=== PATIENT | female | born 1940 | race Caucasian/White ===

== ENCOUNTER → 2017-03-24 11:05 | Outpatient (CLI) | payer MEDICARE, OTHER, SELFPAY ==
--- NOTE | 2017-03-24 11:11 | PCM.CR.ITP ---
Exercise - Initial Assessment - Visit Date of Eval: 03/24/17 - Stages of Change Stages of Change:: Action - Exercise Prescription Mode:: Treadmill, Airdyne, NuStep Angina with exercise?: No Target Heart Rate:: 101-108 - Hypertension Do any of the following apply?: Yes, Medication Resting Blood Pressure:: 120/60 - Intervention Home Exercise/Activity Goal:: Sitting Time <3 hrs/day - Education Goals:: Warm-up, RPE MELIDA Scale, S/S, Safe Exercise, Self-Monitoring - Exercise Program Goals Exercise Program Goals: Aerobic Activity >30 min Nutrition - Initial Assessment - Program Goals Nutrition Program Goals: LDL <70. Total Cholesterol <200. HDL >45. Triglycerides <150. HgbA1C <7%. BMI <25 - Visit Date of Assessment:: 03/24/17 - Stages of Change Stages of Change:: Action - Diabetes Diabetes:: No - Weight Management Height: 5 ft 2 in Weight:: 93.9 kg Body Fat %:: 38 - Intervention Referral to dietitian:: Yes Will attend diet classes:: Yes - Education Gave educational materials for:: Healthy eating Nutrition - 30-Day Assessment - Program Goals Nutrition Program Goals: LDL <70. Total Cholesterol <200. HDL >45. Triglycerides <150. HgbA1C <7%. BMI <25 - Diabetes Diabetes:: No Nutrition - 60-Day Assessment - Program Goals Nutrition Program Goals: LDL <70. Total Cholesterol <200. HDL >45. Triglycerides <150. HgbA1C <7%. BMI <25 - Diabetes Diabetes:: No Nutrition - 90-Day Assessment - Program Goals Nutrition Program Goals: LDL <70. Total Cholesterol <200. HDL >45. Triglycerides <150. HgbA1C <7%. BMI <25 - Diabetes Diabetes:: No Nutrition - Final Assessment - Program Goals Nutrition Program Goals: LDL <70. Total Cholesterol <200. HDL >45. Triglycerides <150. HgbA1C <7%. BMI <25 - Diabetes Diabetes:: No Tobacco - Initial Assessment - Program Goals Tobacco Program Goals: Complete smoking cessation. Attend education classes. Improve Knowledge Test score - Stage of Change Stages of Change:: Action - Learning Barriers Learning Barriers: Vision - Family Support Do you have family support?: Yes - Tobacco Use Tobacco Use: Non-smoker - Former smoker quit at age 21. Do you use smokeless tobacco?: No - Intervention Smoking Cessation Referral:: No Individual Education/Counseling:: No Education Schedule Given:: Yes - Education Gave educational material for:: Coronary artery disease, Risk factors, Sexuality, Medical compliance, Cardiac A&P, Angina signs & symptoms Psychosocial - Initial Assess - Target Goals Target Goals: Assess presence or absence of depression. Using a valid screening tool, maximizes coping skills. Positive support system - Stages of Change Stages of Change:: Action - Psychosocial Test Tool Used:: HANDS Depression Questionnaire - Intervention PS - Interventions: Yes Attend Stress Management Classes, No Referral to Mental Health, No Referral to [facility] Case Management, No Referral to Physician, No Uses Stress Management Skills - Education Gave educational materials for:: Coping techniques, Signs & symptoms of depression, Stress management, Relaxation techniques - Patient/Program Goal Preventative Medication(s):: Aspirin, ROSALVA inhibitor, Clopidogrel, Beta steven, Statin/lipid - Assistive Devices Assistive Devices:: None Fall Risk Assessed:: Yes Patient Health Questionnaire Initial Assessment 1. Little interest or pleasure in doing things: Several days 2. Feeling down, depressed, or hopeless: Not at all 3. Trouble falling or staying asleep, or sleeping too much: Several days 4. Feeling tired or having little energy: Several days 5. Poor appetite or overeating: Several days 6. Feeling bad about yourself -- or that you are a failure or have let yourself or your family down: Not at all 7. Trouble concentrating on things, such as reading the newspaper or watching television: Not at all 8. Moving or speaking so slowly that other people could have noticed. Or the opposite - being so fidgety or restless that you have been moving around a lot more than usual: Not at all 9. Thoughts that you would be better off , or of hurting yourself in some way: Several days How difficult have these problems made it for you to do your work, take care of things at home, or get along with other people?: Not difficult at all Total Score: 5 Knowledge Test - Check your knowledge Initial The #1 cause of in the [place] each year is:: Heart disease Which of the following is a common treatment for heart disease?: All of the above The arteries that feed the heart are called:: Coronary arteries HDL cholesterol is known as the good cholesterol.: True What disease increases your risk for heart disease?: Diabetes What food product raises blood cholesterol level the most?: Saturated fat The bad cholesterol in the blood is called:: LDL Hypertension is another word for:: High blood pressure A blood pressure reading of 148/88 is considered normal.: False Exercise will only benefit your health when your heart rate reaches a target level.: True Total Score:: 9 Self-Efficacy Initial Assessment We would like to know how confident you are in doing certain activities. Please select your confidence level for:: Select your confidence level for the following using the scale 1-10 where 1 is not at all confident and 10 is totally confident. Your score is the average of all 6 responses. Fatigue: How confident are you that you can keep the fatigue caused by your disease from interfering with the things you want to do? Select Number: 5 Physical Discomfort or Pain: How confident are you that you can keep the physical discomfort or pain of your disease from interfering with the things you want to do? Select Number: 5 Emotional Distress: How confident are you that you can keep the emotional distress caused by your disease from interfering with the things you want to do? Select Number: 5 Other Symptoms or Health Problems: How confident are you that you can keep other symptoms or health problems from interfering with the things you want to do? Select Number: 5 Different Tasks and Activities: How confident are you that you can do the different tasks and activities needed to manage your health condition so as to reduce your need to see a doctor? Select Number: 8 Medication: How confident are you that you can do things other than just taking medication to reduce how much your illness affects your everyday life? Select Number: 8 Total Score:: 6 Nutrition Survey - Nutrition Survey Instructions Scoring Instructions: Scoring is as follows: Yes = 1 points. No = 0 point. Patient score that is >/=12 is considered to be at potential nutritional risk and could benefit from a referral to a registered dietitian. - Nutrition Survey Initial Have you lost >10 lbs over the past 2 months without trying?: No Are you following a special diet at home for diabetes, low fat, or low salt?: Yes Are you interested in meeting with a dietitian for help understanding your diet?: Yes Do you eat less than 3 meals a day?: Yes Do you eat fatty meats (zuluaga, sausage, ribs, etc), fried foods, desserts, large amounts of salad dressings, margarine, butter, or cheese most days?: No Do you have food allergies? [Enter types in comment field]: Yes Do you eat in restaurants more than 3 times a week?: Yes Do you season food with salt, seasoning salt, or garlic salt?: No Do you used canned, boxed, frozen meals, or soups, seasoning packets?: No Total Score:: 5 Cardiac Rehabilitation Goals - Cardiac Rehab Goals Cardiac Rehabilitation Goals: 1. Maintain the individual as the primary focus of care. 2. To improve the patient's quality of life. 3. Identification of cardiac risk factors and provide cardiac risk factor management. 4. Enhance the psychosocial status of the patient. 5. Reconditioning enough to allow the patient to resume customary activities. 6. Control symptoms of cardiac disease - Scale Scale for measuring improvement of personal goals: Enter appropriate number in Comments. 2 = Unchanged. 3 = Slightly Better. 4 = Moderate Improvement. 5 = Met my Goal Initial Assessment Personal Goals: 30-day Re-assessment: Improve management of stress and emotions, Improve energy level, Participate in home exercise program, Improve knowledge of cardiac disease, Improve muscle strength and endurance, Improve diet and eating habits (eat healthier), Control risk factors (learn risk factor modification)
--- NOTE | 2017-03-24 11:12 | PCM.CR.HP2 ---
CR - History & Physical - General Arrival date:: 03/24/17 Arrival time:: 11:12 Date of Admission: 03/24/17 Referring Physician: DR. Toan Vazquez Primary Diagnosis: PTCA w/stenting - History of Present Cardiac Event Onset Date: Enter Onset Date of cardiac illnesses in Comment field below PTCA:: Yes - 02/26/2017 Type of Symptoms:: STruggling for about a year w/pneumonia, shortness of breath, came in to have a diagnostic nuclear stress and then a diagnostic heart cath was done. Interventions with present event:: Radial heart cath found 90% blockage moved to [facility]. Were there any complications?: One vagal response drop to 30 HR day after the stent. - Medications Home Medications: Ambulatory Orders Medication Instructions Recorded Albuterol IH (ProAir) [Proair Hfa 1 - 2 puff INHALATION Q4H PRN PRN 02/21/17 (SP)Vent Pts] Clopidogrel Bisulfate [Plavix] 75 mg PO DAILY 02/21/17 Levocetirizine Dihydrochloride 5 mg PO DAILY 02/21/17 [Xyzal] Lorazepam [Ativan] 0.5 mg PO TID PRN PRN 02/21/17 aspirin 81 mg tablet,delayed 81 mg PO QDAY 03/12/17 release atorvastatin 40 mg tablet 40 mg PO QDAY 03/12/17 benazepril 40 mg tablet 40 mg PO QDAY 03/12/17 nitroglycerin 0.4 mg sublingual 0.4 mg SUBLINGUAL Q5-15M PRN 03/12/17 tablet - Allergies Allergies/Adverse Reactions: Allergies Iodinated Contrast- Oral and IV Dye [CONTRASTS] Allergy (Verified 03/02/17 17:26) Unknown NSAIDS (Non-Steroidal Anti-Inflamma Allergy (Verified 03/02/17 17:26) Unknown Penicillins Allergy (Verified 03/02/17 17:26) Unknown - Sleep Disorder Evaluation Hx of Sleep Apnea: Yes Do you snore loudly (louder than talking or can be heard through closed doors)?: Yes - 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 Advanced Directives - Advanced Directives Power of Budget Analyst: No Living Will: No Advance Directives Information Provided: Yes - April 08 working on with erisa attorney. Advance Directives on File: No DNR Order?:: No Past Medical History - Problems and Co-Morbidities Problems & Co-Morbidities: Smoking - former smoker, Dyslipidemia, Obesity, Hypertension, - - vaginal atrophy. - Past Medical Illness Past Medical Illness: Carotid Artery Disease, Arthritis, Lung or Breathing Problems - seasonal allergies and asthma., Back Problems - lubosacral radiculopathy at L5-S1, sciatica of right side. Other Medical Illnesses:: edema in extremeties, chronic foot pain, fibromyalgia. - Past Cardiac Illness Past Cardiac Illness: Ejection Fraction - 70% per echo, Other - abnormal nuclear stress test, unspecified chest pain. - Other Other: Vision/Eye Problems - wears glasses for corrective vision. - Cardiology Procedures/Interventions Cardiology Procedures/Interventions: Angioplasty, PCI w/Stenting, Heart Catheterization, Echocardiogram, Treadmill (Cardiolite) - Past Surgical History Surgical History: - - tubal ligation in 1970s, nasal polypectomy , plantar fasciitis. Review of Systems - Review of Systems Hints: Right click = Denies (Slash). Left click = Reports ([place]) Review of Present Symptoms: Reports: Shortness of Breath with Exertion - just getting off prednisone and antibiotic with upper respiratory infection., Fatigue - associated with fibromyalgia., Appetite - Normal, Appetite - Special Diet - weight watcher diet and lost 25 pounds., Sleep - Normal. 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 - Pulse Pulse Rate: 64 Pulse Rhythm: Regular - Hypertension How long have you been treated?: early age 40s. Blood Pressure Sitting - Right Arm: 120/60 - Diabetes Nutrition Referral for Diabetes: No - Obesity Height: 5 ft 2 in Weight:: 93.9 kg Weight in Pounds: 207.0 lbs Body Mass Index (BMI): 37.8 Nutritional Referral for Obesity: Yes - Physical Inactivity Physical Inactivity: None - rouitine daily activity sucha s housework. Has a recumbent bike at home but has not used it since stent. - Risk Stratification Risk Guidelines: Lowest Risk: Risk Factor for Smoking, Risk Factor for Dyslipidemia, Risk Factor for Diabetes, Risk Factor for Hypertension, Risk Factor for Sedentary Lifestyle, Risk Factor for Depression, Highest Risk: Risk Factor for Obesity - For Smoking Smoking Risk Guidelines: Smoking Low Risk: None or quit greater than 6 months ago. Smoking Moderate Risk: Smoker or quit 6 months or less ago. Smoking High Risk: Smoker - For Dyslipidemia Dyslipidemia Risk Guidelines: Low Risk: Moderate Risk: High Risk: 15-25% fat 25.1-29% fat >/= 30% fat. <7% sat fat 7-9% sat fat >9% sat fat. <150 mg chol 150-299 mg chol >/= 300 mg chol. LDL <100 LDL 100-129 LDL >/= 130. Chol/HDL ratio <5.0 Chol/HDL ratio 5.0-6.0 Chol/HDL ratio >6.0. Triglycerides <100 Triglycerides 100-149 Triglycerides >/= 150 - For Diabetes Mellitus Diabetes Risk Guidelines: Diabetes Low Risk: HgA1c <6.5% and/or FBG <120. Diabetes Moderate Risk: HgA1c 6.6-7.9% and/or FBG 120-180. Diabetes High Risk: HgA1c >/= 8% and/or FBG >180 - For Obesity/Overweight Obesity/Overweight Risk Guidelines: Obesity Low Risk: BMI <25.0. Obesity Moderate Risk: BMI 25-29.9. Obesity High Risk: BMI >/= 30.0 - For Hypertension Hypertension Risk Guidelines: Hypertension Low Risk: Systolic <120 and Diastolic <80. Hypertension Moderate Risk: Systolic 120-139 and Diastolic 80-89. Hypertension High Risk: Systolic >/= 140 and Diastolic >/= 90 - For Sedentary Lifestyle Sedentary Lifestyle Risk Guidelines: Sedentary Lifestyle Low Risk: >/= 1,500 kcal/week. Sedentary Lifestyle Moderate Risk: 700-1,499 kcal/week. Sedentary Lifestyle High Risk: < 700 kcal/week - For Depression Depression Risk Guidelines: Depression Low Risk: Not clinically depressed. Depression Moderate Risk: Mildly depressed. Depression High Risk: Clinically depressed - Family History Family History: Family History (Last Reviewed 03/12/17 @ 09:57 by Toan Vazquez MD) Father CAD (coronary artery disease) Other Heart disease Social History - Smoking History Smoking Status: Former smoker Hx Smoking Cessation Date: Quit smoking age 27. Hx Tobacco Use: Yes Hx Smoking Exposure: No - Alcohol Use Alcohol Usage: Yes - Substance Abuse Hx Substance Use: No - Occupation Occupation (List type of work in comments):: Retired - Hobbies, Recreation, Social Activities Hobbies: Other - 6 grandchildren and activities together; group social seniors for action, Recreational Activities: I am able to engage in all my recreational activities Marital Status - Status Marital Status: - Current Living Arrangements Living Environment:: Spouse - Children How many children do you have?: 4 - 3 live in [facility], 4th in [place], [place]. Do any of your children live nearby?: Yes - Safety Do you feel safe in your surroundings?: Yes - Assistance Do you need any assistance at home?: None
--- NOTE | 2017-03-24 11:22 | CR.HP_ITS ---
CR - History & Physical - General Arrival date:: 03/24/17 Arrival time:: 11:12 Date of Admission: 03/24/17 Referring Physician: DR. Toan Vazquez Primary Diagnosis: PTCA w/stenting - History of Present Cardiac Event Onset Date: Enter Onset Date of cardiac illnesses in Comment field below PTCA:: Yes - 02/26/2017 Type of Symptoms:: STruggling for about a year w/pneumonia, shortness of breath , came in to have a diagnostic nuclear stress and then a diagnostic heart cath was done. Interventions with present event:: Radial heart cath found 90% blockage moved to [facility]. Were there any complications?: One vagal response drop to 30 HR day after the stent. - Medications Home Medications: Ambulatory Orders Medication Instructions Recorded Albuterol IH (ProAir) [Proair Hfa 1 - 2 puff INHALATION Q4H PRN PRN 02/21/17 (SP)Vent Pts] Clopidogrel Bisulfate [Plavix] 75 mg PO DAILY 02/21/17 Levocetirizine Dihydrochloride 5 mg PO DAILY 02/21/17 [Xyzal] Lorazepam [Ativan] 0.5 mg PO TID PRN PRN 02/21/17 aspirin 81 mg tablet,delayed 81 mg PO QDAY 03/12/17 release atorvastatin 40 mg tablet 40 mg PO QDAY 03/12/17 benazepril 40 mg tablet 40 mg PO QDAY 03/12/17 nitroglycerin 0.4 mg sublingual 0.4 mg SUBLINGUAL Q5-15M PRN 03/12/17 tablet - Allergies Allergies/Adverse Reactions: Allergies Iodinated Contrast- Oral and IV Dye [CONTRASTS] Allergy (Verified 03/02/17 17:26 ) Unknown NSAIDS (Non-Steroidal Anti-Inflamma Allergy (Verified 03/02/17 17:26) Unknown Penicillins Allergy (Verified 03/02/17 17:26) Unknown - Sleep Disorder Evaluation Hx of Sleep Apnea: Yes Do you snore loudly (louder than talking or can be heard through closed doors)? 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 Advanced Directives - Advanced Directives Power of Material Damage Adjuster: No Living Will: No Advance Directives Information Provided: Yes - April 08 working on with trademark attorney. Advance Directives on File: No DNR Order?:: No Past Medical History - Problems and Co-Morbidities Problems & Co-Morbidities: Smoking - former smoker, Dyslipidemia, Obesity, Hypertension, - - vaginal atrophy. - Past Medical Illness Past Medical Illness: Carotid Artery Disease, Arthritis, Lung or Breathing Problems - seasonal allergies and asthma., Back Problems - lubosacral radiculopathy at L5-S1, sciatica of right side. Other Medical Illnesses:: edema in extremeties, chronic foot pain, fibromyalgia. - Past Cardiac Illness Past Cardiac Illness: Ejection Fraction - 70% per echo, Other - abnormal nuclear stress test, unspecified chest pain. - Other Other: Vision/Eye Problems - wears glasses for corrective vision. - Cardiology Procedures/Interventions Cardiology Procedures/Interventions: Angioplasty, PCI w/Stenting, Heart Catheterization, Echocardiogram, Treadmill (Cardiolite) - Past Surgical History Surgical History: - - tubal ligation in 1970s, nasal polypectomy , plantar fasciitis. Review of Systems - Review of Systems Hints: Right click = Denies (Slash). Left click = Reports ([place]) Review of Present Symptoms: Reports: Shortness of Breath with Exertion - just getting off prednisone and antibiotic with upper respiratory infection., Fatigue - associated with fibromyalgia., Appetite - Normal, Appetite - Special Diet - weight watcher diet and lost 25 pounds., Sleep - Normal. 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 - Pulse Pulse Rate: 64 Pulse Rhythm: Regular - Hypertension How long have you been treated?: early age 40s. Blood Pressure Sitting - Right Arm: 120/60 - Diabetes Nutrition Referral for Diabetes: No - Obesity Height: 5 ft 2 in Weight:: 93.9 kg Weight in Pounds: 207.0 lbs Body Mass Index (BMI): 37.8 Nutritional Referral for Obesity: Yes - Physical Inactivity Physical Inactivity: None - rouitine daily activity sucha s housework. Has a recumbent bike at home but has not used it since stent. - Risk Stratification Risk Guidelines: Lowest Risk: Risk Factor for Smoking, Risk Factor for Dyslipidemia, Risk Factor for Diabetes, Risk Factor for Hypertension, Risk Factor for Sedentary Lifestyle, Risk Factor for Depression, Highest Risk: Risk Factor for Obesity - For Smoking Smoking Risk Guidelines: Smoking Low Risk: None or quit greater than 6 months ago. Smoking Moderate Risk: Smoker or quit 6 months or less ago. Smoking High Risk: Smoker - For Dyslipidemia Dyslipidemia Risk Guidelines: Low Risk: Moderate Risk: High Risk: 15-25% fat 25.1-29% fat >/= 30% fat. <7% sat fat 7-9% sat fat >9% sat fat. <150 mg chol 150-299 mg chol >/= 300 mg chol. LDL <100 LDL 100-129 LDL >/= 130. Chol/HDL ratio <5.0 Chol/HDL ratio 5.0-6.0 Chol/HDL ratio >6.0. Triglycerides <100 Triglycerides 100-149 Triglycerides >/= 150 - For Diabetes Mellitus Diabetes Risk Guidelines: Diabetes Low Risk: HgA1c <6.5% and/or FBG <120. Diabetes Moderate Risk: HgA1c 6.6-7.9% and/or FBG 120-180. Diabetes High Risk: HgA1c >/= 8% and/or FBG >180 - For Obesity/Overweight Obesity/Overweight Risk Guidelines: Obesity Low Risk: BMI <25.0. Obesity Moderate Risk: BMI 25-29.9. Obesity High Risk: BMI >/= 30.0 - For Hypertension Hypertension Risk Guidelines: Hypertension Low Risk: Systolic <120 and Diastolic <80. Hypertension Moderate Risk: Systolic 120-139 and Diastolic 80-89. Hypertension High Risk: Systolic >/= 140 and Diastolic >/= 90 - For Sedentary Lifestyle Sedentary Lifestyle Risk Guidelines: Sedentary Lifestyle Low Risk: >/= 1 ,500 kcal/week. Sedentary Lifestyle Moderate Risk: 700-1,499 kcal/week. Sedentary Lifestyle High Risk: < 700 kcal/week - For Depression Depression Risk Guidelines: Depression Low Risk: Not clinically depressed. Depression Moderate Risk: Mildly depressed. Depression High Risk: Clinically depressed - Family History Family History: Family History (Last Reviewed 03/12/17 @ 09:57 by Toan Vazquez MD) Father CAD (coronary artery disease) Other Heart disease Social History - Smoking History Smoking Status: Former smoker Hx Smoking Cessation Date: Quit smoking age 27. Hx Tobacco Use: Yes Hx Smoking Exposure: No - Alcohol Use Alcohol Usage: Yes - Substance Abuse Hx Substance Use: No - Occupation Occupation (List type of work in comments):: Retired - Hobbies, Recreation, Social Activities Hobbies: Other - 6 grandchildren and activities together; group social seniors for action, Recreational Activities: I am able to engage in all my recreational activities Marital Status - Status Marital Status: - Current Living Arrangements Living Environment:: Spouse - Children How many children do you have?: 4 - 3 live in [facility], 4th in [place], [place]. Do any of your children live nearby?: Yes - Safety Do you feel safe in your surroundings?: Yes - Assistance Do you need any assistance at home?: None
[2017-03-24 11:38] VITALS: BP 120/60; PULSE 64; BMI 37.8
[2017-03-24 12:27] VITALS: BP 120/60
== END ==
PROVIDERS: Family Provider Family Medicine; PCP Family Medicine; Visit Provider Internal Medicine Cardiovascular Disease
DX: Z95.5 Presence of coronary angioplasty implant and graft (principal)

== ENCOUNTER 2017-04-22 10:15 | Outpatient (RCR) | payer MEDICARE, OTHER, SELFPAY ==
--- NOTE | 2017-04-22 13:07 | PCM.CR.ITP ---
Exercise - Initial Assessment - Stages of Change Stages of Change:: Action - Exercise Prescription Mode:: Treadmill, Airdyne, NuStep Angina with exercise?: No Target Heart Rate:: 101-108 - Hypertension Do any of the following apply?: Yes, Medication - Intervention Home Exercise/Activity Goal:: Sitting Time <3 hrs/day - Education Goals:: Warm-up, RPE MELIDA Scale, S/S, Safe Exercise, Self-Monitoring - Exercise Program Goals Exercise Program Goals: Aerobic Activity >30 min Exercise - 30-day Assessment - Visit Date of Eval: 04/22/17 Session #:: 13 - Stages of Change Stages of Change:: Action - Exercise Prescription Mode:: Treadmill, Biodyne, Airdyne, NuStep Frequency (x/week): 3 Duration:: 30 METs - Progression: 0.5-1 MET as tolerated: 3.5 Target Heart Rate:: 108-116 - Hypertension Resting Blood Pressure:: 130/62 Peak Exercise Blood Pressure:: 166/74 Medication Changes:: No - Intervention Home Exercise/Activity Goal:: Moderate Exercise 30 min/day x 5 days/wk - Education Goals:: Warm-up, RPE MELIDA Scale, S/S, Safe Exercise, Self-Monitoring - Exercise Program Goals Exercise Program Goals: Aerobic Activity >30 min Exercise - Final/Discharge - Hypertension Do any of the following apply?: Yes, Medication Nutrition - Initial Assessment - Program Goals Nutrition Program Goals: LDL <70. Total Cholesterol <200. HDL >45. Triglycerides <150. HgbA1C <7%. BMI <25 - Stages of Change Stages of Change:: Action - Diabetes Diabetes:: No - Weight Management Body Fat %:: 38 - Intervention Referral to dietitian:: Yes Will attend diet classes:: Yes - Education Gave educational materials for:: Healthy eating Nutrition - 30-Day Assessment - Program Goals Nutrition Program Goals: LDL <70. Total Cholesterol <200. HDL >45. Triglycerides <150. HgbA1C <7%. BMI <25 - Visit Date of Eval: 04/22/17 - Stages of Change Stages of Change:: Action - Lipids Has the patient seen the dietitian?: No - Diabetes Diabetes:: No - Weight Management Weight:: 93.44 kg - stable, no change - Intervention Referral to dietitian:: Yes Will attend diet classes:: Yes - Education Attended class for:: Healthy eating Nutrition - 60-Day Assessment - Program Goals Nutrition Program Goals: LDL <70. Total Cholesterol <200. HDL >45. Triglycerides <150. HgbA1C <7%. BMI <25 - Diabetes Diabetes:: No - Intervention Referral to dietitian:: Yes Will attend diet classes:: Yes - Education Attended class for:: Healthy eating Nutrition - 90-Day Assessment - Program Goals Nutrition Program Goals: LDL <70. Total Cholesterol <200. HDL >45. Triglycerides <150. HgbA1C <7%. BMI <25 - Diabetes Diabetes:: No - Intervention Referral to dietitian:: Yes Will attend diet classes:: Yes - Education Attended class for:: Healthy eating Nutrition - Final Assessment - Program Goals Nutrition Program Goals: LDL <70. Total Cholesterol <200. HDL >45. Triglycerides <150. HgbA1C <7%. BMI <25 - Diabetes Diabetes:: No - Weight Management Body Fat %:: 38 - Intervention Referral to dietitian:: Yes Will attend diet classes:: Yes Tobacco - Initial Assessment - Program Goals Tobacco Program Goals: Complete smoking cessation. Attend education classes. Improve Knowledge Test score - Stage of Change Stages of Change:: Action - Learning Barriers Learning Barriers: Vision - Family Support Do you have family support?: Yes - Tobacco Use Tobacco Use: Non-smoker - Former smoker quit at age 21. Do you use smokeless tobacco?: No - Intervention Smoking Cessation Referral:: No Individual Education/Counseling:: No Education Schedule Given:: Yes - Education Gave educational material for:: Coronary artery disease, Risk factors, Sexuality, Medical compliance, Cardiac A&P, Angina signs & symptoms Tobacco - 30-Day Assessment - Program Goals Tobacco Program Goals: Complete smoking cessation. Attend education classes. Improve Knowledge Test score - Stage of Change Stages of Change:: Action - Learning Barriers Learning Barriers: Participates in education - Family Support Do you have family support?: Yes - Tobacco Use Tobacco Use: Non-smoker Do you use smokeless tobacco?: No - Intervention Smoking Cessation Referral:: No Individual Education/Counseling:: No Education Schedule Given:: Yes - Education Attended class for:: Coronary artery disease, Risk factors, Sexuality, Medical compliance, Cardiac A&P, Angina signs & symptoms Tobacco - 60-Day Assessment - Program Goals Tobacco Program Goals: Complete smoking cessation. Attend education classes. Improve Knowledge Test score - Family Support Do you have family support?: Yes - Tobacco Use Do you use smokeless tobacco?: No - Intervention Smoking Cessation Referral:: No Individual Education/Counseling:: No Education Schedule Given:: Yes - Education Attended class for:: Coronary artery disease, Risk factors, Sexuality, Medical compliance, Cardiac A&P, Angina signs & symptoms Tobacco - 90-Day Assessment - Program Goals Tobacco Program Goals: Complete smoking cessation. Attend education classes. Improve Knowledge Test score - Family Support Do you have family support?: Yes - Tobacco Use Do you use smokeless tobacco?: No - Intervention Smoking Cessation Referral:: No Individual Education/Counseling:: No Education Schedule Given:: Yes - Education Attended class for:: Coronary artery disease, Risk factors, Sexuality, Medical compliance, Cardiac A&P, Angina signs & symptoms Tobacco - Final Assessment - Program Goals Tobacco Program Goals: Complete smoking cessation. Attend education classes. Improve Knowledge Test score - Family Support Do you have family support?: Yes - Tobacco Use Do you use smokeless tobacco?: No - Intervention Smoking Cessation Referral:: No Individual Education/Counseling:: No Education Schedule Given:: Yes Psychosocial - Initial Assess - Target Goals Target Goals: Assess presence or absence of depression. Using a valid screening tool, maximizes coping skills. Positive support system - Stages of Change Stages of Change:: Action - Psychosocial Test Tool Used:: HANDS Depression Questionnaire - Intervention PS - Interventions: Yes Attend Stress Management Classes, No Referral to Mental Health, No Referral to [facility] Case Management, No Referral to Physician, No Uses Stress Management Skills - Education Gave educational materials for:: Coping techniques, Signs & symptoms of depression, Stress management, Relaxation techniques - Patient/Program Goal Preventative Medication(s):: Aspirin, ROSALVA inhibitor, Clopidogrel, Beta steven, Statin/lipid - Assistive Devices Assistive Devices:: None Fall Risk Assessed:: Yes Psychosocial - 30-Day Assess - Target Goals Target Goals: Assess presence or absence of depression. Using a valid screening tool, maximizes coping skills. Positive support system - Stages of Change Stages of Change:: Action - Psychosocial Test Tool Used:: HANDS Depression Questionnaire - Intervention PS - Interventions: Yes Attend Stress Management Classes, No Referral to Mental Health, No Referral to [facility] Case Management, No Referral to Physician, No Uses Stress Management Skills - Education Attended classes for:: Coping techniques, Signs & symptoms of depression, Stress management, Relaxation techniques - Patient/Program Goal Preventative Medication(s):: Aspirin, ROSALVA inhibitor, Clopidogrel, Beta steven, Statin/lipid - Assistive Devices Assistive Devices:: None Fall Risk Assessed:: Yes Psychosocial - 60-Day Assess - Target Goals Target Goals: Assess presence or absence of depression. Using a valid screening tool, maximizes coping skills. Positive support system - Psychosocial Test Tool Used:: HANDS Depression Questionnaire - Education Attended classes for:: Coping techniques, Signs & symptoms of depression, Stress management, Relaxation techniques - Patient/Program Goal Preventative Medication(s):: Aspirin, ROSALVA inhibitor, Clopidogrel, Beta steven, Statin/lipid - Assistive Devices Assistive Devices:: None Fall Risk Assessed:: Yes Psychosocial - 90-Day Assess - Target Goals Target Goals: Assess presence or absence of depression. Using a valid screening tool, maximizes coping skills. Positive support system - Psychosocial Test Tool Used:: HANDS Depression Questionnaire - Education Attended classes for:: Coping techniques, Signs & symptoms of depression, Stress management, Relaxation techniques - Patient/Program Goal Preventative Medication(s):: Aspirin, ROSALVA inhibitor, Clopidogrel, Beta steven, Statin/lipid - Assistive Devices Assistive Devices:: None Fall Risk Assessed:: Yes Psychosocial - Final Assessmen - Target Goals Target Goals: Assess presence or absence of depression. Using a valid screening tool, maximizes coping skills. Positive support system - Psychosocial Test Tool Used:: HANDS Depression Questionnaire - Patient/Program Goal Preventative Medication(s):: Aspirin, ROSALVA inhibitor, Clopidogrel, Beta steven, Statin/lipid - Assistive Devices Assistive Devices:: None Fall Risk Assessed:: Yes Patient Health Questionnaire 30-Day Re-eval Assessment 1. Little interest or pleasure in doing things: Not at all 2. Feeling down, depressed, or hopeless: Not at all 3. Trouble falling or staying asleep, or sleeping too much: Several days 4. Feeling tired or having little energy: Several days 5. Poor appetite or overeating: Not at all 6. Feeling bad about yourself -- or that you are a failure or have let yourself or your family down: Not at all 7. Trouble concentrating on things, such as reading the newspaper or watching television: Not at all 8. Moving or speaking so slowly that other people could have noticed. Or the opposite - being so fidgety or restless that you have been moving around a lot more than usual: Not at all 9. Thoughts that you would be better off , or of hurting yourself in some way: Not at all How difficult have these problems made it for you to do your work, take care of things at home, or get along with other people?: Not difficult at all Total Score: 2 Self-Efficacy 30-Day Re-eval Assessment We would like to know how confident you are in doing certain activities. Please select your confidence level for:: Select your confidence level for the following using the scale 1-10 where 1 is not at all confident and 10 is totally confident. Your score is the average of all 6 responses. Fatigue: How confident are you that you can keep the fatigue caused by your disease from interfering with the things you want to do? Select Number: 6 Physical Discomfort or Pain: How confident are you that you can keep the physical discomfort or pain of your disease from interfering with the things you want to do? Select Number: 6 Emotional Distress: How confident are you that you can keep the emotional distress caused by your disease from interfering with the things you want to do? Select Number: 6 Other Symptoms or Health Problems: How confident are you that you can keep other symptoms or health problems from interfering with the things you want to do? Select Number: 6 Different Tasks and Activities: How confident are you that you can do the different tasks and activities needed to manage your health condition so as to reduce your need to see a doctor? Select Number: 9 Medication: How confident are you that you can do things other than just taking medication to reduce how much your illness affects your everyday life? Select Number: 9 Total Score:: 7 Cardiac Rehabilitation Goals - Cardiac Rehab Goals Cardiac Rehabilitation Goals: 1. Maintain the individual as the primary focus of care. 2. To improve the patient's quality of life. 3. Identification of cardiac risk factors and provide cardiac risk factor management. 4. Enhance the psychosocial status of the patient. 5. Reconditioning enough to allow the patient to resume customary activities. 6. Control symptoms of cardiac disease - Scale Scale for measuring improvement of personal goals: Enter appropriate number in Comments. 2 = Unchanged. 3 = Slightly Better. 4 = Moderate Improvement. 5 = Met my Goal 30-Day Re-eval Assessment Personal Goals: 30-day Re-assessment: Improve management of stress and emotions - slight improvement, Improve energy level - improved, Participate in home exercise program - slight improvement, Get back to work, or to resume activities faster, Improve knowledge of cardiac disease - ongoing process, Improve muscle strength and endurance - improved, Improve diet and eating habits (eat healthier) - slight improvement, Control risk factors (learn risk factor modification) - learning more
[2017-04-22 13:12] VITALS: BP 130/62; BP 166/74
== END 2017-04-22 23:59 ==
LOC: CR 10:15
PROVIDERS: Family Provider Family Medicine; PCP Family Medicine; Visit Provider Internal Medicine Cardiovascular Disease
DX: Z95.5 Presence of coronary angioplasty implant and graft (principal)
CPT/HCPCS: 93798

== ENCOUNTER 2017-05-20 10:15 | Outpatient (RCR) | payer MEDICARE, OTHER, SELFPAY ==
[2017-03-12 09:40] VITALS: BP 120/50
[2017-03-24 11:38] VITALS: BMI 37.8
[2017-04-23 01:00] VITALS: BP 130/62; BP 166/74
[2017-05-19 09:48] VITALS: BP 140/60; BP 150/80
--- NOTE | 2017-05-19 09:48 | CR.ITP_ITS ---
Exercise - Initial Assessment - Stages of Change Stages of Change:: Action - Exercise Prescription Mode:: Treadmill, Airdyne, NuStep Angina with exercise?: No Target Heart Rate:: 101-108 - Hypertension Do any of the following apply?: Yes, Medication - Intervention Home Exercise/Activity Goal:: Sitting Time <3 hrs/day - Education Goals:: Warm-up, RPE MELIDA Scale, S/S, Safe Exercise, Self-Monitoring - Exercise Program Goals Exercise Program Goals: Aerobic Activity >30 min Exercise - 30-day Assessment - Visit Date of Eval: 04/22/17 - Stages of Change Stages of Change:: Action - Exercise Prescription Mode:: Treadmill, Biodyne, Airdyne, NuStep Frequency (x/week): 3 Duration:: 30 METs - Progression: 0.5-1 MET as tolerated: 3.5 Target Heart Rate:: 108-116 - Intervention Home Exercise/Activity Goal:: Moderate Exercise 30 min/day x 5 days/wk - Education Goals:: Warm-up, RPE MELIDA Scale, S/S, Safe Exercise, Self-Monitoring - Exercise Program Goals Exercise Program Goals: Aerobic Activity >30 min Exercise - 60-Day Assessment - Visit Date of Eval: 05/19/17 Session #:: 23 - Stages of Change Stages of Change:: Action - Exercise Prescription Mode:: Treadmill, Biodyne, Airdyne, NuStep Frequency (x/week): 3 Duration:: 30 METs: 4 Target Heart Rate:: 108-116 w/ max HR 130 - Hypertension Resting Blood Pressure:: 140/60 Peak Exercise Blood Pressure:: 150/80 Medication Changes:: No - Intervention Home Exercise/Activity Goal:: Moderate Exercise 30 min/day x 5 days/wk - Education Goals:: Warm-up, RPE MELIDA Scale, S/S, Safe Exercise, Self-Monitoring - Exercise Program Goals Exercise Program Goals: Aerobic Activity >30 min Exercise - Final/Discharge - Hypertension Do any of the following apply?: Yes, Medication Nutrition - Initial Assessment - Program Goals Nutrition Program Goals: LDL <70. Total Cholesterol <200. HDL >45. Triglycerides <150. HgbA1C <7%. BMI <25 - Stages of Change Stages of Change:: Action - Diabetes Diabetes:: No - Weight Management Body Fat %:: 38 Total Score:: 5 - Intervention Referral to dietitian:: Yes Will attend diet classes:: Yes - Education Gave educational materials for:: Healthy eating Nutrition - 30-Day Assessment - Program Goals Nutrition Program Goals: LDL <70. Total Cholesterol <200. HDL >45. Triglycerides <150. HgbA1C <7%. BMI <25 - Stages of Change Stages of Change:: Action - Lipids Has the patient seen the dietitian?: No - Diabetes Diabetes:: No - Intervention Referral to dietitian:: Yes Will attend diet classes:: Yes - Education Attended class for:: Healthy eating Nutrition - 60-Day Assessment - Program Goals Nutrition Program Goals: LDL <70. Total Cholesterol <200. HDL >45. Triglycerides <150. HgbA1C <7%. BMI <25 - Visit Date of Eval: 05/19/17 - Stages of Change Stages of Change:: Action - Lipids Has the patient seen the dietitian?: No - Diabetes Diabetes:: No - Weight Management Weight:: 92.533 kg - Intervention Referral to dietitian:: Yes - structured weight loss program Referral to Diabetic Clinic:: No Will attend diet classes:: Yes - Education Attended class for:: Healthy eating Nutrition - 90-Day Assessment - Program Goals Nutrition Program Goals: LDL <70. Total Cholesterol <200. HDL >45. Triglycerides <150. HgbA1C <7%. BMI <25 - Lipids Has the patient seen the dietitian?: No - Diabetes Diabetes:: No - Intervention Referral to dietitian:: Yes Will attend diet classes:: Yes - Education Attended class for:: Healthy eating Nutrition - Final Assessment - Program Goals Nutrition Program Goals: LDL <70. Total Cholesterol <200. HDL >45. Triglycerides <150. HgbA1C <7%. BMI <25 - Diabetes Diabetes:: No - Weight Management Body Fat %:: 38 Total Score:: 5 - Intervention Referral to dietitian:: Yes Will attend diet classes:: Yes Tobacco - Initial Assessment - Program Goals Tobacco Program Goals: Complete smoking cessation. Attend education classes. Improve Knowledge Test score - Stage of Change Stages of Change:: Action - Learning Barriers Learning Barriers: Vision Total Score:: 9 - Family Support Do you have family support?: Yes - Tobacco Use Tobacco Use: Non-smoker - Former smoker quit at age 21. Do you use smokeless tobacco?: No - Intervention Smoking Cessation Referral:: No Individual Education/Counseling:: No Education Schedule Given:: Yes - Education Gave educational material for:: Coronary artery disease, Risk factors, Sexuality , Medical compliance, Cardiac A&P, Angina signs & symptoms Tobacco - 30-Day Assessment - Program Goals Tobacco Program Goals: Complete smoking cessation. Attend education classes. Improve Knowledge Test score - Stage of Change Stages of Change:: Action - Learning Barriers Learning Barriers: Participates in education - Family Support Do you have family support?: Yes - Tobacco Use Tobacco Use: Non-smoker Do you use smokeless tobacco?: No - Intervention Smoking Cessation Referral:: No Individual Education/Counseling:: No Education Schedule Given:: Yes - Education Attended class for:: Coronary artery disease, Risk factors, Sexuality, Medical compliance, Cardiac A&P, Angina signs & symptoms Tobacco - 60-Day Assessment - Program Goals Tobacco Program Goals: Complete smoking cessation. Attend education classes. Improve Knowledge Test score - Stage of Change Stages of Change:: Action - Learning Barriers Learning Barriers: Participates in education - Family Support Do you have family support?: Yes - Tobacco Use Tobacco Use: Non-smoker Do you use smokeless tobacco?: No - Intervention Smoking Cessation Referral:: No Individual Education/Counseling:: No Education Schedule Given:: Yes - Education Attended class for:: Coronary artery disease, Risk factors, Sexuality, Medical compliance, Cardiac A&P, Angina signs & symptoms Tobacco - 90-Day Assessment - Program Goals Tobacco Program Goals: Complete smoking cessation. Attend education classes. Improve Knowledge Test score - Family Support Do you have family support?: Yes - Tobacco Use Tobacco Use: Non-smoker Do you use smokeless tobacco?: No - Intervention Smoking Cessation Referral:: No Individual Education/Counseling:: No Education Schedule Given:: Yes - Education Attended class for:: Coronary artery disease, Risk factors, Sexuality, Medical compliance, Cardiac A&P, Angina signs & symptoms Tobacco - Final Assessment - Program Goals Tobacco Program Goals: Complete smoking cessation. Attend education classes. Improve Knowledge Test score - Learning Barriers Cardiac Knowledge Test Score:: 9 - Family Support Do you have family support?: Yes - Tobacco Use Tobacco Use: Non-smoker Do you use smokeless tobacco?: No - Intervention Smoking Cessation Referral:: No Individual Education/Counseling:: No Education Schedule Given:: Yes Psychosocial - Initial Assess - Target Goals Target Goals: Assess presence or absence of depression. Using a valid screening tool, maximizes coping skills. Positive support system - Stages of Change Stages of Change:: Action - Psychosocial Test Tool Used:: HANDS Depression Questionnaire Self-Efficacy Score:: 7 - Education Gave educational materials for:: Coping techniques, Signs & symptoms of depression, Stress management, Relaxation techniques - Patient/Program Goal Preventative Medication(s):: Aspirin, ROSALVA inhibitor, Clopidogrel, Beta steven, Statin/lipid - Assistive Devices Assistive Devices:: None Fall Risk Assessed:: Yes Psychosocial - 30-Day Assess - Target Goals Target Goals: Assess presence or absence of depression. Using a valid screening tool, maximizes coping skills. Positive support system - Stages of Change Stages of Change:: Action - Psychosocial Test Tool Used:: HANDS Depression Questionnaire Self-Efficacy Score:: 7 - Patient/Program Goal Preventative Medication(s):: Aspirin, ROSALVA inhibitor, Clopidogrel, Beta steven, Statin/lipid - Assistive Devices Assistive Devices:: None Fall Risk Assessed:: Yes Psychosocial - 60-Day Assess - Target Goals Target Goals: Assess presence or absence of depression. Using a valid screening tool, maximizes coping skills. Positive support system - Stages of Change Stages of Change:: Action - Psychosocial Test Tool Used:: HANDS Depression Questionnaire Self-Efficacy Score:: 7 - Intervention PS - Interventions: Yes Attend Stress Management Classes, Yes Uses Stress Management Skills, No Referral to Mental Health, No Referral to [facility] Case Management, No Referral to Physician - Education Attended classes for:: Coping techniques, Signs & symptoms of depression, Stress management, Relaxation techniques - Patient/Program Goal Preventative Medication(s):: Aspirin, ROSALVA inhibitor, Clopidogrel, Beta steven, Statin/lipid - Assistive Devices Assistive Devices:: None Fall Risk Assessed:: Yes Psychosocial - 90-Day Assess - Target Goals Target Goals: Assess presence or absence of depression. Using a valid screening tool, maximizes coping skills. Positive support system - Psychosocial Test Tool Used:: HANDS Depression Questionnaire Self-Efficacy Score:: 7 - Education Attended classes for:: Coping techniques, Signs & symptoms of depression, Stress management, Relaxation techniques - Patient/Program Goal Preventative Medication(s):: Aspirin, ROSALVA inhibitor, Clopidogrel, Beta steven, Statin/lipid - Assistive Devices Assistive Devices:: None Fall Risk Assessed:: Yes Psychosocial - Final Assessmen - Target Goals Target Goals: Assess presence or absence of depression. Using a valid screening tool, maximizes coping skills. Positive support system - Psychosocial Test Tool Used:: HANDS Depression Questionnaire Self-Efficacy Score:: 7 - Patient/Program Goal Preventative Medication(s):: Aspirin, ROSALVA inhibitor, Clopidogrel, Beta steven, Statin/lipid - Assistive Devices Assistive Devices:: None Fall Risk Assessed:: Yes Patient Health Questionnaire 60-Day Re-eval Assessment 1. Little interest or pleasure in doing things: Not at all 2. Feeling down, depressed, or hopeless: Not at all 3. Trouble falling or staying asleep, or sleeping too much: Not at all 4. Feeling tired or having little energy: Not at all 5. Poor appetite or overeating: Not at all 6. Feeling bad about yourself -- or that you are a failure or have let yourself or your family down: Not at all 7. Trouble concentrating on things, such as reading the newspaper or watching television: Not at all 8. Moving or speaking so slowly that other people could have noticed. Or the opposite - being so fidgety or restless that you have been moving around a lot more than usual: Not at all 9. Thoughts that you would be better off , or of hurting yourself in some way: Not at all Total Score: 0 Self-Efficacy 60-Day Re-eval Assessment We would like to know how confident you are in doing certain activities. Please select your confidence level for:: Select your confidence level for the following using the scale 1-10 where 1 is not at all confident and 10 is totally confident. Your score is the average of all 6 responses. Fatigue: How confident are you that you can keep the fatigue caused by your disease from interfering with the things you want to do? Select Number: 9 Physical Discomfort or Pain: How confident are you that you can keep the physical discomfort or pain of your disease from interfering with the things you want to do? Select Number: 9 Emotional Distress: How confident are you that you can keep the emotional distress caused by your disease from interfering with the things you want to do? Select Number: 9 Other Symptoms or Health Problems: How confident are you that you can keep other symptoms or health problems from interfering with the things you want to do? Select Number: 9 Different Tasks and Activities: How confident are you that you can do the different tasks and activities needed to manage your health condition so as to reduce your need to see a doctor? Select Number: 10 Medication: How confident are you that you can do things other than just taking medication to reduce how much your illness affects your everyday life? Select Number: 10 Total Score:: 9
== END 2017-05-20 23:59 ==
LOC: CR 10:15
PROVIDERS: Family Provider Family Medicine; PCP Family Medicine; Visit Provider Internal Medicine Cardiovascular Disease
DX: Z95.5 Presence of coronary angioplasty implant and graft (principal)
CPT/HCPCS: 93798

== ENCOUNTER 2017-06-17 10:15 | Outpatient (RCR) | payer MEDICARE, OTHER, SELFPAY ==
[2017-05-21 00:47] VITALS: BP 140/60; BP 150/80
[2017-06-15 14:36] VITALS: BP 122/64; BP 146/82
--- NOTE | 2017-06-15 14:37 | CR.ITP_ITS ---
Exercise - Initial Assessment - Stages of Change Stages of Change:: Action - Exercise Prescription Mode:: Treadmill, Biodyne, Airdyne, NuStep Angina with exercise?: No Target Heart Rate:: 101-108 - Hypertension Do any of the following apply?: Yes, Medication - Intervention Home Exercise/Activity Goal:: Sitting Time <3 hrs/day - Education Goals:: Warm-up, RPE MELIDA Scale, S/S, Safe Exercise, Self-Monitoring - Exercise Program Goals Exercise Program Goals: Aerobic Activity >30 min Exercise - 30-day Assessment - Stages of Change Stages of Change:: Action - Exercise Prescription Mode:: Treadmill, Biodyne, Airdyne, NuStep Frequency (x/week): 3 Duration:: 30 METs - Progression: 0.5-1 MET as tolerated: 3.5 Target Heart Rate:: 108-116 - Intervention Home Exercise/Activity Goal:: Moderate Exercise 30 min/day x 5 days/wk - Education Goals:: Warm-up, RPE MELIDA Scale, S/S, Safe Exercise, Self-Monitoring - Exercise Program Goals Exercise Program Goals: Aerobic Activity >30 min Exercise - 60-Day Assessment - Visit Date of Eval: 05/19/17 - Stages of Change Stages of Change:: Action - Exercise Prescription Mode:: Treadmill, Biodyne, Airdyne, NuStep Frequency (x/week): 3 Duration:: 30 METs: 4 Target Heart Rate:: 108-116 w/ max HR 130 - Hypertension Medication Changes:: No - Intervention Home Exercise/Activity Goal:: Moderate Exercise 30 min/day x 5 days/wk - Education Goals:: Warm-up, RPE MELIDA Scale, S/S, Safe Exercise, Self-Monitoring - Exercise Program Goals Exercise Program Goals: Aerobic Activity >30 min Exercise - 90-Day Assessment - Visit Date of Eval: 06/15/17 - 05/15/2017-06/12/2017 Session #:: 34 - Stages of Change Stages of Change:: Action - Exercise Prescription Mode:: Treadmill, Biodyne, Airdyne, NuStep Frequency (x/week): 3 Duration:: 30 METs: 4 Target Heart Rate:: 108-116 w/ max HR 120 - Hypertension Resting Blood Pressure:: 122/64 Peak Exercise Blood Pressure:: 146/82 Medication Changes:: No - Intervention Home Exercise/Activity Goal:: Moderate Exercise 30 min/day x 5 days/wk - Education Goals:: Warm-up, RPE MELIDA Scale, S/S, Safe Exercise, Self-Monitoring - Exercise Program Goals Exercise Program Goals: Aerobic Activity >30 min Exercise - Final/Discharge - Hypertension Do any of the following apply?: Yes, Medication Nutrition - Initial Assessment - Program Goals Nutrition Program Goals: LDL <70. Total Cholesterol <200. HDL >45. Triglycerides <150. HgbA1C <7%. BMI <25 - Stages of Change Stages of Change:: Action - Diabetes Diabetes:: No - Weight Management Body Fat %:: 38 Total Score:: 5 - Intervention Referral to dietitian:: Yes Referral to Diabetic Clinic:: No Will attend diet classes:: Yes - Education Gave educational materials for:: Healthy eating Nutrition - 30-Day Assessment - Program Goals Nutrition Program Goals: LDL <70. Total Cholesterol <200. HDL >45. Triglycerides <150. HgbA1C <7%. BMI <25 - Stages of Change Stages of Change:: Action - Lipids Has the patient seen the dietitian?: No - Diabetes Diabetes:: No - Intervention Referral to dietitian:: Yes Referral to Diabetic Clinic:: No Will attend diet classes:: Yes - Education Attended class for:: Healthy eating Nutrition - 60-Day Assessment - Program Goals Nutrition Program Goals: LDL <70. Total Cholesterol <200. HDL >45. Triglycerides <150. HgbA1C <7%. BMI <25 - Visit Date of Eval: 05/19/17 - Stages of Change Stages of Change:: Action - Lipids Has the patient seen the dietitian?: No - Diabetes Diabetes:: No - Intervention Referral to dietitian:: Yes Referral to Diabetic Clinic:: No Will attend diet classes:: Yes - Education Attended class for:: Healthy eating Nutrition - 90-Day Assessment - Program Goals Nutrition Program Goals: LDL <70. Total Cholesterol <200. HDL >45. Triglycerides <150. HgbA1C <7%. BMI <25 - Visit Date of Eval: 06/15/17 - 05/15/2017-06/12/2017 - Stages of Change Stages of Change:: Action - Lipids Has the patient seen the dietitian?: No - Diabetes Diabetes:: No - Weight Management Weight:: 92.306 kg - Intervention Referral to dietitian:: Yes Referral to Diabetic Clinic:: No Will attend diet classes:: Yes - Education Attended class for:: Healthy eating Nutrition - Final Assessment - Program Goals Nutrition Program Goals: LDL <70. Total Cholesterol <200. HDL >45. Triglycerides <150. HgbA1C <7%. BMI <25 - Diabetes Diabetes:: No - Weight Management Body Fat %:: 38 Total Score:: 5 - Intervention Referral to dietitian:: Yes Referral to Diabetic Clinic:: No Will attend diet classes:: Yes Tobacco - Initial Assessment - Program Goals Tobacco Program Goals: Complete smoking cessation. Attend education classes. Improve Knowledge Test score - Stage of Change Stages of Change:: Action - Learning Barriers Learning Barriers: Vision Total Score:: 9 - Family Support Do you have family support?: Yes - Tobacco Use Tobacco Use: Non-smoker - Former smoker quit at age 21. Do you use smokeless tobacco?: No - Intervention Smoking Cessation Referral:: No Individual Education/Counseling:: No Education Schedule Given:: Yes - Education Gave educational material for:: Coronary artery disease, Risk factors, Sexuality , Medical compliance, Cardiac A&P, Angina signs & symptoms Tobacco - 30-Day Assessment - Program Goals Tobacco Program Goals: Complete smoking cessation. Attend education classes. Improve Knowledge Test score - Stage of Change Stages of Change:: Action - Learning Barriers Learning Barriers: Participates in education - Family Support Do you have family support?: Yes - Tobacco Use Tobacco Use: Non-smoker Do you use smokeless tobacco?: No - Intervention Smoking Cessation Referral:: No Individual Education/Counseling:: No Education Schedule Given:: Yes - Education Attended class for:: Coronary artery disease, Risk factors, Sexuality, Medical compliance, Cardiac A&P, Angina signs & symptoms Tobacco - 60-Day Assessment - Program Goals Tobacco Program Goals: Complete smoking cessation. Attend education classes. Improve Knowledge Test score - Stage of Change Stages of Change:: Action - Learning Barriers Learning Barriers: Participates in education - Family Support Do you have family support?: Yes - Tobacco Use Tobacco Use: Non-smoker Do you use smokeless tobacco?: No - Intervention Smoking Cessation Referral:: No Individual Education/Counseling:: No Education Schedule Given:: Yes - Education Attended class for:: Coronary artery disease, Risk factors, Sexuality, Medical compliance, Cardiac A&P, Angina signs & symptoms Tobacco - 90-Day Assessment - Program Goals Tobacco Program Goals: Complete smoking cessation. Attend education classes. Improve Knowledge Test score - Stage of Change Stages of Change:: Action - Learning Barriers Learning Barriers: Participates in education - Family Support Do you have family support?: Yes - Tobacco Use Tobacco Use: Non-smoker Do you use smokeless tobacco?: No - Intervention Smoking Cessation Referral:: No Individual Education/Counseling:: No Education Schedule Given:: Yes - Education Attended class for:: Coronary artery disease, Risk factors, Sexuality, Medical compliance, Cardiac A&P, Angina signs & symptoms Tobacco - Final Assessment - Program Goals Tobacco Program Goals: Complete smoking cessation. Attend education classes. Improve Knowledge Test score - Learning Barriers Cardiac Knowledge Test Score:: 9 - Family Support Do you have family support?: Yes - Tobacco Use Tobacco Use: Non-smoker Do you use smokeless tobacco?: No - Intervention Smoking Cessation Referral:: No Individual Education/Counseling:: No Education Schedule Given:: Yes Psychosocial - Initial Assess - Target Goals Target Goals: Assess presence or absence of depression. Using a valid screening tool, maximizes coping skills. Positive support system - Stages of Change Stages of Change:: Action - Psychosocial Test Tool Used:: HANDS Depression Questionnaire Self-Efficacy Score:: 7 - Intervention PS - Interventions: Yes Attend Stress Management Classes, Yes Uses Stress Management Skills, No Referral to Mental Health, No Referral to [facility] Case Management, No Referral to Physician - Patient/Program Goal Preventative Medication(s):: Aspirin, ROSALVA inhibitor, Clopidogrel, Beta steven, Statin/lipid - Assistive Devices Assistive Devices:: None Fall Risk Assessed:: Yes Psychosocial - 30-Day Assess - Target Goals Target Goals: Assess presence or absence of depression. Using a valid screening tool, maximizes coping skills. Positive support system - Stages of Change Stages of Change:: Action - Psychosocial Test Tool Used:: HANDS Depression Questionnaire Self-Efficacy Score:: 7 - Patient/Program Goal Preventative Medication(s):: Aspirin, ROSALVA inhibitor, Clopidogrel, Beta steven, Statin/lipid - Assistive Devices Assistive Devices:: None Fall Risk Assessed:: Yes Psychosocial - 60-Day Assess - Target Goals Target Goals: Assess presence or absence of depression. Using a valid screening tool, maximizes coping skills. Positive support system - Stages of Change Stages of Change:: Action - Psychosocial Test Tool Used:: HANDS Depression Questionnaire Self-Efficacy Score:: 7 - Patient/Program Goal Preventative Medication(s):: Aspirin, ROSALVA inhibitor, Clopidogrel, Beta steven, Statin/lipid - Assistive Devices Assistive Devices:: None Fall Risk Assessed:: Yes Psychosocial - 90-Day Assess - Target Goals Target Goals: Assess presence or absence of depression. Using a valid screening tool, maximizes coping skills. Positive support system - Stages of Change Stages of Change:: Action - Psychosocial Test Tool Used:: HANDS Depression Questionnaire Self-Efficacy Score:: 7 - Intervention PS - Interventions: Yes Attend Stress Management Classes, Yes Uses Stress Management Skills, No Referral to Mental Health, No Referral to [facility] Case Management, No Referral to Physician - Patient/Program Goal Preventative Medication(s):: Aspirin, ROSALVA inhibitor, Clopidogrel, Beta steven, Statin/lipid - Assistive Devices Assistive Devices:: None Fall Risk Assessed:: Yes Psychosocial - Final Assessmen - Target Goals Target Goals: Assess presence or absence of depression. Using a valid screening tool, maximizes coping skills. Positive support system - Psychosocial Test Tool Used:: HANDS Depression Questionnaire Self-Efficacy Score:: 7 - Patient/Program Goal Preventative Medication(s):: Aspirin, ROSALVA inhibitor, Clopidogrel, Beta steven, Statin/lipid - Assistive Devices Assistive Devices:: None Fall Risk Assessed:: Yes Patient Health Questionnaire 90-Day Re-eval Assessment 1. Little interest or pleasure in doing things: Not at all 2. Feeling down, depressed, or hopeless: Not at all 3. Trouble falling or staying asleep, or sleeping too much: Not at all 4. Feeling tired or having little energy: Several days 5. Poor appetite or overeating: Not at all 6. Feeling bad about yourself -- or that you are a failure or have let yourself or your family down: Not at all 7. Trouble concentrating on things, such as reading the newspaper or watching television: Not at all 8. Moving or speaking so slowly that other people could have noticed. Or the opposite - being so fidgety or restless that you have been moving around a lot more than usual: Not at all 9. Thoughts that you would be better off , or of hurting yourself in some way: Not at all How difficult have these problems made it for you to do your work, take care of things at home, or get along with other people?: Not difficult at all Total Score: 1 Self-Efficacy 90-Day Re-eval Assessment We would like to know how confident you are in doing certain activities. Please select your confidence level for:: Select your confidence level for the following using the scale 1-10 where 1 is not at all confident and 10 is totally confident. Your score is the average of all 6 responses. Fatigue: How confident are you that you can keep the fatigue caused by your disease from interfering with the things you want to do? Select Number: 9 Physical Discomfort or Pain: How confident are you that you can keep the physical discomfort or pain of your disease from interfering with the things you want to do? Select Number: 9 Emotional Distress: How confident are you that you can keep the emotional distress caused by your disease from interfering with the things you want to do? Select Number: 9 Other Symptoms or Health Problems: How confident are you that you can keep other symptoms or health problems from interfering with the things you want to do? Select Number: 9 Different Tasks and Activities: How confident are you that you can do the different tasks and activities needed to manage your health condition so as to reduce your need to see a doctor? Select Number: 9 Medication: How confident are you that you can do things other than just taking medication to reduce how much your illness affects your everyday life? Select Number: 9 Total Score:: 9 Cardiac Rehabilitation Goals - Cardiac Rehab Goals Cardiac Rehabilitation Goals: 1. Maintain the individual as the primary focus of care. 2. To improve the patient's quality of life. 3. Identification of cardiac risk factors and provide cardiac risk factor management. 4. Enhance the psychosocial status of the patient. 5. Reconditioning enough to allow the patient to resume customary activities. 6. Control symptoms of cardiac disease - Scale Scale for measuring improvement of personal goals: Enter appropriate number in Comments. 2 = Unchanged. 3 = Slightly Better. 4 = Moderate Improvement. 5 = Met my Goal 90-Day Re-eval Assessment Personal Goals: Discharge Reassessment: Improve energy level, Participate in home exercise program, Get back to work, or to resume activities faster
== END 2017-06-20 23:59 ==
LOC: CR 10:15
PROVIDERS: Family Provider Family Medicine; PCP Family Medicine; Visit Provider Internal Medicine Cardiovascular Disease
DX: Z95.5 Presence of coronary angioplasty implant and graft (principal)
CPT/HCPCS: 93798

== ENCOUNTER 2017-08-20 06:00 | Outpatient (RCR) | payer SELFPAY | END 2017-08-20 23:59 | LOC: CR 06:00 | PROVIDERS: Family Provider Family Medicine; PCP Family Medicine; Visit Provider Internal Medicine Cardiovascular Disease | DX: Z00.00 Encounter for general adult medical examination without abnormal findings (principal) ==

== ENCOUNTER → 2017-08-27 08:55 | Outpatient (CLI) | payer MEDICARE, OTHER, SELFPAY ==
--- NOTE | 2017-08-27 08:55 | DT_ITS ---
This patient was seen during an EMR downtime August 24, 2017 - August 31, 2017. This patient may have a combination of paper and electronic documentation or all paper documentation. All documentation is viewable within the e-chart portion of [facility] for each patient visit.
== END ==
PROVIDERS: Family Provider Family Medicine; PCP Family Medicine; Visit Provider Internal Medicine Cardiovascular Disease
DX: Z00.00 Encounter for general adult medical examination without abnormal findings (principal)

== ENCOUNTER 2017-09-17 06:00 | Outpatient (RCR) | payer SELFPAY | END 2017-09-19 23:59 | LOC: CR 06:00 | PROVIDERS: Family Provider Family Medicine; PCP Family Medicine; Visit Provider Internal Medicine Cardiovascular Disease | DX: Z00.00 Encounter for general adult medical examination without abnormal findings (principal) ==

== ENCOUNTER 2017-10-20 06:00 | Outpatient (RCR) | payer SELFPAY | END 2017-10-20 23:59 | LOC: CR 06:00 | PROVIDERS: Family Provider Family Medicine; PCP Family Medicine; Visit Provider Internal Medicine Cardiovascular Disease | DX: Z00.00 Encounter for general adult medical examination without abnormal findings (principal) ==

== ENCOUNTER 2017-11-19 06:00 | Outpatient (RCR) | payer SELFPAY | END 2017-11-20 23:59 | LOC: CR 06:00 | PROVIDERS: Family Provider Family Medicine; PCP Family Medicine; Visit Provider Internal Medicine Cardiovascular Disease | DX: Z00.00 Encounter for general adult medical examination without abnormal findings (principal) ==

== ENCOUNTER 2017-12-17 06:00 | Outpatient (RCR) | payer SELFPAY | END 2017-12-20 23:59 | LOC: CR 06:00 | PROVIDERS: Family Provider Family Medicine; PCP Family Medicine; Visit Provider Internal Medicine Cardiovascular Disease | DX: Z00.00 Encounter for general adult medical examination without abnormal findings (principal) ==

== ENCOUNTER → 2018-01-01 12:08 | Outpatient (CLI) | payer MEDICARE, OTHER, SELFPAY ==
[2018-01-01 14:19] LABS: BUN 13 mg/dL (7-18); Creatinine, Serum 0.71 mg/dL (0.55-1.02); EST Glomerular Filtration Rate 85 mL/min (>60); Est Glom Filt Rate - Afr Amer 103 mL/min (>60)
== END ==
PROVIDERS: Family Provider Family Medicine; PCP Family Medicine; Referring Provider Urology; Visit Provider Urology
DX: R31.0 Gross hematuria (principal)
CPT/HCPCS: 36415; 82565; 84520

== ENCOUNTER → 2018-01-11 12:36 | Outpatient (CLI) | payer MEDICARE, OTHER, SELFPAY ==
--- NOTE | 2018-01-11 12:39 | CT_ITS ---
STUDY: CT ABDOMEN AND PELVIS WITH CONTRAST REASON FOR EXAM: Female, 77 years old. Hematuria. Right flank pain. RADIATION DOSAGE (If Supplied By Facility): CTDIvol = ( 28.24 ) mGy, DLP = ( 3427.27 ) mGycm TECHNIQUE: Transaxial images were obtained from the dome of the diaphragm to the symphysis pubis without oral contrast. 100 ml of Isovue 300 contrast was administered. Sagittal and coronal images were reconstructed. Individualized dose optimization techniques were used for this CT. COMPARISON: None. FINDINGS: The visualized lung bases are unremarkable. The visualized portions of the heart are within normal limits. No dominant mass in the liver. Normal gallbladder and extrahepatic biliary system. There are multiple benign calcified granulomata of the liver and spleen. Normal pancreas. Normal bilateral adrenal glands. There is 0.9 cm cyst at the lower pole of the right kidney. There is 0.7 cm stone in the lower pole of the left kidney. Normal visualized stomach. Normal small intestine. There are multiple colonic diverticula consistent with diverticulosis. The appendix is visualized and appears normal. There is diffuse atherosclerotic calcification of the abdominal aorta, without a demonstrated aneurysm. Normal inferior vena cava. Normal retroperitoneum. Normal urinary bladder. Normal visualized uterus. There is no free fluid in the abdomen or pelvis. Normal abdominal wall. There are diffuse degenerative changes of the visualized lumbar spine. There is subluxation with canal stenosis at L4-5. CT/CT Abd/Pelvis W/WO Contrast IMPRESSION: Left renal stone. No hydronephrosis. Colonic diverticulosis. No obstruction or abscess. Electronically Signed: Matias Dawkins MD at 17:50 EDT , Service support ,
== END ==
PROVIDERS: Family Provider Family Medicine; PCP Family Medicine; Referring Provider Urology; Visit Provider Urology
DX: R31.0 Gross hematuria (principal)
CPT/HCPCS: 74178; Q9967

== ENCOUNTER → 2018-01-14 09:20 | Outpatient (CLI) | payer MEDICARE, OTHER, SELFPAY ==
--- NOTE | 2018-01-14 09:21 | RAD_ITS ---
STUDY: X-RAY - ABDOMEN/PELVIS REASON FOR EXAM: Female, 77 years old. Kidney stone TECHNIQUE: Single AP view of the abdomen / pelvis. COMPARISON: CT scan 01/11/2018. FINDINGS: Normal visualized lung bases. Probable 8 mm stone in the lower pole of the left kidney, poorly seen because of overlying fecal material. No other definite renal or ureteral stones. There is an unremarkable bowel gas pattern. There is no demonstrated free abdominal air. The visualized liver, spleen and kidneys are grossly normal in size and morphology. Normal soft tissue structures. There are diffuse degenerative changes of the visualized lumbar spine. RAD/Abdomen Single View IMPRESSION: Probable 8 mm stone in the lower pole of the left kidney, poorly seen because of overlying fecal material. Electronically Signed: Kwabena Nelson MD at 17:00 EDT , Service support ,
== END ==
PROVIDERS: Family Provider Family Medicine; PCP Family Medicine; Referring Provider Nurse Practitioner; Visit Provider Nurse Practitioner
DX: N20.0 Calculus of kidney (principal)
CPT/HCPCS: 74018

== ENCOUNTER 2018-01-19 06:00 | Outpatient (RCR) | payer SELFPAY | END 2018-01-20 23:59 | LOC: CR 06:00 | PROVIDERS: Family Provider Family Medicine; PCP Family Medicine; Visit Provider Internal Medicine Cardiovascular Disease | DX: Z00.00 Encounter for general adult medical examination without abnormal findings (principal) ==

== ENCOUNTER → 2018-01-21 07:35 | Outpatient (CLI) | payer MEDICARE, OTHER, SELFPAY ==
--- NOTE | 2018-01-21 07:38 | US_ITS ---
STUDY: ULTRASOUND OF THE FEMALE PELVIS - COMPLETE REASON FOR EXAM: Female, 77 years old. Postmenopausal bleeding. TECHNIQUE: Transabdominal and Transvaginal TECHNICAL QUALITY: Adequate. COMPARISON: CT of the abdomen and pelvis, January 11, 2018. FINDINGS: The uterus is anteverted and is in a midline position. The uterus measures 8.2 x 5.5 x 3.9 cm. Normal uterine cervix. The endometrium measures 5 mm in thickness, and is hyperechoic. There is no demonstrated endometrial mass. There is minimal fluid in the endometrial canal. There is a 1.1 x 1.1 x 0.9 cm fibroid. In the lateral fundus. I.U.D. - The patient does not have an I.U.D. The right ovary is not visualized. There is no visualized right adnexal mass or complex lesion. The left ovary is visualized. The left ovary measures 2.4 x 2.4 x 1.8 cm. Is a 1 cm dominant follicle versus cyst. There is no visualized left adnexal mass or complex lesion. There is normal arterial and normal venous vascularity. There is no fluid in the cul-de-sac. US/Transvaginal Non- IMPRESSION: 1. Minimal fluid within the endometrial canal without endometrial thickening. 2. Uterine fibroid. 3. Nonvisualization of the right ovary. 4. Small cyst versus follicle in the otherwise normal left ovary. Electronically Signed: Suhas Hunter DO at 22:27 EDT Tel [phone], Service support ,
--- NOTE | 2018-01-21 07:38 | US_ITS ---
STUDY: ULTRASOUND OF THE FEMALE PELVIS - COMPLETE REASON FOR EXAM: Female, 77 years old. Postmenopausal bleeding. TECHNIQUE: Transabdominal and Transvaginal TECHNICAL QUALITY: Adequate. COMPARISON: CT of the abdomen and pelvis, January 11, 2018. FINDINGS: The uterus is anteverted and is in a midline position. The uterus measures 8.2 x 5.5 x 3.9 cm. Normal uterine cervix. The endometrium measures 5 mm in thickness, and is hyperechoic. There is no demonstrated endometrial mass. There is minimal fluid in the endometrial canal. There is a 1.1 x 1.1 x 0.9 cm fibroid. In the lateral fundus. I.U.D. - The patient does not have an I.U.D. The right ovary is not visualized. There is no visualized right adnexal mass or complex lesion. The left ovary is visualized. The left ovary measures 2.4 x 2.4 x 1.8 cm. Is a 1 cm dominant follicle versus cyst. There is no visualized left adnexal mass or complex lesion. There is normal arterial and normal venous vascularity. There is no fluid in the cul-de-sac. US/Pelvic (Non ) IMPRESSION: 1. Minimal fluid within the endometrial canal without endometrial thickening. 2. Uterine fibroid. 3. Nonvisualization of the right ovary. 4. Small cyst versus follicle in the otherwise normal left ovary. Electronically Signed: Suhas Hnuter DO at 22:27 EDT Tel [phone], Service support ,
== END ==
PROVIDERS: Family Provider Family Medicine; PCP Family Medicine; Referring Provider Family Medicine; Visit Provider Urology
DX: R10.31 Right lower quadrant pain (principal); N95.0 Postmenopausal bleeding
CPT/HCPCS: 76830; 76856

== ENCOUNTER 2018-02-18 06:00 | Outpatient (RCR) | payer SELFPAY | END 2018-02-19 23:59 | LOC: CR 06:00 | PROVIDERS: Family Provider Family Medicine; PCP Family Medicine; Visit Provider Internal Medicine Cardiovascular Disease | DX: Z00.00 Encounter for general adult medical examination without abnormal findings (principal) ==

== ENCOUNTER 2018-03-18 06:00 | Outpatient (RCR) | payer SELFPAY ==
[2018-02-16 09:54] VITALS: BMI 37.8
== END 2018-03-22 23:59 ==
LOC: CR 06:00
PROVIDERS: Family Provider Family Medicine; PCP Family Medicine; Referring Provider Internal Medicine Cardiovascular Disease; Visit Provider Internal Medicine Cardiovascular Disease
DX: Z00.00 Encounter for general adult medical examination without abnormal findings (principal)

== ENCOUNTER → 2018-03-22 17:36 | Outpatient (CLI) | payer MEDICARE, OTHER, SELFPAY ==
[2018-03-22 10:50] VITALS: BMI 37.8
== END ==
PROVIDERS: Family Provider Family Medicine; PCP Family Medicine; Referring Provider Obstetrics & Gynecology; Visit Provider Obstetrics & Gynecology
DX: N39.0 Urinary tract infection, site not specified (principal)
CPT/HCPCS: 87086

== ENCOUNTER → 2018-04-08 15:08 | Outpatient (CLI) | payer MEDICARE, OTHER, SELFPAY ==
[2018-02-16 09:54] VITALS: BMI 37.8
[2018-03-22 10:50] VITALS: BMI 37.8
--- NOTE | 2018-04-08 15:13 | BI_ITS ---
MAMMOGRAPHY - BILATERAL SCREENING REASON FOR EXAM: Female, 77 years old. Routine annual screening examination. PERTINENT HISTORY: Non-contributory. TECHNIQUE: Digital bilateral breast jose r (3D mammographic acquisition) in the CC and MLO projections. 2-D mediolateral oblique (MLO) and craniocaudad (CC) views of both breasts were obtained. CAD: Full Field Digital Mammography with Computer Added Detection was performed. COMPARISON: Comparison is made with prior outside examination dated January 01, 2017. FINDINGS: Breast Composition: The breasts are almost entirely fatty. There are no dominant masses or suspicious calcifications. No other significant abnormalities are identified. There has been no significant change since the prior study. BI/SCREENING MAMM (CAD), BILAT IMPRESSION: Stable bilateral screening mammogram. Yearly follow-up mammogram recommended. (A) ASSESSMENT CATEGORY: BIRADS Category 1: Negative. A letter regarding these results will be sent to the patient by the facility within 30 days. Approximately 10% of breast cancers are not detected by mammography. A normal mammogram should not delay biopsy of a clinically suspicious abnormality. [id number] Electronically Signed: Ron Rea MD at 8:29 EST , Service support ,
--- OUTSIDE RECORDS SUMMARY | 2018-06-13 10:35 | XMS RPT_ITS ---
:1940 Author Organization OHIP Support Name Relationship Address Phone R Unavailable Unavailable Unavailable FRANCY HANKINS Unavailable [address] + [place] [address] R Unavailable Unavailable Unavailable FRANCY HANKINS Unavailable [address] + [place] [address] R Unavailable Unavailable Unavailable FRANCY HANKINS Unavailable [address] + [place] [address] R Unavailable Unavailable Unavailable FRANCY HANKINS Unavailable [address] + [place] [address] R Unavailable Unavailable Unavailable FRANCY HANKINS Unavailable [address] + [place] [address] R Unavailable Unavailable Unavailable FRANCY HANKINS Unavailable [address] + [place] [address] R Unavailable Unavailable Unavailable FRANCY HANKINS Unavailable [address] + [place] [address] R Unavailable Unavailable Unavailable FRANCY HANKINS Unavailable [address] + [place] [address] R Unavailable Unavailable Unavailable FRANCY HANKINS Unavailable [address] + [place] [address] R Unavailable Unavailable Unavailable FRANCY HANKINS Unavailable [address] + [place] [address] R Unavailable Unavailable Unavailable FRANCY HANKINS Unavailable [address] + [place] [address] R Unavailable Unavailable Unavailable FRANCY HANKINS Unavailable [address] + [place] [address] R Unavailable Unavailable Unavailable FRANCY HANKINS Unavailable [address] + [place] [address] R Unavailable Unavailable Unavailable FRANCY HANKINS Unavailable [address] + [place] [address] R Unavailable Unavailable Unavailable FRANCY HANKINS Unavailable [address] + [place] [address] R Unavailable Unavailable Unavailable FRANCY HANKINS Unavailable [address] + [place] [address] R Unavailable Unavailable Unavailable FRANCY HANKINS Unavailable [address] + [place] [address] R Unavailable Unavailable Unavailable FRANCY HANKINS Unavailable [address] + [place] [address] R Unavailable Unavailable Unavailable FRANCY HANKINS Unavailable [address] + [place] [address] R Unavailable Unavailable Unavailable FRANCY HANKINS Unavailable [address] [phone] [place] [address] R Unavailable Unavailable Unavailable FRANCY HANKINS Unavailable [address] [phone] [place] [address] R Unavailable Unavailable Unavailable FRANCY HANKINS Unavailable [address] [phone] [place] [address] R Unavailable Unavailable Unavailable FRANCY HANKINS Unavailable [address] [phone] [place] [address] R Unavailable Unavailable Unavailable FRANCY HANKINS Unavailable [address] [phone] [place] [address] R Unavailable Unavailable Unavailable FRANCY HANKINS Unavailable [address] [phone] [place] [address] R Unavailable Unavailable Unavailable FRANCY HANKINS Unavailable [address] [phone] [place] [address] R Unavailable Unavailable Unavailable FRANCY HANKINS Unavailable [address] [phone] [place] [address] Care Team Providers Name Role Phone Jennifer Gibson Attending Unavailable Antonio Joya Referring Unavailable Jennifer Gibson Attending Unavailable Vaccariello, Antonio Primary Care Unavailable Jennifer Gibson Referring Unavailable Taylor, Toan Attending Unavailable Vaccariello, Antonio Primary Care Unavailable [facility], [facility] Attending Unavailable Taylor, Toan Referring Unavailable Vaccariello, Antonio Primary Care Unavailable Taylor, [facility] Attending Unavailable Taylor, Toan Referring Unavailable Vaccariello, Antonio Primary Care Unavailable Vaccariello, Antonio Attending Unavailable Vaccariello, Antonio Referring Unavailable Vaccariello, Antonio Primary Care Unavailable Taylor, Toan Attending Unavailable Vaccariello, Antonio Primary Care Unavailable Taylor, Toan Attending Unavailable Vaccariello, Antonio Primary Care Unavailable Roof, Antonio H Attending Unavailable Vaccariello, Antonio Referring Unavailable Taylor, Taon Attending Unavailable Vaccariello, Antonio Primary Care Unavailable Taylor, [facility] Attending Unavailable Vaccariello, Antonio Primary Care Unavailable Curtis Ibarra Attending Unavailable Taylor, Toan Attending Unavailable Vaccariello, Antonio Referring Unavailable Vaccariello, Antonio Primary Care Unavailable Taylor, Toan Attending Unavailable Vaccariello, Antonio Primary Care Unavailable Taylor, [facility] Attending Unavailable Taylor, Toan Referring Unavailable Vaccariello, Antonio Primary Care Unavailable Taylor, Toan Attending Unavailable Vaccariello, Antonio Primary Care Unavailable Maxim Campos Attending Unavailable Vaccariello, Antonio Referring Unavailable Vaccariello, Antonio Primary Care Unavailable Taylor, Toan Attending Unavailable Vaccariello, Antonio Primary Care Unavailable Taylor, [facility] Attending Unavailable Vaccariello, Antonio Primary Care Unavailable Taylor, Toan Attending Unavailable Vaccariello, Antonio Primary Care Unavailable Mandy Reddy Attending Unavailable Isabelneski, Mandy Referring Unavailable Vaccariello, Antonio Primary Care Unavailable Mandy Reddy Attending Unavailable Wyneski, Mandy Referring Unavailable Vaccariello, Antonio Primary Care Unavailable Pedraza, Rosy L Attending Unavailable Pedraza, Rosy L Referring Unavailable Vaccariello, Antonio Primary Care Unavailable Isabelneski, Mandy Attending Unavailable Vaccariello, Antonio Referring Unavailable Vaccariello, Antonio Primary Care Unavailable Taylor, Toan Attending Unavailable Vaccariello, Antonio Primary Care Unavailable Roof, Antonio H Attending Unavailable Vaccariello, Antonio Referring Unavailable Taylor, [facility] Attending Unavailable Vaccariello, Antonio Primary Care Unavailable Taylor, Toan Referring Unavailable PROBLEMS PROBLEMS DATE TYPE CONDITION / CODE ATTENDING STATUS SOURCE 03/23/2018 Unknown Z00.00 - Encounter Taylor, [facility] Active [place] for general adult [facility] without abnormal Repository findings / Z00.00(ICD-10) 03/24/2018 Unknown N39.0 - Urinary tract Marcanthony, Active [place] infection, site not [facility] specified / Hospital N39.0(ICD-10) Repository 03/22/2018 Unknown R93.89 - Abnormal Marcanthony, Active [place] findings on [facility] diagnostic imaging of Hospital other specified body Repository structures / R93.89(ICD-10) 03/03/2018 Unknown R10.31 - Right lower Mandy Reddy Active [place] quadrant pain / Community R10.31(ICD-10) Hospital Repository 01/14/2018 Unknown N20.0 - Calculus of Rosy Pedraza Active [place] kidney / Community N20.0(ICD-10) Hospital Repository 01/19/2018 Unknown R31.0 - Gross Mandy Reddy Active [place] hematuria / Community R31.0(ICD-10) Hospital Repository 08/11/2017 Unknown I25.10 - Taylor, [facility] Active [place] Atherosclerotic heart Community disease of [facility] coronary artery Repository without angina pectoris / I25.10(ICD-10) 08/11/2017 Unknown I10 - Essential Taylor, Toan Active [place] (primary) Community hypertension / Hospital I10(ICD-10) Repository 08/11/2017 Unknown E78.00 - Pure Taylor, Toan Active [place] hypercholesterolemia, Community unspecified / Hospital E78.00(ICD-10) Repository 06/21/2017 Unknown Z95.5 - Presence of Taylor, Toan Active [place] coronary angioplasty Community implant and graft / Hospital Z95.5(ICD-10) Repository PROCEDURES PROCEDURES No Procedure Records FoundRESULTS RESULTS SCREENING MAMM (CAD), Observed: 04/08/2018 Status: F Source: [place] BILAT 3:13 PM [facility] REPOSITORY [facility] Imaging Services [address] [place] [address] SCREENING MAMM (CAD), BILAT MR#: [id number] Acct: [id number] Name: JENNIFER HANKINS Rep #: [id number] : 1940 F 77 From: Ron Rea MD PCP: Antonio Joya MD Status: REG CLI Study: SCREENING MAMM (CAD), BILAT Date of Exam: 04/08/18 Exam# [id number] Ordering Dr: Antonio Joya MAMMOGRAPHY - BILATERAL SCREENING REASON FOR EXAM: Female, 77 years old. Routine annual screening examination. PERTINENT HISTORY: Non-contributory. TECHNIQUE: Digital bilateral breast jose r (3D mammographic acquisition) in the CC and MLO projections. 2-D mediolateral oblique (MLO) and craniocaudad (CC) views of both breasts were obtained. CAD: Full Field Digital Mammography with Computer Added Detection was performed. COMPARISON: Comparison is made with prior outside examination dated January 01, 2017. FINDINGS: Breast Composition: The breasts are almost entirely fatty. There are no dominant masses or suspicious calcifications. No other significant abnormalities are identified. There has been no significant change since the prior study. BI/SCREENING MAMM (CAD), BILAT IMPRESSION: Stable bilateral screening mammogram. Yearly follow-up mammogram recommended. (A) ASSESSMENT CATEGORY: BIRADS Category 1: Negative. A letter regarding these results will be sent to the patient by the facility within 30 days. Approximately 10% of breast cancers are not detected by mammography. A normal mammogram should not delay biopsy of a clinically suspicious abnormality. [id number] Electronically Signed: Ron Rea MD at 8:29 EST , Service support , CC: Antonio Joya MD Mid Level Provider: Signed Observed: 03/22/2018 Status: F Source: [place] CULTURE, URINE 5:36 PM [facility] [place] Urine Culture Culture exhibits no growth. Performed By: #### M100.0650 #### 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 [place] [address] OFFICE VISIT Date of Service: 03/22/18 MR#: [id number] Acct: [id number] Name: JENNIFER HANKINS Rep #: [id number] : 1940 Provider: Jennifer Gibson MD Age/Sex: 77/F [place] [facility] [place]: Signed Intake Vital Signs03/22/18 Body Mass Index (BMI) 37.8 03/22/18 Height 5 ft 2 in 03/22/18 Weight: 212 lb 4 oz 03/22/18 Body Mass Index (BMI) 38.8 03/22/18 Blood Pressure 128/80 H Intake Visit Reasons: POLYP/FIBROID PER BARRY Chief Complaint: Polyp/Fibroid Per Barry Accompanied by: Self Is patient in pain?: No Allergies Iodinated Contrast- Oral and IV Dye [CONTRASTS] Allergy (Verified 03/22/18 10:43) Unknown NSAIDS (Non-Steroidal Anti-Inflamma Allergy (Verified 03/22/18 10:43) Unknown Penicillins Allergy (Verified 03/22/18 10:43) Unknown aspirin Adverse Reaction (Severe, Verified 03/22/18 10:43) Wheezing Medications Albuterol IH (ProAir) [Proair Hfa (SP)Vent Pts] 1 - 2 puff INHALATION Q4H PRN PRN 02/21/17 [History Confirmed 02/16/18] Levocetirizine Dihydrochloride [Xyzal] 5 mg PO DAILY 02/21/17 [History Confirmed 02/16/18] Lorazepam [Ativan] 0.5 mg PO TID PRN PRN 02/21/17 [History Confirmed 02/16/18] benazepril 40 mg tablet 40 mg PO QDAY 03/12/17 [History Confirmed 02/16/18] nitroglycerin 0.4 mg sublingual tablet 0.4 mg SUBLINGUAL Q5- 15M PRN 03/12/17 [History Confirmed 02/16/18] aspirin 81 mg tablet,delayed release 81 mg PO QDAY #90 tab 03/25/17 [Rx Confirmed 02/16/18] atorvastatin 40 mg tablet 40 mg PO QDAY #90 tab 05/04/17 [Rx Confirmed 02/16/18] clopidogrel 75 mg tablet 75 mg PO DAILY #90 tab 05/04/17 [Rx Confirmed 02/16/18] flovent HFA NOT APPLICABLE 08/11/17 [History Confirmed 02/16/18] cyclobenzaprine 5 mg tablet 5 mg PO ONCE tab 03/22/18 [History Confirmed 03/22/18] Is last menstrual period known: No Post menopausal: Yes Patient : No : No PFSH Medical History Bradycardia (Chronic) 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) Carotid artery stenosis (Chronic) Hyperlipidemia (Chronic) History of left heart catheterization (Chronic) 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) Asthma (Chronic) Fatigue (Chronic) HTN (hypertension) (Chronic) Arthritis (Chronic) Encounter for long-term (current) use of other medications (Chronic) Fibromyalgia (Chronic) Hx of chest pain (Chronic) Hx of radiculopathy (Chronic) Incontinence (Chronic) Surgical History History of atherectomy (Chronic) H/O right heart catheterization (Chronic) History of tubal ligation (Chronic) Hx of nasal polypectomy (Chronic) Plantar fasciitis (Chronic) Family History Father CAD (coronary artery disease) Other Heart disease Social History Smoking Status: Former smoker how long ago did patient quit smokin alcohol intake: never substance use type: does not use caffeine: Yes Type: coffee Number of servings: 1 what type of physical activity do you participate in: other details: cardiac rehab frequency: 5-6 times per week duration: 15-30 minutes/day seatbelt use: always do you feel safe at home: Yes HPI POLYP/FIBROID PER BARRY: Details: JENNIFER HANKINS is a 77 year old who presents for referral from dr reddy for thickening of the uterine lining. she denies any vaginal bleeding and had an us done because of hematuria which showed a possible polyp. she denies any pelvic pain but has some urgency today. she is planning surgery with dr reddy for a kidney stone. ROS Const Constitutional: Denies poor appetite, headache(s), fever(s), increased appetite, weight gain, weight loss or fatigue ENT ENT: Denies dry mouth GI GI: Reports as per HPI; denies vomiting, nausea, abdominal pain or constipation : Reports as per HPI; denies difficulty urinating, blood in urine, pelvic pain, urinary frequency, urinary incontinence, urinary hesitancy, urinary urgency, vaginal discharge, vaginal dryness, vaginal odor, vaginal itching, other, painful urination or nipple discharge Skin Skin/Breast: Denies hair loss, change in hair, dry skin, breast pain, breast skin changes, breast lump or nipple discharge Exam Const General: cooperative, healthy appearing, comfortable, no acute distress, well developed Nutritional Appearance: average body habitus Orientation: alert HENMT Head: normal to inspection, normocephalic Ears: hearing grossly normal bilaterally, external ears normal Nose: external nose normal, nares normal Face and sinus: normal facial exam Neck Neck: normal visual inspection, trachea midline, no lymphadenopathy Thyroid: thyroid normal Resp Effort AND Inspection: normal respiratory effort Musc Other: gross motor intact no deficits, full bilateral strength Skin General: no rashes or lesions noted Neuro Motor: muscle tone normal throughout Assessment AND Plan Problems 1. Endometrial thickening on ultrasound R93.89 Plan discussed surgery and plan for d and c hysteroscopy at time of her surgery. Orders Orders: Coding Level of Care Code Off vis,new,level 3 Diagnoses Endometrial thickening on ultrasound R93.89 03/22/18 1110 <Electronically signed by Jennifer Gibson MD> Date Jennifer Gibson MD Cosigner Signature: Date (if applicable) CC: PELVIC (NON ) Observed: 01/21/2018 Status: F Source: [place] 7:39 AM [facility] [address] [place] [address] Pelvic (Non ) MR#: [id number] Acct: [id number] Name: JENNIFER HANKINS Rep #: [id number] : 1940 F 77 From: Suhas Hunter DO PCP: Antonio Joya MD Status: REG CLI Study: Pelvic (Non ) Date of Exam: 01/21/18 Exam# [id number] Ordering Dr: Mandy Reddy MD STUDY: ULTRASOUND OF THE FEMALE PELVIS - COMPLETE REASON FOR EXAM: Female, 77 years old. Postmenopausal bleeding. TECHNIQUE: Transabdominal and Transvaginal TECHNICAL QUALITY: Adequate. COMPARISON: CT of the abdomen and pelvis, January 11, 2018. FINDINGS: The uterus is anteverted and is in a midline position. The uterus measures 8.2 x 5.5 x 3.9 cm. Normal uterine cervix. The endometrium measures 5 mm in thickness, and is hyperechoic. There is no demonstrated endometrial mass. There is minimal fluid in the endometrial canal. There is a 1.1 x 1.1 x 0.9 cm fibroid. In the lateral fundus. I.U.D. - The patient does not have an I.U.D. The right ovary is not visualized. There is no visualized right adnexal mass or complex lesion. The left ovary is visualized. The left ovary measures 2.4 x 2.4 x 1.8 cm. Is a 1 cm dominant follicle versus cyst. There is no visualized left adnexal mass or complex lesion. There is normal arterial and normal venous vascularity. There is no fluid in the cul-de-sac. US/Pelvic (Non ) IMPRESSION: 1. Minimal fluid within the endometrial canal without endometrial thickening. 2. Uterine fibroid. 3. Nonvisualization of the right ovary. 4. Small cyst versus follicle in the otherwise normal left ovary. Electronically Signed: Suhas Hunter DO at 22:27 EDT Tel [phone], Service support , CC: Mandy Reddy MD; Antonio Joya MD Mid Level Provider: Signed TRANSVAGINAL Observed: 01/21/2018 Status: F Source: [place] NON- 7:39 AM [facility] [address] [place] [address] Transvaginal Non- MR#: [id number] Acct: [id number] Name: JENNIFER HANKINS Rep #: [id number] : 1940 F 77 From: Suhas Hunter DO PCP: Antonio Joya MD Status: REG CLI Study: Transvaginal Non- Date of Exam: 01/21/18 Exam# [id number] Ordering Dr: Mandy Reddy MD STUDY: ULTRASOUND OF THE FEMALE PELVIS - COMPLETE REASON FOR EXAM: Female, 77 years old. Postmenopausal bleeding. TECHNIQUE: Transabdominal and Transvaginal TECHNICAL QUALITY: Adequate. COMPARISON: CT of the abdomen and pelvis, January 11, 2018. FINDINGS: The uterus is anteverted and is in a midline position. The uterus measures 8.2 x 5.5 x 3.9 cm. Normal uterine cervix. The endometrium measures 5 mm in thickness, and is hyperechoic. There is no demonstrated endometrial mass. There is minimal fluid in the endometrial canal. There is a 1.1 x 1.1 x 0.9 cm fibroid. In the lateral fundus. I.U.D. - The patient does not have an I.U.D. The right ovary is not visualized. There is no visualized right adnexal mass or complex lesion. The left ovary is visualized. The left ovary measures 2.4 x 2.4 x 1.8 cm. Is a 1 cm dominant follicle versus cyst. There is no visualized left adnexal mass or complex lesion. There is normal arterial and normal venous vascularity. There is no fluid in the cul-de-sac. US/Transvaginal Non- IMPRESSION: 1. Minimal fluid within the endometrial canal without endometrial thickening. 2. Uterine fibroid. 3. Nonvisualization of the right ovary. 4. Small cyst versus follicle in the otherwise normal left ovary. Electronically Signed: Suhas Hunter DO at 22:27 EDT Tel [phone], Service support , CC: Mandy Reddy MD; Antonio Joya MD Mid Level Provider: Signed ABDOMEN SINGLE VIEW Observed: 01/14/2018 Status: F Source: [place] 9:21 AM [facility] Imaging [facility] [place] [address] Abdomen Single View MR#: [id number] Acct: [id number] Name: JENNIFER HANKINS Rep #: [id number] : 1940 F 77 From: Kwabena Nelson MD PCP: Antonio Joya MD Status: REG CLI Study: Abdomen Single View Date of Exam: 01/14/18 Exam# [id number] Ordering Dr: Rosy Pedraza ATTENDING PATHOLOGIST-C STUDY: X-RAY - ABDOMEN/PELVIS REASON FOR EXAM: Female, 77 years old. Kidney stone TECHNIQUE: Single AP view of the abdomen / pelvis. COMPARISON: CT scan 01/11/2018. FINDINGS: Normal visualized lung bases. Probable 8 mm stone in the lower pole of the left kidney, poorly seen because of overlying fecal material. No other definite renal or ureteral stones. There is an unremarkable bowel gas pattern. There is no demonstrated free abdominal air. The visualized liver, spleen and kidneys are grossly normal in size and morphology. Normal soft tissue structures. There are diffuse degenerative changes of the visualized lumbar spine. RAD/Abdomen Single View IMPRESSION: Probable 8 mm stone in the lower pole of the left kidney, poorly seen because of overlying fecal material. Electronically Signed: Kwabena Nelson MD at 17:00 EDT , Service support , CC: JENNY Pedraza; Antonio Joya MD Mid Level Provider: Signed CT ABD/PELVIS W/WO Observed: 01/11/2018 Status: F Source: [place] CONTRAST 12:39 PM [facility] [address] [place] [address] CT Abd/Pelvis W/WO Contrast MR#: [id number] Acct: [id number] Name: JENNIFER HANKINS Rep #: [id number] : 1940 F 77 From: Matias Dawkins MD PCP: Antonio Joya MD Status: REG CLI Study: CT Abd/Pelvis W/WO Contrast Date of Exam: 01/11/18 Exam# [id number] Ordering Dr: Mandy Reddy MD STUDY: CT ABDOMEN AND PELVIS WITH CONTRAST REASON FOR EXAM: Female, 77 years old. Hematuria. Right flank pain. RADIATION DOSAGE (If Supplied By Facility): CTDIvol = ( 28.24 ) mGy, DLP = ( 3427.27 ) mGycm TECHNIQUE: Transaxial images were obtained from the dome of the diaphragm to the symphysis pubis without oral contrast. 100 ml of Isovue 300 contrast was administered. Sagittal and coronal images were reconstructed. Individualized dose optimization techniques were used for this CT. COMPARISON: None. FINDINGS: The visualized lung bases are unremarkable. The visualized portions of the heart are within normal limits. No dominant mass in the liver. Normal gallbladder and extrahepatic biliary system. There are multiple benign calcified granulomata of the liver and spleen. Normal pancreas. Normal bilateral adrenal glands. There is 0.9 cm cyst at the lower pole of the right kidney. There is 0.7 cm stone in the lower pole of the left kidney. Normal visualized stomach. Normal small intestine. There are multiple colonic diverticula consistent with diverticulosis. The appendix is visualized and appears normal. There is diffuse atherosclerotic calcification of the abdominal aorta, without a demonstrated aneurysm. Normal inferior vena cava. Normal retroperitoneum. Normal urinary bladder. Normal visualized uterus. There is no free fluid in the abdomen or pelvis. Normal abdominal wall. There are diffuse degenerative changes of the visualized lumbar spine. There is subluxation with canal stenosis at L4-5. CT/CT Abd/Pelvis W/WO Contrast IMPRESSION: Left renal stone. No hydronephrosis. Colonic diverticulosis. No obstruction or abscess. Electronically Signed: [place] Dawkins MD at 17:50 EDT , Service support , CC: Mandy Reddy MD; Antonio Joya MD Mid Level Provider: Signed BUN Collected: 01/01/2018 Status: F Source: [place] 12:28 PM [facility] [place] TYPE CODE TESTS RESULT OUT OF RANGE REFERENCE UNITS LAB L501.1000 7-18 mg/dL Normal BUN 13 Performed By: #### L501.1000, L501.1105 #### [facility] [address] [place], [place], [id number] SERUM CREATININE AND Collected: 01/01/2018 Status: F Source: [place] GFR 12:28 PM [facility] TYPE CODE TESTS RESULT OUT OF RANGE REFERENCE UNITS LAB L501.1100 0.55-1.02 mg/dL Normal 0.71 CREAT,SERUM Result Comment: The validity of the calculated GFR AND GFRAA in patients over 70 years has not been determined. Clinical correlation is essential. LAB L501.1110 >60 mL/min Normal EST GFR 85 Result Comment: Non- GFR Calc LAB L501.1115 >60 mL/min Normal EST GFR - AA 103 Result Comment: GFR Calc Performed By: #### L501.1000, L501.1105 #### [facility] [address] [place], [address] URGENT CARE VISIT Observed: 09/28/2017 Status: F Source: [place] REPORT 1:03 PM [facility] [address] [place] [address] OFFICE VISIT Date of Service: 09/28/17 MR#: [id number] Acct: [id number] Name: JENNIFER HANKINS Rep #: [id number] : 1940 Provider: Maxim KENNEDY Age/Sex: 77/F [place] [facility] Status[place] Signed Intake Vital Signs09/28/17 Height 5 ft 2 in 09/28/17 Weight: 203 lb 6 oz Intake Visit Reasons: Urinary tract infection Chief Complaint: Dysuria and urinary frequency Security Ambassador Required: No Accompanied by: None Is patient in pain?: Yes Pain scale (1-10): 7 Allergies Iodinated Contrast- Oral and IV Dye [CONTRASTS] Allergy (Verified 08/11/17 13:02) Unknown NSAIDS (Non-Steroidal Anti-Inflamma Allergy (Verified 08/11/17 13:02) Unknown Penicillins Allergy (Verified 08/11/17 13:02) Unknown aspirin Adverse Reaction (Severe, Verified 08/11/17 13:02) Wheezing Medications Albuterol IH (ProAir) [Proair Hfa (SP)Vent Pts] 1 - 2 puff INHALATION Q4H PRN PRN 02/21/17 [History Confirmed 08/11/17] Levocetirizine Dihydrochloride [Xyzal] 5 mg PO DAILY 02/21/17 [History Confirmed 08/11/17] Lorazepam [Ativan] 0.5 mg PO TID PRN PRN 02/21/17 [History Confirmed 08/11/17] benazepril 40 mg tablet 40 mg PO QDAY 03/12/17 [History Confirmed 08/11/17] nitroglycerin 0.4 mg sublingual tablet 0.4 mg SUBLINGUAL Q5- 15M PRN 03/12/17 [History Confirmed 08/11/17] aspirin 81 mg tablet,delayed release 81 mg PO QDAY #90 tab 03/25/17 [Rx Confirmed 08/11/17] atorvastatin 40 mg tablet 40 mg PO QDAY #90 tab 05/04/17 [Rx Confirmed 08/11/17] clopidogrel 75 mg tablet 75 mg PO DAILY #90 tab 05/04/17 [Rx Confirmed 08/11/17] flovent HFA NOT APPLICABLE 08/11/17 [History Confirmed 08/11/17] nitrofurantoin monohydrate/macrocrystals 100 mg capsule 100 mg PO BID #14 cap 09/28/17 [Rx Confirmed 09/28/17] PFSH Medical History Bradycardia (Chronic) 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) History of atherectomy (Chronic) Carotid artery stenosis (Chronic) Hyperlipidemia (Chronic) History of left heart catheterization (Chronic) 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) Asthma (Chronic) Fatigue (Chronic) HTN (hypertension) (Chronic) Arthritis (Chronic) Encounter for long-term (current) use of other medications (Chronic) Fibromyalgia (Chronic) Hx of chest pain (Chronic) Hx of radiculopathy (Chronic) Incontinence (Chronic) Surgical History H/O right heart catheterization (Chronic) History of tubal ligation (Chronic) Hx of nasal polypectomy (Chronic) Plantar fasciitis (Chronic) Family History Father CAD (coronary artery disease) Other Heart disease Social History Smoking Status: Former smoker how long ago did patient quit smokin alcohol intake: never substance use type: does not use caffeine: No what type of physical activity do you participate in: other details: cardiac rehab frequency: 5-6 times per week duration: 15-30 minutes/day seatbelt use: always do you feel safe at home: Yes HPI HPI Chief Complaint: Dysuria and urinary frequency Details: JENNIFER HANKINS, is a 77 F who presents to the office today for initial evaluation 2-3 day history of dysuria, urinary frequency and spots of blood in her urine. Patient notes previously having a urinary tract infection approximately 1 month ago where she was treated with Keflex the symptoms had resolved but not completely. She states her symptoms slowly began to develop once again shortly after completing the Keflex. She notes no complaints of back pain, fever, chills, sweats. She notes no other associated symptoms and no other alleviating or aggravating factors. ROS Const Constitutional: No excessive sweating, abnormal sleep pattern, chills, fever(s), night sweats or body ache ENT ENT: No abnormal hearing Resp Respiratory: No cough, chest congestion or shortness of breath Cardio Cardiology: No excessive sweating, chest pain at rest, chest pain with exertion, shortness of breath, dyspnea on exertion, irregular heart rhythm, generalized swelling or leg pain with exertion Gastro GI: No abdominal pain, change in stool character, change in bowel habits, nausea/dyspepsia or vomiting Genitourinary-Female: Positive for burning urination and urinary frequency; no painful urination, urinary urgency, difficulty urinating or urinary incontinence Musc Musculoskeletal: No joint pain, back pain or limited range of motion Skin Skin: No rash Neuro Neurology: No abnormal hearing, abnormal speech or abnormal movements Psych Psychiatric: No abnormal sleep pattern Endo Endocrine: No excessive sweating Exam Const General: cooperative, healthy appearing, no acute distress Nutritional Appearance: average body habitus Orientation: alert, awake, oriented x3 Chest Chest palpation AND inspection: normal inspection of the chest Resp Effort AND Inspection: normal respiratory effort, able to speak in complete sentences, symmetric chest movement Auscultation: Bilateral: Clear to Auscultation Cardio Palpation: normal PMI Rate: regular rate Rhythm: regular rhythm Heart Sounds: S1 normal, S2 normal, no gallops, no murmurs, no rubs Pulses: radial pulses present GI Inspection: normal to inspection Palpation: soft General: No CVA tenderness, other (See urinalysis dip results) Skin General: no rashes or lesions noted Neuro General: alert, awake, oriented x3, gait normal Cognition: normal cognition Speech: speech normal Gait: normal gait Motor: muscle tone normal throughout Sensory Exam: no sensory deficits noted Psych Appearance: grossly normal Mental Status: mental status grossly normal Mood: congruent mood Affect: normal affect Speech and Movement: speech and movement normal Attitude: cooperative Thought Process: normal Thought Content: normal Judgment: judgment good Results [facility] Office Urine Color YELLOW Last Edit by Minerva Escobar on 09/28/17 12:52 Office Urine Clarity Clear Last Edit by Minerva Escobar on 09/28/17 12:52 Assessment AND Plan 1. Urinary tract infection N39.0 Plan Macrobid as prescribed today. Appropriate hygiene is reinforced today. PCP in 3-5 days should symptoms not improved, sooner should symptoms worsen or any other concerns develop. Patient states acknowledging understanding all the above. This note was generated with Stock[employer] software. It may contain incorrect words, spelling, and punctuation that were not noted in checking the note before signing. Plan Detail Other Orders Orders: Other Medications New: nitrofurantoin monohyd/m-cryst 100 mg (Macrobid) must administer with a 100 mg PO BID meal/food Coding Level of Care Code Off vis,est,level 3 Diagnoses Urinary tract infection N39.0 09/28/17 1303 <Electronically signed by Maxim KENNEDY> Date Maxim KENNEDY Cosigner Signature: Date (if applicable) CC: DOWNTIME REPORT Observed: 09/10/2017 Status: F Source: [place] 12:15 PM [facility] Medical Records Department [address] [place] [address] Downtime Report MR#: [id number] Acct: [id number] Name: JENNIFER HANKINS Rep #: [id number] : 1940 77 From: Salty Sanchez PCP: Antonio Joya Status: REG CLI This patient was seen during an EMR downtime August 24, 2017 - August 31, 2017. This patient may have a combination of paper and electronic documentation or all paper documentation. All documentation is viewable within the e-chart portion of [facility] for each patient visit. CARDIOLOGY VISIT Observed: 08/11/2017 Status: F Source: [place] REPORT 1:29 PM [facility] [address] [place] [address] OFFICE VISIT Date of Service: 08/11/17 MR#: [id number] Acct: [id number] Name: JENNIFER HANKINS Rep #: [id number] : 1940 Provider: Toan Vazquez MD Age/Sex: 77/F Location: [facility] Status: Signed HPI HPI Chief Complaint: Follow up visit Details: JENNIFER HANKINS, is a 76 F who presents to the office today for a cardiovascular outpatient follow-up. Patient is a history of coronary artery disease status post atherectomy angioplasty and drug-eluting stent to her LAD in February 2017 at [facility], hypertension, and hyperlipidemia. Pt. denies new chest, arm, jaw, or neck discomfort. Her exercise tolerance is stable but limited d/t back pain. Pt. denies symptoms of CHF, lightheadedness, dizziness, near syncope, or syncopal episodes. Pt. denies edema. Pt. denies orthopnea, PND, fever, chills, blood in urine, blood in stool, or unexplainable fatigue. She states with her asthma she gets SOB and chest discomfort at times. She wears CPAP. She states having palpitations for years. She states muscle aches related to her fibromyalgia. She has been in cardiac rehabilitation and she loves it. She has not had any claudication and she has completed her physical therapy. Her physical exam today demonstrates clear lung urrutia regular rate and rhythm and no pedal edema. Intake Vital Signs08/11/17 Height 5 ft 2 in 08/11/17 Weight: 201 lb 08/11/17 Body Mass Index (BMI) 36.7 08/11/17 Blood Pressure 128/70 Intake Visit Reasons: 6 M FU (do not move) Security Ambassador Required: No Accompanied by: none Is patient in pain?: No Allergies Iodinated Contrast- Oral and IV Dye [CONTRASTS] Allergy (Verified 08/11/17 13:02) Unknown NSAIDS (Non-Steroidal Anti-Inflamma Allergy (Verified 08/11/17 13:02) Unknown Penicillins Allergy (Verified 08/11/17 13:02) Unknown aspirin Adverse Reaction (Severe, Verified 08/11/17 13:02) Wheezing Medications Albuterol IH (ProAir) [Proair Hfa (SP)Vent Pts] 1 - 2 puff INHALATION Q4H PRN PRN 02/21/17 [History Confirmed 08/11/17] Levocetirizine Dihydrochloride [Xyzal] 5 mg PO DAILY 02/21/17 [History Confirmed 08/11/17] Lorazepam [Ativan] 0.5 mg PO TID PRN PRN 02/21/17 [History Confirmed 08/11/17] benazepril 40 mg tablet 40 mg PO QDAY 03/12/17 [History Confirmed 08/11/17] nitroglycerin 0.4 mg sublingual tablet 0.4 mg SUBLINGUAL Q5- 15M PRN 03/12/17 [History Confirmed 08/11/17] aspirin 81 mg tablet,delayed release 81 mg PO QDAY #90 tab 03/25/17 [Rx Confirmed 08/11/17] atorvastatin 40 mg tablet 40 mg PO QDAY #90 tab 05/04/17 [Rx Confirmed 08/11/17] clopidogrel 75 mg tablet 75 mg PO DAILY #90 tab 05/04/17 [Rx Confirmed 08/11/17] flovent HFA NOT APPLICABLE 08/11/17 [History Confirmed 08/11/17] [facility] Medical History Bradycardia (Chronic) 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) History of atherectomy (Chronic) Carotid artery stenosis (Chronic) Hyperlipidemia (Chronic) History of left heart catheterization (Chronic) 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) Asthma (Chronic) Fatigue (Chronic) HTN (hypertension) (Chronic) Arthritis (Chronic) Encounter for long-term (current) use of other medications (Chronic) Fibromyalgia (Chronic) Hx of chest pain (Chronic) Hx of radiculopathy (Chronic) Incontinence (Chronic) Surgical History H/O right heart catheterization (Chronic) History of tubal ligation (Chronic) Hx of nasal polypectomy (Chronic) Plantar fasciitis (Chronic) Family History Father CAD (coronary artery disease) Other Heart disease Social History Smoking Status: Former smoker how long ago did patient quit smokin alcohol intake: never substance use type: does not use caffeine: No what type of physical activity do you participate in: other details: cardiac rehab frequency: 5-6 times per week duration: 15-30 minutes/day seatbelt use: always do you feel safe at home: Yes ROS Const Const: Negative for fatigue, weakness, night sweats, excessive sweating, frequent falls, headache(s) or daytime sleepiness Eyes Eyes: Negative for loss of peripheral vision, transient loss of vision, blind spots, double vision or blurry vision ENT ENT: Negative for headache(s), dizziness, balance problems, Nosebleed/epistaxis, tongue swelling or lip swelling Cardio Chest Pain: No Palpitations: No Edema: None Muscle aches with walking: None Resp Respiratory: Negative for SOB at rest, SOB orthopnea\SOB lying down, Cough, paroxysmal nocturnal dyspnea or SOB with activity GI GI: Negative nausea, vomiting, heartburn, black,tarry stools or bright, red blood in stools : Negative for hematuria Musc Musc: Negative for balance problems, muscle aches/ myalgia, muscle weakness or joint pain Skin Skin: Negative non-healing lesions, unusual bruising or rash Neuro Neuro: Negative for weakness, frequent falls, headache(s), double vision, dizziness, lightheadedness, orthostatic symptoms, blurry vision or lack of coordination Sohan Hematologic/Lymphatic: Negative for easy bruising or easy bleeding Endo Endo: Negative for fatigue, excessive sweating, cold intolerance, heat intolerance, increased thirst/drinking or hair loss Psych Psych: Negative for anxiety or depression Allergy Allergy/Immunology: Negative for throat swelling, Negative for tongue swelling, Negative for hives, Negative for rash, Negative for lip swelling Cardiology Exam Const Appearance: cooperative, healthy appearing, well developed, well groomed and no acute distress Nutritional Appearance: well nourished and average body habitus Orientation: alert, awake and oriented x3 Head Head: normal to inspection, normocephalic and atraumatic Ears: hearing grossly normal bilaterally and external ears normal Nose: external nose normal, nasal mucous membranes and turbinates normal, nares normal, septum normal, no nasal discharge Face and Sinus: face symmetric Mouth: oral mucosae normal, tongue normal, oropharynx normal and moist mucous membranes Teeth and gingiva: dentition normal Throat: posterior oropharynx normal, tonsils normal and uvula midline Eyes General: appearance normal, both eyes and all related structures Eyelids: eyelids normal Conjunctivae: conjunctivae normal Pupils: PERRL, normal by confrontation and accommodation normal EOM: EOM intact bilaterally Neck Neck: normal visual inspection, trachea midline and no JVD JVD: +5 Carotids: normal carotid upstroke and bounding pulses Chest Chest inspection: normal inspection of the chest, symmetric chest movement and normal respiratory effort Auscultation: Bilateral: Clear to Auscultation Cardio Palpation: normal PMI Rate: regular rate Rhythm: regular rhythm Heart sounds: S1 normal, S2 normal and normal, physiologic split S2; negative rub, gallop or murmur GI GI: normal to inspection, soft, no hepatosplenomegaly and bowel sounds present Neuro General: alert, awake, oriented x3, no focal sensory deficit, gait normal and moves all extremities Skin Skin: no rashes or lesions noted Extremities Pulses: Normal: Right Femoral Pulse, Left Femoral Pulse, Right Dorsalis Pedis Pulse, Left Dorsalis Pedis Pulse, Right Posterior Tibial Pulse, Left Posterior Tibial Pulse, Right Radial Pulse, Left Radial Pulse Lower Extremity Edema: None: Bilateral Musculoskel Musculoskeletal: No joint tenderness Psych Psychological: normal affect Assessment AND Plan 1. Atherosclerosis of bois forte coronary artery of bois forte heart without angina pectoris I25.10 S/P ROBBI to LAD in February 2017 at [facility]; Plan She continues to do well status post angioplasty and stenting with a drug-eluting stent to the left anterior descending artery. My recommendation is for her to continue with her exercise continue the current medications and for us to see her again in approximately 6 months. 2. Essential hypertension I10 Plan Her blood pressure appears to be under excellent control on the benazepril and she will continue that without as making any changes. 3. Pure hypercholesterolemia E78.00 Plan She remains on high intensity statin and the plan will be for her to obtain a lipid profile and depending on the results further recommendations will be made. Thank you for allowing me to participate in the care of your patient. Please don't hesitate to call if any issues arise Plan Detail Follow Up 6 Months (r) Coding Level of Care Code Off vis,est,level 3 Diagnoses Atherosclerosis of bois forte coronary artery of bois forte heart without angina pectoris I25.10 [place] vs. transplanted heart: bois forte heart Essential hypertension I10 Hypertension type: essential hypertension Pure hypercholesterolemia E78.00 Hyperlipidemia type: pure hypercholesterolemia Coding Level of Care Code Off vis,est,level 3 Diagnoses Atherosclerosis of bo[place] coronary artery of bois [place]te heart without angina pectoris I25.10 [place] vs. transplanted heart: bois [place]te heart Essential hypertension I10 Hypertension type: essential hypertension Pure hypercholesterolemia E78.00 Hyperlipidemia type: pure hypercholesterolemia 08/11/17 1329 <Electronically signed by Toan Vazquez MD> Date Toan Vazquez MD Cosigner Signature: Date (if applicable) CC: Antonio Joya CARDIOLOGY VISIT Observed: 06/10/2017 Status: F Source: [place] REPORT 3:59 PM [facility] [address] [place] [address] OFFICE VISIT Date of Service: 06/10/17 MR#: [id number] Acct: [id number] Name: JENNIFER HANKINS Rep #: [id number] : 1940 Provider: JENNY Monae Age/Sex: 76/F [place] [facility] Status: Signed HPI HPI Details: JENNIFER HANKINS, is a 76 F who presents to the office today for a cardiovascular outpatient follow-up. Patient is a history of coronary artery disease status post atherectomy angioplasty and drug-eluting stent to her LAD in February 2017 at [facility], hypertension, and hyperlipidemia. Pt. denies new chest, arm, jaw, or neck discomfort. Her exercise tolerance is stable but limited d/t back pain. Pt. denies symptoms of CHF, lightheadedness, dizziness, near syncope, or syncopal episodes. Pt. denies edema. Pt. denies orthopnea, PND, fever, chills, blood in urine, blood in stool, or unexplainable fatigue. She states with her asthma she gets SOB and chest discomfort at times. She wears CPAP. She states having palpitations for years. She states muscle aches related to her fibromyalgia. Pt. continues to have back pain that she attributes to her increase BP. Pt. is seeing Dr. Sanchez for this. She was told to have compression fracture, sciatica, and spinal stenosis. She will be undergoing physical therapy to try to help with this. She may be undergoing pain management with possible injections in the future. Intake Vital Signs06/10/17 Height 5 ft 2 in 06/10/17 Weight: 202 lb 06/10/17 Body Mass Index (BMI) 36.9 06/10/17 Blood Pressure 130/90 03/21/18 Blood Pressure Location Lt brachial Intake Visit Reasons: 3 M FU Security Ambassador Required: No Accompanied by: None Is patient in pain?: Yes (sharp low back discomfort) Pain scale (1-10): 8 Allergies Iodinated Contrast- Oral and IV Dye [CONTRASTS] Allergy (Verified 06/10/17 10:25) Unknown NSAIDS (Non-Steroidal Anti-Inflamma Allergy (Verified 06/10/17 10:25) Unknown Penicillins Allergy (Verified 06/10/17 10:25) Unknown aspirin Adverse Reaction (Severe, Verified 06/10/17 10:25) Wheezing Medications Albuterol IH (ProAir) [Proair Hfa (SP)Vent Pts] 1 - 2 puff INHALATION Q4H PRN PRN 02/21/17 [History Confirmed 06/10/17] Levocetirizine Dihydrochloride [Xyzal] 5 mg PO DAILY 02/21/17 [History Confirmed 06/04/17] Lorazepam [Ativan] 0.5 mg PO TID PRN PRN 02/21/17 [History Confirmed 06/04/17] benazepril 40 mg tablet 40 mg PO QDAY 03/12/17 [History Confirmed 06/04/17] nitroglycerin 0.4 mg sublingual tablet 0.4 mg SUBLINGUAL Q5- 15M PRN 03/12/17 [History Confirmed 06/10/17] aspirin 81 mg tablet,delayed release 81 mg PO QDAY #90 tab 03/25/17 [Rx Confirmed 06/10/17] atorvastatin 40 mg tablet 40 mg PO QDAY #90 tab 05/04/17 [Rx Confirmed 06/10/17] clopidogrel 75 mg tablet 75 mg PO DAILY #90 tab 05/04/17 [Rx Confirmed 06/04/17] Ejection fraction %: 65 to 70 PFSH Medical History Bradycardia (Chronic) 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) History of atherectomy (Chronic) Carotid artery stenosis (Chronic) Hyperlipidemia (Chronic) History of left heart catheterization (Chronic) 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) Asthma (Chronic) Fatigue (Acute) HTN (hypertension) (Chronic) Arthritis (Acute) Hx of chest pain (Acute) Incontinence (Acute) Encounter for long-term (current) use of other medications (Chronic) Surgical History H/O right heart catheterization (Chronic) Family History Father CAD (coronary artery disease) Other Heart disease Social History Smoking Status: Former smoker alcohol intake: never ROS Const Const: Negative for fatigue, weakness, body ache, fever(s) or chills ENT ENT: Negative for dizziness Cardio Chest Pain: Yes Palpitations: Yes Edema: None Muscle aches with walking: None Resp Respiratory: Positive for SOB with activity (Unchanged); negative for SOB at rest, SOB orthopnea\SOB lying down or paroxysmal nocturnal dyspnea GI GI: Negative nausea, black,tarry stools, bright, red blood in stools or vomiting blood/hematemesis : Negative for hematuria or frequent nighttime urination/ nocturia Musc Musc: Positive for muscle aches/ myalgia (left arm after exercise, low back) Neuro Neuro: Negative for weakness, dizziness, lightheadedness, near syncope, syncope or orthostatic symptoms Endo Endo: Negative for fatigue Cardiology Exam Const Appearance: cooperative, healthy appearing, comfortable and no acute distress Orientation: alert, awake and oriented x3 Head Head: normal to inspection Mouth: oral mucosae normal Neck Neck: no JVD and normal visual inspection Carotids: normal carotid upstroke Chest Chest inspection: normal inspection of the chest and normal respiratory effort Auscultation: Bilateral: Clear to Auscultation Cardio Rate: regular rate Rhythm: regular rhythm Heart sounds: S1 normal and S2 normal; negative rub or gallop GI GI: normal to inspection Neuro General: alert, awake, oriented x3 and CN's II-XI intact bilaterally Skin Skin: no rashes or lesions noted Extremities Pulses: Normal: Right Posterior Tibial Pulse, Left Posterior Tibial Pulse, Right Radial Pulse, Left Radial Pulse Lower Extremity Edema: None: Bilateral Psych Psychological: normal affect Supplemental Info Echocardiogram from December 2016 showed an estimated ejection fraction of 65%, stage I diastolic dysfunction, RVSP of 25 mmHg, and mild diffuse aortic valve thickening. Stress test from December 2016 was suggestive of evidence of anterior ischemia and a hyperdynamic ventricle. Heart catheterization from February 2017 showed single-vessel coronary artery disease of the LAD. Ejection fraction was noted to be 75%. Left main coronary artery was angiographically normal with mild calcification. Mid LAD had 80% stenosis with moderate calcification. Distal LAD had mild luminal irregularities less than 30%. LCx had mild luminal irregularities less than 30%. Proximal RCA had moderate luminal irregularities up to 50%. And mid RCA had mild luminal irregularities. Patient was transferred to [facility] for mid LAD lesion. Assessment AND Plan 1. Atherosclerosis of bois forte coronary artery of bois forte heart without angina pectoris I25.10 S/P ROBBI to LAD in February 2017 at [facility]; Plan - ADITHYA Wallace Patient denies any concerns during cardiac rehab. Patient denies any new chest pain, arm pain, jaw pain, neck pain, worsening shortness of breath, or fatigue suggestive of angina at this time. We will continue to monitor this. We will not make any medication regimen changes and will continue risk factor modification. Patient will continue Plavix and aspirin therapy. She was reminded of the importance of this medication being uninterrupted ideally for 1 year. She will discuss this further with pain management in case injections are recommended. 2. Essential hypertension I10 Plan - ADITHYA Wallace Patient blood pressure is slightly elevated today in office. This is potentially result of her increasing back pain. Hopefully as her pain is controlled her blood pressure also will be better controlled. She is instructed to contact our office if her pain is controlled, but her blood pressure remains elevated. 3. Pure hypercholesterolemia E78.00 Plan - ADITHYA Wallace This is being monitored by primary care physician. Patient will continue with current cholesterol lowering medication. Plan Detail Additional Comments - ADITYHA Wallace Discussed the above patient with Dr. Vazquez, he agrees with the plan of care. Thank you for allowing us to participate in the patients plan of care, if you have any questions please do not hesitate to call. This note was generated using a voice recognition system and there may be incorrect words, spelling or punctuation that were not noted when reviewing the office note prior to saving. Coding Level of Care Code Off vis,est,level 3 Diagnoses Atherosclerosis of [place] coronary artery of [place] heart without angina pectoris I25.10 [place] vs. transplanted heart: [place] heart Essential hypertension I10 Hypertension type: essential hypertension Pure hypercholesterolemia E78.00 Hyperlipidemia type: pure hypercholesterolemia Coding Level of Care Code Off vis,est,level 3 Diagnoses Atherosclerosis of [place] coronary artery of [place] heart without angina pectoris I25.10 [place] vs. transplanted heart: [place] heart Essential hypertension I10 Hypertension type: essential hypertension Pure hypercholesterolemia E78.00 Hyperlipidemia type: pure hypercholesterolemia 03/21/18 1442 <Electronically signed by Antonio Monae ATTENDING PATHOLOGIST-C> Date Antonio Pagan Letha ATTENDING PATHOLOGIST-C 06/10/17 1559<Electronically signed by Toan Vazquez MD> Cosigner Signature: Date (if applicable) Toan Vazquez MD CC: Antonio Joya ALLERGIES ALLERGIES DATE TYPE / CODE NAME / CODE REACTION SEVERITY SOURCE 03/22/2018 Drug Iodinated Unknown Unknown [place] [facility] All[facility]/416 Contrast- Oral [facility] 642167(SNOM and IV Repository ED CT) Dye/[id number](R XNORM) 03/22/2018 Drug NSAIDS Unknown Unknown [place] [facility] Allergy/416 (Non-Steroidal [facility] 422625(SNOM Anti-Inflamma/F[address]) 45613358(RXNORM) 03/22/2018 Drug Penicillins/F001 Unknown Unknown [place] [facility] Allergy/416 431219(RXNORM) Hospital 860614(SNOM Repository ED CT) 03/22/2018 Drug aspirin/[id number] WHEEZING SV [place] [facility] Allergy/416 87(RXNORM) Hospital 989469(SNOM Repository ED CT) ENCOUNTERS ENCOUNTERS ADMIT/DISCHARGE ACCOUNT ADMITTING ENCOUNTER LOCATION SOURCE NUMBER CLASS 04/15/2018 [id number] [place]ulatory [place] 5 [facility] ing:CR Repository 04/08/2018 [id number] [place]ulatory [place] 6 [facility] ing:OPBI Repository 04/02/2018 [id number] Ambulatory [place] 3 [facility] ing:CR Repository 03/22/2018 [id number] Ambulatory [place] 4 [facility] ing:LABSPEC Repository 03/22/2018/ [id number] Ambulatory BMSBuilding:B [place] 8 0 [facility] Repository 03/18/2018/ [id number] Ambulatory [place] 8 2 [facility] Hospital ing:CR Repository 02/18/2018/ [id number] Ambulatory [place] [facility] Repository 02/16/2018/ [id number] Ambulatory BMSBuilding:B [place] 8 7 [facility] Repository 01/21/2018 [id number] Ambulatory [place] [facility] ing:OPUS Repository 01/19/2018/ [id number] Ambulatory [place] 8 6 [facility] Hospital ing:CR Repository 01/14/2018 [id number] Ambulatory [place] [facility] ing:RAD Repository 01/11/2018 [id number] Ambulatory [place] 6 [facility] Hospital ing:CT Repository 01/01/2018 [id number] Ambulatory [place] 1 [facility] Hospital ing:MTLAB Repository 12/17/2017/ [id number] Ambulatory [place] 8 7 [facility] Hospital ing:CR Repository 11/19/2017/ [id number] Ambulatory [place] 8 3 [facility] ing:CR Repository 10/20/2017/ [id number] Ambulatory [place] 8 5 [facility] Hospital ing:CR Repository 09/28/2017/ [id number] Ambulatory BMSBuilding:B [place] 8 7 [facility] Repository 09/17/2017/ [id number] Ambulatory [place] 8 3 [facility] ing:CR Repository 08/27/2017 [id number] Ambulatory [place] 0 [facility] ing:LAB Repository 08/20/2017/ [id number] Ambulatory [place] 8 6 [facility] ing:CR Repository 08/11/2017/ [id number] Ambulatory BMSBuilding:B [place] 8 4 [facility] Repository 2017 [id number] Ambulatory BMSBuilding:B [place] 5 [facility] Repository 07/01/2017 [id number] Ambulatory [place] 6 [facility] ing:CR Repository 06/17/2017/ [id number] Ambulatory [place] 8 6 [facility] ing:CR Repository 06/10/2017/ [id number] Ambulatory BMSBuilding:B [place] 8 3 [facility] Repository 05/20/2017/ [id number] Ambulatory [place] 8 2 [facility] ing:CR Repository 04/22/2017/ [id number] Ambulatory [place] 8 5 [facility] ing:CR Repository PAYERS PAYERS ENCOUNTER GUARANTOR PAYER SUBSCRIBER SOURCE 04/15/2018 FRANCY Caty Primary JENNIFER Chance Salazar[place] [id number] Insurance:MEDICARE SHEPHERDDOB: [facility] PART A [facility] [id number] Number: Repository [address]Qid: 330 [id number] [phone] () Date:2018-03-03 04/15/2018 Secondary NOT GIVENUNK [place] Insurance:SELF PAY [facility] Number: Effective Repository Date:2018-03-03 04/08/2018 FRANCY Byrne Primary JENNIFER Chance SalazarMariana [id number] Insurance:MEDICARE SHEPHERDDOB: [facility] PART A [facility] [id number] Number: Repository [address]Gqt: 330 [id number] [phone] () Date:2018-03-05 04/08/2018 Secondary FRANCY Peña Insurance:WPS SHEPHERDDOB: [facility] [id number] Hospital Number: Repository [id number] Date:5934-55-43UJ[address] [address]PR: 04/08/2018 Tertiary NOT GIVENUNK [place] Insurance:SELF PAY [facility] Number: Effective Repository Date:2018-03-05 04/02/2018 FRANCY Byrne Primary JENNIFER Peña [id number] Insurance:MEDICARE SHEPHERDDOB: Community [place] PART A [facility] [id number] Number: Repository [address]Daf: 330 [id number] [phone] () Date:2017-07-21 04/02/2018 Secondary NOT GIVENUNK [place] Insurance: [facility] Number: Hospital Effective Repository Date:7258-70-93FJIFZIMERIT [facility] [address]RI: 04/02/2018 Tertiary NOT GIVENUNK [place] Insurance:SELF PAY [facility] Number: Effective Repository Date:2018-03-23 03/22/2018 FRANCY Byrne Primary JENNIFER Fletcher [place] [id number] Insurance:MEDICARE SHEPHERDDOB: Community [place] PART A [facility] [id number] Number: Repository [address]Jka: 330 [id number] [phone] () Date:2018-03-22 03/22/2018 Secondary JENNIFER L [place] Insurance: SHEPHERDDOB: [facility] Number: [id number] Hospital [id number] Repository Date:2382-27-84KKXKDF[facility] [address] [address]SU: 03/22/2018 Tertiary NOT GIVENUNK [place] Insurance:SELF PAY [facility] Number: Effective Repository Date:2018-03-22 03/22/2018 FRANCY Byrne Primary JENNIFER Fletcher [place] [id number] Insurance:MEDICARE SHEPHERDDOB: Community [place] PART A [facility] [id number] Number: Repository [address]Qtw: 330 [id number] [phone] () Date:2018-02-08 03/22/2018 Secondary JENNIFER L [place] Insurance: SHEPHERDDOB: [facility] Number: [id number] Hospital [id number] Repository Date:5504-54-10SDUNVJLENOX [facility] [address] [address]DC: 03/22/2018 Tertiary NOT GIVENUNK [place] Insurance:SELF PAY [facility] Number: Effective Repository Date:2018-02-16 03/18/2018 FRANCY Byrne Primary NOT GIVENUNK [place] [id number] Insurance:SELF PAY [place] Number: Effective Repository [phone]: (330) Date:2018-02-20 [phone] (HP) 02/18/2018 FRANCY Byrne Primary NOT GIVENUNK [place] [id number] Insurance:SELF [place]Y [place] Number: Effective Repository [address]95[address]Sly: (330) Date:2018-01-21 [phone] (HP) 02/16/2018 FRANCY Byrne Primary JENNIFER Fletcher [place] [id number] Insurance:MEDICARE SHEPHERDDOB: [facility] [place] PART A olic [id number] [place] Number: Repository [address]Mqq: 330 [id number] [phone] (HP) Date:2017-08-11 02/16/2018 Secondary FRANCY Peña Insurance:WPS SHEPHERDDOB: Community [facility] LIFEPolicy [id number] Hospital Number: Repository [id number] Date:7394-91-79XE [address] [place] [address]CX: 02/16/2018 Tertiary NOT GIVENUNK [place] Insurance:SELF PAY [facility] Number: Effective Repository Date:2018-02-16 01/21/2018 FRANCY Byrne Primary JENNIFER Fletcher [place] [id number] Insurance:MEDICARE SHEPHERDDOB: [facility] [place] PART A olicy [id number] Number: Repository [address]Vcv: 330 [id number] [phone] (HP) Date:2018-01-13 01/21/2018 Secondary FRANCY J [place] Insurance:WPS SHEPHERDDOB: Community [facility] LIFEPolicy [id number] Hospital Number: Repository [id number] Date:2427-26-92GT [address] [address]RX: 01/21/2018 Tertiary NOT GIVENUNK [place] Insurance:SELF PAY [facility] Number: Effective Repository Date:2018-01-13 01/19/2018 FRANCY Byrne Primary NOT GIVENUNK [place] [id number] Insurance:SELF [place]Y [place] Number: Effective Repository [address]Yku: 330) Date:2017-12-21 [phone] () 01/14/2018 FRANCY J Primary JENNIFER Peña [id number] Insurance:MEDICARE SHEPHERDDOB: [place] PART A [facility] [id number] [place] Number: Repository [address]Dfe: 330 [id number] [phone] () Date:2018-01-14 01/14/2018 Secondary FRANCY J [place] Insurance:WPS SHEPHERDDOB: [facility] FOR [facility] [id number] Hospital Number: Repository [id number] Date:3457-42-12PA [address] [address]QS: 01/14/2018 Tertiary NOT GIVENUNK [place] Insurance:SELF PAY [facility] Number: Effective Repository Date:2018-01-14 01/11/2018 FRANCY J Primary JENNIFER Peña [id number] Insurance:MEDICARE SHEPHERDDOB: [place] PART A [facility] [id number] [place] Number: Repository [address]Yrr: 330 [id number] [phone] () Date:2018-01-01 01/11/2018 Secondary FRANCY J [place] Insurance:WPS SHEPHERDDOB: [facility] FOR [facility] [id number] Hospital Number: Repository [id number] Date:5273-47-27XN [address] [address]WR: 01/11/2018 Tertiary NOT GIVENUNK [place] Insurance:SELF PAY [facility] Number: Effective Repository Date:2018-01-01 01/01/2018 FRANCY Byrne Primary JENNIFER Peña [id number] Insurance:MEDICARE SHEPHERDDOB: [place] PART A olicy [id number] [facility]aritan [facility] [place] Number: Repository [address]Zrh: 330 [id number] [phone] (HP) Date:2018-01-01 01/01/2018 Secondary FRANCY Peña Insurance:[facility] SHEPHERDDOB: [facility] [id number] Hospital Number: Repository [id number] Date:5848-91-83YV[address] [address]YL: 01/01/2018 Tertiary NOT GIVENUNK [place] Insurance:SELF PAY [facility] Number: Effective Repository Date:2018-01-01 12/17/2017 FRANCY Byrne Primary NOT GIVENUNK [place] [id number] Insurance:SELF [place]Y [place] Number: Effective Repository 818[address]Nqw: (330) Date:2017-11-21 [phone] () 11/19/2017 FRANCY Byrne Primary NOT GIVENUNK [place] [id number] Insurance:[place]LF [place] Number: Effective Repository [phone]: (330) Date:2017-10-21 [phone] () 10/20/2017 FRANCY Byrne Primary NOT GIVENUNK [place] [id number] Insurance:SELF PAY [facility] [place] Number: Effective Repository [phone]: (330) Date:2017-09-20 [phone] () 09/28/2017 FRANCY Byrne Primary JENNIFER Peña [id number] Insurance:MEDICARE SHEPHERDDOB: [place] PART A [facility] [id number] [facility]aritan [facility] [place] Number: Repository [address]Wdi: 330 [id number] [phone] () Date:2017-09-28 09/28/2017 Secondary FRANCY Salazaroster Insurance:TRICAREPoli SHEPHERDDOB: Community [place] Number: [id number] Hospital [id number] Repository Date:9754-15-97HMNBHVGRACIE SQUARE [facility] [address], [place] [address]RF: 09/28/2017 Tertiary NOT GIVENUNK [place] Insurance:SELF PAY [facility] Number: Effective Repository Date:2017-09-28 09/17/2017 FRANCY Byrne Primary NOT GIVENUNK [place] [id number] Insurance:SELF [place]Y [place] Number: Effective Repository 187[address]Vbz: (330) Date:2017-08-21 [phone] () 08/27/2017 Francy Primary JENNIFER Fletcher [place] [id number] Insurance:MEDICARE SHEPHERDDOB: Community [place] PART A [facility] [id number] [place] Number: Repository [address]Aam: 330 [id number] [phone] () Date:2017-08-27 08/27/2017 Secondary Francy Peña Insurance:WPS ShepherdDOB: [facility] [id number] Hospital Number: Repository [id number] Date:8487-34-70BN [address] [place] [address]DM: 08/27/2017 Tertiary NOT GIVENUNK [place] Insurance:SELF PAY [facility] Number: Effective Repository Date:2017-08-27 08/20/2017 Francy Primary NOT GIVENUNK [place] [id number] Insurance:SELF PAY [place] Number: Effective Repository [address]Xpm: (330) Date:2017-07-21 [phone] () 08/11/2017 Francy Primary JENNIFER Fletcher [place] [id number] Insurance:MEDICARE SHEPHERDDOB: Community [place] PART A [facility] [id number] Psychiatric Center [place] Number: Repository [address]Ruj: 330 [id number] [phone] () Date:2017-03-02 08/11/2017 Secondary Francy [place] Insurance:WPS ShepherdDOB: Community FOR LIFEPolicy [id number] Hospital Number: Repository [id number] Date:6681-36-54QX [address] [address]MX: 08/11/2017 Tertiary NOT GIVENUNK [place] Insurance:SELF PAY [facility] Number: Effective Repository Date:2017-06-10 2017 Francy Primary NOT GIVENUNK [place] [id number] Insurance:SELF PAY [place] Number: Effective Repository [address]Tje: 330) Date:[phone] () 07/01/2017 Francy Primary JENNIFER Peña [id number] Insurance:MEDICARE SHEPHERDDOB: Community [place] PART A [facility] [id number] Number[place] Rep[place] [address]Cin: 330 [id number] [phone] () Date:2017-03-24 07/01/2017 Secondary Francy [place] Insurance:WPS ShepherdDOB: Community FOR LIFEPolicy [id number] Hospital Number: Repository [id number] Date:7138-62-98MX [address] [address]HN: 07/01/2017 Tertiary NOT GIVENUNK [place] Insurance:SELF PAY [facility] Number: Effective Repository Date:2017-06-21 06/17/2017 Francy Primary JENNIFER Peña [id number] Insurance:MEDICARE SHEPHERDDOB: Community [place] PART A [facility] [id number] Number: Repository [address]Jec: 330 [id number] [phone] () Date:2017-03-24 06/17/2017 Secondary Francy [place] Insurance:WPS ShepherdDOB: Community FOR LIFEPolicy [id number] Hospital Number: Repository [id number] Date:6942-18-59KF [address] [address]AL: 06/17/2017 Tertiary NOT GIVENUNK [place] Insurance:SELF PAY [facility] Number: Effective Repository Date:2017-05-21 06/10/2017 Francy [id number] Insurance:MEDICARE SHEPHERDDOB: Community [place] PART A [facility] [id number], [place] Number: Repository [address]Ccl: 330 [id number] [phone] () Date:2017-03-12 06/10/2017 Secondary Francy [place] Insurance:WPS ShepherdDOB: [facility] [id number] Hospital Number: Repository [id number] Date:5793-69-38KP [address] [address]CB: 06/10/2017 Tertiary NOT GIVENUNK [place] Insurance:SELF PAY [facility] Number: Effective Repository Date:2017-06-10 05/20/2017 Francy [id number] Insurance:MEDICARE SHEPHERDDOB: Community [place] PART A [facility] [id number], [place] Number: Repository [address]Jaf: 330 [id number] [phone] () Date:2017-03-24 05/20/2017 Secondary Francy [place] Insurance:WPS ShepherdDOB: [facility] [id number] Hospital Number: Repository [id number] Date:4009-83-16FW [address] [address]GT: 05/20/2017 Tertiary NOT GIVENUNK [place] Insurance:SELF PAY [facility] Number: Effective Repository Date:2017-04-23 04/22/2017 Francy [id number] Insurance:MEDICARE SHEPHERDDOB: Community [place] PART A BPolicy [id number] [place] Number: Repository [id number]: (646) [id number] [phone] () Date:2017-03-24 04/22/2017 Secondary Francy [place] Insurance:WPS DEO MarianopherdDOB: [facility] [id number] Hospital Number: Repository [id number] Date:6920-37-33ER [address] [address]FJ: 04/22/2017 Tertiary NOT GIVENUNK [place] Insurance:SELF PAY [facility] Number: Effective Repository Date:2017-03-24
== END ==
PROVIDERS: Family Provider Family Medicine; PCP Family Medicine; Referring Provider Family Medicine; Visit Provider Family Medicine
DX: Z12.31 Encounter for screening mammogram for malignant neoplasm of breast (principal)
CPT/HCPCS: 77063; 77067

== ENCOUNTER 2018-04-22 06:00 | Outpatient (RCR) | payer MEDICARE, SELFPAY ==
[2018-02-16 09:54] VITALS: BMI 37.8
[2018-03-22 10:50] VITALS: BMI 37.8
== END 2018-04-22 23:59 ==
LOC: CR 06:00
PROVIDERS: Family Provider Family Medicine; PCP Family Medicine; Referring Provider Internal Medicine Cardiovascular Disease; Visit Provider Internal Medicine Cardiovascular Disease
DX: Z00.00 Encounter for general adult medical examination without abnormal findings (principal)

== ENCOUNTER 2018-05-18 05:47 | Day surgery (SDC) | payer MEDICARE, OTHER, SELFPAY ==
[2018-03-22 10:50] VITALS: BMI 37.8
[2018-05-13 09:08] VITALS: BMI 37.8
--- NOTE | 2018-05-13 09:42 | PCM.HPOB.BLA ---
- Problem List (1) UTI (urinary tract infection) Status: Acute (2) Abnormal nuclear stress test Status: Chronic (3) Asthma Status: Chronic (4) Atherosclerotic heart disease of [place] coronary artery without angina pectoris Status: Chronic Qualifiers: Comment: S/P ROBBI to LAD in February 2017 at [facility]; (5) Bradycardia Status: Chronic (6) Carotid artery stenosis Status: Chronic (7) Fatigue Status: Chronic (8) H/O right heart catheterization Status: Chronic (9) HTN (hypertension) Status: Chronic Qualifiers: (10) History of atherectomy Status: Chronic Comment: 02/24/[address] Roca, [facility] (11) History of left heart catheterization Status: Chronic (12) Hyperlipidemia Status: Chronic Qualifiers: (13) Presence of stent in LAD coronary artery Status: Chronic (14) Urinary tract infection Status: Chronic Qualifiers: History and Physical Date of Admission: 05/18/18 Vital Signs 05/13/18 Body Mass Index (BMI) 37.8 05/13/18 Height 5 ft 2 in 05/13/18 Weight: 213 lb 05/13/18 Body Mass Index (BMI) 38.9 05/13/18 Blood Pressure 112/82 H Intake Visit Reasons: pre op Chief Complaint: Pre Op Appt Corn Cutter Required: No Is patient in pain?: No Allergies Iodinated Contrast- Oral and IV Dye [CONTRASTS] Allergy (Verified 05/13/18 09:03) Unknown NSAIDS (Non-Steroidal Anti-Inflamma Allergy (Verified 05/13/18 09:03) Unknown Penicillins Allergy (Verified 05/13/18 09:03) Unknown aspirin Adverse Reaction (Severe, Verified 05/13/18 09:03) Wheezing Medications Levocetirizine Dihydrochloride [Xyzal] 5 mg PO QHS 02/21/17 [History Confirmed 05/13/18] benazepril 40 mg tablet 40 mg PO QDAY 03/12/17 [History Confirmed 05/13/18] Atorvastatin Calcium [Lipitor] 40 mg PO QHS 05/11/18 [History Confirmed 05/13/18] Lorazepam [Ativan] 0.5 mg PO DAILY PRN PRN 05/11/18 [History Confirmed 05/13/18] cyclobenzaprine 5 mg tablet 5 mg PO QHS 05/13/18 [History Confirmed 05/13/18] Is last menstrual period known: No Post menopausal: Yes Patient : No : No PFSH Medical History Bradycardia (Chronic) 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) Carotid artery stenosis (Chronic) Hyperlipidemia (Chronic) History of left heart catheterization (Chronic) Atherosclerotic heart disease of [place] coronary artery without angina pectoris (Chronic) Asthma (Chronic) Fatigue (Chronic) HTN (hypertension) (Chronic) Arthritis (Chronic) Encounter for long-term (current) use of other medications (Chronic) Fibromyalgia (Chronic) Hx of chest pain (Chronic) Hx of radiculopathy (Chronic) Incontinence (Chronic) Surgical History History of atherectomy (Chronic) H/O right heart catheterization (Chronic) History of tubal ligation (Chronic) Hx of nasal polypectomy (Chronic) Plantar fasciitis (Chronic) Family History Father CAD (coronary artery disease) Other Heart disease Social History Smoking Status: Former smoker how long ago did patient quit smokin alcohol intake: never substance use type: does not use caffeine: Yes Type: coffee Number of servings: 1 what type of physical activity do you participate in: other details: cardiac rehab frequency: 5-6 times per week duration: 15-30 minutes/day seatbelt use: always do you feel safe at home: Yes HPI pre op: Details: WAYLON HANKINS is a 77 year old who presents for Female Reproductive History Menopausal Symptoms: No night sweats ROS Const Constitutional: Denies fatigue, night sweats, weight gain or weight loss ENT ENT: Reports system reviewed and no additional complaints, except as docu Cardio Card: Denies chest pain Resp Resp: Denies cough or dyspnea GI GI: Reports as per HPI; denies abdominal pain, constipation, nausea or vomiting : Reports urinary frequency, urinary incontinence, urinary urgency and vaginal itching; denies nipple discharge, urinary hesitancy, vaginal discharge, vaginal dryness or vaginal odor Musc Musc: Reports back pain; denies joint pain or muscle weakness Skin Skin/Breast: Denies hair loss, change in hair, dry skin, breast lump, breast pain, breast skin changes or nipple discharge Neuro Neuro: Reports system reviewed and no additional complaints, except as docu Psych Psych: Reports system reviewed and no additional complaints, except as docu Endo Endo: Denies cold intolerance, excessive sweating, heat intolerance or increased thirst Sohan/Lymph Hematologic/Lymphatic: Denies easy bleeding, Denies easy bruising, Denies enlarged lymph nodes Exam Const General: cooperative, healthy appearing, comfortable, no acute distress, well developed Orientation: alert [facility] Head: normal to inspection, normocephalic Ears: hearing grossly normal bilaterally, external ears normal Nose: external nose normal, nares normal Face and sinus: normal facial exam Neck Neck: normal visual inspection, no lymphadenopathy Thyroid: thyroid normal Chest Chest palpation & inspection: normal inspection of the chest Resp Effort & Inspection: normal respiratory effort Auscultation: clear to auscultation bilaterally Cardio Rate: regular rate Rhythm: regular rhythm Heart Sounds: S1 normal, S2 normal GI Inspection: normal to inspection, non-distended Palpation: soft, no hepatosplenomegaly Musc Other: gross motor intact no deficits, full bilateral strength Skin General: no rashes or lesions noted Neuro General: alert, awake, moves all extremities, no focal motor deficits Motor: muscle tone normal throughout Extrem General: normal to inspection, no pedal edema Psych Appearance: grossly normal Mental Status: mental status grossly normal Affect: normal affect Speech and Movement: speech and movement normal Assessment & Plan Problems 1. Thickened endometrium R93.89 2. Endometrial polyp N84.0 Plan discussed risks of surgery plan d and c hysterosocpy and polyp removal with symphion. discussed surgical risks including risks of anesthesia, infection, bleeding, injury to bowel, bladder or blood vessels, and patient wishes to proceed with surgery. UPDATE- I have seen the patient and performed any clinically relevant updates to the history and physical exam. Tereso Bauer
--- NOTE | 2018-05-13 10:00 | EKG12_ITS ---
Test Reason : PRE-OP Blood Pressure : / mmHG Vent. Rate : 062 BPM Atrial Rate : 062 BPM P-R Int : 206 ms QRS Dur : 132 ms QT Int : 436 ms P-R-T Axes : 034 -10 033 degrees QTc Int : 442 ms Sinus rhythm with marked sinus arrhythmia Right bundle branch block Abnormal ECG Confirmed by BIMAL ALEXIS, FENG ([id number]), fan mail editor DARELL CHARLES ([id number]) on 05/17/2018 5:24:19 PM Referred By: Jennifer Gibson Confirmed By:FENG WALLIS MD
[2018-05-13 11:19] LABS: Absolute Lymphocyte Count 2.49 X10^3/ul (0.83-4.51); Absolute Neutrophil Count 6.1 X10^3/uL (2.0-7.7); Basophil# 0.03 X10^3/uL; Basophil% 0.3 % (0-1); Eosinophil# 0.36 X10^3/uL; Eosinophils% 3.7 % (0-5); Hematocrit 39.6 % (37-47); Lymphocyte # 2.49 X10^3/ul (4.0); Lymphocyte % 25.5 % (19-41); Mean Corp Hgb Conc 32.8 g/gl (32-36); Mean Corpuscular Hgb 31.9 pg (27.0-32.0); Mean Corpuscular Volume 97.1 fL (81-99); Mean Platelet Vol. 9.5 fl (6.2-12.0); Monocyte# 0.71 X10^3/uL; Monocyte% 7.3 % (0-10); Neutrophil # 6.11 X10^3/uL (2.7-7.7); Neutrophil % 62.5 % (47-70); POSITIVE COUNT NO; POSITIVE DIFFERENTIAL NO; POSITIVE MORPHOLOGY NO; Platelet Count 302 K/mm3 (150-450); RBC Distribution Width CV 13.3 % (11.6-14.6); Red Blood Count 4.08 M/mm3 (4.2-5.4); White Blood Count 9.8 K/mm3 (4.4-11.0)
[2018-05-13 11:50] LABS: Anion Gap 8 (5-15); BUN 11 mg/dL (7-18); BUN/Creat Ratio 16.4 RATIO (10-20); Calcium,Total 9.3 mg/dL (8.5-10.1); Chloride 105 mmol/L (98-107); Creatinine, Serum 0.67 mg/dL (0.55-1.02); EST Glomerular Filtration Rate 91 mL/min (>60); Est Glom Filt Rate - Afr Amer 110 mL/min (>60); Glucose 85 mg/dL (74-106); Potassium 4.1 mmol/L (3.5-5.1); Sodium Level 142 mmol/L (136-145)
--- NOTE | 2018-05-18 | IMM_PTH ---
PATIENT: JENNIFER HANKINS LOC: [facility] [place][id number] AGE/SX: 77/F ROOM: RE05/18/[address]: Dr. Jennifer Gibson MD : 1940 BED: DIS: 05/18/2018 SPEC #: [id number] RECD: 05/19/18 14:42 STATUS: PRIYANKA REQ #: [id number] DAMASO: 05/18/18 00:[address]: Jennifer Gibson DEPT: IMMUNOHISTOCHEMISTRY RECD BY: Lily Flores ENTERED: 05/19/18 14:43 SP TYPE: IMMUNO OTHR DR: MD Dr. Antonio Kiser MD Tissues: Endometrium, NOS Procedures: CEA (add) CK8 (add) CA (add) Vimentin (add) ER (initial) Comments: @ Specimen number changed from [id number] to [id number] @ on 05/19/18 at 1451 by RGOOD. PHYSICIAN & [address] [address] SPECIMEN INFORMATION: Tissue Source: Endometrial curettings Clinical Info: Thickened endometrium, endometrial polyp Specimen Number: [id number] CPT code: 40211, 97532 x4 METHODOLOGY: Deparaffinized sections of prefer/formalin-fixed tissue or PAP/DQ stained slides are incubated with monoclonal/polyclonal antibodies/oligonucleotide probes. Localization is made via biotin free immunoperoxidase method. Appropriate controls are performed and reacted as expected. Results on target cell population are indicated in the following table: RESULTS: ANTIBODY / CLONE RESULT ER (6F11) positive in glandular cells CA (1E2) negative in glandular cells/positive in stromal cells CK8 (76ypouN14) positive in glandular cells Vimentin (V9) positive in glandular cells CEA (11-7/TF-3HB-1) focally positive in glandular cells These tests were developed and their performance characteristics determined by [facility]. They may not have been cleared or approved by the U.S. Food and Drug Administration. The FDA has determined that such clearance or approval is not necessary. INTERPRETATION: Endometrial curettings: The results of immunohistochemistry are consistent with endometrial origin. CE:roly 05/20/18
--- NOTE | 2018-05-18 | EMB_PTH ---
PATIENT: JENNIFER HANKINS LOC: [facility] [place] U#:[id number] AGE/SX: 77/F ROOM: RE05/18/[address]: Dr. Jennifer Gibson MD : 1940 BED: DIS: 05/18/2018 SPEC #: [id number] RECD: 05/18/18 09:07 STATUS: PRIYANKA JACQUELINE #: [id number] DAMASO: 05/18/18 00:[address]: Jennifer Gibson DEPT: SURGICAL PATHOLOGY RECD BY: Rigoberto Syed ENTERED: 05/18/18 12:33 SP TYPE: ENDOM BX/C OTHR DR: MD Dr. Antonio Kiser MD Tissues: Endometrium, NOS Procedures: Gen Path Consultation (on slides) Surgery Specimen Level IV HEADER OPERATION: Hysteroscopy, D & C, Symphion PRE-OP DIAGNOSIS: Thickened endometrium, endometrial polyp TISSUE SUBMITTED: Endometrial curettings MICROSCOPIC DIAGNOSIS Endometrial curettings: Endometrium with complex/atypical mucinous metaplasia. See comment. SHAGUFTA:roly 05/25/18 COMMENT The specimen was sent to [facility] for expert opinion and reviewed by Dr. Torrez and Dr. Torrez also commented, the lesion may be associated with endometrial hyperplasia or neoplastic process. Clinical followup or rebiopsy is recommended if clinically indicated. The complete report is viewable in patient's EMR. Immunohistochemistry ([id number]) supports the above diagnosis. Case has been reviewed in consultation with Dr. Godfrey and Dr. Latham who concurs with the above diagnosis. IDC:CE/IDC:AM MICROSCOPIC DESCRIPTION Slides are reviewed. GROSS DESCRIPTION Received in fixative is one container labeled with the patient's name and designated endometrial curettings. The specimen consists of multiple irregular fragments of tesfaye soft tissue that in aggregate measure 2.5 x 2 x 0.1 cm. The specimen is totally submitted in one cassette. / SHAGUFTA:roly 05/18/18 TC:5 CPT: 36834
--- NOTE | 2018-05-18 | IMM_PTH ---
PATIENT: JENNIFER HANKINS [place] [facility] [place][id number] AGE/SX: 77/F ROOM: RE05/18/[address]: Dr. Jennifer Gibson MD : 1940 BED: DIS: 05/18/2018 SPEC #: [id number] RECD: 05/19/18 14:42 STATUS: PRIYANKA REQ #: [id number] DAMASO: 05/18/18 00:[address]: Jennifer Gibson DEPT: IMMUNOHISTOCHEMISTRY RECD BY: Lily Flores ENTERED: 05/19/18 14:43 SP TYPE: IMMUNO OTHR DR: MD Dr. Antonio Kiser MD Tissues: Endometrium, NOS Procedures: CEA (add) CK8 (add) OR (add) Vimentin (add) ER (initial) Comments: @ Specimen number changed from [id number] to [id number] @ on 05/19/18 at 1451 by RGOOD. PHYSICIAN & [address] [address] SPECIMEN INFORMATION: Tissue Source: Endometrial curettings Clinical Info: Thickened endometrium, endometrial polyp Specimen Number: [id number] CPT code: 62347, 55321 x4 METHODOLOGY: Deparaffinized sections of prefer/formalin-fixed tissue or PAP/DQ stained slides are incubated with monoclonal/polyclonal antibodies/oligonucleotide probes. Localization is made via biotin free immunoperoxidase method. Appropriate controls are performed and reacted as expected. Results on target cell population are indicated in the following table: RESULTS: ANTIBODY / CLONE RESULT ER (6F11) positive OR (1E2) positive, patchy CK8 ([id number]) positive Vimentin (V9) positive CEA (11-7/TF-3HB-1) positive, patchy These tests were developed and their performance characteristics determined by [facility]. They may not have been cleared or approved by the U.S. Food and Drug Administration. The FDA has determined that such clearance or approval is not necessary. INTERPRETATION: Endometrial curettings: Endometrium with complex/atypical mucinous metaplasia. See comment. SHAGUFTA:roly 05/25/18 Comment: The specimen was sent to [facility] for expert opinion and reviewed by Dr. Torrze. Case has been reviewed in consultation with Dr. Godfrey who concurs with the above diagnosis. IDC:CE
[2018-05-18 06:14] VITALS: BP 156/79; PULSE 71; RESP 16; TEMP 36.6; O2SAT 98; BMI 38.3
[2018-05-18] MEDS: Ciprofloxacin 400 MG/200 ML BAG 200 MG IV (06:40)
--- NOTE | 2018-05-18 08:12 | DCINST_ITS ---
Discharge Diet: No Restrictions Discharge Activity: Return to Normal Activity, May not drive while taking narcotic pain medications. May resume sexual activity in: No Restrictions Call your doctor if you observe: Fever of 101 or Higher, Inability to urinate, Shortness of breath, Chest pain, Calf discomfort, Uncontrolled pain Allergies/Adverse Reactions: Allergies Iodinated Contrast- Oral and IV Dye [CONTRASTS] Allergy (Verified 05/13/18 09:03) Unknown NSAIDS (Non-Steroidal Anti-Inflamma Allergy (Verified 05/13/18 09:03) Unknown Penicillins Allergy (Verified 05/13/18 09:03) Unknown aspirin Adverse Reaction (Severe, Verified 05/13/18 09:03) Wheezing Medications to take at Discharge Levocetirizine Dihydrochloride [Xyzal] 5 mg PO QHS 02/21/17 benazepril 40 mg tablet 40 mg PO QDAY 03/12/17 Atorvastatin Calcium [Lipitor] 40 mg PO QHS 05/11/18 Lorazepam [Ativan] 0.5 mg PO DAILY PRN PRN 05/11/18 cyclobenzaprine 5 mg tablet 5 mg PO QHS 05/13/18 Primary Care Physician: Antonio Joya [Primary Care Provider] - Test Results: Test results from this visit will be discussed in further detail at your follow- up appointment, if applicable. Please Follow Up With: Mandy Reddy MD When: 2-3 weeks with [facility] Proposed Discharge Date: 05/18/18
--- NOTE | 2018-05-18 08:12 | PCM.OPRPT ---
Problem List (1) Renal calculus, left Status: Acute Report of Operation Date of Procedure: 05/18/18 Pre-Operative Diagnosis: left renal calculus Post-Operative Diagnosis: same Surgery/Procedure Performed:: left extracorporeal shockwave lithotripsy Description of Surgical Findings:: stone appeared well fragmented at conclusion of case. Type of Anesthesia:: General Specimen's removed: none Estimated Blood Loss (mL): 1cc Description of Procedure: The patient is a 77-year-old female with a left renal calculus. After discussing the risks, benefits and alternatives, she agreed to proceed with shockwave lithotripsy as definitive treatment. Informed consent was obtained. She was taken to the operating room placed on the operating room table. Anesthesia monitored the head, neck, airway, IV access, and vital signs throughout the case. Once anesthesia was appropriately administered the patient underwent a procedure per Dr. Gibson. At the conclusion of this case the patient was repositioned in an appropriate place on the ESWL table. At this time the stone was easily visible. 3000 shocks were applied to the stone which appeared to be well fragmented at the conclusion of the case. There were no complications during this procedure. The patient was awakened and taken to the recovery room in good condition. Grafts/Implants Used: none - Complications none - Admit VTE Documentation VTE Present on Admission: Yes VTE Mechan Device Prophylaxis: SCD's VTE Pharm Prophylaxis ordered?: No Reason prophylaxis not ordered:: Treatment Not Indicated
--- NOTE | 2018-05-18 08:21 | PCM.OPRPT ---
Problem List (1) UTI (urinary tract infection) Status: Acute (2) Abnormal nuclear stress test Status: Chronic (3) Asthma Status: Chronic (4) Atherosclerotic heart disease of [place] coronary artery without angina pectoris Status: Chronic Qualifiers: Comment: S/P ROBBI to LAD in February 2017 at [facility]; (5) Bradycardia Status: Chronic (6) Carotid artery stenosis Status: Chronic (7) Fatigue Status: Chronic (8) H/O right heart catheterization Status: Chronic (9) HTN (hypertension) Status: Chronic Qualifiers: (10) History of atherectomy Status: Chronic Comment: 02/24/[address] 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 A weighted speculum was placed in the vagina and the anterior lip of the cervix was grasped with a single-tooth tenaculum. A paracervical block was placed with 1% lidocaine. Cervix was progressively dilated to allow passage of a 5 mm hysteroscope. The lining was fully visualized and noted to have thickened glandular appearance to the front wall. Uterine sounded to 7 cm. Using the symphion device, the visual dilation and curettage was performed aggressively sampling the entire endometrium visually without complications. all specimens were sent to pathology. All instruments were removed from the vagina and excellent hemostasis was noted. The next portion of the procedure please see the other operative note for information Grafts/Implants Used: none - Complications none
--- NOTE | 2018-05-18 08:25 | OP.PCM_ITS ---
Problem List (1) UTI (urinary tract infection) Status: Acute (2) Abnormal nuclear stress test Status: Chronic (3) Asthma Status: Chronic (4) Atherosclerotic heart disease of [place] coronary artery without angina pectoris Status: Chronic Qualifiers: Comment: S/P ROBBI to LAD in February 2017 at [facility]; (5) Bradycardia Status: Chronic (6) Carotid artery stenosis Status: Chronic (7) Fatigue Status: Chronic (8) H/O right heart catheterization Status: Chronic (9) HTN (hypertension) Status: Chronic Qualifiers: (10) History of atherectomy Status: Chronic Comment: 02/24/[address] 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 A weighted speculum was placed in the vagina and the anterior lip of the cervix was grasped with a single-tooth tenaculum. A paracervical block was placed with 1% lidocaine. Cervix was progressively dilated to allow passage of a 5 mm hysteroscope. The lining was fully visualized and noted to have thickened glandular appearance to the front wall. Uterine sounded to 7 cm. Using the symphion device, the visual dilation and curettage was performed aggressively sampling the entire endometrium visually without complications. all specimens were sent to pathology. All instruments were removed from the vagina and excellent hemostasis was noted. The next portion of the procedure please see the other operative note for information Grafts/Implants Used: none - Complications none
[2018-05-18 08:56] VITALS: BP 137/71; BP 156/79; PULSE 69; RESP 16; TEMP 36.5; O2SAT 100
[2018-05-18 09:00] VITALS: BP 129/70; BP 156/79; PULSE 67; RESP 16; O2SAT 100
[2018-05-18 09:15] VITALS: BP 143/75; BP 156/79; PULSE 60; RESP 16; TEMP 36.1; O2SAT 100
[2018-05-18 10:47] VITALS: BP 145/66; BP 156/79; PULSE 70; RESP 18; TEMP 36.7; O2SAT 92
== END 2018-05-18 10:52 | disposition home or self-care (01) ==
LOC: SDC 05:50 → AC 05:50
PROVIDERS: Family Provider Family Medicine; PCP Family Medicine; Referring Provider Urology; Visit Provider Obstetrics & Gynecology
PROC: 0UB98ZZ Excision of Uterus, Via Natural or Artificial Opening Endoscopic (ICD-10-PCS; CPT 58558; principal; 2018-05-18 07:00)
PROC: (CPT 50590; 2018-05-18 07:00)
DX: N20.0 Calculus of kidney (principal); N84.0 Polyp of corpus uteri; N39.0 Urinary tract infection, site not specified; R31.0 Gross hematuria; N95.0 Postmenopausal bleeding; N39.3 Stress incontinence (female) (male); I25.10 Atherosclerotic heart disease of native coronary artery without angina pectoris; I10 Essential (primary) hypertension; E78.49 Other hyperlipidemia; I65.29 Occlusion and stenosis of unspecified carotid artery; M79.7 Fibromyalgia; G47.30 Sleep apnea, unspecified; R53.82 Chronic fatigue, unspecified; M54.9 Dorsalgia, unspecified; G89.29 Other chronic pain; J45.909 Unspecified asthma, uncomplicated; Z79.02 Long term (current) use of antithrombotics/antiplatelets; Z79.82 Long term (current) use of aspirin; Z79.899 Other long term (current) drug therapy; Z87.891 Personal history of nicotine dependence; Z95.5 Presence of coronary angioplasty implant and graft
CPT/HCPCS: 50590; 58558; 36415; 80048; 85025; 86850; 86900; 88305; 88325; 88341; 88342; 93005; J7120; J0744; J2405

== ENCOUNTER 2018-05-20 06:00 | Outpatient (RCR) | payer MEDICARE, OTHER, SELFPAY ==
[2018-03-22 10:50] VITALS: BMI 37.8
== END 2018-05-20 23:59 ==
LOC: CR 06:00
PROVIDERS: Family Provider Family Medicine; PCP Family Medicine; Referring Provider Internal Medicine Cardiovascular Disease; Visit Provider Internal Medicine Cardiovascular Disease
DX: Z00.00 Encounter for general adult medical examination without abnormal findings (principal)
CPT/HCPCS: J2405

== ENCOUNTER → 2018-06-02 12:19 | Outpatient (CLI) | payer MEDICARE, OTHER, SELFPAY ==
[2018-06-01 10:47] VITALS: BMI 37.8
--- NOTE | 2018-06-02 12:22 | RAD_ITS ---
STUDY: X-RAY - ABDOMEN/PELVIS REASON FOR EXAM: Female, 77 years old. Renal calculus TECHNIQUE: Two AP supine views of the abdomen and pelvis. COMPARISON: 01/14/2018 FINDINGS: Normal visualized lung bases. There is an unremarkable bowel gas pattern. There is no demonstrated free abdominal air. Stable 7 mm stone in the left lower kidney. No ureter stones are identified. Normal soft tissue structures. Normal visualized osseous structures. RAD/Abdomen Single View IMPRESSION: Stable 7 mm stone in the left lower kidney. No ureter stones are identified. Electronically Signed: Danyel Martínez MD at 15:46 EDT Tel , Service support ,
== END ==
PROVIDERS: Family Provider Family Medicine; PCP Family Medicine; Referring Provider Urology; Visit Provider Urology
DX: N20.0 Calculus of kidney (principal)
CPT/HCPCS: 74018

== ENCOUNTER 2018-06-15 06:00 | Outpatient (RCR) | payer SELFPAY ==
[2018-05-21 00:38] VITALS: BMI 37.8
== END 2018-06-20 23:59 ==
LOC: CR 06:00
PROVIDERS: Family Provider Family Medicine; PCP Family Medicine; Referring Provider Internal Medicine Cardiovascular Disease; Visit Provider Internal Medicine Cardiovascular Disease
DX: Z00.00 Encounter for general adult medical examination without abnormal findings (principal)

== ENCOUNTER 2018-06-17 10:07 | Day surgery (SDC) | payer MEDICARE, OTHER, SELFPAY ==
[2018-05-27 13:35] VITALS: BMI 37.8
[2018-06-01 10:47] VITALS: BMI 37.8
--- NOTE | 2018-06-16 16:27 | PCM.HPOB.BLA ---
- Problem List (1) Complex endometrial hyperplasia with atypia Status: Acute Comment: candelario rios bsyola (2) Abnormal nuclear stress test Status: Chronic (3) Asthma Status: Chronic (4) Atherosclerotic heart disease of [place] coronary artery without angina pectoris Status: Chronic Qualifiers: Comment: S/P ROBBI to LAD in February 2017 at [facility]; (5) Bradycardia Status: Chronic (6) Carotid artery stenosis Status: Chronic (7) Fatigue Status: Chronic (8) H/O right heart catheterization Status: Chronic (9) HTN (hypertension) Status: Chronic Qualifiers: (10) History of atherectomy Status: Chronic Comment: 02/24/[address] Roca, [facility] (11) History of left heart catheterization Status: Chronic (12) Hyperlipidemia Status: Chronic Qualifiers: (13) Presence of stent in LAD coronary artery Status: Chronic (14) Urinary tract infection Status: Chronic Qualifiers: History and Physical Date of Admission: 06/17/18 Intake Vital Signs 05/27/18 Body Mass Index (BMI) 37.8 05/27/18 Height 5 ft 2 in 05/27/18 Weight: 212 lb 05/27/18 Body Mass Index (BMI) 38.7 05/27/18 Blood Pressure 148/72 H Intake Visit Reasons: DISCUSS TEST RESULTS PER SM Is patient in pain?: No Allergies Iodinated Contrast- Oral and IV Dye [CONTRASTS] Allergy (Verified 05/27/18 12:42) Unknown NSAIDS (Non-Steroidal Anti-Inflamma Allergy (Verified 05/27/18 12:42) Unknown Penicillins Allergy (Verified 05/27/18 12:42) Unknown aspirin Adverse Reaction (Severe, Verified 05/27/18 12:42) Wheezing Medications Levocetirizine Dihydrochloride [Xyzal] 5 mg PO QHS 02/21/17 [History Confirmed 05/27/18] benazepril 40 mg tablet 40 mg PO QDAY 03/12/17 [History Confirmed 05/27/18] Atorvastatin Calcium [Lipitor] 40 mg PO QHS 05/11/18 [History Confirmed 05/27/18] Lorazepam [Ativan] 0.5 mg PO DAILY PRN PRN 05/11/18 [History Confirmed 05/27/18] cyclobenzaprine 5 mg tablet 5 mg PO QHS 05/13/18 [History Confirmed 03/07/19] Is last menstrual period known: No Post menopausal: Yes Patient : No : No PFSH Medical History Bradycardia (Chronic) 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) Carotid artery stenosis (Chronic) Hyperlipidemia (Chronic) History of left heart catheterization (Chronic) Atherosclerotic heart disease of [place] coronary artery without angina pectoris (Chronic) Asthma (Chronic) Fatigue (Chronic) HTN (hypertension) (Chronic) Arthritis (Chronic) Encounter for long-term (current) use of other medications (Chronic) Fibromyalgia (Chronic) Hx of chest pain (Chronic) Hx of radiculopathy (Chronic) Incontinence (Chronic) Surgical History History of atherectomy (Chronic) H/O right heart catheterization (Chronic) History of tubal ligation (Chronic) Hx of nasal polypectomy (Chronic) Plantar fasciitis (Chronic) Family History Father CAD (coronary artery disease) Other Heart disease Social History Smoking Status: Former smoker how long ago did patient quit smokin alcohol intake: never substance use type: does not use caffeine: Yes Type: coffee Number of servings: 1 what type of physical activity do you participate in: other details: cardiac rehab frequency: 5-6 times per week duration: 15-30 minutes/day seatbelt use: always do you feel safe at home: Yes HPI DISCUSS TEST RESULTS PER SM: Details: JENNIFER HANKINS is a 77 year old who presents for follow up for discussion of d and c results. the visual d and c was performed and complex hyperplasia with atypia was seen. she is still having some bleeding now. ROS Const Constitutional: Denies fatigue, fever(s), headache(s), increased appetite, poor appetite, weight gain or weight loss Cardio Card: Denies chest pain Resp Resp: Denies cough or dyspnea GI GI: Reports as per HPI; denies abdominal pain, constipation, nausea or vomiting : Reports as per HPI; denies difficulty urinating, painful urination, nipple discharge, urinary frequency, urinary incontinence, urinary hesitancy, urinary urgency, vaginal discharge, vaginal dryness, vaginal odor or vaginal itching Skin Skin/Breast: Denies change in hair, breast lump, breast pain, breast skin changes or nipple discharge Exam Const General: cooperative, healthy appearing, comfortable, no acute distress, well developed Orientation: alert [facility] Head: normal to inspection, normocephalic Neck Neck: normal visual inspection, trachea midline Thyroid: thyroid normal Resp Effort & Inspection: normal respiratory effort GI Inspection: normal to inspection, non-distended Palpation: soft, no hepatosplenomegaly General: bladder normal to palpation External Female Exam: normal external appearance, normal appearance of the urethra Urethra: normal appearance of the urethra, normal palpation, no discharge Speculum Exam - Vagina: normal appearance of the vagina, normal vaginal discharge Speculum Exam - Cervix: normal appearance of the cervix, nontender Bimanual Exam- Vagina & Uterus: normal bimanual exam, uterine size normal, bladder normal to palpation, uterine shape normal, No cervical tenderness, uterine mobility normal, uterine consistency normal, normal cervical palpation, uterus non-tender Bimanual Exam- Adnexa, other: normal adnexae, adnexae mobile, no adnexal masses, pelvic support normal Pelvic Support: normal Skin General: no rashes or lesions noted Assessment & Plan Problems 1. Complex endometrial hyperplasia with atypia N85.02 plan lav bso Plan discussed options with patient including referral to nautical instrument mechanic onc versus local removal. due to the comprehensive visual d and c performed, the likelihood of cancer present is lower, and the patient prefers to have surgery performed locally. I discussed the risk of needing future surgery or incomplete staging if cancer would be diagnosed. patient wishes to proceed with surgery. discussed surgical risks including risks of anesthesia, infection, bleeding, injury to bowel, bladder or blood vessels, and patient wishes to proceed with surgery. confirm cardiac clearance prior to surgery. Coding Level of Care Code Off vis,est,level 5 Diagnoses Complex endometrial hyperplasia with atypia N85.02 UPDATE- I have seen the patient and performed any clinically relevant updates to the history and physical exam. Jennifer Gibson MD
[2018-06-17] VITALS (13 sets, daily range): BP systolic 82–124; BP diastolic 45–89; PULSE 42–82; RESP 14–20; TEMP 36.6–37.1; O2SAT 93–100; BMI 39.7
[2018-06-17] MEDS: Gabapentin 600 MG Tablet PO (07:00)
[2018-06-17] MEDS: Enoxaparin 40 MG/0.4 ML Syringe SC (07:00)
[2018-06-17] MEDS: Acetaminophen 500 MG Tablet 1000 MG PO ×2 (07:00→18:11)
[2018-06-17] MEDS: Magnesium Sulfate 4gm/100mL 4 GM/100 ML IV.SOLN. IV (07:00)
[2018-06-17 10:55] LABS: Bedside Glucose 80 mg/dL (70-110)
[2018-06-17] MEDS: Phenazopyridine 95 MG Tablet 190 MG PO (11:19)
--- NOTE | 2018-06-17 12:10 | HYST_PTH ---
PATIENT: JENNIFER HANKINS LOC: [facility] [place] U#:[id number] AGE/SX: 77/F ROOM: RE06/17/[address]: Dr. Jennifer Gibson MD : [id number] BED: DIS: 06/18/2018 SPEC #: [id number] RECD: 06/17/18 13:52 STATUS: PRIYANKA PHILLIPS #: [id number] DAMASO: 06/17/18 12:[address]: Jennifer Gibson DEPT: SURGICAL PATHOLOGY RECD BY: Miguelito Chávez ENTERED: 06/17/18 14:22 SP TYPE: HYSTERECT OTHR DR: Dr. Antonio Joya MD Tissues: Uterus, NOS Procedures: Surgery Specimen Level V HEADER OPERATION: ERAS, hysterectomy, lap-assisted vaginal, BSO, cysto PRE-OP DIAGNOSIS: Complex endometrial hyperplasia with atypia TISSUE SUBMITTED: Uterus, bilateral tubes and ovaries MICROSCOPIC DIAGNOSIS Uterus, bilateral fallopian tubes and ovaries, vaginal hysterectomy and bilateral salpingo-oophorectomy: Cervix - chronic cystic cervicitis. Endometrium - complex endometrial hyperplasia with focal atypia. Myometrium -- adenomyosis. See comment -Intramural leiomyomas with focal calcification (largest measuring 1.5 cm in greatest dimension). Bilateral fallopian tubes - no pathologic diagnosis. Bilateral ovaries - no pathologic diagnosis. Right paratubal cyst. SJ:roly 06/18/18 COMMENT The area of adenomyosis also shows complex endometrial hyperplasia with atypia. Please make reference to previous specimen ([id number]) endometrial curettings with diagnosis of endometrium with complex/atypical mucinous metaplasia. Case has been reviewed in consultation with Dr. Latham who concurs with the above diagnosis. IDC:AM MICROSCOPIC DESCRIPTION Slides are reviewed. GROSS DESCRIPTION Received in fixative is one container labeled with the patient's name and designated uterus, bilateral tubes and ovaries. The specimen consists of a hysterectomy specimen consisting of uterus with cervix, attached left fallopian tube and ovary and detached right fallopian tube and ovary. The uterus with cervix weighs 75 gm and measures 9 x 6 x 3.5 cm. The serosal surface is tesfaye, glistening. The ectocervical mucosa is unremarkable. The endocervical canal measures 2.5 cm in length and the endocervical mucosa is tesfaye, glistening and unremarkable. The triangular endometrial cavity measures 4 cm in length and up to 3 cm in width. The endometrium is tesfaye, glistening without any mass lesion and measures 0.1 cm in thickness. Sections of the uterine wall reveal multiple intramural nodular masses with the largest mass measuring 1.5 cm in greatest dimension. Sections of these masses reveal tesfaye whorled cut surfaces without areas of hemorrhage, necrosis or cystic degeneration. The uninvolved uterine wall measures 2 cm in thickness. The right fallopian tube measures 6 cm in length and 0.6 cm in diameter. The fimbrial end is identified. No paratubal adhesions are noted. The fallopian tube shows multiple cysts measuring 0.3 to 0.5 cm in greatest dimension. The right ovary measures 2 x 1.5 x 1 cm. Sections reveal unremarkable cut surfaces. The left fallopian tubes measures 3.5 cm in length and 0.6 cm in diameter. The fimbrial end is identified. It is focally interrupted in the middle. Sections reveal unremarkable cut surfaces. The left ovary measures 3 x 1.5 x 1 cm. No tubo-ovarian adhesions are noted. Sections reveal unremarkable cut surfaces. Transition Specialist sections are submitted in 11 cassettes as follows: 1??anterior cervix, 2 - posterior cervix, 3-5 - anterior uterine wall, 6-8 - posterior uterine wall (the entire endometrium is submitted), 9 - nodular masses, 10 - right fallopian tube and ovary, 11 - left fallopian tube and ovary. / SHAGUFTA:roly 06/17/18 TC:5 CPT: 10591
[2018-06-17] MEDS: Bupivacaine 0.25% 30 ML Vial (12:50)
[2018-06-17] MEDS: Lactated Ringers 1,000 ML 70 ML IV ×2 (15:55→21:28)
[2018-06-17 16:44] LABS: Hemoglobin 11.5 g/dl (12.0-15.0)
[2018-06-17] MEDS: Budesonide Respules 0.5 MG/2 ML AMPUL.NEB. INHALATION (19:04)
[2018-06-17 21:21] LABS: Hemoglobin 11.7 g/dl (12.0-15.0)
[2018-06-17] MEDS: Atorvastatin Calcium 40 MG Tablet PO (21:28)
[2018-06-17] MEDS: Docusate Sodium 100 MG Capsule PO (21:28)
[2018-06-17] MEDS: Loratadine 10 MG Tablet 5 MG PO (21:28)
--- NOTE | 2018-06-17 23:04 | NURSING ---
Patient up and sat in chair once post-op checks completed, then ambulated in hallway with this RN, tolerated well. Assisted back to bed.
[2018-06-18] MEDS: Acetaminophen 500 MG Tablet 1000 MG PO ×3 (00:06→11:37)
[2018-06-18 04:06] VITALS: BP 110/52; PULSE 48; RESP 16; TEMP 36.6; O2SAT 98
--- NOTE | 2018-06-18 04:37 | PCM.OPRPT ---
Problem List (1) Complex endometrial hyperplasia with atypia Status: Acute Comment: plan lavh bso (2) Abnormal nuclear stress test Status: Chronic (3) Asthma Status: Chronic (4) Atherosclerotic heart disease of [place] coronary artery without angina pectoris Status: Chronic Qualifiers: Comment: S/P ROBBI to LAD in February 2017 at [facility]; (5) Bradycardia Status: Chronic (6) Carotid artery stenosis Status: Chronic (7) Fatigue Status: Chronic (8) H/O right heart catheterization Status: Chronic (9) HTN (hypertension) Status: Chronic Qualifiers: (10) History of atherectomy Status: Chronic Comment: 02/24/[address] Roca, [facility] (11) History of left heart catheterization Status: Chronic (12) Hyperlipidemia Status: Chronic Qualifiers: (13) Presence of stent in LAD coronary artery Status: Chronic (14) Urinary tract infection Status: Chronic Qualifiers: Report of Operation Date of Procedure: 06/17/18 Pre-Operative Diagnosis: complex endometrial hyperplasia with atypia Post-Operative Diagnosis: Same Surgery/Procedure Performed:: LAVH BSO cystoscopy Description of Surgical Findings:: Normal uterus tubes ovaries computing services director: Shavonne Jean Type of Anesthesia:: General Special Medications: beatrice floseal Specimen's removed: uterus tubes ovaries Drains: moreira Estimated Blood Loss (mL): 100 Fluids Replaced: crystalloid Description of Procedure: Patient received preoperative antibiotics and SCDs were on preoperatively. Patient was taken back to the operating room and placed in the dorsal lithotomy position. General anesthesia was induced and patient was prepped and draped in normal sterile fashion. Uterine manipulator was placed inside the uterus and Moreira catheter placed in the bladder. The umbilicus was grasped with towel clamps and an intraumbilical incision was made after injecting with quarter percent Marcaine and a Veress needle entered into the abdomen confirmed to be intra-abdominal with a low opening pressure. Abdomen was insufflated with CO2 gas and the Veress needle removed and the 5 mm trocar was placed under direct visualization without complication. Right and left lower quadrants were transilluminated and injected with quarter percent Marcaine and 5 mm ports placed under direct visualization. Pelvis was well visualized see operative findings for additional information. Bilateral fallopian tubes were identified and transected with the LigaSure device across the mesosalpinx to the level of the utero-ovarian ligament which was also transected with the LigaSure device. The broad ligament was opened up by transecting the round ligament bilaterally and skeletonizing the uterine vessels bilaterally and creating a bladder flap using the LigaSure device. The uterine arteries were transected bilaterally with good visualization of the bladder and the ureters were seen to be inferior lateral to the operative area. Attention was then paid to the vaginal portion of the procedure and the cervix was grasped with Tawanna clamps and circumferentially injected with dilute vasopressin. A circumferential incision was made and the vaginal mucosa was mobilized off posteriorly and the cul-de-sac entered into sharply and a longneck speculum placed. The anterior cul-de-sac was then identified and entered into sharply. The uterosacral ligaments were clamped cut and suture ligated with 0 Monocryl bilaterally followed by the cardinal ligaments which were clamped cut and suture ligated bilaterally with 0 Monocryl. The uterus serially descended and was removed without difficulty with no morcellation. Pelvic sidewall pedicles were checked and noted to have excellent hemostasis. The vaginal mucosa was reapproximated incorporating the posterior peritoneum. This was reapproximated using 0 Vicryl [id number] sutures. Excellent hemostasis was noted. The cystoscopy was then performed and ureteral spray was not noted from the right side and therefore the right angle stitch was removed and replaced and then spray was noted. Again cystoscopy was performed and bilateral ureteral strong spray was noted and the bladder was noted to have no abnormality or lesions seen. Moreira catheter was replaced and then attention paid to the abdominal portion of the procedure again. The pelvis and cul-de-sac was well visualized and there were several areas of mild bleeding noted which were cauterized with the LigaSure device and Beatrice was applied. There was still areas that I was not completely satisfied with hemostasis and therefore FloSeal was applied. Pressure was taken down and the areas visualized and noted to have excellent hemostasis. All ports were removed under direct visualization without complication and the abdomen was desufflated of air. The instruments removed from the abdomen and the vagina vaginal sweep was negative. Port sites on the abdomen were closed with 4-0 Monocryl interrupted sutures and Steri's and windows were applied. She was awoken and taken recovery in stable condition. Grafts/Implants Used: none - Complications none - Admit VTE Documentation VTE Present on Admission: No VTE Mechan Device Prophylaxis: SCD's
--- NOTE | 2018-06-18 04:41 | OP.PCM_ITS ---
Problem List (1) Complex endometrial hyperplasia with atypia Status: Acute Comment: plan lavh bso (2) Abnormal nuclear stress test Status: Chronic (3) Asthma Status: Chronic (4) Atherosclerotic heart disease of [place] coronary artery without angina pectoris Status: Chronic Qualifiers: Comment: S/P ROBBI to LAD in February 2017 at [facility]; (5) Bradycardia Status: Chronic (6) Carotid artery stenosis Status: Chronic (7) Fatigue Status: Chronic (8) H/O right heart catheterization Status: Chronic (9) HTN (hypertension) Status: Chronic Qualifiers: (10) History of atherectomy Status: Chronic Comment: 02/24/[address] Roca, [facility] (11) History of left heart catheterization Status: Chronic (12) Hyperlipidemia Status: Chronic Qualifiers: (13) Presence of stent in LAD coronary artery Status: Chronic (14) Urinary tract infection Status: Chronic Qualifiers: Report of Operation Date of Procedure: 06/17/18 Pre-Operative Diagnosis: complex endometrial hyperplasia with atypia Post-Operative Diagnosis: Same Surgery/Procedure Performed:: LAVH BSO cystoscopy Description of Surgical Findings:: Normal uterus tubes ovaries metal hanger: Shavonne Jean Type of Anesthesia:: General Special Medications: beatrice floseal Specimen's removed: uterus tubes ovaries Drains: moreira Estimated Blood Loss (mL): 100 Fluids Replaced: crystalloid Description of Procedure: Patient received preoperative antibiotics and SCDs were on preoperatively. Patient was taken back to the operating room and placed in the dorsal lithotomy position. General anesthesia was induced and patient was prepped and draped in normal sterile fashion. Uterine manipulator was placed inside the uterus and Moreira catheter placed in the bladder. The umbilicus was grasped with towel clamps and an intraumbilical incision was made after injecting with quarter percent Marcaine and a Veress needle entered into the abdomen confirmed to be i ntra-abdominal with a low opening pressure. Abdomen was insufflated with CO2 gas and the Veress needle removed and the 5 mm trocar was placed under direct visualization without complication. Right and left lower quadrants were transilluminated and injected with quarter percent Marcaine and 5 mm ports placed under direct visualization. Pelvis was well visualized see operative findings for additional information. Bilateral fallopian tubes were identified and transected with the LigaSure device across the mesosalpinx to the level of the utero-ovarian ligament which was also transected with the LigaSure device. The broad ligament was opened up by transecting the round ligament bilaterally and skeletonizing the uterine vessels bilaterally and creating a bladder flap using the LigaSure device. The uterine arteries were transected bilaterally with good visualization of the bladder and the ureters were seen to be inferior lateral to the operative area. Attention was then paid to the vaginal portion of the procedure and the cervix was grasped with Tawanna clamps and circumferentially injected with dilute vasopressin. A circumferential incision was made and the vaginal mucosa was mobilized off posteriorly and the cul-de-sac entered into sharply and a longneck speculum placed. The anterior cul-de-sac was then identified and entered into sharply. The uterosacral ligaments were clamped cut and suture ligated with 0 Monocryl bilaterally followed by the cardinal ligaments which were clamped cut and suture ligated bilaterally with 0 Monocryl. The uterus serially descended and was removed without difficulty with no morcellation. Pelvic sidewall pedicles were checked and noted to have excellent hemostasis. The vaginal mucosa was reapproximated incorporating the posterior peritoneum. This was reapproximated using 0 Vicryl [id number] sutures. Excellent hemostasis was noted. The cystoscopy was then performed and ureteral spray was not noted from the right side and therefore the right angle stitch was removed and replaced and then spray was noted. Again cystoscopy was performed and bilateral ureteral strong spray was noted and the bladder was noted to have no abnormality or lesions seen. Moreira catheter was replaced and then attention paid to the abdominal portion of the procedure again. The pelvis and cul-de-sac was well visualized and there were several areas of mild bleeding noted which were cauterized with the LigaSure device and Beatrice was applied. There was still areas that I was not completely satisfied with hemostasis and therefore FloSeal was applied. Pressure was taken down and the areas visualized and noted to have excellent hemostasis. All ports were removed under direct visualization without complication and the abdomen was desufflated of air. The instruments removed from the abdomen and the vagina vaginal sweep was negative. Port sites on the abdomen were closed with 4-0 Monocryl interrupted sutures and Steri's and windows were applied. She was awoken and taken recovery in stable condition. Grafts/Implants Used: none - Complications none - Admit VTE Documentation VTE Present on Admission: No VTE Mechan Device Prophylaxis: SCD's
[2018-06-18 07:12] VITALS: PULSE 64; RESP 16; O2SAT 91
[2018-06-18] MEDS: Budesonide Respules 0.5 MG/2 ML AMPUL.NEB. INHALATION (07:12)
[2018-06-18 07:19] LABS: Hematocrit 32.8 % (37-47); Hemoglobin 10.7 g/dl (12.0-15.0); Mean Corp Hgb Conc 32.6 g/gl (32-36); Mean Corpuscular Hgb 31.8 pg (27.0-32.0); Mean Corpuscular Volume 97.3 fL (81-99); Mean Platelet Vol. 9.2 fl (6.2-12.0); Platelet Count 251 K/mm3 (150-450); RBC Distribution Width CV 13.4 % (11.6-14.6); Red Blood Count 3.37 M/mm3 (4.2-5.4); White Blood Count 14.2 K/mm3 (4.4-11.0)
[2018-06-18 07:24] LABS: Scan Indicated on CBC? Y/N NO
[2018-06-18 07:45] LABS: Anion Gap 5 (5-15); BUN 9 mg/dL (7-18); BUN/Creat Ratio 11.1 RATIO (10-20); Calcium,Total 8.3 mg/dL (8.5-10.1); Chloride 104 mmol/L (98-107); Creatinine, Serum 0.81 mg/dL (0.55-1.02); EST Glomerular Filtration Rate 73 mL/min (>60); Est Glom Filt Rate - Afr Amer 88 mL/min (>60); Estimated Creatinine Clearance 46.73 ml/min; Glucose 111 mg/dL (74-106); Potassium 4.1 mmol/L (3.5-5.1); Sodium Level 138 mmol/L (136-145)
--- NOTE | 2018-06-18 07:56 | PCM.PN.OB ---
Subjective: doing well pain controlled no CP SOB N V - Physical Exam General: Alert, Oriented x3 Vital Signs Temp Pulse Resp BP Pulse Ox 97.9 F 48 L 16 110/52 L 98 06/18/18 04:06 06/18/18 04:06 06/18/18 04:06 06/18/18 04:06 06/18/18 04:06 Oxygen Flow Rate (L/min) 6 Oxygen Delivery Method CPAP Weight: 217 lb 6.012 oz Body Mass Index (BMI) 39.7 Intake and Output for Last 24 Hours 06/16/18 06/17/18 06/18/18 23:59 23:59 23:59 Intake Total 2829 / 2829 968 / 968 Output Total 1200 / 1200 1100 / 1100 Balance 1629 / 1629 -132 / -132 Laboratory Tests Past 24 Hrs 06/17/18 06/17/18 06/17/18 10:24 14:18 21:05 WBC RBC Hgb 11.5 L 11.7 L Hct MCV MCH MCHC RDW RDW Differential Plt Count MPV Sodium Potassium Chloride Carbon Dioxide Anion Gap BUN Creatinine Estim Creat Clear Calc Est GFR (MDRD) Af Amer Est GFR (MDRD) Non-Af BUN/Creatinine Ratio Glucose Calcium Blood Type A NEGATIVE Antibody Screen NEGATIVE 06/18/18 06/18/18 06:43 06:43 WBC 14.2 H RBC 3.37 L Hgb 10.7 L Hct 32.8 L MCV 97.3 MCH 31.8 MCHC 32.6 RDW 13.4 RDW Differential 47.0 H Plt Count 251 MPV 9.2 Sodium 138 Potassium 4.1 Chloride 104 Carbon Dioxide 29.0 Anion Gap 5 BUN 9 Creatinine 0.81 Estim Creat Clear Calc 46.73 Est GFR (MDRD) Af Amer 88 Est GFR (MDRD) Non-Af 73 BUN/Creatinine Ratio 11.1 Glucose 111 H Calcium 8.3 L Blood Type Antibody Screen POC Glucose 06/17/18 10:50 POC Glucose 80 Medical Necessity - Tobacco Use Smoking Status: Former smoker Tobacco Use: Non-smoker Assessment/Plan All Active Problems (Last Reviewed 05/27/18 @ 12:42 by Aline Dee) Renal calculus, left (Acute) Complex endometrial hyperplasia with atypia (Acute) UTI (urinary tract infection) (Acute) s/p LAVH pod 1 routine care continue home meds postop support
--- NOTE | 2018-06-18 07:56 | PCM.DC.VHY ---
Discharge Diet: No Restrictions Discharge Activity: Return to Normal Activity, May Not Drive, May Shower May resume sexual activity in: 6-8 weeks Call your doctor if your incision/area has: Continuous Slow Oozing, Sudden Increased Bleeding, Increased Pain/ Swelling, Increased Redness, Foul Smelling Discharge Call your doctor if you observe: Fever of 101 or Higher, Inability to urinate, Inability to have a bowel movement, Using more than one pad per hour Allergies/Adverse Reactions: Allergies Iodinated Contrast- Oral and IV Dye [CONTRASTS] Allergy (Verified 06/10/18 14:25) Unknown NSAIDS (Non-Steroidal Anti-Inflamma Allergy (Verified 06/10/18 14:25) Unknown Penicillins Allergy (Verified 06/10/18 14:25) Unknown aspirin Adverse Reaction (Severe, Verified 06/10/18 14:25) Wheezing Medications to take at Discharge Levocetirizine Dihydrochloride [Xyzal] 5 mg PO QHS 02/21/17 benazepril 40 mg tablet 40 mg PO QDAY 03/12/17 Atorvastatin Calcium [Lipitor] 40 mg PO QHS 05/11/18 Lorazepam [Ativan] 0.5 mg PO DAILY PRN PRN 05/11/18 aspirin 81 mg tablet,delayed release 81 mg PO DAILY 06/03/18 clopidogrel 75 mg tablet 75 mg PO DAILY 06/03/18 Albuterol IH (ProAir) [Proair Hfa (SP)Vent Pts] 1 - 2 puff INHALATION Q6H PRN PRN 06/10/18 Fluticasone 220 Mcg [Flovent (SP)] 2 puff INHALATION DAILY 06/10/18 Oxycodone HCl/Acetaminophen [Percocet 5-325] 1 - 2 tablet PO Q4H PRN PRN 7 Days #15 tablet 06/18/18 The following prescriptions were given: Oxycodone HCl/Acetaminophen [Percocet 5-325] 1 - 2 tablet PO Q4H PRN PRN 7 Days #15 tablet PRN Reason: Pain Primary Care Physician: Antonio Joya [Primary Care Provider] - Test Results: Test results from this visit will be discussed in further detail at your follow-up appointment, if applicable. Please Follow Up With: Jennifer Gibson MD - [phone]
[2018-06-18 08:33] VITALS: BP 114/61; PULSE 51; RESP 18; TEMP 36.6; O2SAT 99
[2018-06-18] MEDS: Aspirin E.C. 81 MG Tablet PO (08:36)
[2018-06-18] MEDS: Docusate Sodium 100 MG Capsule PO (08:37)
[2018-06-18] MEDS: Clopidogrel Bisulfate 75 MG Tablet PO (08:39)
[2018-06-18] MEDS: Enoxaparin 40 MG/0.4 ML Syringe SC (08:40)
[2018-06-18 11:33] VITALS: BP 139/58; PULSE 58; RESP 18; TEMP 36.6; O2SAT 99
== END 2018-06-18 12:10 | disposition home or self-care (01) ==
LOC: SDC 10:08 → AC 10:09 → MS3 11:21
PROVIDERS: Family Provider Family Medicine; PCP Family Medicine; Referring Provider Obstetrics & Gynecology; Visit Provider Obstetrics & Gynecology
PROC: 0UT9FZZ Resection of Uterus, Via Natural or Artificial Opening With Percutaneous Endoscopic Assistance (ICD-10-PCS; CPT 58552; principal; 2018-06-17 11:45)
DX: N85.02 Endometrial intraepithelial neoplasia [EIN] (principal); I25.10 Atherosclerotic heart disease of native coronary artery without angina pectoris; I10 Essential (primary) hypertension; E78.5 Hyperlipidemia, unspecified; R32 Unspecified urinary incontinence; M79.7 Fibromyalgia; R00.1 Bradycardia, unspecified; J45.909 Unspecified asthma, uncomplicated; Z78.0 Asymptomatic menopausal state; Z79.899 Other long term (current) drug therapy; Z87.891 Personal history of nicotine dependence; Z95.5 Presence of coronary angioplasty implant and graft
CPT/HCPCS: 00840; 58552; 36415; 80048; 82962; 85018; 85027; 86850; 86900; 88307; 94640; J7120; J2405

== ENCOUNTER → 2018-07-01 13:34 | Outpatient (CLI) | payer MEDICARE, OTHER, SELFPAY ==
[2018-07-01 12:07] VITALS: BMI 38.3
== END ==
PROVIDERS: Family Provider Family Medicine; PCP Family Medicine; Referring Provider Nurse Practitioner Women's Health; Visit Provider Nurse Practitioner Women's Health
DX: N20.0 Calculus of kidney (principal)
CPT/HCPCS: 87077; 87086; 87088

== ENCOUNTER 2018-07-22 08:50 | Outpatient (RCR) | payer SELFPAY ==
[2018-06-21 00:36] VITALS: BMI 38.3
[2018-07-01 12:07] VITALS: BMI 38.3
== END 2018-08-20 23:59 ==
LOC: CR 08:50
PROVIDERS: Family Provider Family Medicine; PCP Family Medicine; Referring Provider Internal Medicine Cardiovascular Disease; Visit Provider Internal Medicine Cardiovascular Disease
DX: Z00.00 Encounter for general adult medical examination without abnormal findings (principal)

== ENCOUNTER 2018-08-24 06:49 | Outpatient (RCR) | payer SELFPAY ==
[2018-07-28 11:36] VITALS: BMI 38.3
== END 2018-09-19 23:59 ==
LOC: CR 06:49
PROVIDERS: Family Provider Family Medicine; PCP Family Medicine; Referring Provider Internal Medicine Cardiovascular Disease; Visit Provider Internal Medicine Cardiovascular Disease
DX: Z00.00 Encounter for general adult medical examination without abnormal findings (principal)

== ENCOUNTER → 2018-09-08 06:18 | Outpatient (CLI) | payer MEDICARE, OTHER, SELFPAY ==
[2018-08-24 12:05] VITALS: BMI 39.3
--- NOTE | 2018-09-08 12:09 | STRESSREP_ITS ---
Stress Test Report Pharmacologic myocardial perfusion stress test. 78-year-old lady with a previous history of left anterior descending artery stenting for preop evaluation. Next Stress protocol: Resting EKG demonstrates sinus rhythm with a rate of 63 bpm first-degree AV block right bundle branch block is noted. 0.4 mg of regadenoson was infused per usual protocol followed Intravenous saline flush injection continuous EKG monitoring was performed. 0.4 mg of regadenoson was infused per usual protocol peak infusion intravenous saline was injected. The maximum heart rate was 93 bpm which was 65% of maximum predicted heart rate the maximum workload was 1 metabolic equivalent. At rest there were no ST or T wave changes noted suggest abnormal flow reserve at peak infusion nonspecific ST-T wave changes were noted. The resting blood pressure 118/76 with a peak blood pressure 122/70. Myocardial perfusion protocol. 14.6 mCi of technetium 99m sestamibi was injected at rest. 0.4 mg of regadenoson was infused per usual protocol peak infusion 44.9 mCi of technetium 99m sestamibi was injected stress images were obtained stress and rest images we re reconstructed and compared in the short axis vertical and horizontal long axis. Gated images were also obtained Perfusion SPECT analysis: Review of the stress images demonstrate mildly reduced perfusion on the stress images in the distal anterior wall with improvement on the resting images suggesting a mild amount of distal anterior ischemia. No areas of infarct are noted. Gated SPECT analysis: The gated ejection fraction is noted to be 87%. Conclusion: Abnormal myocardial perfusion stress test with mild distal anterior ischemia. Preserved ejection fraction.
== END ==
PROVIDERS: Family Provider Family Medicine; PCP Family Medicine; Referring Provider Internal Medicine Cardiovascular Disease; Visit Provider Internal Medicine Cardiovascular Disease
DX: I25.10 Atherosclerotic heart disease of native coronary artery without angina pectoris (principal); Z95.5 Presence of coronary angioplasty implant and graft
CPT/HCPCS: 78452; 93017; A9500; A4216; J2785

== ENCOUNTER → 2018-09-15 08:55 | Outpatient (CLI) | payer MEDICARE, OTHER, SELFPAY ==
[2018-08-24 12:05] VITALS: BMI 39.3
[2018-09-15 09:48] LABS: Absolute Lymphocyte Count 2.46 X10^3/ul (0.83-4.51); Absolute Neutrophil Count 5.4 X10^3/uL (2.0-7.7); Basophil# 0.03 X10^3/uL; Basophil% 0.3 % (0-1); Eosinophil# 0.44 X10^3/uL; Eosinophils% 4.9 % (0-5); Hematocrit 38.4 % (37-47); Hemoglobin 12.8 g/dl (12.0-15.0); Lymphocyte # 2.46 X10^3/ul (4.0); Lymphocyte % 27.3 % (19-41); Mean Corp Hgb Conc 33.3 g/gl (32-36); Mean Corpuscular Hgb 31.4 pg (27.0-32.0); Mean Corpuscular Volume 94.3 fL (81-99); Mean Platelet Vol. 9.2 fl (6.2-12.0); Monocyte# 0.65 X10^3/uL; Monocyte% 7.2 % (0-10); Platelet Count 274 K/mm3 (150-450); RBC Distribution Width CV 12.7 % (11.6-14.6); RBC Distribution Width SD 43.7 fl (35.1-43.9); Red Blood Count 4.07 M/mm3 (4.2-5.4)
[2018-09-15 09:49] LABS: POSITIVE COUNT NO; POSITIVE DIFFERENTIAL NO; POSITIVE MORPHOLOGY NO
[2018-09-15 10:17] LABS: Anion Gap 7 (5-15); BUN 15 mg/dL (7-18); Calcium,Total 9.7 mg/dL (8.5-10.1); Chloride 105 mmol/L (98-107); Creatinine, Serum 0.83 mg/dL (0.55-1.02); EST Glomerular Filtration Rate 71 mL/min (>60); Est Glom Filt Rate - Afr Amer 86 mL/min (>60); Glucose 87 mg/dL (74-106); Potassium 4.1 mmol/L (3.5-5.1); Sodium Level 141 mmol/L (136-145)
== END ==
PROVIDERS: Family Provider Family Medicine; PCP Family Medicine; Referring Provider Internal Medicine Cardiovascular Disease; Visit Provider Internal Medicine Cardiovascular Disease
DX: R06.09 Other forms of dyspnea (principal); E78.5 Hyperlipidemia, unspecified; I10 Essential (primary) hypertension; I25.10 Atherosclerotic heart disease of native coronary artery without angina pectoris; R94.39 Abnormal result of other cardiovascular function study; Z95.5 Presence of coronary angioplasty implant and graft
CPT/HCPCS: 36415; 80048; 85025

== ENCOUNTER 2018-09-21 06:27 | Outpatient (RCR) | payer SELFPAY ==
[2018-08-24 12:05] VITALS: BMI 39.3
== END 2018-10-20 23:59 ==
LOC: CR 06:27
PROVIDERS: Family Provider Family Medicine; PCP Family Medicine; Referring Provider Internal Medicine Cardiovascular Disease; Visit Provider Internal Medicine Cardiovascular Disease
DX: Z00.00 Encounter for general adult medical examination without abnormal findings (principal)

== ENCOUNTER 2018-09-27 07:56 | Day surgery (SDC) | payer MEDICARE, OTHER, SELFPAY ==
[2018-08-24 12:05] VITALS: BMI 39.3
--- NOTE | 2018-09-15 09:30 | RAD_ITS ---
STUDY: X-RAY CHEST REASON FOR EXAM: Female, 78 years old. TECHNIQUE: COMPARISON: None. FINDINGS: The lungs are clear and expanded. There is no demonstrated pleural abnormality. Normal size heart. Normal mediastinum and radha. Normal visualized pulmonary arteries. Normal visualized aortic arch and descending thoracic aorta. Mild hypertrophic changes seen at the dorsal spine. Normal visualized ribs, clavicles, and shoulders. There is some degree of osteoporosis. There is no demonstrated abnormality of the visualized soft tissue structures of the upper abdomen. RAD/Chest PA and Lateral IMPRESSION: Normal x-ray examination of the chest. Electronically Signed: Ofelia Rose, at 12:12 EDT Tel , Service support ,
[2018-09-24 07:57] VITALS: BMI 39.3
--- NOTE | 2018-09-27 08:26 | HP.PCM_ITS ---
History and Physical Date of Admission: 09/27/18 [facility] History of Present Illness Details: WAYLON HANKINS, is a 78 F who presents to the [facility] today for a heart catheterization procedure. She has a history of coronary artery disease status post atherectomy and angioplasty with a drug-eluting stent to her LAD in February 2017 at [facility], hypertension, and hyperlipidemia. She underwent a stress test on 09/08/2018 that was considered to be Normal. Because of this, she would undergo a left heart catheterization for further evaluation. She continues to have exertional chest pain. This is not new. She continues to have shortness of breath on exertion. She denies shortness of breath at rest. She denies symptoms of congestive heart failure, lightheadedness, dizziness, near-syncope, or syncope. She denies any lower extremity pedal edema. She denies orthopnea, PND, or unexplainable fatigue. Intake Vital Signs: See EMR Intake Visit Reasons: 6 m fu Allergies Iodinated Contrast- Oral and IV Dye [CONTRASTS] Allergy (Verified 08/24/18 12:05) Unknown NSAIDS (Non-Steroidal Anti-Inflamma Allergy (Verified 08/24/18 12:05) Unknown Penicillins Allergy (Verified 08/24/18 12:05) Unknown aspirin Adverse Reaction (Severe, Verified 08/24/18 12:05) Wheezing Medications Levocetirizine Dihydrochloride [Xyzal] 5 mg PO QHS 02/21/17 [History Confirmed 08/24/18] benazepril 40 mg tablet 40 mg PO QDAY 03/12/17 [History Confirmed 08/24/18] Atorvastatin Calcium [Lipitor] 40 mg PO QHS 05/11/18 [History Confirmed 08/24/18] Lorazepam [Ativan] 0.5 mg PO DAILY PRN PRN 05/11/18 [History Confirmed 08/24/18] aspirin 81 mg tablet,delayed release 81 mg PO DAILY 06/03/18 [History Confirmed 08/24/18] clopidogrel 75 mg tablet 75 mg PO DAILY 06/03/18 [History Confirmed 08/24/18] Albuterol IH (ProAir) [Proair Hfa (SP)Vent Pts] 1 - 2 puff INHALATION Q6H PRN PRN 06/10/18 [History Confirmed 08/24/18] Fluticasone 220 Mcg [Flovent (SP)] 2 puff INHALATION DAILY 06/10/18 [History Confirmed 08/24/18] nystatin 100,000 unit/gram topical ointment 1 applic TOPICAL BID 07/01/18 [History Confirmed 08/24/18] triamcinolone acetonide 0.5 % topical cream 1 applic TOPICAL BID #15 g 07/01/18 [Rx Confirmed 07/28/18] cyclobenzaprine 5 mg tablet 5 mg PO QHS 07/28/18 [History Confirmed 08/24/18] PFSH Medical History Essential (primary) hypertension (Chronic) Hyperlipidemia (Chronic) Atherosclerotic heart disease of [place] coronary artery without angina pectoris (Chronic) Arthritis (Chronic) Asthma (Chronic) Carotid artery stenosis (Chronic) Fibromyalgia (Chronic) Frequent UTI (Chronic) Hx of radiculopathy (Chronic) Incontinence (Chronic) Lumbosacral radiculopathy (Chronic) Obesity (Chronic) Obstructive sleep apnea (Chronic) Renal calculus, left (Chronic) Bradycardia (Inactive) Surgical History History of coronary artery stent placement (Resolved 02/24/17) H/O total hysterectomy (Resolved 05/2018) History of lithotripsy (Resolved 04/2018) History of LAVH (Resolved) History of tubal ligation (Resolved) Hx of nasal polypectomy (Resolved) Plantar fasciitis (Resolved) H/O right heart catheterization (Inactive) Family History Father CAD (coronary artery disease) Other Heart disease Social History Smoking Status: Former smoker how long ago did patient quit smokin alcohol intake: never substance use type: does not use caffeine: Yes Type: coffee Number of servings: 1 what type of physical activity do you participate in: other details: cardiac rehab frequency: 5-6 times per week duration: 15-30 minutes/day seatbelt use: always do you feel safe at home: Yes ROS Const Const: Negative for fatigue, weakness, headache(s), frequent falls, difficulty sleeping or excessive sweating Eyes Eyes: Negative for loss of peripheral vision, transient loss of vision, blurry vision, double vision or tunnel vision ENT ENT: Negative for headache(s), dizziness, Nosebleed/epistaxis or balance problems Cardio Chest Pain: Yes Duration: brief Palpitations: No Edema: None Muscle aches with walking: None Resp Respiratory: Positive for SOB with activity (Increased SOB with ambulation and climbing stairs); negative for SOB at rest, SOB orthopnea\SOB lying down, Cough or paroxysmal nocturnal dyspnea GI GI: Negative nausea, vomiting, heartburn or black,tarry stools : Negative for hematuria Musc Musc: Positive for joint pain (back pain, BLE pain); negative for muscle aches/ myalgia, muscle weakness or balance problems Skin Skin: Negative non-healing lesions, rash or unusual bruising Neuro Neuro: Negative for dizziness, lightheadedness, near syncope, syncope, orthostatic symptoms, frequent falls, headache(s), weakness, blurry vision, double vision or lack of coordination Sohan Hematologic/Lymphatic: Negative for easy bleeding or easy bruising Endo Endo: Negative for fatigue, excessive sweating or increased thirst/drinking Psych Psych: Negative for anxiety or depression Allergy Allergy/Immunology: Negative for hives, Negative for rash Cardiology Exam Const Appearance: cooperative, healthy appearing, no acute distress, well developed and well groomed Nutritional Appearance: average body habitus and well nourished Orientation: alert, awake and oriented x3 Head Head: normal to inspection, normocephalic and atraumatic Ears: hearing grossly normal bilaterally and external ears normal Nose: external nose normal, nares normal, nasal mucous membranes and turbinates normal, septum normal, no nasal discharge Face and Sinus: face symmetric Mouth: oral mucosae normal, tongue normal, oropharynx normal and moist mucous membranes Teeth and gingiva: dentition normal Throat: posterior oropharynx normal, tonsils normal and uvula midline Eyes General: appearance normal, both eyes and all related structures Eyelids: eyelids normal Conjunctivae: conjunctivae normal Pupils: PERRL, normal by confrontation and accommodation normal EOM: EOM intact bilaterally Neck Neck: normal visual inspection, trachea midline and no JVD JVD: +5 Carotids: normal carotid upstroke and bounding pulses Chest Chest inspection: normal inspection of the chest, symmetric chest movement and normal respiratory effort Auscultation: Bilateral: Clear to Auscultation Cardio Palpation: normal PMI Rate: regular rate Rhythm: regular rhythm Heart sounds: S1 normal, S2 normal and normal, physiologic split S2; negative rub, gallop or murmur GI GI: normal to inspection, soft, no hepatosplenomegaly and bowel sounds present Neuro General: alert, awake, oriented x3, gait normal, moves all extremities and no focal sensory deficit Skin Skin: no rashes or lesions noted Extremities Pulses: Normal: Right Femoral Pulse, Left Femoral Pulse, Right Dorsalis Pedis Pulse, Left Dorsalis Pedis Pulse, Right Posterior Tibial Pulse, Left Posterior Tibial Pulse, Right Radial Pulse, Left Radial Pulse Lower Extremity Edema: None: Bilateral Musculoskel Musculoskeletal: No joint tenderness Psych Psychological: normal affect Assessment & Plan 1. History of coronary artery stent placement Z95.5 PCI-Rotoblation atherectomy W/ROBBI-Mid LAD w/ 2.5 x 38 mm Synergy Stent 02/24/2017 Plan Due to her symptoms, previous history stenting, and recent abnormal stress test she will proceed with a heart catheterization for further evaluation. Based on results, further recommendation will be made. 2. Essential (primary) hypertension I10 Plan Her blood pressure appears to be under good control on the current medical therapy I would not recommend that we make any changes. 3. Pure hypercholesterolemia E78.5 Plan She will continue with current statin medication. Thank you for allowing us to participate in the patients plan of care, if you have any questions please do not hesitate to call. This note was generated using a voice recognition system and there may be incorrect words, spelling or punctuation that were not noted when reviewing the office note prior to saving.
--- NOTE | 2018-09-27 10:08 | CL.D_ITS ---
Patient Name: WAYLON HANKINS Study Date: 09/27/2018 Performing: Toan Vazquez MD Ht: 61.81 inches 157 cm : 1940 Wt: 216.05 lbs 98 kg Age: 78 Gender: female BSA: 1.97 PROCEDURE(S) PERFORMED IF93-LZT/COR/LV CLINICAL PROFILE AND INDICATIONS Indications: Suspected CAD Heart Failure: None Stress/Imaging Date: 09/08/2018Stress Test with SPECT MPI: Negative CAD Presentations: Stable angina. CONCLUSIONS Previously placed stent in the LAD patent with mild disease noted involving the circumflex artery and right coronary artery. Preserved ejection fraction is noted. RECOMMENDATIONS Medical therapy DESCRIPTION OF PROCEDURE The patient arrived to the procedure lab. The risks and benefits of the procedure as well as a full d escription of our services here and current unavailability of surgical backup were fully explained to the patient and/or their significant other prior to the catheterization. The Timeout was completed, verifying the correct patient and procedure. The patient's procedural site was prepped and draped in the usual fashion. Local anesthetic was given subcutaneously to right radial region with Lidocaine 2% . Using a modified Seldinger technique, arterial access was obtained via the right radial artery, a 6 Fr sheath was inserted. Right Coronary Artery selective angiography was then performed in multiple v iews using a 5 Fr. 4.0 [place] catheter. Left Coronary Artery selective angiography was performed in mu ltiple views using a 5 Fr. 4.0 [place] catheter. Left Ventriculography was performed in HERNANDES projection using a 5 Fr. Pigtail catheter. LV to AO pullback pressures were then recorded.The arterial sheath was pulled and a TR Band was applied for hemostasis 14cc air CORONARY ANGIOGRAPHY DOMINANCE: Right Dominant LEFT HEART ASSESSMENT Left Ventricular Ejection Fraction: by LV Gram 70 % Normal LV wall motion Normal Left Ventricular systolic function LEFT MAIN: Angiographically normal LEFT ANTERIOR DESCENDING ARTERY: PROX LAD: 40 % Stenosis MID LAD: Previously placed stent is patent DISTAL LAD: Mild luminal irregularities less than 30% CIRCUMFLEX ARTERY: PROX CIRC: Moderate luminal irregularities up to 50% RIGHT CORONARY ARTERY: Mild luminal irregularities PROX RCA: Mildly aneurysmal portion noted. unchanged from previous AORTIC ROOT: Dilated COMPLICATIONS No Complications PROCEDURE MEDICATIONS Fentanyl 50 mcg IV Versed 1 mg IV Versed 1 mg IV Oxygen: 2 L/min via nasal cannula Benadryl 25 mg IV @ 09/27/2018 09:27:36 Heparin diluted in 23cc Heparinized saline. Patient given 10cc IA of this solution. 09/27/2018 09:35:1 0 Solu-medrol 125 mg IV 09/27/2018 09:27:46 Verapamil 2.5mg, Ntg 100mcgs, 2000 units of Heparin diluted in 23cc Heparinized saline. Patient give n 10cc IA of this solution. 09/27/2018 09:35:10 SUMMARY OF HEMODYNAMIC DATA Time AIR REST ECG 08:19:10 AO 146/80 (108) SA 09:39:37 LV 137/17, 27 09:48:36 LV 145/17, 28 09:48:42 LV 141/8, 32 09:50:26 LVp 142/7, 28 09:50:41 AOp 142/71 (101) 09:50:46 Signed By Toan Vazquez MD On 09/27/2018 10:07:19 Toan Vazquez MD
== END 2018-09-27 12:00 | disposition home or self-care (01) ==
PROVIDERS: Family Provider Family Medicine; PCP Family Medicine; Referring Provider Internal Medicine Cardiovascular Disease; Visit Provider Internal Medicine Cardiovascular Disease
DX: I25.10 Atherosclerotic heart disease of native coronary artery without angina pectoris (principal); E78.5 Hyperlipidemia, unspecified; M19.90 Unspecified osteoarthritis, unspecified site; J45.909 Unspecified asthma, uncomplicated; E66.9 Obesity, unspecified; G47.33 Obstructive sleep apnea (adult) (pediatric); Z95.5 Presence of coronary angioplasty implant and graft; Z87.440 Personal history of urinary (tract) infections; Z87.442 Personal history of urinary calculi; Z87.891 Personal history of nicotine dependence; Z79.51 Long term (current) use of inhaled steroids; Z79.899 Other long term (current) drug therapy; Z79.82 Long term (current) use of aspirin
CPT/HCPCS: 71046; 93458; 99152; 99153; J7040; C1769; C1894; Q9967

== ENCOUNTER 2018-12-21 06:52 | Outpatient (RCR) | payer SELFPAY ==
[2018-09-24 07:57] VITALS: BMI 39.3
== END 2019-01-20 23:59 ==
LOC: CR 06:52
PROVIDERS: Family Provider Family Medicine; PCP Family Medicine; Referring Provider Internal Medicine Cardiovascular Disease; Visit Provider Internal Medicine Cardiovascular Disease
DX: Z00.00 Encounter for general adult medical examination without abnormal findings (principal)

== ENCOUNTER → 2018-12-29 12:13 | Outpatient (CLI) | payer MEDICARE, OTHER, SELFPAY ==
[2018-09-24 07:57] VITALS: BMI 39.3
--- NOTE | 2018-12-29 12:17 | RAD_ITS ---
STUDY: X-RAY - ABDOMEN/PELVIS REASON FOR EXAM: Female, 78 years old. History of left-sided kidney stones TECHNIQUE: Two AP supine views of the abdomen and pelvis. COMPARISON: Prior study of 06/02/2018 FINDINGS: Normal visualized lung bases. There is an unremarkable bowel gas pattern. There is no demonstrated free abdominal air. There are several faint radiopacities overlying the lower pole of left kidney in the 2 to 3 mm range consistent with nephrolithiasis. Normal soft tissue structures. There posterior spinal fusion changes with rods and interpeduncular screws at the L4-5 level. RAD/Abdomen Single View IMPRESSION: Several faint radiopacities overlying the lower pole left kidney in the 2 to 3 mm range consistent with nephrolithiasis. Posterior spinal fusion changes of the lumbar spine at the L4-5 level. Electronically Signed: Singh Dang MD at 19:42 EDT , Service support ,
== END ==
PROVIDERS: Family Provider Family Medicine; PCP Family Medicine; Referring Provider Urology; Visit Provider Urology
DX: N20.0 Calculus of kidney (principal)
CPT/HCPCS: 74018

== ENCOUNTER → 2019-04-11 08:33 | Outpatient (CLI) | payer MEDICARE, OTHER, SELFPAY ==
[2019-02-23 13:01] VITALS: BMI 41.7
--- NOTE | 2019-04-11 08:37 | BI_ITS ---
MAMMOGRAPHY - BILATERAL SCREENING REASON FOR EXAM: Female, 78 years old. Routine annual screening examination. PERTINENT HISTORY: Non-contributory. TECHNIQUE: Digital bilateral breast cecilia (3D mammographic acquisition) in the CC and MLO projections. 2-D mediolateral oblique (MLO) and craniocaudad (CC) views of both breasts were obtained. CAD: Full Field Digital Mammography with Computer Added Detection was performed. COMPARISON: Comparison is made with prior study dated April 08, 2018. FINDINGS: Breast Composition: The breasts are almost entirely fatty. There are no dominant masses or suspicious calcifications. No other significant abnormalities are identified. There has been no significant change since the prior study. BI/SCREEN MAMM (CAD) W/CECILIA BILAT IMPRESSION: Stable bilateral screening mammogram. Yearly follow-up mammogram recommended. (A) ASSESSMENT CATEGORY: BIRADS Category 1: Negative. A letter regarding these results will be sent to the patient by the facility within 30 days. Approximately 10% of breast cancers are not detected by mammography. A normal mammogram should not delay biopsy of a clinically suspicious abnormality. [id number] Electronically Signed: Ron Rea, at 11:12 EST , Service support ,
== END ==
PROVIDERS: Family Provider Family Medicine; PCP Family Medicine; Referring Provider Family Medicine; Visit Provider Family Medicine
DX: Z12.31 Encounter for screening mammogram for malignant neoplasm of breast (principal)
CPT/HCPCS: 77063; 77067

== ENCOUNTER → 2019-10-18 13:32 | Outpatient (CLI) | payer MEDICARE, OTHER, SELFPAY ==
[2019-10-04 14:44] VITALS: BMI 41.7
--- NOTE | 2019-10-18 13:32 | ECHOCS_ITS ---
Reason For Study: DYSPNEA/SOB Procedure This was a 2D Doppler, Color Flow transthoracic echocardiogram. The study was technically difficult. Due to body habitus. Contrast injection was performed. Exam performed in department. Left Ventricle Normal LV size. Mild concentric left ventricular hypertrophy. Left ventricular systolic function is hyperdynamic. The estimated ejection fraction is 70 %. Stage 1 diastolic dysfunction. No regional wall motion abnormalities noted. Right Ventricle Normal RV size. Normal systolic function. Atria The left atrium is mildly enlarged. Normal right atrium. Mitral Valve Mitral valve not well visualized. Tricuspid Valve Normal tricuspid valve. Aortic Valve Trisinus/trileaflet aortic valve. Mild focal aortic valve calcification. Pulmonic Valve The pulmonic valve is not well visualized. Great Vessels Normal aortic root. The pulmonary artery is normal size. Normal inferior vena cava. Pericardium/Pleural No pericardial effusion. Medication 22 gauge I.V. with prn adaptor inserted into right arm. Diluted definity 3.0ml given slow IV push to enhance endocardial definition. MMode/2D Measurements & Calculations LVIDd: 4.8 cm IVSd: 1.2 cm LAV(MOD-bp): 58.8 ml LVIDs: 3.5 cm LVPWd: 1.3 cm FS: 26.6 % LAV(MOD-bp) Indexed: 29.1 ml/m2 LAV(MOD-sp2): 45.1 ml LAV(MOD-sp4): 72.9 ml LA dimension(2D): 4.4 cm LA A4 area: 23.4 cm2 Time Measurements MV dec time: 0.23 sec Doppler Measurements & Calculations MV E max ulises: 51.2 cm/sec Lat Peak E' Ulises: 8.1 cm/sec Med Peak E' Ulises: 5.7 cm/sec MV A max ulises: 66.3 cm/sec E/E' lat: 6.3 E/E' med: 9.0 MV E/A: 0.77 Ao V2 max: 152.0 cm/sec LV V1 max: 125.2 cm/sec Ao max P.2 mmHg LV V1 max P.3 mmHg Interpretation Summary Normal LV size. Left ventricular systolic function is hyperdynamic. Mild concentric left ventricular hypertrophy. The estimated ejection fraction is 70 %. Stage 1 diastolic dysfunction. Contrast injection was performed. Ordering Physician: Toan Vazquez Referring Physician: Antonio Joya Performed By: Brianna Lane, THOMAS, RVT
== END ==
PROVIDERS: PCP Family Medicine; Referring Provider Internal Medicine Cardiovascular Disease; Visit Provider Internal Medicine Cardiovascular Disease
DX: R06.00 Dyspnea, unspecified (principal); R06.02 Shortness of breath
CPT/HCPCS: 93306; Q9957; A4216; C8929

== ENCOUNTER 2020-01-07 12:10 | Emergency (ER) ==
--- NOTE | 2020-01-07 12:35 | EKG12_ITS ---
Test Reason : SOB Blood Pressure : / mmHG Vent. Rate : 076 BPM Atrial Rate : 076 BPM P-R Int : 200 ms QRS Dur : 134 ms QT Int : 430 ms P-R-T Axes : 020 -06 016 degrees QTc Int : 483 ms Normal sinus rhythm Right bundle branch block Abnormal ECG Confirmed by HALLIE ALEXIS, BEATRIZ ([id number]), patient support associate LENCHO FRANCO ([id number]) on 01/10/2020 8:15:41 AM Referred By: HUMBERTO Confirmed By:BEATRIZ STERLING MD
--- NOTE | 2020-01-07 12:36 | ED.DCSUM_ITS ---
History of Present Illness Chief Complaint: Shortness of Breath Informant: Patient Onset: Days Context: Gradual Onset Current Severity: Mild Maximum Severity: Moderate Narrative: Patient presents secondary to sore throat, cough, shortness of breath, body aches. She has had fever up to 101 at home. She became ill on the evening of the . She was seen by her PCPs office the next day. Patient thought she had strep throat and a UTI but both of these tests were negative. Covid test was sent and is pending. Patient was seen in the office again this morning for follow-up. Provider noted crackles in the bilateral bases and sent the patient to the ER for further evaluation. She has been checking her pulse ox at home and has been between 89 and 92%. She is using her albuterol nebulizer as needed. Patient does report one episode of vomiting and diarrhea last evening. - Past Medical History (1) Asthma Status: Chronic (2) Atherosclerotic heart disease of [place] coronary artery without angina pectoris Status: Chronic (3) Essential (primary) hypertension Status: Chronic (4) Hyperlipidemia Status: Chronic (5) History of coronary artery stent placement Status: Resolved Comment: PCI-Rotoblation atherectomy W/ROBBI-Mid LAD w/ 2.5 x 38 mm Synergy Stent 02/24/2017 Past Medical History - Allergies and Home Meds Allergies/Adverse Reactions: Allergies adhesive tape Allergy (Verified 01/07/20 12:12) Rash Iodinated Contrast Media [CONTRASTS] Allergy (Verified 01/07/20 12:12) Unknown NSAIDS (Non-Steroidal Anti-Inflamma Allergy (Verified 01/07/20 12:12) Unknown Penicillins Allergy (Verified 01/07/20 12:12) Unknown aspirin Adverse Reaction (Severe, Verified 01/07/20 12:12) Wheezing Primary Care Physician: Antonio Joya MD [Primary Care Provider] - Prior records reviewed: Yes Surgical History: - Lives: Spouse/ Significant Other Smoking Status: Former smoker Review of Systems General: Reports: Fever Eyes: Denies: Visual changes - bilaterally ENT: Reports: Sore throat. Denies: Bilateral ear pain Cardiovascular: Denies: Chest pain Respiratory: Reports: Dyspnea, Cough. Denies: Sputum Gastrointestinal: Reports: Nausea, Vomiting, Diarrhea Musculoskeletal: Reports: Myalgias. Denies: Swelling, Extremity Pain Skin: Denies: Rash Neurological: Denies: Headache Hematologic: Denies: Easy bruising, Easy bleeding Allergy: Denies: Uticaria Physical Exam Vital Signs/Narrative: Vital Signs Temp Pulse Resp BP Pulse Ox 01/07/20 12:12 97.8 F 89 18 124/69 H 94 Inital Vital Signs reviewed: Yes General: Well nourished, Well developed Head: Normocephalic ENT: Moist mucous membranes Neck: Supple Cardiovascular: Regular rate, Regular rhythm Respiratory: No distress, Diminished - Slightly diminished at the bilateral bases. Abdomen: Soft, Nontender, Normal bowel sounds Extremities: Nontender Skin: Normal color Neurological: Alert, Oriented x3 Psychological: Normal affect Diagnostic/Tx/Re-eval 01/07/20 13:04 Chest 1 View (Portable) [RAD] Stat IMPRESSION: Mild pulmonary vascular congestion Laboratory Results 01/07/20 01/07/20 01/07/20 12:45 12:45 12:45 WBC 10.0 RBC 3.92 L Hgb 12.3 Hct 37.7 MCV 96.2 MCH 31.4 MCHC 32.6 RDW Std Deviation 47.8 H RDW Coeff of Humberto 13.4 Plt Count 230 MPV 8.8 Immature Gran % (Auto) 0.600 Neut % (Auto) 81.9 H Lymph % (Auto) 9.9 L Prentiss % (Auto) 7.3 Eos % (Auto) 0.1 Baso % (Auto) 0.2 Absolute Neuts (auto) 8.2 H Absolute Lymphs (auto) 0.99 Nucleated RBC % 0 D-Dimer Quant (PE/DVT) 0.51 H* Sodium 137 Potassium 3.8 Chloride 105 Carbon Dioxide 26.0 Anion Gap 6 BUN 7 Creatinine 0.82 Estim Creat Clear Calc 44.72 Est GFR (MDRD) Af Amer 86 Est GFR (MDRD) Non-Af 71 BUN/Creatinine Ratio 8.5 L Glucose 91 Calcium 9.0 Troponin I < 0.015 Urine Color Urine Clarity Urine pH Ur Specific Adel Urine Protein Urine Glucose (UA) Urine Ketones Urine Occult Blood Urine Nitrite Urine Bilirubin Urine Urobilinogen Ur Leukocyte Esterase Urine RBC Urine WBC Ur Squamous Epith Cells Urine Bacteria Urine Mucus 01/07/20 15:00 WBC RBC Hgb Hct MCV MCH MCHC RDW Std Deviation RDW Coeff of Humberto Plt Count MPV Immature Gran % (Auto) Neut % (Auto) Lymph % (Auto) Prentiss % (Auto) Eos % (Auto) Baso % (Auto) Absolute Neuts (auto) Absolute Lymphs (auto) Nucleated RBC % D-Dimer Quant (PE/DVT) Sodium Potassium Chloride Carbon Dioxide Anion Gap BUN Creatinine Estim Creat Clear Calc Est GFR (MDRD) Af Amer Est GFR (MDRD) Non-Af BUN/Creatinine Ratio Glucose Calcium Troponin I Urine Color Yellow Urine Clarity Clear Urine pH 6.5 Ur Specific Adel 1.010 Urine Protein Negative Urine Glucose (UA) Normal Urine Ketones 5 H Urine Occult Blood 25 H Urine Nitrite Negative Urine Bilirubin Negative Urine Urobilinogen Normal Ur Leukocyte Esterase Negative Urine RBC 0-5 SEEN Urine WBC 0-5 SEEN Ur Squamous Epith Cells 0-5 SEEN Urine Bacteria 0 SEEN Urine Mucus 0 SEEN - EKG Initial EKG Interpretation: Sinus Rhythm - Sinus at 76 with right bundle branch block. No acute ischemia. - Medical Decision Making Patient was given a small fluid bolus here along with a dose of steroids and albuterol treatment. Test results discussed with her. At this time D-dimer is normal when age-adjusted. Vital signs reveal her O2 sat currently 95 to 96% on room air. She does have a pulse ox at home and she will continue to check this. Her Covid test should be returned on Thursday. Patient was given return instructions. ED Disposition - Plan for ED Patient: Disposition: Home or Assisted Living Diagnosis: Viral syndrome Instructions: ED Viral Syndrome Prescriptions: Prednisone [Deltasone] 40 mg PO DAILY #10 tab Transmission Status: Pending to [facility] Referrals: Antonio Joya MD [Primary Care Provider] - 1 Week if not improving
[2020-01-07 13:03] LABS: Absolute Lymphocyte Count 0.99 X10^3/uL (0.83-4.51); Absolute Neutrophil Count 8.2 X10^3/uL (2.0-7.7); Basophil# 0.02 X10^3/uL; Basophil% 0.2 % (0-1); Eosinophil# 0.01 X10^3/uL; Eosinophils% 0.1 % (0-5); Hematocrit 37.7 % (37-47); Hemoglobin 12.3 g/dL (12.0-15.0); Lymphocyte # 0.99 X10^3/ul (4.0); Lymphocyte % 9.9 % (19-41); Mean Corp Hgb Conc 32.6 g/dL (32-36); Mean Corpuscular Hgb 31.4 pg (27.0-32.0); Mean Corpuscular Volume 96.2 fL (81-99); Mean Platelet Vol. 8.8 fl (6.2-12.0); Monocyte# 0.73 X10^3/uL; Monocyte% 7.3 % (0-10); NRBC Flagged by Analyzer 0 % (0-5); Neutrophil # 8.16 X10^3/uL (2.7-7.7); Neutrophil % 81.9 % (47-70); Platelet Count 230 K/mm3 (150-450); RBC Distribution Width CV 13.4 % (11.6-14.6); RBC Distribution Width SD 47.8 fl (35.1-43.9); Red Blood Count 3.92 M/mm3 (4.2-5.4)
--- NOTE | 2020-01-07 13:04 | RAD_ITS ---
STUDY: X-RAY CHEST REASON FOR EXAM: Female, 79 years old. Shortness of breath TECHNIQUE: Frontal view of the chest COMPARISON: 09/15/18 FINDINGS: There are mild congestive changes noted. The lungs are otherwise clear. There are no pleural effusions. There is no pneumothorax. The heart is normal in size. The visualized osseous structures are within normal limits. RAD/Chest 1 View (Portable) IMPRESSION: Mild pulmonary vascular congestion Electronically Signed: Maxim Lu, at 13:27 EDT Tel , Service support ,
[2020-01-07 13:15] VITALS: BP 100/62; PULSE 72; RESP 16; TEMP 36.7; O2SAT 94
[2020-01-07 13:17] LABS: Anion Gap 6 (5-15); BUN 7 mg/dL (7-18); BUN/Creat Ratio 8.5 RATIO (10-20); Chloride 105 mmol/L (98-107); Creatinine, Serum 0.82 mg/dL (0.55-1.02); EST Glomerular Filtration Rate 71 mL/min (>60); Est Glom Filt Rate - Afr Amer 86 mL/min (>60); Estimated Creatinine Clearance 44.72 ml/min; Glucose 91 mg/dL (74-106); Potassium 3.8 mmol/L (3.5-5.1); Sodium Level 137 mmol/L (136-145)
[2020-01-07 13:19] LABS: D-Dimer Quantitative (DVT/PE) 0.51 FEU/ug/m (0.27-0.49)
[2020-01-07 14:00] VITALS: BP 99/59; PULSE 69; RESP 18; TEMP 36.7; O2SAT 95
[2020-01-07 15:00] VITALS: BP 104/50; PULSE 65; RESP 18; TEMP 36.8; O2SAT 97
[2020-01-07] MEDS: predniSONE 20 MG Tablet 60 MG PO (15:06)
[2020-01-07 15:07] VITALS: PULSE 69; RESP 18
[2020-01-07] MEDS: Albuterol 2.5 MG/3 ML VIAL.NEB. INHALATION (15:07)
[2020-01-07 15:24] LABS: Bacteria 0 SEEN /hpf (None Seen); Mucous, Urine 0 SEEN /hpf (<or=2+)
[2020-01-07 15:25] LABS: Color, Urine Yellow (Yellow); Glucose, Dipstick Normal (Normal); Ketone-Dipstick 5 mg/dl (Negative); Leukocyte Esterase-Dipstick Negative /ul (Negative); Nitrite-Dipstick Negative (Negative); Occult Blood-Urine 25 /ul (Negative); Protein-Dipstick Negative (Negative); Urine Bilirubin Dipstick Negative (Negative); Urine Clarity Clear (Clear); Urine Urobilinogen Normal (Normal); Urine pH 6.5 (5.0 - 8.0)
[2020-01-07 15:51] LABS: Red Blood Cells-Urine 0-5 SEEN /hpf (0-5); White Blood Cells 0-5 SEEN /hpf (0-5)
[2020-01-07 15:52] LABS: Squamous Epithelial Cells - UA 0-5 SEEN /hpf (5-10)
== END 2020-01-07 16:12 | disposition home or self-care (01) ==
LOC: ED 16:02
PROVIDERS: Emergency Medicine
DX: B34.9 Viral infection, unspecified (principal); R06.02 Shortness of breath; R50.9 Fever, unspecified; J02.9 Acute pharyngitis, unspecified; R19.7 Diarrhea, unspecified; R11.10 Vomiting, unspecified; I25.10 Atherosclerotic heart disease of native coronary artery without angina pectoris; I10 Essential (primary) hypertension; E78.5 Hyperlipidemia, unspecified; J45.909 Unspecified asthma, uncomplicated; Z79.02 Long term (current) use of antithrombotics/antiplatelets; Z79.82 Long term (current) use of aspirin; Z79.899 Other long term (current) drug therapy; Z87.891 Personal history of nicotine dependence; Z95.5 Presence of coronary angioplasty implant and graft
CPT/HCPCS: 71045; 80048; 81001; 84484; 85025; 85379; 93005; 94640; 94760; 96360; 99281; 99285; J7040; A4216

== ENCOUNTER 2020-01-12 12:27 | Inpatient (IN) | payer MEDICARE, OTHER, SELFPAY ==
[2020-01-07 12:12] VITALS: BMI 41.3
[2020-01-12] VITALS (8 sets, daily range): BP systolic 128–160; BP diastolic 65–81; PULSE 64–72; RESP 16–20; TEMP 36.4–37.1; O2SAT 92–97; BMI 40.6; BMI 40.8
--- NOTE | 2020-01-12 13:24 | EKG12_ITS ---
Test Reason : SOB Blood Pressure : / mmHG Vent. Rate : 067 BPM Atrial Rate : 067 BPM P-R Int : 188 ms QRS Dur : 130 ms QT Int : 426 ms P-R-T Axes : 011 -17 013 degrees QTc Int : 450 ms Normal sinus rhythm Right bundle branch block Abnormal ECG Confirmed by HALLIE ALEXIS, BEATRIZ ([id number]), field map editor LENCHO FRANCO ([id number]) on 01/16/2020 12:44:20 PM Referred By: CAMMY Confirmed By:BEATRIZ STERLING MD
[2020-01-12 14:22] LABS: Hematocrit 36.4 % (37-47); Mean Corpuscular Hgb 31.6 pg (27.0-32.0); Mean Corpuscular Volume 95.8 fL (81-99); Mean Platelet Vol. 8.6 fl (6.2-12.0); POSITIVE COUNT YES; POSITIVE MORPHOLOGY YES; Platelet Count 282 K/mm3 (150-450); RBC Distribution Width CV 13.2 % (11.6-14.6); RBC Distribution Width SD 46.9 fl (35.1-43.9); White Blood Count 9.4 K/mm3 (4.4-11.0)
[2020-01-12 14:23] LABS: Differential Indicated MANUAL DIFF
--- NOTE | 2020-01-12 14:30 | RAD_ITS ---
STUDY: X-RAY CHEST REASON FOR EXAM: Female, 79 years old. COVID +, feels like shes getting worse. states 102 fever at home with pulse ox 74-88% at home. Took last of her prednisone today. TECHNIQUE: Single AP portable view of the chest. COMPARISON: Comparison is made with prior examination dated 01/07/2020. FINDINGS: EKG electrodes are seen. Since prior study, there is been progressive infiltrate in the left lung preferentially in the peripheral distribution. Mild increased markings at the right lung base and lateral aspect of the right upper lobe. There is no demonstrated pleural abnormality. Normal size heart. Normal mediastinum and radha. Normal visualized pulmonary arteries. There is atherosclerotic tortuosity of the aortic arch and descending thoracic aorta. There are diffuse degenerative changes of the visualized thoracic spine. Normal visualized ribs, clavicles, and shoulders. There is no demonstrated abnormality of the visualized soft tissue structures of the upper abdomen. RAD/Chest 1 View (Portable) IMPRESSION: Progressive infiltrates more prominent in the left side preferentially in peripheral distribution. Electronically Signed: Ron Rea, at 15:01 EDT , Service support ,
[2020-01-12 14:39] LABS: ALB/GLOB Ratio 0.8 RATIO (0.9-2.4); AST(SGOT) 42 U/L (15-37); Alanine Aminotransfer ALT/SGPT 45 U/L (13-56); Alkaline Phosphatase 67 U/L (45-117); Anion Gap 7 (5-15); BUN 9 mg/dL (7-18); Calcium,Total 8.8 mg/dL (8.5-10.1); Chloride 103 mmol/L (98-107); Creatinine, Serum 0.82 mg/dL (0.55-1.02); EST Glomerular Filtration Rate 72 mL/min (>60); Est Glom Filt Rate - Afr Amer 87 mL/min (>60); Estimated Creatinine Clearance 44.72 ml/min; Glucose 108 mg/dL (74-106); Potassium 3.8 mmol/L (3.5-5.1); Sodium Level 136 mmol/L (136-145)
--- NOTE | 2020-01-12 14:42 | CT_ITS ---
STUDY: CTA CHEST REASON FOR EXAM: Female, 79 years old. SOB, HYPOXIA, KNOWN COVID, ? PE, HTN, COR STENTS, ASTHMA RADIATION DOSAGE (If Supplied By Facility): CTDIvol = ( 12.66 ) mGy, DLP = ( 416.27 ) mGycm TECHNIQUE: The examination was performed with the intravenous administration of IV 100mL Isovue-370. Post-processing of the angiographic images was performed, with multiplanar reformation and 3D reconstruction. Individualized dose optimization techniques were used for this CT. COMPARISON: None. FINDINGS: Normal enhancement of the main pulmonary artery and right and left pulmonary arteries. Normal enhancement of the bilateral peripheral pulmonary arteries. There is no demonstrated pulmonary embolism. Atherosclerotic changes of the aorta with aneurysmal dilatation of the proximal ascending aorta measuring approximately 4.5 x 4.1 cm.. There is no demonstrated aortic dissection. Heart is enlarged and there is multivessel coronary artery calcification Normal mediastinum. Calcified left suprahilar nodes Normal visualized trachea and bronchi. The lungs are well expanded. Diffuse interstitial thickening with multifocal patchy airspace groundglass opacities more pronounced peripherally which may be consistent with known Covid 19 pneumonia. Tiny calcified granuloma in right lower lobe. Normal pleura. Normal chest wall structures. Dorsal spine demonstrates advanced spondylosis Tiny granulomatous calcifications within the spleen.. CT/CTA Chest W/WO Contrast IMPRESSION: Findings consistent with known Covid 19 pneumonia Old granulomatous disease ASHD and aneurysmal dilatation of the ascending aorta without evidence for periaortic leak or dissection. No evidence for pulmonary embolus. Electronically Signed: Cristhian Castro MD at 17:17 EDT , Service support ,
[2020-01-12 14:45] LABS: Lymphocyte 9 % (19-41); Monocyte 5 % (0-10); Myelocyte 2 (0-0); Neutrophil-Band 1 % (0-5); Neutrophil-Segmented 83 % (47-70); Total Cells Counted 100 (MANUAL DIFF)
--- NOTE | 2020-01-12 14:45 | ED.DCSUM_ITS ---
History of Present Illness Chief Complaint: Shortness of Breath Informant: Patient Onset: Days Narrative: Patient is a 79-year-old female with history of asthma, coronary artery disease and recent diagnosis of COVID-19 infection presenting with worsening shortness of breath and hypoxia. Patient states she started having some is on January 04 and had a positive Covid test that resulted this week from her PCP office. She was actually seen in the ER on Thursday where she was discharged on a course of prednisone. She states since then she has had worsening shortness of breath and started to have hypoxia at home. She has a continued cough and is now producing dark brown sputum that she states looks like plugs. She has some associated nausea today. She denies any abdominal pain, vomiting or change in bowel habits. She does have diffuse body aches. She did have a sore throat but that is improved. Because of her increase shortness of breath and hypoxia she came to the emergency room today. No swelling of her legs. Denies any other complaints at this time. Past Medical History - Allergies and Home Meds Allergies/Adverse Reactions: Allergies adhesive tape Allergy (Verified 01/12/20 12:32) Rash Iodinated Contrast Media [CONTRASTS] Allergy (Verified 01/12/20 12:32) Unknown NSAIDS (Non-Steroidal Anti-Inflamma Allergy (Verified 01/12/20 12:32) Unknown Penicillins Allergy (Verified 01/12/20 12:32) Unknown aspirin Adverse Reaction (Severe, Verified 01/12/20 12:32) Wheezing Primary Care Physician: Antonio Joya MD [Primary Care Provider] - Past Medical History: - - Coronary artery disease, hypertension, asthma Surgical History: - - Cardiac stents Lives: Spouse/ Significant Other Smoking Status: Never smoker Review of Systems General: Reports: Chills, Malaise. Denies: Fever, Sweats Eyes: Denies: Visual changes - bilaterally, Diplopia ENT: Reports: Sore throat, - - Nasal congestion. Denies: Rhinorrhea Cardiovascular: Denies: Chest pain, Palpitations Respiratory: Reports: Dyspnea, Cough, Sputum, Dyspnea on exertion Gastrointestinal: Reports: Nausea. Denies: Abdominal pain, Vomiting, Diarrhea, Melena, Hematochezia Genitourinary: Denies: Dysuria, Hematuria, Frequency Musculoskeletal: Reports: Myalgias. Denies: Back pain, Extremity Pain Skin: Denies: Rash, Wounds Neurological: Denies: Headache, Weakness, Numbness Physical Exam Vital Signs/Narrative: Vital Signs Temp Pulse Resp BP Pulse Ox 01/12/20 14:12 98.5 F 72 16 145/78 H 96 01/12/20 12:29 98.5 F 71 16 144/65 H 92 Inital Vital Signs reviewed: Yes General: Well nourished, Well developed, No Acute Distress Head: Normocephalic, Atraumatic Eyes: Perrl, EOMI ENT: Moist mucous membranes, No rhinorrhea Neck: Supple, Nontender, No JVD Cardiovascular: Regular rate, Regular rhythm, No murmurs Respiratory: No distress, Chest nontender, - - Bibasilar crackles present Abdomen: Soft, Nontender, Nondistended, Normal bowel sounds. Negative for: Guarding, Rebound tenderness : - - Borwn stool, no melena Back: Nontender, Normal Inspection Extremities: Nontender, No edema Skin: Normal color, No rash Neurological: Alert, Oriented x3, Cranial nerves II-XII grossly intact, Normal Strength, Normal Sensation Psychological: Normal affect, Normal Mood Diagnostic/Tx/Re-eval Chest X-Ray - ED: 1 View, Read by ED Physician, Read by Radiologist, Left Infiltrate Clinical Impression(s) from Imaging Studies Chest X-Ray 01/12/20 14:30 IMPRESSION: Progressive infiltrates more prominent in the left side preferentially in peripheral distribution. 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 No evidence for pulmonary embolus. Electronically Signed: Cristhian Castro MD at 17:17 EDT , Service support , Laboratory Data 01/12/20 01/12/20 01/12/20 14:10 14:10 14:10 WBC 9.4 RBC 3.80 L Hgb 12.0 Hct 36.4 L MCV 95.8 MCH 31.6 MCHC 33.0 RDW Std Deviation 46.9 H RDW Coeff of Humberto 13.2 Plt Count 282 MPV 8.6 Neut % (Auto) Not Reportable Absolute Neuts (auto) 7.9 H Absolute Lymphs (auto) 0.84 Total Counted 100 Neutrophils % (Manual) 83 H Band Neutrophils % 1 Lymphocytes % (Manual) 9 L Monocytes % (Manual) 5 Myelocytes % 2 H Diff Path Review May foll Platelet Estimate ADEQUATE RBC Morphology NORM C+C D-Dimer Quant (PE/DVT) 0.90 H* Sodium 136 Potassium 3.8 Chloride 103 Carbon Dioxide 26.0 Anion Gap 7 BUN 9 Creatinine 0.82 Estim Creat Clear Calc 44.72 Est GFR (MDRD) Af Amer 87 Est GFR (MDRD) Non-Af 72 BUN/Creatinine Ratio 11.0 Glucose 108 H Lactic Acid Calcium 8.8 Total Bilirubin 0.30 AST 42 H ALT 45 Alkaline Phosphatase 67 Troponin I < 0.015 Total Protein 7.0 Albumin 3.0 L Globulin 4.0 Albumin/Globulin Ratio 0.8 L Procalcitonin 01/12/20 01/12/20 14:10 14:10 WBC RBC Hgb Hct MCV MCH MCHC RDW Std Deviation RDW Coeff of Humberto Plt Count MPV Neut % (Auto) Absolute Neuts (auto) Absolute Lymphs (auto) Total Counted Neutrophils % (Manual) Band Neutrophils % Lymphocytes % (Manual) Monocytes % (Manual) Myelocytes % Diff Path Review Platelet Estimate RBC Morphology D-Dimer Quant (PE/DVT) Sodium Potassium Chloride Carbon Dioxide Anion Gap BUN Creatinine Estim Creat Clear Calc Est GFR (MDRD) Af Amer Est GFR (MDRD) Non-Af BUN/Creatinine Ratio Glucose Lactic Acid 1.6 Calcium Total Bilirubin AST ALT Alkaline Phosphatase Troponin I Total Protein Albumin Globulin Albumin/Globulin Ratio Procalcitonin < 0.04 - Rhythm Strip Rhythm Strip: Sinus Rhythm Rate: 67 Ectopy: None - EKG Initial EKG Interpretation: Sinus Rhythm, - - Sinus rhythm rate of 67Normal axisNormal intervalsRight bundle branch blockNormal ST segments Treatment - Dyspnea: Oxygen - Medical Decision Making Patient evaluated for worsening shortness of breath. She has a recent diagnosis of Covid 19 infection. She appears nontoxic but is requiring supplemental oxygen. She does have bibasilar crackles. CT shows worsening infiltrates and presentation is consistent with Covid pneumonia. Work-up is largely unremarkable otherwise. She does have an elevation of her D-dimer and given her new hypoxia CTA is obtained to rule out PE in addition to her Covid pneumonia. This is negative for acute PE. Patient be admitted to the hospitalist service given she does have hypoxia with ambulation. She did go on to mention she has been having some dark stools so guaiac is performed. Abdomen is soft and her H&H is stable. ED Disposition - Plan for ED Patient: Disposition: Acute Care Hospital [facility] Diagnosis: COVID-19 virus infection, Acute respiratory failure with hypoxia, Viral pneumonia Referrals: Antonio Joya MD [Primary Care Provider] -
[2020-01-12 14:46] LABS: Platelet Estimate ADEQUATE (ADEQ); Red Cell Morphology NORM C+C NORMAL (NORM C&C)
[2020-01-12 14:47] LABS: Absolute Lymphocyte Count 0.84 X10^3/uL (0.83-4.51); Absolute Neutrophil Count 7.9 X10^3/uL (2.0-7.7)
[2020-01-12 14:57] LABS: Lactic Acid 1.6 mmol/L (0.4-1.9)
[2020-01-12] MEDS: DiphenhydrAMINE 50 MG/ML Syringe IV (15:10)
[2020-01-12 16:10] LABS: Procalcitonin < 0.04 ng/mL (0.00-0.09)
--- NOTE | 2020-01-12 16:38 | HP.PCM_ITS ---
History of Present Illness Date of Admission: 01/12/20 Chief Complaint: Dyspnea, ongoing fevers, COVID + Admission Diagnoses: 1. Acute Dyspnea, Cough, Worsening with Hypoxia with Bilateral Pneumonia secondary to Acute Viral Syndrome, COVID-19 2. Reported Dark Stools, ? GI bleed 3. Chronic Asthma 4. Carotid artery stenosis 5. CAD 6. Morbid Obesity 7. History of chronic bradycardia 8. Hypertension 9. Hyperlipidemia 10. ANA The patient is a 79 y/o F w/ PMHx: Carotid artery stenosis, Fibromyalgia, CAD s/p rota-ablation atherectomy with ROBBI mid LAD, HTN, HLD, ANA, Chronic bradycardia, Asthma, Morbid Obesity who presents to the [facility] ED on 01/12/20 with history of onset of symptoms on 01/05/2020 with fever, chills, decreased sense of taste and smell, frontal throbbing headaches, generalized severe body aches and muscle aches, cough with dark brown mucus occasionally produced with dyspnea as well as nausea with occasional emesis, abdominal cramping with loose stools noted to have dark appearing stools over the last 2 days, most recently AM prior to presentation which patient described as black, clinically worsening with worsening dyspnea noted to be 74% at home on her pulse oximeter prompting ED presentation for evaluation. In the ED discussed stool presentation with ED physician and guiac was obtained. Stool was brown in appearance. While in the ED patient was ambulated and decreased to 88% on room air. With oxygen supplementation she notes feeling improved. In the ED on 01/07/20, initially at her PCP with symptoms onset with COVID testing at that time. When in the ED on 01/07/2020 D-dimer at that time had been 0.51 and has since increased as noted to 0.90. Work-up in the ED included T 98.5, heart rate 71, BP 144/65, initially 92% on room air with improvement to 96% on 2 L nasal cannula, CBC with WC 9.4, hemoglobin 12, platelet 282 with left shift with increased lymphocytes and noted myelocytes, D-dimer 0.9, CMP with glucose 108, lactic acid 1.6, AST/ALT 42/45, troponin less than 0.014, procalcitonin less than 0.04, chest x-ray with progressive infiltrates more prominent left side preferentially in the peripheral distribution consistent with Covid. CTPA pending per ED physician given risking elevated d-dimer. Past Medical History Past Medical History (Chronic Problems): Chronic Problems (Last Reviewed 10/04/19 @ 15:[address] Toan Vazquez MD) Asthma (Chronic) Atherosclerotic heart disease of [place] coronary artery without angina pectoris (Chronic) Essential (primary) hypertension (Chronic) Hyperlipidemia (Chronic) Medical History: Medical History (Last Reviewed 10/04/19 @ 15:[address] Toan Vazquez MD) Atherosclerotic heart disease of [place] coronary artery without angina pectoris (Chronic) I25.10 Essential (primary) hypertension (Chronic) I10 Hyperlipidemia (Chronic) E78.5 Arthritis M19.90 Asthma J45.909 Carotid artery stenosis I65.29 Fibromyalgia M79.7 Frequent UTI N39.0 Hx of radiculopathy Z86.69 lubosacral radiculopathy at L5-S1 Incontinence R32 Lumbosacral radiculopathy M54.17 Obesity E66.9 Obstructive sleep apnea G47.33 Renal calculus, left N20.0 Bradycardia (Inactive) R00.1 Allergies adhesive tape Allergy (Verified 01/12/20 12:32) Rash Iodinated Contrast Media [CONTRASTS] Allergy (Verified 01/12/20 12:32) Unknown NSAIDS (Non-Steroidal Anti-Inflamma Allergy (Verified 01/12/20 12:32) Unknown Penicillins Allergy (Verified 01/12/20 12:32) Unknown aspirin Adverse Reaction (Severe, Verified 01/12/20 12:32) Wheezing Home Medications: Ambulatory Orders Medication Instructions Recorded Lorazepam [Ativan] 0.5 mg PO DAILY PRN PRN 05/11/18 aspirin 81 mg tablet,delayed 81 mg PO DAILY 06/03/18 release Albuterol IH (ProAir) [Proair Hfa 1 - 2 puff INHALATION Q6H PRN PRN 06/10/18 (SP)Vent Pts] levocetirizine 5 mg tablet 5 mg PO QHS 10/04/19 Prednisone [Deltasone] 40 mg PO DAILY #10 tab 01/07/20 Atorvastatin Calcium [Lipitor] 40 mg PO QHS 01/12/20 Benazepril HCl [Lotensin] 40 mg PO DAILY 01/12/20 Clopidogrel Bisulfate [Clopidogrel] 75 mg PO DAILY 10/22/20 Isosorbide Mononitrate [Isosorbide 30 mg PO DAILY 01/12/20 Mononitrate ER] Surgical History: Surgical History (Last Reviewed 10/04/19 @ 15:[address] Toan Vazquez MD) History of coronary artery stent placement (Resolved) Onset Date: 02/24/17 Z95.5 PCI-Rotoblation atherectomy W/ROBBI-Mid LAD w/ 2.5 x 38 mm Synergy Stent 02/24/2017 H/O total hysterectomy Onset Date: 05/2018 Z90.710 History of LAVH Z90.710 BSOC History of left heart catheterization Onset Date: 09/27/18 Z98.890 History of lithotripsy Onset Date: 04/2018 Z98.890 History of tubal ligation Z98.51 Hx of nasal polypectomy Z98.890, Z87.09 Plantar fasciitis M72.2 H/O right heart catheterization (Inactive) Z98.890 Surgical History: - - PCI x1 to mid LAD with rotablation atherectomy 2017, lumbar back fusion surgery, right cataract surgery, hysterectomy, nasal polypectomy, tubal ligation, lithotripsy. 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 Smoking Status: Former smoker - Patient smoked for 8 years until she was 27-year-old old with social tobacco use, less than 1/2 pack/day. Tobacco Use: Non-smoker Alcohol: None Drugs: None - *Family History Maternal Family History: Family History (Last Reviewed 10/04/19 @ 15:[address] Toan Vazquez MD) Father CAD (coronary artery disease) Other Heart disease History Items: - - Patient notes a maternal family history of liver cirrhosis with alcohol abuse history. Paternal Family History: Family History (Last Reviewed 10/04/19 @ 15:[address] Toan Vazquez MD) Father CAD (coronary artery disease) Other Heart disease History Items: Heart Disease Review of Systems Constitutional: Reports: Anorexia, Chills, Fever, Malaise, Weakness, Fatigue. Denies: Weight Change HEENT: Reports: Head Aches, Sinus Congestion, Sore Throat. Denies: Sinus Drainage Cardiovascular: Denies: Chest Pain, Chest Pressure, Chest Tightness, Light Headedness, Orthopnea, Palpitations, Syncope Respiratory: Reports: Cough, Shortness of Breath, Shortness of breath at rest, Shortness of breath upon exertion, Sputum production, Wheezing Gastrointestinal: Reports: Abdominal Pain, Diarrhea, Nausea, Vomiting, - - Reported 2 episodes of dark stools. Genitourinary: Denies: Dysuria Musculoskeletal: Reports: Back Pain, Joint Pain, Muscle pain. Denies: Joint Tenderness Skin: Denies: Rash, Wounds Neurological: Denies: Numbness, Tingling, Focal weakness Psychiatric: Denies: Anxiety, Depression, Homicidal Ideations, Suicidal Ideations Hematologic/ Lymphatic: Reports: Easy Bruising, Easy Bleeding VTE Information - Inpt Only VTE Present on Admission: No VTE Mechan Device Prophylaxis: SCD's VTE Pharm Prophylaxis ordered?: Yes Subjective: Patient seated upright in the ED bed, fatigued appearance, occasional coughing with examination otherwise no acute distress, appropriate oxygenation now that on supplementation 2 L nasal cannula. Objective: Physical Examination: General: awake, alert, oriented x 3 and cooperative, seated upright in the ED bed, fatigued appearance otherwise no acute distress. Skin: normal color, turgor, no icterus, cyanosis. HEENT: AT/NC, EOMI, PERRLA, dry MM, no carotid bruits or JVD noted. Lungs: Diminished breath sounds, greater bases, harsh coughing with requested increased respiratory effort for examination otherwise previous is no obvious rales, rhonchi or wheezing. Heart: Regular rate and rhythm; no gallop, rub audible. Abdomen: soft, morbidly obese, generalized discomfort to palpation, unable to discern distention given habitus, mildly hyperactive bowel sounds, difficult to discern HSM secondary to morbidly obese habitus. Extremities: no cyanosis, clubbing, or edema. Neurological: patient awake, alert, oriented x 3; cognitive function intact; pupils equally reactive to light and accomodation; cranial nerves II-XII grossly normal, moving all 4 extremities, no focal deficits, strength moderately to severely global decrease secondary to acute presentation. Psychiatric: affect appears fatigued otherwise normal, no acute evidence of de pressive or anxiety feelings. - Physical Exam Vitals/I&O's: Vital Signs Temp Pulse Resp BP Pulse Ox 98.5 F 72 16 145/78 H 96 01/12/20 14:12 01/12/20 14:12 01/12/20 14:12 01/12/20 14:12 01/12/20 14:12 Oxygen Flow Rate (L/min) 2 Oxygen Delivery Method Nasal Cannula Weight: 222 lb Body Mass Index (BMI) 40.6 Laboratory Results 01/12/20 14:10: WBC 9.4, RBC 3.80 L, Hgb 12.0, Hct 36.4 L, MCV 95.8, MCH 31.6, MCHC 33.0, RDW Std Deviation 46.9 H, RDW Coeff of Humberto 13.2, Plt Count 282, MPV 8.6, Neut % (Auto) Not Reportable, Absolute Neuts (auto) 7.9 H, Absolute Lymphs (auto) 0.84, Total Counted 100, Neutrophils % (Manual) 83 H, Band Neutrophils % 1, Lymphocytes % (Manual) 9 L, Monocytes % (Manual) 5, Myelocytes % 2 H, Diff Path Review July, Platelet Estimate ADEQUATE, RBC Morphology NORM C+C 01/12/20 14:10: D-Dimer Quant (PE/DVT) 0.90 H* 01/12/20 14:10: Sodium 136, Potassium 3.8, Chloride 103, Carbon Dioxide 26.0, Anion Gap 7, BUN 9, Creatinine 0.82, Estim Creat Clear Calc 44.72, Est GFR (MDRD) Af Amer 87, Est GFR (MDRD) Non-Af 72, BUN/Creatinine Ratio 11.0, Glucose 108 H, Calcium 8.8, Total Bilirubin 0.30, AST 42 H, ALT 45, Alkaline Phosphatase 67, Troponin I < 0.015, Total Protein 7.0, Albumin 3.0 L, Globulin 4.0, Albumin/Globulin Ratio 0.8 L 01/12/20 14:10: Lactic Acid 1.6 01/12/20 14:10: Procalcitonin < 0.04 Current Medications Iopamidol (Contrast Allergy Safety Check) 0 ml IV X1 WANG Assessment/Plan All Active Problems (Last Reviewed 10/04/19 @ 15:[address] Toan Vazquez MD) Dyspnea on exertion (Acute) History of coronary artery stent placement (Resolved 02/24/17) Complex endometrial hyperplasia with atypia (Resolved) UTI (urinary tract infection) (Resolved) The patient is a 79 y/o F w/ PMHx: Carotid artery stenosis, Fibromyalgia, CAD s/p rota-ablation atherectomy with ROBBI mid LAD, HTN, HLD, ANA, Chronic bradycardia, Asthma, Morbid Obesity who presents to the [facility] ED on 01/12/20 with history of onset of symptoms on 01/05/2020 with fever, chills, decreased sense of taste and smell, frontal throbbing headaches, generalized severe body aches and muscle aches, cough with dark brown mucus occasionally produced with dyspnea as well as nausea with occasional emesis, abdominal cramping with loose stools noted to have dark appearing with worsening dyspnea. 1. Acute Dyspnea, Cough, Worsening with Hypoxia with Bilateral Pneumonia secondary to Acute Viral Syndrome, COVID-19: Will admit to the COVID unit, will maintain on oxygen with wean as tolerated to room air, continue scheduled atro vent and albuterol inhalers with PRN albuterol, given CXR appearance hold on abx therapy, maintain on IV decadron, HOB, IS parameters w/ pending sputum cultures and urine antigens, will obtain procalcitonin, CRP, CPK, Ferritin, LDH. D-dimer mildly increased w/ CTPA being obtained. If patient worsens with need for oxygen >6 L would plan intubation with ICU physician continued care. 2. Reported Dark Stools: Patient noted possible black stools x 2 days recently on prednisone on anitplt therapies. Discussed with ED and guiac requested. Discussed case with Dr. Bedoya and if negative given stable Hgb may admit to [facility] and continue with plan as noted but recommended transfer to facility with GI if positive especially given antiplt therapies. 3. Chronic Asthma: Will maintain on scheduled albuterol inhaler and atrovent inhaler with PRN albuterol given COVID status, maintained as noted on decadron as noted. 4. Carotid artery stenosis: Pending stool guaiac but stools brown in appearance, hemoglobin stable, if appropriate and planned [facility] admission will continue aspirin, Plavix, statin therapy, hypertensive regimen with hold as needed. 5. CAD: Status post rotablation atherectomy and ROBBI mid LAD 2016, pending stool guaiac but stools brown in appearance, hemoglobin stable, if appropriate implant [facility] Hospital admission will continue aspirin, Plavix, statin, ROSALVA inhibitor, not on beta-steven therapy secondary to history of bradycardia. 6. Morbid Obesity: Weight loss and lifestyle changes encouraged, nutrition consulted. 7. History of chronic bradycardia: Patient heart rate 60s to 70s in the ED, not on any beta-steven therapy. 8. Hypertension: Continue home regimen including benazepril, isosorbide with hold as needed. 9. Hyperlipidemia: We will continue home statin therapy. 10. ANA: Pending transition to Covid unit, if allowable will utilize patient home CPAP regimen. 11. DVT prophylaxis: SCDs. Pending stool guaiac but stools brown in appearance, hemoglobin stable, if appropriate and planned [facility] admission will maintain on Lovenox. 12. CODE status: Patient KIMBERLY is her and living will is currently in place. Discussed CODE status at length including difference between FULL code, DNR-CCA and DNR-CC status. Following discussions about the differences in these status, requested Full Code status. Advanced Care Planning Face to Face Time: 16 minutes. Inpatient E&M: 21218 Init Hosp L3 Procedures: 22988 Advncd Care Plan 30 Min
--- NOTE | 2020-01-12 17:05 | NURSING ---
COVID UNIT WHITE COVID PNEUMONIA, HYPOXIA
--- NOTE | 2020-01-12 17:28 | NURSING ---
216 WHITE COVID PNEUMONIA, HYPOXIA
[2020-01-12 19:37] LABS: Ferritin 429 ng/mL (8-252); LDH 399 U/L (84-246)
[2020-01-12] MEDS: dexAMETHasone 10 MG/ML Vial 6 MG IV (20:23)
[2020-01-12] MEDS: Famotidine 20 MG Tablet PO (20:23)
[2020-01-12] MEDS: 0.9% Saline Lock 10 ML Syringe IV (20:23)
[2020-01-12] MEDS: Atorvastatin Calcium 40 MG Tablet PO (20:23)
[2020-01-12] MEDS: Loratadine 10 MG Tablet PO (20:24)
[2020-01-12] MEDS: Contrast Allergy Safety Check IV (21:04)
[2020-01-13] VITALS (12 sets, daily range): BP systolic 118–144; BP diastolic 66–68; PULSE 64–90; RESP 16–28; TEMP 36.8; O2SAT 3–94
[2020-01-13] MEDS: Albuterol 2.5 MG/3 ML VIAL.NEB. INHALATION ×4 (00:17→20:20)
--- NOTE | 2020-01-13 00:17 | CPS ---
pt's home CPAP unit set up with 3 lpm O2 bleed in
--- NOTE | 2020-01-13 07:31 | PN_ITS ---
Patient Problems: Active and Suspected Problems (Last Reviewed 10/04/19 @ 15:[address] Toan Vazquez MD) COVID-19 virus infection (Acute) Acute respiratory failure with hypoxia (Acute) Viral pneumonia (Acute) Reason for Visit: Follow-up for COVID-19 pneumonia Objective: Afebrile. Temperature 98.2. Heart rate in 60s. Regular. Blood pressure is maintained. Respiratory rate 16 occasionally 24/min. Patient had loose bowel movement which is much better. Denies abdominal pain or cramps. Stool for o ccult blood negative. Nausea and vomiting has improved. Loss of taste and smell sensation. Patient still has wheezing and mild shortness of breath on exertion. Cough with dark brown sputum. Pulse ox 95% on room air. Physical exam General: Alert, Oriented x3, Cooperative HEENT: Atraumatic, PERRLA, EOMI, Normocephalic Oral: No Gingival or Mucosal Lesions/ Ulcerations Neck: Supple, No JVD, Negative Carotid Bruits Lungs: Air entry diminished in bilateral lung bases. Bilateral coarse crepitation. Cardiovascular: Regular rate, Regular Rhythm, Normal S1, Normal S2, No murmurs Abdomen: Bowel Sounds Present, Soft, Non Tender, Non-Distended : No renal angle tenderness. No suprapubic tenderness. Extremities: No edema, Capillary Refill Less than 3 Seconds Skin: No rashes, No breakdown Musculoskeletal: No Tenderness to Palpation of Joints or Extremities Neurological: Cranial nerves II-XII grossly intact, Deep Tendon Reflexes 2+/4 and Symmetrical, Neuro grossly intact Psych/Mental Status: Normal Affect, Appropriate. Vitals/I&O's: Vital Signs Temp Pulse Resp BP Pulse Ox 98.2 F 90 24 H 131/68 H 93 01/13/20 03:36 01/13/20 06:53 01/13/20 06:53 01/13/20 03:36 01/13/20 03:36 Oxygen Flow Rate (L/min) 3 Oxygen Delivery Method CPAP Weight: 222 lb 10.67 oz Body Mass Index (BMI) 40.8 Intake and Output for Last 24 Hours 01/11/20 01/12/20 01/13/20 23:59 23:59 23:59 Intake Total 200 / 200 100 / 100 Output Total 450 / 450 250 / 250 Balance -250 / -250 -150 / -150 Microbiology Past 72 Hours 01/12/20 20:30 Urine, Clean Catch Legionella Antigen - Final 01/12/20 20:30 Urine, Clean Catch Streptococcus pneumoniae Antigen (M - Final 01/12/20 17:33 Stool Stool Occult Blood (EMILIA) - Final Laboratory Results 01/12/20 14:10: WBC 9.4, RBC 3.80 L, Hgb 12.0, Hct 36.4 L, MCV 95.8, MCH 31.6, MCHC 33.0, RDW Std Deviation 46.9 H, RDW Coeff of Humberto 13.2, Plt Count 282, MPV 8.6, Neut % (Auto) Not Reportable, Absolute Neuts (auto) 7.9 H, Absolute Lymphs (auto) 0.84, Total Counted 100, Neutrophils % (Manual) 83 H, Band Neutrophils % 1, Lymphocytes % (Manual) 9 L, Monocytes % (Manual) 5, Myelocytes % 2 H, Diff Path Review July, Platelet Estimate ADEQUATE, RBC Morphology NORM C+C 01/12/20 14:10: D-Dimer Quant (PE/DVT) 0.90 H* 01/12/20 14:10: Sodium 136, Potassium 3.8, Chloride 103, Carbon Dioxide 26.0, Anion Gap 7, BUN 9, Creatinine 0.82, Estim Creat Clear Calc 44.72, Est GFR (MDRD) Af Amer 87, Est GFR (MDRD) Non-Af 72, BUN/Creatinine Ratio 11.0, Glucose 108 H, Calcium 8.8, Total Bilirubin 0.30, AST 42 H, ALT 45, Alkaline Phosphatase 67, Troponin I < 0.015, Total Protein 7.0, Albumin 3.0 L, Globulin 4.0, Albumin/Globulin Ratio 0.8 L 01/12/20 14:10: Lactic Acid 1.6 01/12/20 14:10: Procalcitonin < 0.04 01/12/20 14:10: Magnesium 2.0, Ferritin 429 H, Lactate Dehydrogenase 399 H, C- React Prot Ext Range 52.20 H Current Medications Acetaminophen (Acetaminophen 325 Mg Tablet) 650 mg PO Q6H PRN PRN PRN Reason: Pain Score 1-10/Temp > 100.7 F Al Hydroxide/Mg Hydroxide (Mag Hydrox/Al Hydrox/Simeth 30 Ml Udc) 30 ml PO Q6H PRN PRN PRN Reason: Gastric Burning Albuterol Sulfate (Albuterol 2.5 Mg/3 Ml Vial.Neb.) 2.5 mg INHALATION Q2H PRN PRN PRN Reason: Dyspnea, wheezing Albuterol Sulfate (Albuterol 2.5 Mg/3 Ml Vial.Neb.) 2.5 mg INHALATION Q6HWA.RT [facility] Last Admin: 01/13/20 06:53 Dose: 2.5 mg Documented by: Aspirin (Aspirin E.C. 81 Mg Tablet) [facility] Atorvastatin Calcium (Atorvastatin Calcium 40 Mg Tablet) 40 mg PO QHS [facility] Last Admin: 01/12/20 20:23 Dose: 40 mg Documented by: Clopidogrel Bisulfate (Clopidogrel Bisulfate 75 Mg Tablet) 75 mg PO DAILY [facility] Dexamethasone Sodium Phosphate (Dexamethasone 10 Mg/Ml Vial) 6 mg IV Q24 [facility] Last Admin: 01/12/20 20:23 Dose: 6 mg Documented by: Enoxaparin Sodium (Enoxaparin 40 Mg/0.4 Ml Syringe) 40 mg SC DAILY [facility] Famotidine (Famotidine 20 Mg Tablet) 20 mg PO BID [facility] Last Admin: 01/12/20 20:23 Dose: 20 mg Documented by: Guaifenesin (Guaifenesin 10 Ml Udc (200mg/10ml)) 20 ml PO Q4H PRN PRN PRN Reason: COUGH Influenza Virus Vaccine Quadrival (Influenza Vaccine (6mos+)/Pf 0.5 Ml Syringe) 0.5 ml IM .ONCE ONE Stop: 01/13/20 10:01 Iopamidol (Contrast Allergy Safety Check) 0 ml IV X1 [facility] Last Admin: 01/12/20 21:04 Dose: 1 ml Documented by: Isosorbide Mononitrate (Isosorbide Mononitrate 30 Mg Tablet) 30 mg PO DAILY [facility] Lisinopril (Lisinopril 40 Mg Tablet) 40 mg PO DAILY [facility] Loratadine (Loratadine 10 Mg Tablet) 10 mg PO QHS [facility] Last Admin: 01/12/20 20:24 Dose: 10 mg Documented by: Lorazepam (Lorazepam 0.5 Mg Tablet) 0.5 mg PO DAILY PRN PRN PRN Reason: ANXIETY Melatonin (Melatonin 3 Mg Tablet) 3 mg PO QHS PRN PRN PRN Reason: INSOMNIA Morphine Sulfate (Morphine 2 Mg/Ml Syringe) 2 mg IV Q3H PRN PRN PRN Reason: Pain Score 6-10 Nitroglycerin (Nitroglycerin (Inpatient Use) 0.4 Mg Tab.Subl) 0.4 mg SUBLINGUAL Q5M PRN PRN Reason: CARDIAC/CHEST PAIN Ondansetron HCl (Ondansetron 4 Mg/2 Ml Vial) 4 mg IV Q8H PRN PRN PRN Reason: NAUSEA/VOMITING Oxycodone HCl (Oxycodone 5 Mg Tablet) 5 mg PO Q4H PRN PRN PRN Reason: Pain Score 4-5 Prochlorperazine Edisylate (Prochlorperazine 10 Mg/2 Ml Vial) 5 mg IV Q4H PRN PRN PRN Reason: Breakthrough nausea/vomiting Sodium Chloride (0.9% Saline Lock 10 Ml Syringe) 10 - 40 ml IV UD PRN PRN Reason: SALINE FLUSH Last Admin: 01/12/20 20:23 Dose: 10 ml Documented by: Throat Lozenges (Benzocaine/Menthol 1 Lozenge) 1 lozenge MUCOUS MEM Q2H PRN PRN PRN Reason: SORE THROAT STROKE Vital Signs/Narrative: Vital Signs Temp Pulse Resp BP Pulse Ox 01/13/20 06:53 90 24 H 01/13/20 03:36 98.2 F 64 16 131/68 H 93 Medical Necessity - Tobacco Use Smoking Status: Former smoker - Patient smoked for 8 years until she was 27-year-old old with social tobacco use, less than 1/2 pack/day. Tobacco Use: Non-smoker Assessment/Plan All Active Problems (Last Reviewed 10/04/19 @ 15:[address] Toan Vazquez MD) COVID-19 virus infection (Acute) Acute respiratory failure with hypoxia (Acute) Viral pneumonia (Acute) Dyspnea on exertion (Acute) History of coronary artery stent placement (Resolved 02/24/17) Complex endometrial hyperplasia with atypia (Resolved) UTI (urinary tract infection) (Resolved) The patient is a 79 y/o F with history of carotid artery stenosis, Fibromyalgia, CAD s/p rota-ablation atherectomy with ROBBI mid LAD, was admitted on 01/12/20 with fever, chills decreased sense of taste and smell, frontal throbbing headache, productive cough with dark brown mucus and shortness of breath along with generalized body aches and pains, abdominal cramping vomiting and diarrhea since 01/05/2020 and was tested positive for COVID-19 by PCP. She came in contact with large gathering in charge on 01/03/2020. 1. Acute respiratory insufficiency due to bilateral Pneumonia COVID-19: Patient is admitted on [facility] cohort floor. Continue bronchodilator, IV Decadron. Oxygen therapy to keep pulse ox 94%. Chest x-ray and CTA chest reviewed. Chest CT consistent with bilateral progressive predominant basilar and peripheral infiltrate consistent with COVID-19 pneumonia. It also showed enlargement dilatation of proximal ascending aorta measuring 4.5 x 2.1 cm with sclerotic changes of aorta. No dissection. 01/12: Mostly, patient is not tachypneic or hypoxic, pulse ox 95% on room air. ID consult to further evaluate for remdesivir. 2. Reported Dark Stools: Stool for dark blood negative. Patient was recently on prednisone and antiplatelet therapy.Discussed case with Dr. Bedoya and if negative given stable Hgb may admit to [facility] and continue with plan as noted but recommended transfer to facility with GI if positive especially given antiplatelet therapy 3. Chronic Asthma: scheduled albuterol inhaler and atrovent inhaler with PRN albuterol given COVID status, maintained as noted on decadron as noted. 4. Carotid artery stenosis: Pending stool guaiac but stools brown in appearance, hemoglobin stable, if appropriate and planned [facility] admission will continue aspirin, Plavix, statin therapy, hypertensive regimen with hold as needed. 5. CAD: Status post rotablation atherectomy and ROBBI mid LAD 2016, pending stool guaiac but stools brown in appearance, hemoglobin stable, if appropriate implant [facility] admission will continue aspirin, Plavix, statin, ROSALVA inhibitor, not on beta-steven therapy secondary to history of bradycardia. 6. Morbid Obesity: Weight loss and lifestyle changes encouraged. Surveillance Supervisor consulted. 7. History of chronic bradycardia: Patient heart rate is in 60s to 70s per minute. Not on beta-steven. 8. Hypertension: Continue home regimen including benazepril, isosorbide with hold as needed. 9. Hyperlipidemia: We will continue home statin therapy. 10. [facility] will utilize patient home CPAP regimen. 11. DVT prophylaxis: SCDs. Pending stool guaiac but stools brown in appearance, hemoglobin stable, if appropriate and planned [facility] admission will maintain on Lovenox. 12. CODE status: Patient KIMBERLY is her and living will is currently in place. Discussed CODE status at length including difference between FULL code, DNR-CCA and DNR-CC status. Following discussions about the differences in these status, requested Full Code status. Advanced Care Planning Face to Face Time: 16 minutes. Clinical Impression(s) from Imaging Studies Chest X-Ray 01/12/20 14:30 IMPRESSION: Progressive infiltrates more prominent in the left side preferentially in peripheral distribution. 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 No evidence for pulmonary embolus. Inpatient E&M: 80072 [facility] Hosp L2
[2020-01-13 08:10] LABS: Hematocrit 38.9 % (37-47); Hemoglobin 12.7 g/dL (12.0-15.0); Mean Corp Hgb Conc 32.6 g/dL (32-36); Mean Corpuscular Hgb 31.4 pg (27.0-32.0); Mean Corpuscular Volume 96.3 fL (81-99); Mean Platelet Vol. 8.6 fl (6.2-12.0); POSITIVE COUNT YES; POSITIVE MORPHOLOGY YES; Platelet Count 322 K/mm3 (150-450); RBC Distribution Width CV 13.3 % (11.6-14.6); RBC Distribution Width SD 47.6 fl (35.1-43.9); Red Blood Count 4.04 M/mm3 (4.2-5.4); White Blood Count 10.7 K/mm3 (4.4-11.0)
[2020-01-13 08:15] LABS: Differential Indicated MANUAL DIFF
[2020-01-13 08:34] LABS: ALB/GLOB Ratio 0.8 RATIO (0.9-2.4); AST(SGOT) 44 U/L (15-37); Alanine Aminotransfer ALT/SGPT 49 U/L (13-56); Albumin, Serum 3.2 g/dL (3.2-5.0); Alkaline Phosphatase 69 U/L (45-117); Anion Gap 9 (5-15); BUN 11 mg/dL (7-18); BUN/Creat Ratio 13.5 RATIO (10-20); Calcium,Total 9.2 mg/dL (8.5-10.1); Chloride 104 mmol/L (98-107); Creatinine, Serum 0.82 mg/dL (0.55-1.02); EST Glomerular Filtration Rate 72 mL/min (>60); Est Glom Filt Rate - Afr Amer 87 mL/min (>60); Estimated Creatinine Clearance 44.72 ml/min; Globulin 4.2 g/dL (2.2-4.2); Glucose 123 mg/dL (74-106); Potassium 3.6 mmol/L (3.5-5.1); Protein, Total 7.4 g/dL (6.4-8.2); Sodium Level 138 mmol/L (136-145)
[2020-01-13 08:41] LABS: Lymphocyte 12 % (19-41); Metamyelocyte 5 % (0-1); Monocyte 8 % (0-10); Myelocyte 1 (0-0); Neutrophil-Band 13 % (0-5); Neutrophil-Segmented 61 % (47-70); Total Cells Counted 100 (MANUAL DIFF)
[2020-01-13 08:42] LABS: Absolute Lymphocyte Count 1.29 X10^3/uL (0.83-4.51); Absolute Neutrophil Count 7.9 X10^3/uL (2.0-7.7)
[2020-01-13 08:43] LABS: Platelet Estimate ADEQUATE (ADEQ); Red Cell Morphology NORM C+C NORMAL (NORM C&C)
[2020-01-13] MEDS: Aspirin E.C. 81 MG Tablet PO (08:49)
[2020-01-13] MEDS: dexAMETHasone 10 MG/ML Vial 6 MG IV (08:49)
[2020-01-13] MEDS: 0.9% Saline Lock 10 ML Syringe IV ×2 (08:49→19:50)
[2020-01-13] MEDS: Enoxaparin 40 MG/0.4 ML Syringe SC ×2 (08:49→20:30)
[2020-01-13] MEDS: Famotidine 20 MG Tablet PO ×2 (08:53→20:30)
[2020-01-13] MEDS: Isosorbide Mononitrate 30 MG Tablet PO (08:53)
[2020-01-13] MEDS: Lisinopril 40 MG Tablet PO (08:54)
[2020-01-13] MEDS: Clopidogrel Bisulfate 75 MG Tablet PO (08:54)
--- NOTE | 2020-01-13 12:57 | CASEMGMT ---
INDAR COUCH Assessment Note Introduced role of CM to patient via phone.The patient is on 3L NC and is able to participate in assessment. Demographics, PCP verified. The patient states she is independent, no care needs. Her has a low grade fever and is home. He has contacted his physician. INDRA COUCH reviewed symptoms with patient and to let her know to contact his physician with any worsening symptoms. -Patient has contacts to bring groceries, meds if needed on dc. - is presumed positive and they are aware to quarantine in the home. -RN CM let patient know detailed instructions would be given on discharge for COVID isolation. Presentation: shortness of breath, Diagnosis: COVID-19 PCP: Dr. Antonio oJya Specialists: Fina Durham-pulmonology; cardiology, Dr. Vazquez Insurance: [facility] Preferred Pharmacy: [facility] [employer] Prescription Benefit: yes LNOK: , Danyel Stout Living Arrangements: Lives independently with her in one story home with 2 steps into home. Patient states she is independent in ADL's and IADL's and no care needs prior to admission. Tranportation: drives DME: Walker, cane, cpap through [facility]. If home oxygen is needed on discharge, patient prefers [employer]. HHC: none SNF: none Patient DC Goals: Home on discharge DC Plan: Home on discharge. Anticipate may need home oxygen on discharge. CM available for discharge planning coordination. Contact CM for any concerns/needs that may arise. Ro PAREKH RN ACM
[2020-01-13 13:56] LABS: Pathologist Review Reviewed
--- NOTE | 2020-01-13 16:21 | PCM.HP.ID ---
Problem List (1) COVID-19 virus infection Status: Acute Reason for Consult: covid Consulted by: Dr. Boykin History of Present Illness: The patient is a 79 year old F presented to ED yesterday with sx since 01/07, c/o fever, sore throat, some dyspnea, mild cough. No aches, no change in taste or smell, no chest pain. Came to ED, sat as low as 88%. Daughter is positive, feeling ok and is quarantining but not tested. Full ROS performed and neg except as noted above. No sputum. - Medical History Past Medical History (Chronic Problems): Chronic Problems (Last Reviewed 10/04/19 @ 15:[address] Toan Vazquez MD) Asthma (Chronic) Atherosclerotic heart disease of [place] coronary artery without angina pectoris (Chronic) Essential (primary) hypertension (Chronic) Hyperlipidemia (Chronic) Allergies/Adverse Reactions: Allergies adhesive tape Allergy (Verified 01/12/20 12:32) Rash Iodinated Contrast Media [CONTRASTS] Allergy (Verified 01/12/20 12:32) Unknown NSAIDS (Non-Steroidal Anti-Inflamma Allergy (Verified 01/12/20 12:32) Unknown Penicillins Allergy (Verified 01/12/20 12:32) Unknown aspirin Adverse Reaction (Severe, Verified 01/12/20 12:32) Wheezing Home Medications: Ambulatory Orders Medication Instructions Recorded Lorazepam [Ativan] 0.5 mg PO DAILY PRN PRN 05/11/18 aspirin 81 mg tablet,delayed 81 mg PO DAILY 06/03/18 release Albuterol IH (ProAir) [Proair Hfa 1 - 2 puff INHALATION Q6H PRN PRN 06/10/18 (SP)Vent Pts] levocetirizine 5 mg tablet 5 mg PO QHS 10/04/19 Prednisone [Deltasone] 40 mg PO DAILY #10 tab 01/07/20 Atorvastatin Calcium [Lipitor] 40 mg PO QHS 01/12/20 Benazepril HCl [Lotensin] 40 mg PO DAILY 01/12/20 Clopidogrel Bisulfate [Clopidogrel] 75 mg PO DAILY 01/12/20 Isosorbide Mononitrate [Isosorbide 30 mg PO DAILY 01/12/20 Mononitrate ER] - Social History SMOKING STATUS:: Former smoker Vital Signs Temp Pulse Resp BP Pulse Ox 98.2 F 81 18 118/66 92 01/13/20 08:37 01/13/20 12:58 01/13/20 13:40 01/13/20 08:37 01/13/20 08:37 Oxygen Flow Rate (L/min) 3 Oxygen Delivery Method Nasal Cannula Weight: 101 kg Body Mass Index (BMI) 40.8 Microbiology Past 72 Hours 01/12/20 23:45 Gram Stain - Final Sputum, Expectorated/Coughed 01/12/20 20:30 Legionella Antigen - Final Urine, Clean Catch Streptococcus pneumoniae Antigen (M - Final 01/12/20 17:33 Stool Occult Blood (EMILIA) - Final Stool Laboratory Tests Past 24 Hrs 01/12/20 01/12/20 01/13/20 14:10 14:10 07:59 WBC 10.7 RBC 4.04 L Hgb 12.7 Hct 38.9 MCV 96.3 MCH 31.4 MCHC 32.6 RDW Std Deviation 47.6 H RDW Coeff of Humberto 13.3 Plt Count 322 MPV 8.6 Neut % (Auto) Not Reportable Absolute Neuts (auto) 7.9 H Absolute Lymphs (auto) 1.29 Total Counted 100 Neutrophils % (Manual) 61 Band Neutrophils % 13 H Lymphocytes % (Manual) 12 L Monocytes % (Manual) 8 Metamyelocytes % 5 H Myelocytes % 1 H Diff Path Review Reviewed May foll Platelet Estimate ADEQUATE RBC Morphology NORM C+C Sodium Potassium Chloride Carbon Dioxide Anion Gap BUN Creatinine Estim Creat Clear Calc Est GFR (MDRD) Af Amer Est GFR (MDRD) Non-Af BUN/Creatinine Ratio Glucose Calcium Magnesium 2.0 Ferritin 429 H Total Bilirubin AST ALT Alkaline Phosphatase Lactate Dehydrogenase 399 H C-React Prot Ext Range 52.20 H Total Protein Albumin Globulin Albumin/Globulin Ratio Blood Type 01/13/20 01/13/20 07:59 11:45 WBC RBC Hgb Hct MCV MCH MCHC RDW Std Deviation RDW Coeff of Humberto Plt Count MPV Neut % (Auto) Absolute Neuts (auto) Absolute Lymphs (auto) Total Counted Neutrophils % (Manual) Band Neutrophils % Lymphocytes % (Manual) Monocytes % (Manual) Metamyelocytes % Myelocytes % Diff Path Review Platelet Estimate RBC Morphology Sodium 138 Potassium 3.6 Chloride 104 Carbon Dioxide 25.0 Anion Gap 9 BUN 11 Creatinine 0.82 Estim Creat Clear Calc 44.72 Est GFR (MDRD) Af Amer 87 Est GFR (MDRD) Non-Af 72 BUN/Creatinine Ratio 13.5 Glucose 123 H Calcium 9.2 Magnesium Ferritin Total Bilirubin 0.40 AST 44 H ALT 49 Alkaline Phosphatase 69 Lactate Dehydrogenase C-React Prot Ext Range Total Protein 7.4 Albumin 3.2 Globulin 4.2 Albumin/Globulin Ratio 0.8 L Blood Type A NEGATIVE - Other Studies Radiology: [] reviewed Other Studies: [] Route of nutrition/ use of supplements: [] Nutritional Intake: [] IV Site: [] Mccartney Catheter: [] - Physical Exam General: Alert, Oriented x3, Cooperative, No apparent distress HEENT: Atraumatic, PERRLA, EOMI Neck: Supple, No Nodes Lungs: Rales - bibasilar Cardiovascular: Regular rate, Regular Rhythm Abdomen: Soft, Non Tender, Non-Distended Extremities: No edema Skin: No rashes IV Site: Peripheral, without redness Musculoskeletal: No Tenderness to Palpation of Joints or Extremities Neurological: Cranial nerves II-XII grossly intact - Assessment/Plan Antibiotics: [] Assessment/Plan: [] Active and Suspected Problems (Last Reviewed 10/04/19 @ 15:[address] Toan Vazquez MD) COVID-19 virus infection (Acute) Acute respiratory failure with hypoxia (Acute) Viral pneumonia (Acute) covid with acute hypoxic resp failure - on dex, will change to po. Mild increased d-dimer, will increase lovenox to 40 bid. Discussed remdesivir, will start. Day 8 of symptoms. Reviewed EUA and risk/benefit of convalescent plasma, she has consented, will order. Has rales, will order BNP for AM. Recommended get tested. Will follow, thank you.
[2020-01-13] MEDS: Loratadine 10 MG Tablet PO (20:30)
[2020-01-13] MEDS: Atorvastatin Calcium 40 MG Tablet PO (20:30)
[2020-01-13] MEDS: MELATONIN 3 MG TABLET PO (20:30)
[2020-01-14] VITALS (23 sets, daily range): BP systolic 106–143; BP diastolic 60–85; PULSE 51–98; RESP 17–24; TEMP 36.4–37.2; O2SAT 89–98
[2020-01-14] MEDS: Albuterol 2.5 MG/3 ML VIAL.NEB. INHALATION ×2 (01:45→07:41)
[2020-01-14] MEDS: 0.9% Saline Lock 10 ML Syringe IV ×3 (04:37→14:35)
[2020-01-14 08:06] LABS: Hematocrit 36.1 % (37-47); Hemoglobin 11.8 g/dL (12.0-15.0); Mean Corp Hgb Conc 32.7 g/dL (32-36); Mean Corpuscular Hgb 31.5 pg (27.0-32.0); Mean Corpuscular Volume 96.3 fL (81-99); Mean Platelet Vol. 8.6 fl (6.2-12.0); Platelet Count 351 K/mm3 (150-450); RBC Distribution Width CV 13.4 % (11.6-14.6); RBC Distribution Width SD 47.8 fl (35.1-43.9); Red Blood Count 3.75 M/mm3 (4.2-5.4); White Blood Count 16.5 K/mm3 (4.4-11.0)
[2020-01-14 08:34] LABS: ALB/GLOB Ratio 0.8 RATIO (0.9-2.4); AST(SGOT) 43 U/L (15-37); Alanine Aminotransfer ALT/SGPT 59 U/L (13-56); Albumin, Serum 3.2 g/dL (3.2-5.0); Alkaline Phosphatase 69 U/L (45-117); Anion Gap 9 (5-15); BUN 13 mg/dL (7-18); BUN/Creat Ratio 17.1 RATIO (10-20); Calcium,Total 9.3 mg/dL (8.5-10.1); Chloride 103 mmol/L (98-107); Creatinine, Serum 0.76 mg/dL (0.55-1.02); EST Glomerular Filtration Rate 78 mL/min (>60); Est Glom Filt Rate - Afr Amer 95 mL/min (>60); Estimated Creatinine Clearance 36.67 ml/min; Globulin 4.2 g/dL (2.2-4.2); Glucose 77 mg/dL (74-106); Potassium 3.6 mmol/L (3.5-5.1); Protein, Total 7.4 g/dL (6.4-8.2); Sodium Level 139 mmol/L (136-145)
[2020-01-14] MEDS: Ondansetron 4 MG/2 ML Vial IV (08:52)
[2020-01-14] MEDS: dexAMETHasone 4 MG Tablet 6 MG PO (09:43)
[2020-01-14] MEDS: Lisinopril 40 MG Tablet PO (09:43)
[2020-01-14] MEDS: Aspirin E.C. 81 MG Tablet PO (09:43)
[2020-01-14] MEDS: Famotidine 20 MG Tablet PO ×2 (09:44→21:29)
[2020-01-14] MEDS: Isosorbide Mononitrate 30 MG Tablet PO (09:44)
[2020-01-14] MEDS: Clopidogrel Bisulfate 75 MG Tablet PO (09:44)
[2020-01-14] MEDS: Enoxaparin 40 MG/0.4 ML Syringe SC ×2 (09:44→21:29)
[2020-01-14 10:36] LABS: BNP,B-Type NATRIURETIC PEPTIDE 62.8 pg/mL (0-100)
[2020-01-14] MEDS: guaiFENesin 1,200 MG Tablet 1200 MG PO ×2 (11:15→21:29)
--- NOTE | 2020-01-14 11:50 | PN_ITS ---
Patient Problems: Active and Suspected Problems (Last Reviewed 10/04/19 @ 15:[address] Toan Vazquez MD) COVID-19 virus infection (Acute) Acute respiratory failure with hypoxia (Acute) Viral pneumonia (Acute) Reason for Visit: Follow-up for COVID-19 pneumonia. Objective: Seen and examined. Patient looks more short of breath today., Tachypneic respiratory rate 20 to 24/min. Afebrile. Oxygen requirement went up from 3 to 7 L. Patient also had hemoptysis, brown jacky sputum. Patient is getting convalescent plasma. Physical exam General: Alert, Oriented x3, Cooperative HEENT: Atraumatic, PERRLA, EOMI, Normocephalic Oral: No Gingival or Mucosal Lesions/ Ulcerations Neck: Supple, No JVD, Negative Carotid Bruits Lungs: Air entry diminished in bilateral lung bases. Bilateral coarse crepitations and wheezing. Tachypneic and hypoxic. Cardiovascular: Regular rate, Regular Rhythm, Normal S1, Normal S2, No murmurs Abdomen: Bowel Sounds Present, Soft, Non Tender, Non-Distended : No renal angle tenderness. No suprapubic tenderness. Extremities: No edema, Capillary Refill Less than 3 Seconds Skin: No rashes, No breakdown Musculoskeletal: No Tenderness to Palpation of Joints or Extremities Neurological: Cranial nerves II-XII grossly intact, Deep Tendon Reflexes 2+/4 and Symmetrical, Neuro grossly intact Psych/Mental Status: Normal Affect, Appropriate. Vitals/I&O's: Vital Signs Temp Pulse Resp BP Pulse Ox 98.7 F 76 18 116/61 96 01/14/20 09:50 01/14/20 09:50 01/14/20 09:50 01/14/20 09:50 01/14/20 09:50 Oxygen Flow Rate (L/min) 7 Oxygen Delivery Method Nasal Cannula Weight: 222 lb 14.197 oz Body Mass Index (BMI) 40.8 Intake and Output for Last 24 Hours 01/12/20 01/13/20 01/14/20 23:59 23:59 23:59 Intake Total 200 / 200 450.00 / 450.00 400 / 400 Output Total 450 / 450 600 / 600 350 / 350 Balance -250 / -250 -150.00 / -150.00 50 / 50 Microbiology Past 72 Hours 01/12/20 23:45 Sputum, Expectorated/Coughed Gram Stain - Final 01/12/20 23:45 Sputum, Expectorated/Coughed Respiratory Culture - Preliminary Appears to be normal respiratory polina. Further studies to follow. 01/12/20 20:30 Urine, Clean Catch Legionella Antigen - Final 01/12/20 20:30 Urine, Clean Catch Streptococcus pneumoniae Antigen (M - Final 01/12/20 17:33 Stool Stool Occult Blood (EMILIA) - Final Laboratory Results 01/12/20 14:10: Diff Path Review Reviewed 01/13/20 11:45: Blood Type A NEGATIVE 01/14/20 07:40: WBC 16.5 H, RBC 3.75 L, Hgb 11.8 L, Hct 36.1 L, MCV 96.3, MCH 31.5, MCHC 32.7, RDW Std Deviation 47.8 H, RDW Coeff of Humberto 13.4, Plt Count 351, MPV 8.6 01/14/20 07:40: Sodium 139, Potassium 3.6, Chloride 103, Carbon Dioxide 27.0, Anion Gap 9, BUN 13, Creatinine 0.76, Estim Creat Clear Calc 36.67, Est GFR (MDRD) Af Amer 95, Est GFR (MDRD) Non-Af 78, BUN/Creatinine Ratio 17.1, Glucose 77, Calcium 9.3, Total Bilirubin 0.40, AST 43 H, ALT 59 H, Alkaline Phosphatase 69, Total Protein 7.4, Albumin 3.2, Globulin 4.2, Albumin/Globulin Ratio 0.8 L 01/14/20 07:40: B-Natriuretic Peptide 62.8 Current Medications Acetaminophen (Acetaminophen 325 Mg Tablet) 650 mg PO Q6H PRN PRN PRN Reason: Pain Score 1-10/Temp > 100.7 F Al Hydroxide/Mg Hydroxide (Mag Hydrox/Al Hydrox/Simeth 30 Ml Udc) 30 ml PO Q6H PRN PRN PRN Reason: Gastric Burning Albuterol Sulfate (Albuterol 2.5 Mg/3 Ml Vial.Neb.) 2.5 mg INHALATION Q2H PRN PRN PRN Reason: Dyspnea, wheezing Albuterol/Ipratropium (Ipratropium/Albuterol Sulfate 3 Ml Ampul.Neb) 3 ml INHALATION Q4H.RT [facility] Aspirin (Aspirin E.C. 81 Mg Tablet) 81 mg PO DAILYCM WANG Last Admin: 01/14/20 09:43 Dose: 81 mg Documented by: Atorvastatin Calcium (Atorvastatin Calcium 40 Mg Tablet) 40 mg PO QHS [facility] Last Admin: 01/13/20 20:30 Dose: 40 mg Documented by: Clopidogrel Bisulfate (Clopidogrel Bisulfate 75 Mg Tablet) 75 mg PO DAILY [facility] Last Admin: 01/14/20 09:44 Dose: 75 mg Documented by: Dexamethasone (Dexamethasone 4 Mg Tablet) 6 mg PO DAILY@0800 [facility] Stop: 01/21/20 08:01 Last Admin: 01/14/20 09:43 Dose: 6 mg Documented by: Enoxaparin Sodium (Enoxaparin 40 Mg/0.4 Ml Syringe) 40 mg SC BID [facility] Last Admin: 01/14/20 09:44 Dose: 40 mg Documented by: Famotidine (Famotidine 20 Mg Tablet) 20 mg PO BID [facility] Last Admin: 01/14/20 09:44 Dose: 20 mg Documented by: Guaifenesin (Guaifenesin 1,200 Mg Tablet) 1,200 mg PO BID [facility] Last Admin: 01/14/20 11:15 Dose: 1,200 mg Documented by: Remdesivir (Investigational) (100 mg/ Sodium Chloride) 250 mls @ 125 mls/hr IV DAILY [facility]; Protocol Stop: 01/17/20 11:59 Last Admin: 01/14/20 11:15 Dose: 125 mls/hr Documented by: Isosorbide Mononitrate (Isosorbide Mononitrate 30 Mg Tablet) 30 mg PO DAILY [facility] Last Admin: 01/14/20 09:44 Dose: 30 mg Documented by: Lisinopril (Lisinopril 40 Mg Tablet) 40 mg PO DAILY [facility] Last Admin: 01/14/20 09:43 Dose: 40 mg Documented by: Loratadine (Loratadine 10 Mg Tablet) 10 mg PO QHS [facility] Last Admin: 01/13/20 20:30 Dose: 10 mg Documented by: Lorazepam (Lorazepam 0.5 Mg Tablet) 0.5 mg PO DAILY PRN PRN PRN Reason: ANXIETY Melatonin (Melatonin 3 Mg Tablet) 3 mg PO QHS PRN PRN PRN Reason: INSOMNIA Last Admin: 01/13/20 20:30 Dose: 3 mg Documented by: Morphine Sulfate (Morphine 2 Mg/Ml Syringe) 2 mg IV Q3H PRN PRN PRN Reason: Pain Score 6-10 Nitroglycerin (Nitroglycerin (Inpatient Use) 0.4 Mg Tab.Subl) 0.4 mg SUBLINGUAL Q5M PRN PRN Reason: CARDIAC/CHEST PAIN Ondansetron HCl (Ondansetron 4 Mg/2 Ml Vial) 4 mg IV Q8H PRN PRN PRN Reason: NAUSEA/VOMITING Last Admin: 01/14/20 08:52 Dose: 4 mg Documented by: Oxycodone HCl (Oxycodone 5 Mg Tablet) 5 mg PO Q4H PRN PRN PRN Reason: Pain Score 4-5 Prochlorperazine Edisylate (Prochlorperazine 10 Mg/2 Ml Vial) 5 mg IV Q4H PRN PRN PRN Reason: Breakthrough nausea/vomiting Sodium Chloride (0.9% Saline Lock 10 Ml Syringe) 10 - 40 ml IV UD PRN PRN Reason: SALINE FLUSH Last Admin: 01/14/20 08:41 Dose: 10 ml Documented by: Throat Lozenges (Benzocaine/Menthol 1 Lozenge) 1 lozenge MUCOUS MEM Q2H PRN PRN PRN Reason: SORE THROAT STROKE Vital Signs/Narrative: Vital Signs Temp Pulse Resp BP Pulse Ox 01/14/20 09:50 98.7 F 76 18 116/61 96 01/14/20 08:40 93 01/14/20 08:19 98.7 F 84 22 H 139/73 H 92 Medical Necessity - Tobacco Use Smoking Status: Former smoker - Patient smoked for 8 years until she was 27-year-old old with social tobacco use, less than 1/2 pack/day. Tobacco Use: Non-smoker Assessment/Plan All Active Problems (Last Reviewed 10/04/19 @ 15:[address] Toan Vazquez MD) COVID-19 virus infection (Acute) Acute respiratory failure with hypoxia (Acute) Viral pneumonia (Acute) Dyspnea on exertion (Acute) History of coronary artery stent placement (Resolved 02/24/17) Complex endometrial hyperplasia with atypia (Resolved) UTI (urinary tract infection) (Resolved) The patient is a 79 y/o F with history of carotid artery stenosis, Fibromyalgia, CAD s/p rota-ablation atherectomy with ROBBI mid LAD, was admitted on 10/22/20 with fever, chills decreased sense of taste and smell, frontal throbbing headache, productive cough with dark brown mucus and shortness of breath along with generalized body aches and pains, abdominal cramping vomiting and diarrhea since 01/05/2020 and was tested positive for COVID-19 by PCP. She came in contact with large gathering in charge on 01/03/2020. 1. Acute respiratory insufficiency due to bilateral Pneumonia COVID-19: Patient is admitted on [facility] cohort floor. Continue bronchodilator, IV Decadron. Oxygen therapy to keep pulse ox 94%. Chest x-ray and CTA chest reviewed. Chest CT consistent with bilateral progressive predominant basilar and peripheral infiltrate consistent with COVID-19 pneumonia. It also showed e nlargement dilatation of proximal ascending aorta measuring 4.5 x 2.1 cm with sclerotic changes of aorta. No dissection. 01/12: Mostly, patient is not tachypneic or hypoxic, pulse ox 95% on room air. ID consult to further evaluate for remdesivir. 01/13: Seen by ID and discussed today on 01/13. Patient is getting convalescent therapy. On remdesivir and Decadron. Preliminary Gram stain's appears normal. Urinary antigens are negative. On Lovenox 40 mg subcu twice daily. BNP normal. Mild hemoptysis. On high flow oxygen. 2. Reported Dark Stools: Stool for dark blood negative. Patient was recently on prednisone and antiplatelet therapy.Discussed case with Dr. Bedoya and if negative given stable Hgb may admit to [facility] and continue with plan as noted but recommended transfer to facility with GI if positive especially given antiplatelet therapy 3. Chronic Asthma: scheduled albuterol inhaler and atrovent inhaler with PRN albuterol given COVID status, maintained as noted on decadron as noted. 4. Carotid artery stenosis: Pending stool guaiac but stools brown in appearance, hemoglobin stable, if appropriate and planned [facility] admission will continue aspirin, Plavix, statin therapy, hypertensive regimen with hold as needed. 5. CAD: Status post rotablation atherectomy and ROBBI mid LAD 2016, pending stool guaiac but stools brown in appearance, hemoglobin stable, if appropriate implant [facility] admission will continue aspirin, Plavix, statin, ROSALVA inhibitor, not on beta-steven therapy secondary to history of bradycardia. 6. Morbid Obesity: Weight loss and lifestyle changes encouraged. Master Automotive Technician consulted. 7. History of chronic bradycardia: Patient heart rate is in 60s to 70s per minute. Not on beta-steven. 8. Hypertension: Continue home regimen including benazepril, isosorbide with hold as needed. 9. Hyperlipidemia: We will continue home statin therapy. 10. ANA: Pending transition to Covid unit, if allowable will utilize patient home CPAP regimen. 11. DVT prophylaxis: SCDs. Pending stool guaiac but stools brown in appearance, hemoglobin stable, if appropriate and planned [facility] admission will maintain on Lovenox. 12. CODE status: Patient KIMBERLY is her and living will is currently in place. Discussed CODE status at length including difference between FULL code, DNR-CCA and DNR-CC status. Following discussions about the differences in these status, requested Full Code status. Advanced Care Planning Face to Face Time: 16 minutes. Clinical Impression(s) from Imaging Studies Chest X-Ray 01/12/20 14:30 IMPRESSION: Progressive infiltrates more prominent in the left side preferentially in peripheral distribution. 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 No evidence for pulmonary embolus. Inpatient E&M: 09059 [facility] Hosp L2
[2020-01-14] MEDS: Ipratropium/Albuterol Sulfate 3 ML AMPUL.NEB INHALATION ×3 (13:25→19:41)
--- NOTE | 2020-01-14 21:01 | CPS ---
Pt.'s FiO2 on AirVo increased to 75%; pt.'s oxygenation demands
[2020-01-14] MEDS: Atorvastatin Calcium 40 MG Tablet PO (21:29)
[2020-01-14] MEDS: MELATONIN 3 MG TABLET PO (21:29)
[2020-01-14] MEDS: Loratadine 10 MG Tablet PO (21:29)
--- NOTE | 2020-01-14 23:46 | CPS ---
Pt.'s home BiPAP unit is in room, but she stated that she'd prefer to wear the AirVo for the remainder of the night. Pt.'s FiO2 on AirVo decreased to 65%; oxygenation needs being met
[2020-01-15] VITALS (14 sets, daily range): BP systolic 111–129; BP diastolic 62–70; PULSE 54–70; RESP 16–22; TEMP 36.7–36.8; O2SAT 92–96
--- NOTE | 2020-01-15 04:18 | CPS ---
Pt.'s FiO2 decreased to 55%
[2020-01-15] MEDS: Ipratropium/Albuterol Sulfate 3 ML AMPUL.NEB INHALATION ×4 (07:38→19:15)
[2020-01-15 07:42] LABS: ALB/GLOB Ratio 0.7 RATIO (0.9-2.4); AST(SGOT) 36 U/L (15-37); Alanine Aminotransfer ALT/SGPT 50 U/L (13-56); Albumin, Serum 2.7 g/dL (3.2-5.0); Alkaline Phosphatase 61 U/L (45-117); Anion Gap 6 (5-15); BUN 15 mg/dL (7-18); Calcium,Total 8.8 mg/dL (8.5-10.1); Chloride 108 mmol/L (98-107); Creatinine, Serum 0.58 mg/dL (0.55-1.02); EST Glomerular Filtration Rate 107 mL/min (>60); Est Glom Filt Rate - Afr Amer 130 mL/min (>60); Estimated Creatinine Clearance 36.67 ml/min; Globulin 3.7 g/dL (2.2-4.2); Glucose 92 mg/dL (74-106); Potassium 4.1 mmol/L (3.5-5.1); Protein, Total 6.4 g/dL (6.4-8.2); Sodium Level 138 mmol/L (136-145)
[2020-01-15 09:23] LABS: Hematocrit 34.9 % (37-47); Hemoglobin 11.6 g/dL (12.0-15.0); Mean Corp Hgb Conc 33.2 g/dL (32-36); Mean Corpuscular Volume 96.4 fL (81-99); Mean Platelet Vol. 8.6 fl (6.2-12.0); Platelet Count 345 K/mm3 (150-450); RBC Distribution Width CV 13.4 % (11.6-14.6); RBC Distribution Width SD 48.3 fl (35.1-43.9); Red Blood Count 3.62 M/mm3 (4.2-5.4); White Blood Count 13.6 K/mm3 (4.4-11.0)
[2020-01-15] MEDS: dexAMETHasone 4 MG Tablet 6 MG PO (09:49)
[2020-01-15] MEDS: Clopidogrel Bisulfate 75 MG Tablet PO (09:49)
[2020-01-15] MEDS: Aspirin E.C. 81 MG Tablet PO (09:49)
[2020-01-15] MEDS: Famotidine 20 MG Tablet PO ×2 (09:49→20:34)
[2020-01-15] MEDS: guaiFENesin 1,200 MG Tablet 1200 MG PO ×2 (09:49→20:33)
[2020-01-15] MEDS: Isosorbide Mononitrate 30 MG Tablet PO (09:49)
[2020-01-15] MEDS: Enoxaparin 40 MG/0.4 ML Syringe SC ×2 (09:50→20:33)
[2020-01-15] MEDS: Lisinopril 40 MG Tablet PO (09:50)
[2020-01-15] MEDS: 0.9% Saline Lock 10 ML Syringe IV (11:03)
--- NOTE | 2020-01-15 11:12 | CPS ---
Patient using her home unit. CPAP of 10 with 6LPM bleed in. Titrate O2 to keep >90%.
--- NOTE | 2020-01-15 13:45 | PCM.PN.HOSP ---
Patient Problems: Active and Suspected Problems (Last Reviewed 10/04/19 @ 15:[address] Toan Vazquez MD) COVID-19 virus infection (Acute) Acute respiratory failure with hypoxia (Acute) Viral pneumonia (Acute) Reason for Visit: Follow-up for COVID-19 pneumonia and acute hypoxic respiratory failure. Objective: Patient shortness of breath is same audible by company yesterday. Afebrile. Has little hemoptysis but better than yesterday. Patient was on Airview yesterday which is changed to CPAP today. Currently on oxygen 15 L/min, pulse ox 92. Mild nausea but no vomiting. Had soft/loose bowel movement. Physical exam General: Alert, Oriented x3, Cooperative HEENT: Atraumatic, PERRLA, EOMI, Normocephalic Oral: No Gingival or Mucosal Lesions/ Ulcerations Neck: Supple, No JVD, Negative Carotid Bruits Lungs: Air entry diminished in bilateral lung bases. Bilateral coarse crepitations and wheezing. Severely hypoxic Cardiovascular: Regular rate, Regular Rhythm, Normal S1, Normal S2, No murmurs Abdomen: Bowel Sounds Present, Soft, Non Tender, Non-Distended : No renal angle tenderness. No suprapubic tenderness. Extremities: No edema, Capillary Refill Less than 3 Seconds Skin: No rashes, No breakdown Musculoskeletal: No Tenderness to Palpation of Joints or Extremities Neurological: Cranial nerves II-XII grossly intact, Deep Tendon Reflexes 2+/4 and Symmetrical, Neuro grossly intact Psych/Mental Status: Normal Affect, Appropriate. Vitals/I&O's: Vital Signs Temp Pulse Resp BP Pulse Ox 98.3 F 68 18 127/70 H 92 01/15/20 09:45 01/15/20 10:19 01/15/20 10:19 01/15/20 09:45 01/15/20 10:19 Oxygen Flow Rate (L/min) 15 Oxygen Delivery Method Nasal Cannula Weight: 223 lb 15.834 oz Body Mass Index (BMI) 40.8 Intake and Output for Last 24 Hours 01/13/20 01/14/20 01/15/20 23:59 23:59 23:59 Intake Total 450.00 / 450.00 1490 / 1490 240 / 240 Output Total 600 / 600 650 / 650 500 / 500 Balance -150.00 / -150.00 840 / 840 -260 / -260 Microbiology Past 72 Hours 01/12/20 23:45 Sputum, Expectorated/Coughed Gram Stain - Final 01/12/20 23:45 Sputum, Expectorated/Coughed Respiratory Culture - Final 01/12/20 20:30 Urine, Clean Catch Legionella Antigen - Final 01/12/20 20:30 Urine, Clean Catch Streptococcus pneumoniae Antigen (M - Final 01/12/20 17:33 Stool Stool Occult Blood (EMILIA) - Final Laboratory Results 01/15/20 06:15: WBC Cancelled, Corrected WBC Cancelled, RBC Cancelled, Hgb Cancelled, Hct Cancelled, MCV Cancelled, MCH Cancelled, MCHC Cancelled, RDW Std Deviation Cancelled, RDW Coeff of Humberto Cancelled, Plt Count Cancelled, MPV Cancelled, Diff Path Review Cancelled 01/15/20 06:15: Sodium 138, Potassium 4.1, Chloride 108 H, Carbon Dioxide 24.0, Anion Gap 6, BUN 15, Creatinine 0.58, Estim Creat Clear Calc 36.67, Est GFR (MDRD) Af Amer 130, Est GFR (MDRD) Non-Af 107, BUN/Creatinine Ratio 26.0 H, Glucose 92, Calcium 8.8, Total Bilirubin 0.50, AST 36, ALT 50, Alkaline Phosphatase 61, Total Protein 6.4, Albumin 2.7 L, Globulin 3.7, Albumin/Globulin Ratio 0.7 L 01/15/20 08:47: WBC 13.6 H, RBC 3.62 L, Hgb 11.6 L, Hct 34.9 L, MCV 96.4, MCH 32.0, MCHC 33.2, RDW Std Deviation 48.3 H, RDW Coeff of Humberto 13.4, Plt Count 345, MPV 8.6 Current Medications Acetaminophen (Acetaminophen 325 Mg Tablet) 650 mg PO Q6H PRN PRN PRN Reason: Pain Score 1-10/Temp > 100.7 F Al Hydroxide/Mg Hydroxide (Mag Hydrox/Al Hydrox/Simeth 30 Ml Udc) 30 ml PO Q6H PRN PRN PRN Reason: Gastric Burning Albuterol Sulfate (Albuterol 2.5 Mg/3 Ml Vial.Neb.) 2.5 mg INHALATION Q2H PRN PRN PRN Reason: Dyspnea, wheezing Albuterol/Ipratropium (Ipratropium/Albuterol Sulfate 3 Ml Ampul.Neb) 3 ml INHALATION Q4H.RT [facility] Last Admin: 01/15/20 10:19 Dose: 3 ml Documented by: Aspirin (Aspirin E.C. 81 Mg Tablet) 81 mg PO DAILY [facility] Last Admin: 01/15/20 09:49 Dose: 81 mg Documented by: Atorvastatin Calcium (Atorvastatin Calcium 40 Mg Tablet) 40 mg PO QHS [facility] Last Admin: 01/14/20 21:29 Dose: 40 mg Documented by: Clopidogrel Bisulfate (Clopidogrel Bisulfate 75 Mg Tablet) 75 mg PO DAILY [facility] Last Admin: 01/15/20 09:49 Dose: 75 mg Documented by: Dexamethasone (Dexamethasone 4 Mg Tablet) 6 mg PO DAILY [facility] Stop: 01/21/20 10:01 Last Admin: 01/15/20 09:49 Dose: 6 mg Documented by: Enoxaparin Sodium (Enoxaparin 40 Mg/0.4 Ml Syringe) 40 mg SC BID [facility] Last Admin: 01/15/20 09:50 Dose: 40 mg Documented by: Famotidine (Famotidine 20 Mg Tablet) 20 mg PO BID [facility] Last Admin: 01/15/20 09:49 Dose: 20 mg Documented by: Guaifenesin (Guaifenesin 1,200 Mg Tablet) 1,200 mg PO BID [facility] Last Admin: 01/15/20 09:49 Dose: 1,200 mg Documented by: Remdesivir (Investigational) (100 mg/ Sodium Chloride) 250 mls @ 125 mls/hr IV DAILY [facility]; Protocol Stop: 01/17/20 11:59 Last Admin: 01/15/20 11:03 Dose: 125 mls/hr Documented by: Isosorbide Mononitrate (Isosorbide Mononitrate 30 Mg Tablet) 30 mg PO DAILY [facility] Last Admin: 01/15/20 09:49 Dose: 30 mg Documented by: Lisinopril (Lisinopril 40 Mg Tablet) 40 mg PO DAILY [facility] Last Admin: 01/15/20 09:50 Dose: 40 mg Documented by: Loratadine (Loratadine 10 Mg Tablet) 10 mg PO QHS [facility] Last Admin: 01/14/20 21:29 Dose: 10 mg Documented by: Lorazepam (Lorazepam 0.5 Mg Tablet) 0.5 mg PO DAILY PRN PRN PRN Reason: ANXIETY Melatonin (Melatonin 3 Mg Tablet) 3 mg PO QHS PRN PRN PRN Reason: INSOMNIA Last Admin: 01/14/20 21:29 Dose: 3 mg Documented by: Nitroglycerin (Nitroglycerin (Inpatient Use) 0.4 Mg Tab.Subl) 0.4 mg SUBLINGUAL Q5M PRN PRN Reason: CARDIAC/CHEST PAIN Ondansetron HCl (Ondansetron 4 Mg/2 Ml Vial) 4 mg IV Q8H PRN PRN PRN Reason: NAUSEA/VOMITING Last Admin: 01/14/20 08:52 Dose: 4 mg Documented by: Oxycodone HCl (Oxycodone 5 Mg Tablet) 5 mg PO Q4H PRN PRN PRN Reason: Pain Score 4-5 Prochlorperazine Edisylate (Prochlorperazine 10 Mg/2 Ml Vial) 5 mg IV Q4H PRN PRN PRN Reason: Breakthrough nausea/vomiting Sodium Chloride (0.9% Saline Lock 10 Ml Syringe) 10 - 40 ml IV UD PRN PRN Reason: SALINE FLUSH Last Admin: 01/15/20 11:03 Dose: 10 ml Documented by: Throat Lozenges (Benzocaine/Menthol 1 Lozenge) 1 lozenge MUCOUS MEM Q2H PRN PRN PRN Reason: SORE THROAT STROKE Vital Signs/Narrative: Vital Signs Pulse Resp Pulse Ox 01/15/20 10:19 68 18 92 Medical Necessity - Tobacco Use Smoking Status: Former smoker - Patient smoked for 8 years until she was 27-year-old old with social tobacco use, less than 1/2 pack/day. Tobacco Use: Non-smoker Assessment/Plan All Active Problems (Last Reviewed 10/04/19 @ 15:[address] Toan Vazquez MD) COVID-19 virus infection (Acute) Acute respiratory failure with hypoxia (Acute) Viral pneumonia (Acute) Dyspnea on exertion (Acute) History of coronary artery stent placement (Resolved 02/24/17) Complex endometrial hyperplasia with atypia (Resolved) UTI (urinary tract infection) (Resolved) The patient is a 79 y/o F with history of carotid artery stenosis, Fibromyalgia, CAD s/p rota-ablation atherectomy with ROBBI mid LAD, was admitted on 01/12/20 with fever, chills decreased sense of taste and smell, frontal throbbing headache, productive cough with dark brown mucus and shortness of breath along with generalized body aches and pains, abdominal cramping vomiting and diarrhea since 01/05/2020 and was tested positive for COVID-19 by PCP. She came in contact with large gathering in charge on 01/03/2020. 1. Acute respiratory insufficiency due to bilateral Pneumonia COVID-19: Patient is admitted on [facility] floor. Continue bronchodilator, IV Decadron. Oxygen therapy to keep pulse ox 94%. Chest x-ray and CTA chest reviewed. Chest CT consistent with bilateral progressive predominant basilar and peripheral infiltrate consistent with COVID-19 pneumonia. It also showed enlargement dilatation of proximal ascending aorta measuring 4.5 x 2.1 cm with sclerotic changes of aorta. No dissection. 01/12: Mostly, patient is not tachypneic or hypoxic, pulse ox 95% on room air. ID consult to further evaluate for remdesivir. 01/13: Seen by ID and discussed today on 01/13. Patient is getting convalescent therapy. On remdesivir and Decadron. Preliminary Gram stain's appears normal. Urinary antigens are negative. On Lovenox 40 mg subcu twice daily. BNP normal. Mild hemoptysis. On high flow oxygen. 01/14: Patient is on her CPAP, 15 L oxygen, not tachypneic. Leukocytosis improving 13.6 thousand. Electrolytes in normal range. Continue above treatment. Mild hemoptysis resolving. H&H is stable. 2. Reported Dark Stools: Stool for dark blood negative. Patient was recently on prednisone and antiplatelet therapy.Discussed case with Dr. Bedoya and if negative given stable Hgb may admit to [facility] and continue with plan as noted but recommended transfer to facility with GI if positive especially given antiplatelet therapy. 3. Chronic Asthma: scheduled albuterol inhaler and atrovent inhaler with PRN albuterol given COVID status, maintained as noted on decadron as noted. 4. Carotid artery stenosis: Pending stool guaiac but stools brown in appearance, hemoglobin stable, if appropriate and planned [facility] admission will continue aspirin, Plavix, statin therapy, hypertensive regimen with hold as needed. 5. CAD: Status post rotablation atherectomy and ROBBI mid LAD 2016, pending stool guaiac but stools brown in appearance, hemoglobin stable, if appropriate implant [facility] admission will continue aspirin, Plavix, statin, ROSALVA inhibitor, not on beta-steven therapy secondary to history of bradycardia. 6. Morbid Obesity: Weight loss and lifestyle changes encouraged. Instrument Worker consulted. 7. History of chronic bradycardia: Patient heart rate is in 60s to 70s per minute. Not on beta-steven. 8. Hypertension: Continue home regimen including benazepril, isosorbide with hold as needed. 9. Hyperlipidemia: We will continue home statin therapy. 10. ANA: Pending transition to Covid unit, if allowable will utilize patient home CPAP regimen. 11. DVT prophylaxis: SCDs. Pending stool guaiac but stools brown in appearance, hemoglobin stable, if appropriate and planned [facility] admission will maintain on Lovenox. 12. CODE status: Patient KIMBERLY is her and living will is currently in place. Discussed CODE status at length including difference between FULL code, DNR-CCA and DNR-CC status. Following discussions about the differences in these status, requested Full Code status. Advanced Care Planning Face to Face Time: 16 minutes. Clinical Impression(s) from Imaging Studies Chest X-Ray 01/12/20 14:30 IMPRESSION: Progressive infiltrates more prominent in the left side preferentially in peripheral distribution. 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 No evidence for pulmonary embolus. Microbiology Past 72 Hours 01/12/20 23:45 Sputum, Expectorated/Coughed Gram Stain - Final 01/12/20 23:45 Sputum, Expectorated/Coughed Respiratory Culture - Final 01/12/20 20:30 Urine, Clean Catch Legionella Antigen - Final 01/12/20 20:30 Urine, Clean Catch Streptococcus pneumoniae Antigen (M - Final 01/12/20 17:33 Stool Stool Occult Blood (EMILIA) - Final Laboratory Results 01/15/20 06:15: Sodium 138, Potassium 4.1, Chloride 108 H, Carbon Dioxide 24.0, Anion Gap 6, BUN 15, Creatinine 0.58, Estim Creat Clear Calc 36.67, Est GFR (MDRD) Af Amer 130, Est GFR (MDRD) Non-Af 107, BUN/Creatinine Ratio 26.0 H, Glucose 92, Calcium 8.8, Total Bilirubin 0.50, AST 36, ALT 50, Alkaline Phosphatase 61, Total Protein 6.4, Albumin 2.7 L, Globulin 3.7, Albumin/Globulin Ratio 0.7 L 01/15/20 08:47: WBC 13.6 H, RBC 3.62 L, Hgb 11.6 L, Hct 34.9 L, MCV 96.4, MCH 32.0, MCHC 33.2, RDW Std Deviation 48.3 H, RDW Coeff of Humberto 13.4, Plt Count 345, MPV 8.6 Inpatient E&M: 27304 Subs Hosp L2
--- NOTE | 2020-01-15 15:45 | NURSING ---
This RN relinquishing care at this time. Report given to Martina BURRELL who is taking over care of patient.
--- NOTE | 2020-01-15 20:18 | CPS ---
Pt. now has oxygen bleed-in of 9L; meet oxygenation needs
[2020-01-15] MEDS: Atorvastatin Calcium 40 MG Tablet PO (20:33)
[2020-01-15] MEDS: Loratadine 10 MG Tablet PO (20:33)
[2020-01-15] MEDS: MELATONIN 3 MG TABLET PO (22:29)
[2020-01-16] VITALS (18 sets, daily range): BP systolic 110–139; BP diastolic 47–74; PULSE 53–80; RESP 18–24; TEMP 36.4–36.7; O2SAT 90–97; BMI 40.8
[2020-01-16 05:34] LABS: Hematocrit 34.1 % (37-47); Hemoglobin 11.1 g/dL (12.0-15.0); Mean Corp Hgb Conc 32.6 g/dL (32-36); Mean Corpuscular Hgb 31.9 pg (27.0-32.0); Mean Platelet Vol. 8.4 fl (6.2-12.0); Platelet Count 344 K/mm3 (150-450); RBC Distribution Width CV 13.4 % (11.6-14.6); RBC Distribution Width SD 48.4 fl (35.1-43.9); Red Blood Count 3.48 M/mm3 (4.2-5.4)
[2020-01-16 06:03] LABS: ALB/GLOB Ratio 0.8 RATIO (0.9-2.4); AST(SGOT) 25 U/L (15-37); Alanine Aminotransfer ALT/SGPT 46 U/L (13-56); Albumin, Serum 2.7 g/dL (3.2-5.0); Alkaline Phosphatase 60 U/L (45-117); Anion Gap 5 (5-15); BUN 17 mg/dL (7-18); BUN/Creat Ratio 26.4 RATIO (10-20); Calcium,Total 8.7 mg/dL (8.5-10.1); Chloride 108 mmol/L (98-107); Creatinine, Serum 0.64 mg/dL (0.55-1.02); EST Glomerular Filtration Rate 95 mL/min (>60); Est Glom Filt Rate - Afr Amer 115 mL/min (>60); Estimated Creatinine Clearance 36.67 ml/min; Globulin 3.6 g/dL (2.2-4.2); Glucose 89 mg/dL (74-106); Potassium 4.2 mmol/L (3.5-5.1); Protein, Total 6.3 g/dL (6.4-8.2); Sodium Level 141 mmol/L (136-145)
[2020-01-16] MEDS: Ipratropium/Albuterol Sulfate 3 ML AMPUL.NEB INHALATION ×5 (07:12→23:22)
--- NOTE | 2020-01-16 08:00 | PCM.PN.HOSP ---
Patient Problems: Active and Suspected Problems (Last Reviewed 10/04/19 @ 15:[address] Toan Vazquez MD) COVID-19 virus infection (Acute) Acute respiratory failure with hypoxia (Acute) Viral pneumonia (Acute) Reason for Visit: Follow-up on hypoxia/acute COVID-19 infection Subjective: Patient was seen and examined. She complains of feeling worse. Complains of progressive shortness of breath. She has done much better on CPAP. No other acute events overnight. Objective: Physical exam General: Alert, Oriented x3, Cooperative, on 8 L of oxygen HEENT: Atraumatic, PERRLA, EOMI, Normocephalic Oral: No Gingival or Mucosal Lesions/ Ulcerations Neck: Supple, No JVD, Negative Carotid Bruits Lungs: Air entry diminished in bilateral lung bases Cardiovascular: Regular rate, Regular Rhythm, Normal S1, Normal S2, No murmurs Abdomen: Bowel Sounds Present, Soft, Non Tender, Non-Distended : No renal angle tenderness. No suprapubic tenderness. Extremities: No edema, Capillary Refill Less than 3 Seconds Skin: No rashes, No breakdown Musculoskeletal: No Tenderness to Palpation of Joints or Extremities Neurological: Cranial nerves II-XII grossly intact, Deep Tendon Reflexes 2+/4 and Symmetrical, Neuro grossly intact Psych/Mental Status: Normal Affect, Appropriate. Vitals/I&O's: Vital Signs Temp Pulse Resp BP Pulse Ox 97.8 F 60 18 139/74 H 94 01/16/20 03:00 01/16/20 07:18 01/16/20 07:18 01/16/20 03:00 01/16/20 07:22 Oxygen Flow Rate (L/min) 10 Oxygen Delivery Method Nasal Cannula Weight: 101.4 kg Body Mass Index (BMI) 40.8 Intake and Output for Last 24 Hours 01/14/20 01/15/20 01/16/20 23:59 23:59 23:59 Intake Total 1490 / 1490 1150 / 1450 900 / 900 Output Total 650 / 650 500 / 500 Balance 840 / 840 650 / 950 900 / 900 Microbiology Past 72 Hours 01/12/20 23:45 Sputum, Expectorated/Coughed Gram Stain - Final 01/12/20 23:45 Sputum, Expectorated/Coughed Respiratory Culture - Final Laboratory Results 01/15/20 06:15: WBC Cancelled, Corrected WBC Cancelled, RBC Cancelled, Hgb Cancelled, Hct Cancelled, MCV Cancelled, MCH Cancelled, MCHC Cancelled, RDW Std Deviation Cancelled, RDW Coeff of Humberto Cancelled, Plt Count Cancelled, MPV Cancelled, Diff Path Review Cancelled 01/15/20 08:47: WBC 13.6 H, RBC 3.62 L, Hgb 11.6 L, Hct 34.9 L, MCV 96.4, MCH 32.0, MCHC 33.2, RDW Std Deviation 48.3 H, RDW Coeff of Humberto 13.4, Plt Count 345, MPV 8.6 01/16/20 05:24: WBC 15.0 H, RBC 3.48 L, Hgb 11.1 L, Hct 34.1 L, MCV 98.0, MCH 31.9, MCHC 32.6, RDW Std Deviation 48.4 H, RDW Coeff of Humberto 13.4, Plt Count 344, MPV 8.4 01/16/20 05:24: Sodium 141, Potassium 4.2, Chloride 108 H, Carbon Dioxide 28.0, Anion Gap 5, BUN 17, Creatinine 0.64, Estim Creat Clear Calc 36.67, Est GFR (MDRD) Af Amer 115, Est GFR (MDRD) Non-Af 95, BUN/Creatinine Ratio 26.4 H, Glucose 89, Calcium 8.7, Total Bilirubin 0.60, AST 25, ALT 46, Alkaline Phosphatase 60, Total Protein 6.3 L, Albumin 2.7 L, Globulin 3.6, Albumin/Globulin Ratio 0.8 L Current Medications Acetaminophen (Acetaminophen 325 Mg Tablet) 650 mg PO Q6H PRN PRN PRN Reason: Pain Score 1-10/Temp > 100.7 F Al Hydroxide/Mg Hydroxide (Mag Hydrox/Al Hydrox/Simeth 30 Ml Udc) 30 ml PO Q6H PRN PRN PRN Reason: Gastric Burning Albuterol Sulfate (Albuterol 2.5 Mg/3 Ml Vial.Neb.) 2.5 mg INHALATION Q2H PRN PRN PRN Reason: Dyspnea, wheezing Albuterol/Ipratropium (Ipratropium/Albuterol Sulfate 3 Ml Ampul.Neb) 3 ml INHALATION Q4H.RT [facility] Last Admin: 01/16/20 07:12 Dose: 3 ml Documented by: Aspirin (Aspirin E.C. 81 Mg Tablet) 81 mg PO DAILY [facility] Last Admin: 01/15/20 09:49 Dose: 81 mg Documented by: Atorvastatin Calcium (Atorvastatin Calcium 40 Mg Tablet) 40 mg PO QHS [facility] Last Admin: 01/15/20 20:33 Dose: 40 mg Documented by: Clopidogrel Bisulfate (Clopidogrel Bisulfate 75 Mg Tablet) 75 mg PO DAILY [facility] Last Admin: 01/15/20 09:49 Dose: 75 mg Documented by: Dexamethasone (Dexamethasone 4 Mg Tablet) 6 mg PO DAILY [facility] Stop: 01/21/20 10:01 Last Admin: 01/15/20 09:49 Dose: 6 mg Documented by: Enoxaparin Sodium (Enoxaparin 40 Mg/0.4 Ml Syringe) 40 mg SC BID [facility] Last Admin: 01/15/20 20:33 Dose: 40 mg Documented by: Famotidine (Famotidine 20 Mg Tablet) 20 mg PO BID [facility] Last Admin: 01/15/20 20:34 Dose: 20 mg Documented by: Guaifenesin (Guaifenesin 1,200 Mg Tablet) 1,200 mg PO BID [facility] Last Admin: 01/15/20 20:33 Dose: 1,200 mg Documented by: Remdesivir (Investigational) (100 mg/ Sodium Chloride) 250 mls @ 125 mls/hr IV DAILY [facility]; Protocol Stop: 01/17/20 11:59 Last Infusion: 01/15/20 13:03 Dose: Infused Documented by: Isosorbide Mononitrate (Isosorbide Mononitrate 30 Mg Tablet) 30 mg PO DAILY [facility] Last Admin: 01/15/20 09:49 Dose: 30 mg Documented by: Lisinopril (Lisinopril 40 Mg Tablet) 40 mg PO DAILY [facility] Last Admin: 01/15/20 09:50 Dose: 40 mg Documented by: Loratadine (Loratadine 10 Mg Tablet) 10 mg PO QHS [facility] Last Admin: 01/15/20 20:33 Dose: 10 mg Documented by: Lorazepam (Lorazepam 0.5 Mg Tablet) 0.5 mg PO DAILY PRN PRN PRN Reason: ANXIETY Melatonin (Melatonin 3 Mg Tablet) 3 mg PO QHS PRN PRN PRN Reason: INSOMNIA Last Admin: 01/15/20 22:29 Dose: 3 mg Documented by: Nitroglycerin (Nitroglycerin (Inpatient Use) 0.4 Mg Tab.Subl) 0.4 mg SUBLINGUAL Q5M PRN PRN Reason: CARDIAC/CHEST PAIN Ondansetron HCl (Ondansetron 4 Mg/2 Ml Vial) 4 mg IV Q8H PRN PRN PRN Reason: NAUSEA/VOMITING Last Admin: 01/14/20 08:52 Dose: 4 mg Documented by: Oxycodone HCl (Oxycodone 5 Mg Tablet) 5 mg PO Q4H PRN PRN PRN Reason: Pain Score 4-5 Prochlorperazine Edisylate (Prochlorperazine 10 Mg/2 Ml Vial) 5 mg IV Q4H PRN PRN PRN Reason: Breakthrough nausea/vomiting Sodium Chloride (0.9% Saline Lock 10 Ml Syringe) 10 - 40 ml IV UD PRN PRN Reason: SALINE FLUSH Last Admin: 01/15/20 11:03 Dose: 10 ml Documented by: Throat Lozenges (Benzocaine/Menthol 1 Lozenge) 1 lozenge MUCOUS MEM Q2H PRN PRN PRN Reason: SORE THROAT STROKE Vital Signs/Narrative: Vital Signs Pulse Resp Pulse Ox 01/16/20 07:22 94 01/16/20 07:18 60 18 01/16/20 04:09 56 L Medical Necessity - Tobacco Use Smoking Status: Former smoker - Patient smoked for 8 years until she was 27-year-old old with social tobacco use, less than 1/2 pack/day. Tobacco Use: Non-smoker Assessment/Plan All Active Problems (Last Reviewed 10/04/19 @ 15:[address] Toan Vazquez MD) COVID-19 virus infection (Acute) Acute respiratory failure with hypoxia (Acute) Viral pneumonia (Acute) Dyspnea on exertion (Acute) History of coronary artery stent placement (Resolved 02/24/17) Complex endometrial hyperplasia with atypia (Resolved) UTI (urinary tract infection) (Resolved) 1. Acute respiratory failure secondary to severe COVID-19 infection/pneumonia Patient remains on 8 L of oxygen Continue with breathing treatments, IV steroids, encourage use of incentive spirometer. Wean off oxygen for SPO2 more than 94% 2. Acute COVID-19 infection, severe with hypoxia Status convalescent plasma, remdesivir, decadron ID consulted. Will also consult pulmo 3. CAD/Hypertension/ANA/Morbid obesity, all remain stable 4. DVT PPx- Lovenox SC BID Inpatient E&M: 81836 Subs Hosp L2
[2020-01-16] MEDS: 0.9% Saline Lock 10 ML Syringe IV ×2 (09:50→11:20)
[2020-01-16] MEDS: Ondansetron 4 MG/2 ML Vial IV (09:50)
[2020-01-16] MEDS: Enoxaparin 40 MG/0.4 ML Syringe SC ×2 (09:54→20:11)
--- NOTE | 2020-01-16 11:04 | PCM.NTREPORT ---
Nutrition Therapy Report - History Nutrition Services has been consulted to:: Manage nutrient details of diet order Current diet / nutrition support order:: Cardiac Heart Healthy - Anthropometric Measurements Height:: 5 ft 2 in Weight:: 101.4 kg Body Mass Index (BMI):: 40.8 - Relevant Labs Relevant Labs:: WBC 15.0 K/mm3 (4.4-11.0) H 01/16/20 05:24 RBC 3.48 M/mm3 (4.2-5.4) L 01/16/20 05:24 Hgb 11.1 g/dL (12.0-15.0) L 01/16/20 05:24 Hct 34.1 % (37-47) L 01/16/20 05:24 RDW Std Deviation 48.4 fl (35.1-43.9) H 01/16/20 05:24 Absolute Neuts (auto) 7.9 X10^3/uL (2.0-7.7) H 01/13/20 07:59 Neutrophils % (Manual) 83 % (47-70) H 01/12/20 14:10 Band Neutrophils % 13 % (0-5) H 01/13/20 07:59 Lymphocytes % (Manual) 12 % (19-41) L 01/13/20 07:59 Metamyelocytes % 5 % (0-1) H 01/13/20 07:59 Myelocytes % 1 (0-0) H 01/13/20 07:59 D-Dimer Quant (PE/DVT) 0.90 FEU/ug/m (0.27-0.49) H* 01/12/20 14:10 Chloride 108 mmol/L (98-107) H 01/16/20 05:24 BUN/Creatinine Ratio 26.4 RATIO (10-20) H 01/16/20 05:24 Glucose 123 mg/dL (74-106) H 01/13/20 07:59 Ferritin 429 ng/mL (8-252) H 01/12/20 14:10 AST 43 U/L (15-37) H 01/14/20 07:40 ALT 59 U/L (13-56) H 01/14/20 07:40 Lactate Dehydrogenase 399 U/L (84-246) H 01/12/20 14:10 C-React Prot Ext Range 52.20 mg/L (0.0-3.0) H 01/12/20 14:10 Total Protein 6.3 g/dL (6.4-8.2) L 01/16/20 05:24 Albumin 2.7 g/dL (3.2-5.0) L 01/16/20 05:24 Albumin/Globulin Ratio 0.8 RATIO (0.9-2.4) L 01/16/20 05:24 - Assessment Food / Nutrition-Related History:: Talked to pt via telephone d/t isolation precautions for COVID. Pt reports she tries to limit salt in diet at home. PO intake poor x 1 wk [employer]. Having issues w/ nausea and vomiting today - po intake poor at breakfast. She is agreeable to ONS at meals for increased nutrition if consumed. UBW: 103.6 kg - wt loss of 2.2% x 1 wk (sig for malnutrition). [ End ] - Nutrition Diagnosis Problem / Etiology / Signs & Symptoms (PES):: Pt with malnutrition r/t covid AEB poor po intake and 2.2% wt loss [employer] x 1 wk. Evidence of Malnutrition Exists:: Yes Severe PCM:: Acute Illness - Nutrition Intervention Nutrition Prescription:: 9318-1262 calories / 75-85 gm pro /day - Food / Nutrient Delivery Interventions Summary of nutrition intervention:: Will liberalize diet to Regular d/t suboptimal po intake r/t acute illness. Will provide vanilla ensure enlive w/ meals. [ End ] Nutrition education provided?: No - MNT Monitoring Further MNT monitoring and evaluation required?: Yes MNT Follow-up in:: 3-5 days - if questions please call RD/LD at [phone]
[2020-01-16] MEDS: Famotidine 20 MG Tablet PO ×2 (11:17→20:11)
[2020-01-16] MEDS: Isosorbide Mononitrate 30 MG Tablet PO (11:17)
[2020-01-16] MEDS: guaiFENesin 1,200 MG Tablet 1200 MG PO ×2 (11:18→20:11)
[2020-01-16] MEDS: Aspirin E.C. 81 MG Tablet PO (11:18)
[2020-01-16] MEDS: dexAMETHasone 4 MG Tablet 6 MG PO (11:18)
[2020-01-16] MEDS: Lisinopril 40 MG Tablet PO (11:36)
--- NOTE | 2020-01-16 11:37 | NURSING ---
AM MEDS GIVEN LATE DUE TO PT BEING NAUSEAUS THIS AM
[2020-01-16 13:50] LABS: Pathologist Review Reviewed
[2020-01-16] MEDS: Clopidogrel Bisulfate 75 MG Tablet PO (13:56)
--- NOTE | 2020-01-16 17:11 | PN.ID_ITS ---
Patient Problems: Active and Suspected Problems (Last Reviewed 10/04/19 @ 15:[address] Toan Vazquez MD) COVID-19 virus infection (Acute) Acute respiratory failure with hypoxia (Acute) Viral pneumonia (Acute) Subjective: Feeling better, still some dyspnea and cough. No n/v/d. - Physical Exam Vitals/I&O's: Vital Signs Temp Pulse Resp BP Pulse Ox 97.5 F L 70 22 H 117/58 L 90 01/16/20 14:01 01/16/20 15:13 01/16/20 15:13 01/16/20 14:01 01/16/20 15:14 Oxygen Flow Rate (L/min) 8 Oxygen Delivery Method Nasal Cannula Weight: 101.4 kg Body Mass Index (BMI) 40.8 Intake and Output for Last 24 Hours 01/14/20 01/15/20 01/16/20 23:59 23:59 23:59 Intake Total 1490 / 1490 1150 / 1450 1750 / 1750 Output Total 650 / 650 500 / 500 Balance 840 / 840 650 / 950 1750 / 1750 General: Alert, Cooperative, No apparent distress Lungs: Clear to auscultation, Diminished Cardiovascular: Regular rate, Regular Rhythm Abdomen: Soft, Non Tender, Non-Distended Skin: No rashes Microbiology Past 72 Hours 01/12/20 23:45 Sputum, Expectorated/Coughed Gram Stain - Final 01/12/20 23:45 Sputum, Expectorated/Coughed Respiratory Culture - Final Laboratory Results 01/13/20 07:59: Diff Path Review Reviewed 01/16/20 05:24: WBC 15.0 H, RBC 3.48 L, Hgb 11.1 L, Hct 34.1 L, MCV 98.0, MCH 31.9, MCHC 32.6, RDW Std Deviation 48.4 H, RDW Coeff of Humberto 13.4, Plt Count 344, MPV 8.4 01/16/20 05:24: Sodium 141, Potassium 4.2, Chloride 108 H, Carbon Dioxide 28.0, Anion Gap 5, BUN 17, Creatinine 0.64, Estim Creat Clear Calc 36.67, Est GFR (MDRD) Af Amer 115, Est GFR (MDRD) Non-Af 95, BUN/Creatinine Ratio 26.4 H, Glucose 89, Calcium 8.7, Total Bilirubin 0.60, AST 25, ALT 46, Alkaline Phosphatase 60, Total Protein 6.3 L, Albumin 2.7 L, Globulin 3.6, Albumin/Globulin Ratio 0.8 L Current Medications Acetaminophen (Acetaminophen 325 Mg Tablet) 650 mg PO Q6H PRN PRN PRN Reason: Pain Score 1-10/Temp > 100.7 F Al Hydroxide/Mg Hydroxide (Mag Hydrox/Al Hydrox/Simeth 30 Ml Udc) 30 ml PO Q6H PRN PRN PRN Reason: Gastric Burning Albuterol Sulfate (Albuterol 2.5 Mg/3 Ml Vial.Neb.) 2.5 mg INHALATION Q2H PRN PRN PRN Reason: Dyspnea, wheezing Albuterol/Ipratropium (Ipratropium/Albuterol Sulfate 3 Ml Ampul.Neb) 3 ml INHALATION Q4H.RT [facility] Last Admin: 01/16/20 15:11 Dose: 3 ml Documented by: Aspirin (Aspirin E.C. 81 Mg Tablet) 81 mg PO DAILY [facility] Last Admin: 01/16/20 11:18 Dose: 81 mg Documented by: Atorvastatin Calcium (Atorvastatin Calcium 40 Mg Tablet) 40 mg PO QHS [facility] Last Admin: 01/15/20 20:33 Dose: 40 mg Documented by: Clopidogrel Bisulfate (Clopidogrel Bisulfate 75 Mg Tablet) 75 mg PO DAILY [facility] Last Admin: 01/16/20 13:56 Dose: 75 mg Documented by: Dexamethasone (Dexamethasone 4 Mg Tablet) 6 mg PO DAILY [facility] Stop: 01/21/20 10:01 Last Admin: 01/16/20 11:18 Dose: 6 mg Documented by: Enoxaparin Sodium (Enoxaparin 40 Mg/0.4 Ml Syringe) 40 mg SC BID [facility] Last Admin: 01/16/20 09:54 Dose: 40 mg Documented by: Famotidine (Famotidine 20 Mg Tablet) 20 mg PO BID [facility] Last Admin: 01/16/20 11:17 Dose: 20 mg Documented by: Guaifenesin (Guaifenesin 1,200 Mg Tablet) 1,200 mg PO BID [facility] Last Admin: 01/16/20 11:18 Dose: 1,200 mg Documented by: Remdesivir (Investigational) (100 mg/ Sodium Chloride) 250 mls @ 125 mls/hr IV DAILY [facility]; Protocol Stop: 01/17/20 11:59 Last Infusion: 01/16/20 13:19 Dose: Infused Documented by: Isosorbide Mononitrate (Isosorbide Mononitrate 30 Mg Tablet) 30 mg PO DAILY [facility] Last Admin: 01/16/20 11:17 Dose: 30 mg Documented by: Lisinopril (Lisinopril 40 Mg Tablet) 40 mg PO DAILY [facility] Last Admin: 01/16/20 11:36 Dose: 40 mg Documented by: Loratadine (Loratadine 10 Mg Tablet) 10 mg PO QHS [facility] Last Admin: 01/15/20 20:33 Dose: 10 mg Documented by: Lorazepam (Lorazepam 0.5 Mg Tablet) 0.5 mg PO DAILY PRN PRN PRN Reason: ANXIETY Melatonin (Melatonin 3 Mg Tablet) 3 mg PO QHS PRN PRN PRN Reason: INSOMNIA Last Admin: 01/15/20 22:29 Dose: 3 mg Documented by: Nitroglycerin (Nitroglycerin (Inpatient Use) 0.4 Mg Tab.Subl) 0.4 mg SUBLINGUAL Q5M PRN PRN Reason: CARDIAC/CHEST PAIN Ondansetron HCl (Ondansetron 4 Mg/2 Ml Vial) 4 mg IV Q8H PRN PRN PRN Reason: NAUSEA/VOMITING Last Admin: 01/16/20 09:50 Dose: 4 mg Documented by: Oxycodone HCl (Oxycodone 5 Mg Tablet) 5 mg PO Q4H PRN PRN PRN Reason: Pain Score 4-5 Prochlorperazine Edisylate (Prochlorperazine 10 Mg/2 Ml Vial) 5 mg IV Q4H PRN PRN PRN Reason: Breakthrough nausea/vomiting Sodium Chloride (0.9% Saline Lock 10 Ml Syringe) 10 - 40 ml IV UD PRN PRN Reason: SALINE FLUSH Last Admin: 01/16/20 11:20 Dose: 10 ml Documented by: Throat Lozenges (Benzocaine/Menthol 1 Lozenge) 1 lozenge MUCOUS MEM Q2H PRN PRN PRN Reason: SORE THROAT Medical Necessity - Tobacco Use Smoking Status: Former smoker - Patient smoked for 8 years until she was 27-year-old old with social tobacco use, less than 1/2 pack/day. Tobacco Use: Non-smoker Route of nutrition/ use of supplements: [] Nutritional Intake: [] IV Site: [] Mccartney Catheter: [] - Assessment/Plan Antibiotics: [] Assessment/Plan: [] Active and Suspected Problems (Last Reviewed 10/04/19 @ 15:[address] Toan Vazquez MD) COVID-19 virus infection (Acute) Acute respiratory failure with hypoxia (Acute) Viral pneumonia (Acute) covid with acute hypoxic resp failure - on dex, remdesivr, got plasma 01/13. O2 improved from 15 to 8L. Feeling better. Will follow
[2020-01-16] MEDS: MELATONIN 3 MG TABLET PO (20:10)
[2020-01-16] MEDS: Atorvastatin Calcium 40 MG Tablet PO (20:11)
[2020-01-16] MEDS: Loratadine 10 MG Tablet PO (20:11)
[2020-01-17] VITALS (11 sets, daily range): BP systolic 108–131; BP diastolic 46–64; PULSE 63–79; RESP 16–28; TEMP 35.7–36.7; O2SAT 93–94
[2020-01-17] MEDS: Ipratropium/Albuterol Sulfate 3 ML AMPUL.NEB INHALATION ×5 (02:10→19:29)
[2020-01-17 06:49] LABS: Hematocrit 34.4 % (37-47); Hemoglobin 11.1 g/dL (12.0-15.0); Mean Corp Hgb Conc 32.3 g/dL (32-36); Mean Corpuscular Hgb 31.4 pg (27.0-32.0); Mean Corpuscular Volume 97.2 fL (81-99); Mean Platelet Vol. 8.3 fl (6.2-12.0); Platelet Count 408 K/mm3 (150-450); RBC Distribution Width CV 13.2 % (11.6-14.6); RBC Distribution Width SD 47.6 fl (35.1-43.9); Red Blood Count 3.54 M/mm3 (4.2-5.4); White Blood Count 15.5 K/mm3 (4.4-11.0)
[2020-01-17 07:14] LABS: ALB/GLOB Ratio 0.7 RATIO (0.9-2.4); AST(SGOT) 25 U/L (15-37); Alanine Aminotransfer ALT/SGPT 48 U/L (13-56); Albumin, Serum 2.8 g/dL (3.2-5.0); Alkaline Phosphatase 65 U/L (45-117); Anion Gap 6 (5-15); BUN 17 mg/dL (7-18); BUN/Creat Ratio 25.6 RATIO (10-20); Calcium,Total 9.1 mg/dL (8.5-10.1); Chloride 108 mmol/L (98-107); Creatinine, Serum 0.66 mg/dL (0.55-1.02); EST Glomerular Filtration Rate 92 mL/min (>60); Est Glom Filt Rate - Afr Amer 111 mL/min (>60); Estimated Creatinine Clearance 36.67 ml/min; Globulin 3.8 g/dL (2.2-4.2); Glucose 89 mg/dL (74-106); Protein, Total 6.6 g/dL (6.4-8.2); Sodium Level 140 mmol/L (136-145)
[2020-01-17 09:53] LABS: D-Dimer Quantitative (DVT/PE) 0.75 FEU/ug/m (0.27-0.49)
[2020-01-17] MEDS: dexAMETHasone 4 MG Tablet 6 MG PO (09:59)
[2020-01-17] MEDS: Enoxaparin 40 MG/0.4 ML Syringe SC ×2 (10:00→22:35)
[2020-01-17] MEDS: Clopidogrel Bisulfate 75 MG Tablet PO (10:00)
[2020-01-17] MEDS: guaiFENesin 1,200 MG Tablet 1200 MG PO ×2 (10:00→22:35)
[2020-01-17] MEDS: Famotidine 20 MG Tablet PO ×2 (10:00→22:35)
[2020-01-17] MEDS: Isosorbide Mononitrate 30 MG Tablet PO (10:01)
[2020-01-17] MEDS: Aspirin E.C. 81 MG Tablet PO (10:01)
[2020-01-17] MEDS: Lisinopril 40 MG Tablet PO (10:02)
[2020-01-17 10:28] LABS: Procalcitonin < 0.04 ng/mL (0.00-0.09)
[2020-01-17] MEDS: 0.9% Saline Lock 10 ML Syringe IV ×2 (11:17→15:56)
--- NOTE | 2020-01-17 14:24 | CON.PCM_ITS ---
Problem List (1) Morbid obesity due to excess calories Status: Acute (2) Asthma Status: Chronic Qualifiers: Asthma severity: unspecified severity Asthma persistence: unspecified Asthma complication type: unspecified Qualified Code(s): J45.909 - Unspecified asthma, uncomplicated (3) COVID-19 virus infection Status: Acute (4) Acute respiratory failure with hypoxia Status: Acute (5) Atherosclerotic heart disease of [place] coronary artery without angina pectoris Status: Chronic Qualifiers: [place] vs. transplanted heart: [place] heart Qualified Code(s): I25.10 - Atherosclerotic heart disease of [place] coronary artery without angina pectoris (6) History of coronary artery stent placement Status: Resolved Comment: PCI-Rotoblation atherectomy W/ROBBI-Mid LAD w/ 2.5 x 38 mm Synergy Stent 02/24/2017 (7) Essential (primary) hypertension Status: Chronic (8) Hyperlipidemia Status: Chronic Qualifiers: Hyperlipidemia type: unspecified Qualified Code(s): E78.5 - Hyperlipidemia, unspecified Reason for Consult Date of Consultation: 01/17/20 Reason for Consultation: Hypoxic respiratory failure History of Present Illness: The patient is a 79 year old F with past medical history listed below, who presented [facility] on 01/12/2020 secondary to progressive shortness of breath and hypoxia. Patient is reportedly seen by Dr. Harden at baseline for asthma and has been on inhalers for several years. Patient states that on January 04 that she had a positive Covid test that was returned to her PCPs office. Patient states that she was seen in the ER over the weekend and sent home with prednisone therapy. Patient continued to have a cough and is now producing dark brown sputum that she described as plugs and some associated nausea. No vomiting or diarrhea has been reported. Patient is reporting diffuse body aches. Patient initially had a sore throat, but states this had improved. Patient not reporting any lower extremity edema or rashes. In the ER, patient reportedly appeared nontoxic, but was requiring supplemental oxygen. Patient was also noted to have bibasilar crackles and CT showed worsening groundglass opacities bilaterally. Laboratory work-up showed no significant leukocytosis with a WBC count of 9.4. Renal function was within normal limits, along with LFTs. Lactate was within normal limits at 1.6. Over the course of the hospitalization, patient's oxygenation has continued to worsen. Patient is currently requiring 8 to 10 L of nasal cannula oxygen to maintain saturations. Patient has been relatively afebrile throughout hospitalization. Patient is approximately 3 L positive, but has a number of voids without documented volumes and weight is up 2 kg. However, overall, patient feels that she is improved compared to previous. Patient is not reporting any GI symptoms at this time. Patient states that she has had breathi ng test done previously, but is unaware of the findings. Patient has been placed on remdesivir and got plasma on 01/14/2020. Patient does carry a diagnosis of obstructive sleep apnea. Patient states she has been compliant with her home ANA therapy and tolerating this well. Patient is unaware of her AHI. Review of systems otherwise negative from a constitutional, HEENT, respiratory, cardiovascular, GI, genitourinary, musculoskeletal, skin, neurologic, psychiatric and hematologic system unless stated above. Past Medical History Past Medical History (Chronic Problems): Chronic Problems (Last Reviewed 10/04/19 @ 15:[address] Toan Vazquez MD) Asthma (Chronic) Atherosclerotic heart disease of [place] coronary artery without angina pectoris (Chronic) Essential (primary) hypertension (Chronic) Hyperlipidemia (Chronic) Medical History: Medical History (Last Reviewed 10/04/19 @ 15:[address] Toan Vazquez MD) Atherosclerotic heart disease of [place] coronary artery without angina pectoris (Chronic) I25.10 Essential (primary) hypertension (Chronic) I10 Hyperlipidemia (Chronic) E78.5 Arthritis M19.90 Asthma J45.909 Carotid artery stenosis I65.29 Fibromyalgia M79.7 Frequent UTI N39.0 Hx of radiculopathy Z86.69 lubosacral radiculopathy at L5-S1 Incontinence R32 Lumbosacral radiculopathy M54.17 Obesity E66.9 Obstructive sleep apnea G47.33 Renal calculus, left N20.0 Bradycardia (Inactive) R00.1 Allergies adhesive tape Allergy (Verified 01/12/20 12:32) Rash Iodinated Contrast Media [CONTRASTS] Allergy (Verified 01/12/20 12:32) Unknown NSAIDS (Non-Steroidal Anti-Inflamma Allergy (Verified 01/12/20 12:32) Unknown Penicillins Allergy (Verified 01/12/20 12:32) Unknown aspirin Adverse Reaction (Severe, Verified 10/22/20 12:32) Wheezing Home Medications: Ambulatory Orders Medication Instructions Recorded Lorazepam [Ativan] 0.5 mg PO DAILY PRN PRN 05/11/18 aspirin 81 mg tablet,delayed 81 mg PO DAILY 06/03/18 release Albuterol IH (ProAir) [Proair Hfa 1 - 2 puff INHALATION Q6H PRN PRN 06/10/18 (SP)Vent Pts] levocetirizine 5 mg tablet 5 mg PO QHS 10/04/19 Prednisone [Deltasone] 40 mg PO DAILY #10 tab 01/07/20 Atorvastatin Calcium [Lipitor] 40 mg PO QHS 01/12/20 Benazepril HCl [Lotensin] 40 mg PO DAILY 01/12/20 Clopidogrel Bisulfate [Clopidogrel] 75 mg PO DAILY 01/12/20 Isosorbide Mononitrate [Isosorbide 30 mg PO DAILY 01/12/20 Mononitrate ER] Surgical History: Surgical History (Last Reviewed 10/04/19 @ 15:[address] Toan Vazquez MD) History of coronary artery stent placement (Resolved) Onset Date: 02/24/17 Z95.5 PCI-Rotoblation atherectomy W/ROBBI-Mid LAD w/ 2.5 x 38 mm Synergy Stent 02/24/2017 H/O total hysterectomy Onset Date: 05/2018 Z90.710 History of LAVH Z90.710 BSOC History of left heart catheterization Onset Date: 09/27/18 Z98.890 History of lithotripsy Onset Date: 04/2018 Z98.890 History of tubal ligation Z98.51 Hx of nasal polypectomy Z98.890, Z87.09 Plantar fasciitis M72.2 H/O right heart catheterization (Inactive) Z98.890 Surgical History: - - PCI x1 to mid LAD with rotablation atherectomy 2016, lumbar back fusion surgery, right cataract surgery, hysterectomy, nasal polypectomy, tubal ligation, lithotripsy. Psychiatric History: No pertinent psych hx [employer] History: No pertinent [employer] history Lives: Spouse/ Significant Other - Patient was with her who is not had any Covid type symptoms per her report and his. Smoking Status: Former smoker - Patient smoked for 8 years until she was 27-year-old old with social tobacco use, less than 1/2 pack/day. Tobacco Use: Non-smoker Alcohol: None Drugs: None - *Family History Maternal Family History: Family History (Last Reviewed 10/04/19 @ 15:[address] Toan Vazquez MD) Father CAD (coronary artery disease) Other Heart disease History Items: - - Patient notes a maternal family history of liver cirrhosis with alcohol abuse history. Paternal Family History: Family History (Last Reviewed 10/04/19 @ 15:[address] Toan Vazquez MD) Father CAD (coronary artery disease) Other Heart disease History Items: Heart Disease Review of Systems Comment: See HPI Patient Problems: Active and Suspected Problems (Last Reviewed 10/04/19 @ 15:[address] Toan Vazquez MD) COVID-19 virus infection (Acute) Acute respiratory failure with hypoxia (Acute) Viral pneumonia (Acute) Objective: All imaging was personally reviewed. Agree with formal interpretation. Patient does not have pulmonary function tests available in the computer. Patient did have an echocardiogram completed on 10/18/2019 showing mild concentric LVH with an EF of 70% and stage I diastolic dysfunction. Patient reportedly had a normal aortic root at that time. However, CT of the chest shows a dilated ascending aorta of 4.5 x 4.1 cm and calcified suprahilar lymph nodes. No periaortic leak or dissection was appreciated on the CT scan. - Physical Exam Vitals/I&O's: Vital Signs Temp Pulse Resp BP Pulse Ox 35.7 C L 71 24 H 131/64 H 93 01/17/20 08:22 01/17/20 11:17 01/17/20 11:17 01/17/20 08:22 01/17/20 08:22 Oxygen Flow Rate (L/min) 10 Oxygen Delivery Method Nasal Cannula Weight: 101.9 kg Body Mass Index (BMI) 40.8 Intake and Output for Last 24 Hours 01/15/20 01/16/20 01/17/20 23:59 23:59 23:59 Intake Total 1150 / 1450 1750 / 1750 480 / 480 Output Total 500 / 500 Balance 650 / 950 1750 / 1750 480 / 480 General: Alert, Oriented x3, Cooperative, - - Mild conversational dyspnea. Morbidly obese. HEENT: Atraumatic, PERRLA, EOMI, Normocephalic, - - No scleral icterus or injection noted Oral: Moist Mucosa, No Gingival or Mucosal Lesions/ Ulcerations Neck: Supple, No Nodes, Trachea Midline, JVD, Right Lungs: No rhonchi, No wheeze, No rales, Diminished, - - Symmetric expansion Cardiovascular: Regular rate, Regular Rhythm, Normal S1, Normal S2, No murmurs, No rub noted, No Gallop Abdomen: Bowel Sounds Present, Soft, Non Tender, Non-Distended, Obese Extremities: No clubbing, No cyanosis, Edema - Trace to 1+ Skin: No rashes, No breakdown Musculoskeletal: No Tenderness to Palpation of Joints or Extremities Lymphatic: No Cervical, Supraclavicular, or Inguinal Adenopathy Neurological: Cranial nerves II-XII grossly intact, Neuro grossly intact, Motor Exam 5/5 strength throughout Psych/Mental Status: Alert and oriented to time, place, person, mood and affect Microbiology Past 72 Hours 01/12/20 23:45 Sputum, Expectorated/Coughed Gram Stain - Final 01/12/20 23:45 Sputum, Expectorated/Coughed Respiratory Culture - Final Laboratory Results 01/17/20 06:40: WBC 15.5 H, RBC 3.54 L, Hgb 11.1 L, Hct 34.4 L, MCV 97.2, MCH 31.4, MCHC 32.3, RDW Std Deviation 47.6 H, RDW Coeff of Humberto 13.2, Plt Count 408, MPV 8.3 01/17/20 06:40: Sodium 140, Potassium 4.0, Chloride 108 H, Carbon Dioxide 26.0, Anion Gap 6, BUN 17, Creatinine 0.66, Estim Creat Clear Calc 36.67, Est GFR ( MDRD) Af Amer 111, Est GFR (MDRD) Non-Af 92, BUN/Creatinine Ratio 25.6 H, Glucose 89, Calcium 9.1, Total Bilirubin 0.60, AST 25, ALT 48, Alkaline Phosphatase 65, Total Protein 6.6, Albumin 2.8 L, Globulin 3.8, Albumin/Globulin Ratio 0.7 L 01/17/20 09:00: D-Dimer Quant (PE/DVT) 0.75 H* 01/17/20 09:00: Procalcitonin < 0.04 Current Medications Acetaminophen (Acetaminophen 325 Mg Tablet) 650 mg PO Q6H PRN PRN PRN Reason: Pain Score 1-10/Temp > 100.7 F Al Hydroxide/Mg Hydroxide (Mag Hydrox/Al Hydrox/Simeth 30 Ml Udc) 30 ml PO Q6H PRN PRN PRN Reason: Gastric Burning Albuterol Sulfate (Albuterol 2.5 Mg/3 Ml Vial.Neb.) 2.5 mg INHALATION Q2H PRN PRN PRN Reason: Dyspnea, wheezing Albuterol/Ipratropium (Ipratropium/Albuterol Sulfate 3 Ml Ampul.Neb) 3 ml INHALATION Q4H.RT [facility] Last Admin: 01/17/20 10:48 Dose: 3 ml Documented by: Aspirin (Aspirin E.C. 81 Mg Tablet) 81 mg PO DAILY [facility] Last Admin: 01/17/20 10:01 Dose: 81 mg Documented by: Atorvastatin Calcium (Atorvastatin Calcium 40 Mg Tablet) 40 mg PO QHS [facility] Last Admin: 01/16/20 20:11 Dose: 40 mg Documented by: Clopidogrel Bisulfate (Clopidogrel Bisulfate 75 Mg Tablet) 75 mg PO DAILY [facility] Last Admin: 01/17/20 10:00 Dose: 75 mg Documented by: Dexamethasone (Dexamethasone 4 Mg Tablet) 6 mg PO DAILY [facility] Stop: 01/21/20 10:01 Last Admin: 01/17/20 09:59 Dose: 6 mg Documented by: Enoxaparin Sodium (Enoxaparin 40 Mg/0.4 Ml Syringe) 40 mg SC BID [facility] Last Admin: 01/17/20 10:00 Dose: 40 mg Documented by: Famotidine (Famotidine 20 Mg Tablet) 20 mg PO BID [facility] Last Admin: 01/17/20 10:00 Dose: 20 mg Documented by: Guaifenesin (Guaifenesin 1,200 Mg Tablet) 1,200 mg PO BID [facility] Last Admin: 01/17/20 10:00 Dose: 1,200 mg Documented by: Isosorbide Mononitrate (Isosorbide Mononitrate 30 Mg Tablet) 30 mg PO DAILY [facility] Last Admin: 01/17/20 10:01 Dose: 30 mg Documented by: Lisinopril (Lisinopril 40 Mg Tablet) 40 mg PO DAILY [facility] Last Admin: 01/17/20 10:02 Dose: 40 mg Documented by: Loratadine (Loratadine 10 Mg Tablet) 10 mg PO QHS [facility] Last Admin: 01/16/20 20:11 Dose: 10 mg Documented by: Lorazepam (Lorazepam 0.5 Mg Tablet) 0.5 mg PO DAILY PRN PRN PRN Reason: ANXIETY Melatonin (Melatonin 3 Mg Tablet) 3 mg PO QHS PRN PRN PRN Reason: INSOMNIA Last Admin: 01/16/20 20:10 Dose: 3 mg Documented by: Nitroglycerin (Nitroglycerin (Inpatient Use) 0.4 Mg Tab.Subl) 0.4 mg SUBLINGUAL Q5M PRN PRN Reason: CARDIAC/CHEST PAIN Ondansetron HCl (Ondansetron 4 Mg/2 Ml Vial) 4 mg IV Q8H PRN PRN PRN Reason: NAUSEA/VOMITING Last Admin: 01/16/20 09:50 Dose: 4 mg Documented by: Oxycodone HCl (Oxycodone 5 Mg Tablet) 5 mg PO Q4H PRN PRN PRN Reason: Pain Score 4-5 Prochlorperazine Edisylate (Prochlorperazine 10 Mg/2 Ml Vial) 5 mg IV Q4H PRN PRN PRN Reason: Breakthrough nausea/vomiting Sodium Chloride (0.9% Saline Lock 10 Ml Syringe) 10 - 40 ml IV UD PRN PRN Reason: SALINE FLUSH Last Admin: 01/17/20 11:17 Dose: 10 ml Documented by: Throat Lozenges (Benzocaine/Menthol 1 Lozenge) 1 lozenge MUCOUS MEM Q2H PRN PRN PRN Reason: SORE THROAT Assessment/Plan All Active Problems (Last Reviewed 10/04/19 @ 15:[address] Toan Vazquez MD) COVID-19 virus infection (Acute) Acute respiratory failure with hypoxia (Acute) Viral pneumonia (Acute) Morbid obesity due to excess calories (Acute) Dyspnea on exertion (Acute) History of coronary artery stent placement (Resolved 02/24/17) Complex endometrial hyperplasia with atypia (Resolved) UTI (urinary tract infection) (Resolved) RECOMMENDATIONS: 1. Continue steroids, remdesivir and and bronchodilators 2. Challenge with Lasix 3. Courage incentive spirometer and ambulation as tolerated 4. Continue CPAP with sleep IMPRESSIONS: 1. Acute hypoxic respiratory failure secondary to COVID-19 Patient is being seen by infectious disease. Patient is already received convalescent serum, remdesivir and is currently on Decadron therapy. Patient does have underlying asthma, which will complicate overall condition. Pulmonary function tests were not available for review. Some concern the patient may have an element of congestive heart failure leading to current situation as patient is positive over 3 L with 2 kg of weight gain. Patient does have diastolic dysfunction on recent echocardiogram. Will attempt to challenge with Lasix. Patient did not have significant wheezing on exam, but would continue with bronchodilators. 2. Chronic diastolic congestive heart failure/aortic dilation Patient with diastolic dysfunction on recent echocardiogram. Unclear significance of dilation of aortic root as echocardiogram did not note this at that time. Patient may have an element of overload leading to dilatation. Would defer to hospitalist on whether cardiology would need to perform a REID as this may be more sensitive for evaluation of aortic dissection. Patient is not reporting any significant chest pain to suggest active dissection at this time. We will give diuretics. Aggressive blood pressure control. Patient is already rate controlled. 3. Advanced age/morbid obesity/ANA/hypertension/CAD Complicates care, management, recovery and prognosis. Patient should continue CPAP overnight. Blood pressure appears to be well controlled at this time. Stressed to the patient the importance of ambulation and pulmonary recruitment measures to avoid complications. Patient voiced understanding. Inpatient E&M: 28129 Init Hosp L3
[2020-01-17] MEDS: Furosemide 40 MG/4 ML Vial IV (15:56)
--- NOTE | 2020-01-17 16:01 | PCM.PN.ID ---
Patient Problems: Active and Suspected Problems (Last Reviewed 10/04/19 @ 15:[address] Toan Vazquez MD) COVID-19 virus infection (Acute) Acute respiratory failure with hypoxia (Acute) Viral pneumonia (Acute) Morbid obesity due to excess calories (Acute) Subjective: Feeling much better today, no fever. - Physical Exam Vitals/I&O's: Vital Signs Temp Pulse Resp BP Pulse Ox 98.0 F 77 23 H 108/46 L 93 01/17/20 14:30 01/17/20 15:03 01/17/20 15:03 01/17/20 14:30 01/17/20 15:00 Oxygen Flow Rate (L/min) 11 Oxygen Delivery Method Nasal Cannula Weight: 101.9 kg Body Mass Index (BMI) 40.8 Intake and Output for Last 24 Hours 01/15/20 01/16/20 01/17/20 23:59 23:59 23:59 Intake Total 1150 / 1450 1750 / 1750 730 / 730 Output Total 500 / 500 Balance 650 / 950 1750 / 1750 730 / 730 General: Alert, Cooperative, No apparent distress Lungs: Clear to auscultation, Diminished Cardiovascular: Regular rate, Regular Rhythm Abdomen: Soft, Non Tender, Non-Distended Skin: No rashes Microbiology Past 72 Hours 01/12/20 23:45 Sputum, Expectorated/Coughed Gram Stain - Final 01/12/20 23:45 Sputum, Expectorated/Coughed Respiratory Culture - Final Laboratory Results 01/17/20 06:40: WBC 15.5 H, RBC 3.54 L, Hgb 11.1 L, Hct 34.4 L, MCV 97.2, MCH 31.4, MCHC 32.3, RDW Std Deviation 47.6 H, RDW Coeff of Humberto 13.2, Plt Count 408, MPV 8.3 01/17/20 06:40: Sodium 140, Potassium 4.0, Chloride 108 H, Carbon Dioxide 26.0, Anion Gap 6, BUN 17, Creatinine 0.66, Estim Creat Clear Calc 36.67, Est GFR (MDRD) Af Amer 111, Est GFR (MDRD) Non-Af 92, BUN/Creatinine Ratio 25.6 H, Glucose 89, Calcium 9.1, Total Bilirubin 0.60, AST 25, ALT 48, Alkaline Phosphatase 65, Total Protein 6.6, Albumin 2.8 L, Globulin 3.8, Albumin/Globulin Ratio 0.7 L 01/17/20 09:00: D-Dimer Quant (PE/DVT) 0.75 H* 01/17/20 09:00: Procalcitonin < 0.04 Current Medications Acetaminophen (Acetaminophen 325 Mg Tablet) 650 mg PO Q6H PRN PRN PRN Reason: Pain Score 1-10/Temp > 100.7 F Al Hydroxide/Mg Hydroxide (Mag Hydrox/Al Hydrox/Simeth 30 Ml Udc) 30 ml PO Q6H PRN PRN PRN Reason: Gastric Burning Albuterol Sulfate (Albuterol 2.5 Mg/3 Ml Vial.Neb.) 2.5 mg INHALATION Q2H PRN PRN PRN Reason: Dyspnea, wheezing Albuterol/Ipratropium (Ipratropium/Albuterol Sulfate 3 Ml Ampul.Neb) 3 ml INHALATION Q4H.RT [facility] Last Admin: 01/17/20 14:39 Dose: 3 ml Documented by: Aspirin (Aspirin E.C. 81 Mg Tablet) 81 mg PO DAILY [facility] Last Admin: 01/17/20 10:01 Dose: 81 mg Documented by: Atorvastatin Calcium (Atorvastatin Calcium 40 Mg Tablet) 40 mg PO QHS [facility] Last Admin: 01/16/20 20:11 Dose: 40 mg Documented by: Clopidogrel Bisulfate (Clopidogrel Bisulfate 75 Mg Tablet) 75 mg PO DAILY [facility] Last Admin: 01/17/20 10:00 Dose: 75 mg Documented by: Dexamethasone (Dexamethasone 4 Mg Tablet) 6 mg PO DAILY [facility] Stop: 01/21/20 10:01 Last Admin: 01/17/20 09:59 Dose: 6 mg Documented by: Enoxaparin Sodium (Enoxaparin 40 Mg/0.4 Ml Syringe) 40 mg SC BID [facility] Last Admin: 01/17/20 10:00 Dose: 40 mg Documented by: Famotidine (Famotidine 20 Mg Tablet) 20 mg PO BID [facility] Last Admin: 01/17/20 10:00 Dose: 20 mg Documented by: Guaifenesin (Guaifenesin 1,200 Mg Tablet) 1,200 mg PO BID [facility] Last Admin: 01/17/20 10:00 Dose: 1,200 mg Documented by: Isosorbide Mononitrate (Isosorbide Mononitrate 30 Mg Tablet) 30 mg PO DAILY [facility] Last Admin: 01/17/20 10:01 Dose: 30 mg Documented by: Lisinopril (Lisinopril 40 Mg Tablet) 40 mg PO DAILY [facility] Last Admin: 01/17/20 10:02 Dose: 40 mg Documented by: Loratadine (Loratadine 10 Mg Tablet) 10 mg PO QHS [facility] Last Admin: 01/16/20 20:11 Dose: 10 mg Documented by: Lorazepam (Lorazepam 0.5 Mg Tablet) 0.5 mg PO DAILY PRN PRN PRN Reason: ANXIETY Melatonin (Melatonin 3 Mg Tablet) 3 mg PO QHS PRN PRN PRN Reason: INSOMNIA Last Admin: 01/16/20 20:10 Dose: 3 mg Documented by: Nitroglycerin (Nitroglycerin (Inpatient Use) 0.4 Mg Tab.Subl) 0.4 mg SUBLINGUAL Q5M PRN PRN Reason: CARDIAC/CHEST PAIN Ondansetron HCl (Ondansetron 4 Mg/2 Ml Vial) 4 mg IV Q8H PRN PRN PRN Reason: NAUSEA/VOMITING Last Admin: 01/16/20 09:50 Dose: 4 mg Documented by: Oxycodone HCl (Oxycodone 5 Mg Tablet) 5 mg PO Q4H PRN PRN PRN Reason: Pain Score 4-5 Prochlorperazine Edisylate (Prochlorperazine 10 Mg/2 Ml Vial) 5 mg IV Q4H PRN PRN PRN Reason: Breakthrough nausea/vomiting Sodium Chloride (0.9% Saline Lock 10 Ml Syringe) 10 - 40 ml IV UD PRN PRN Reason: SALINE FLUSH Last Admin: 01/17/20 15:56 Dose: 10 ml Documented by: Throat Lozenges (Benzocaine/Menthol 1 Lozenge) 1 lozenge MUCOUS MEM Q2H PRN PRN PRN Reason: SORE THROAT Medical Necessity - Tobacco Use Smoking Status: Former smoker - Patient smoked for 8 years until she was 27-year-old old with social tobacco use, less than 1/2 pack/day. Tobacco Use: Non-smoker Route of nutrition/ use of supplements: [] Nutritional Intake: [] IV Site: [] Mccartney Catheter: [] - Assessment/Plan Antibiotics: [] Assessment/Plan: [] Active and Suspected Problems (Last Reviewed 10/04/19 @ 15:[address] Toan Vazquez MD) COVID-19 virus infection (Acute) Acute respiratory failure with hypoxia (Acute) Viral pneumonia (Acute) covid with acute hypoxic resp failure - on dex, remdesivir, got plasma 01/13. O2 improved from 15 to 8L. Feeling much better. On lovenox 40 bid. Will follow
--- NOTE | 2020-01-17 17:10 | PN_ITS ---
Patient Problems: Active and Suspected Problems (Last Reviewed 10/04/19 @ 15:[address] Toan Vazquez MD) COVID-19 virus infection (Acute) Acute respiratory failure with hypoxia (Acute) Viral pneumonia (Acute) Morbid obesity due to excess calories (Acute) Reason for Visit: Follow-up on hypoxia/acute COVID-19 infection Subjective: Patient was seen and examined. She feels improved. Seen sitting up in a chair. Denied any progressive shortness of breath or fever or chills. She has been using her CPAP at night. Objective: Physical exam General: Alert, Oriented x3, Cooperative, on 8 L of oxygen HEENT: Atraumatic, PERRLA, EOMI, Normocephalic Oral: No Gingival or Mucosal Lesions/ Ulcerations Neck: Supple, No JVD, Negative Carotid Bruits Lungs: Air entry diminished in bilateral lung bases Cardiovascular: Regular rate, Regular Rhythm, Normal S1, Normal S2, No murmurs Abdomen: Bowel Sounds Present, Soft, Non Tender, Non-Distended : No renal angle tenderness. No suprapubic tenderness. Extremities: No edema, Capillary Refill Less than 3 Seconds Skin: No rashes, No breakdown Musculoskeletal: No Tenderness to Palpation of Joints or Extremities Neurological: Cranial nerves II-XII grossly intact, Deep Tendon Reflexes 2+/4 and Symmetrical, Neuro grossly intact Psych/Mental Status: Normal Affect, Appropriate. Vitals/I&O's: Vital Signs Temp Pulse Resp BP Pulse Ox 98.0 F 77 23 H 108/46 L 93 01/17/20 14:30 01/17/20 15:03 01/17/20 15:03 01/17/20 14:30 01/17/20 15:00 Oxygen Flow Rate (L/min) 11 Oxygen Delivery Method Nasal Cannula Weight: 101.9 kg Body Mass Index (BMI) 40.8 Intake and Output for Last 24 Hours 01/15/20 01/16/20 01/17/20 23:59 23:59 23:59 Intake Total 1150 / 1450 1750 / 1750 730 / 730 Output Total 500 / 500 Balance 650 / 950 1750 / 1750 730 / 730 Microbiology Past 72 Hours 01/12/20 23:45 Sputum, Expectorated/Coughed Gram Stain - Final 01/12/20 23:45 Sputum, Expectorated/Coughed Respiratory Culture - Final Laboratory Results 01/17/20 06:40: WBC 15.5 H, RBC 3.54 L, Hgb 11.1 L, Hct 34.4 L, MCV 97.2, MCH 31.4, MCHC 32.3, RDW Std Deviation 47.6 H, RDW Coeff of Humberto 13.2, Plt Count 408, MPV 8.3 01/17/20 06:40: Sodium 140, Potassium 4.0, Chloride 108 H, Carbon Dioxide 26.0, Anion Gap 6, BUN 17, Creatinine 0.66, Estim Creat Clear Calc 36.67, Est GFR (MDRD) Af Amer 111, Est GFR (MDRD) Non-Af 92, BUN/Creatinine Ratio 25.6 H, Glucose 89, Calcium 9.1, Total Bilirubin 0.60, AST 25, ALT 48, Alkaline Phosphatase 65, Total Protein 6.6, Albumin 2.8 L, Globulin 3.8, Albumin/Globulin Ratio 0.7 L 01/17/20 09:00: D-Dimer Quant (PE/DVT) 0.75 H* 01/17/20 09:00: Procalcitonin < 0.04 Current Medications Acetaminophen (Acetaminophen 325 Mg Tablet) 650 mg PO Q6H PRN PRN PRN Reason: Pain Score 1-10/Temp > 100.7 F Al Hydroxide/Mg Hydroxide (Mag Hydrox/Al Hydrox/Simeth 30 Ml Udc) 30 ml PO Q6H PRN PRN PRN Reason: Gastric Burning Albuterol Sulfate (Albuterol 2.5 Mg/3 Ml Vial.Neb.) 2.5 mg INHALATION Q2H PRN PRN PRN Reason: Dyspnea, wheezing Albuterol/Ipratropium (Ipratropium/Albuterol Sulfate 3 Ml Ampul.Neb) 3 ml INHALATION Q4H.RT [facility] Last Admin: 01/17/20 14:39 Dose: 3 ml Documented by: Aspirin (Aspirin E.C. 81 Mg Tablet) 81 mg PO DAILY [facility] Last Admin: 01/17/20 10:01 Dose: 81 mg Documented by: Atorvastatin Calcium (Atorvastatin Calcium 40 Mg Tablet) 40 mg PO QHS [facility] Last Admin: 01/16/20 20:11 Dose: 40 mg Documented by: Clopidogrel Bisulfate (Clopidogrel Bisulfate 75 Mg Tablet) 75 mg PO DAILY [facility] Last Admin: 01/17/20 10:00 Dose: 75 mg Documented by: Dexamethasone (Dexamethasone 4 Mg Tablet) 6 mg PO DAILY [facility] Stop: 01/21/20 10:01 Last Admin: 01/17/20 09:59 Dose: 6 mg Documented by: Enoxaparin Sodium (Enoxaparin 40 Mg/0.4 Ml Syringe) 40 mg SC BID [facility] Last Admin: 01/17/20 10:00 Dose: 40 mg Documented by: Famotidine (Famotidine 20 Mg Tablet) 20 mg PO BID [facility] Last Admin: 01/17/20 10:00 Dose: 20 mg Documented by: Guaifenesin (Guaifenesin 1,200 Mg Tablet) 1,200 mg PO BID [facility] Last Admin: 01/17/20 10:00 Dose: 1,200 mg Documented by: Isosorbide Mononitrate (Isosorbide Mononitrate 30 Mg Tablet) 30 mg PO DAILY [facility] Last Admin: 01/17/20 10:01 Dose: 30 mg Documented by: Lisinopril (Lisinopril 40 Mg Tablet) 40 mg PO DAILY [facility] Last Admin: 01/17/20 10:02 Dose: 40 mg Documented by: Loratadine (Loratadine 10 Mg Tablet) 10 mg PO QHS [facility] Last Admin: 01/16/20 20:11 Dose: 10 mg Documented by: Lorazepam (Lorazepam 0.5 Mg Tablet) 0.5 mg PO DAILY PRN PRN PRN Reason: ANXIETY Melatonin (Melatonin 3 Mg Tablet) 3 mg PO QHS PRN PRN PRN Reason: INSOMNIA Last Admin: 01/16/20 20:10 Dose: 3 mg Documented by: Nitroglycerin (Nitroglycerin (Inpatient Use) 0.4 Mg Tab.Subl) 0.4 mg SUBLINGUAL Q5M PRN PRN Reason: CARDIAC/CHEST PAIN Ondansetron HCl (Ondansetron 4 Mg/2 Ml Vial) 4 mg IV Q8H PRN PRN PRN Reason: NAUSEA/VOMITING Last Admin: 01/16/20 09:50 Dose: 4 mg Documented by: Oxycodone HCl (Oxycodone 5 Mg Tablet) 5 mg PO Q4H PRN PRN PRN Reason: Pain Score 4-5 Prochlorperazine Edisylate (Prochlorperazine 10 Mg/2 Ml Vial) 5 mg IV Q4H PRN PRN PRN Reason: Breakthrough nausea/vomiting Sodium Chloride (0.9% Saline Lock 10 Ml Syringe) 10 - 40 ml IV UD PRN PRN Reason: SALINE FLUSH Last Admin: 01/17/20 15:56 Dose: 10 ml Documented by: Throat Lozenges (Benzocaine/Menthol 1 Lozenge) 1 lozenge MUCOUS MEM Q2H PRN PRN PRN Reason: SORE THROAT STROKE Vital Signs/Narrative: Vital Signs Temp Pulse Resp BP Pulse Ox 01/17/20 15:03 77 23 H 01/17/20 15:00 20 H 93 01/17/20 14:30 98.0 F 70 20 H 108/46 L 93 Medical Necessity - Tobacco Use Smoking Status: Former smoker - Patient smoked for 8 years until she was 27-year-old old with social tobacco use, less than 1/2 pack/day. Tobacco Use: Non-smoker Assessment/Plan All Active Problems (Last Reviewed 10/04/19 @ 15:[address] Toan Vazquez MD) COVID-19 virus infection (Acute) Acute respiratory failure with hypoxia (Acute) Viral pneumonia (Acute) Morbid obesity due to excess calories (Acute) Dyspnea on exertion (Acute) History of coronary artery stent placement (Resolved 02/24/17) Complex endometrial hyperplasia with atypia (Resolved) UTI (urinary tract infection) (Resolved) 1. Acute respiratory failure secondary to severe COVID-19 infection/pneumonia Remains on 8 L of oxygen. Continue with breathing treatments, IV steroids, encourage use of incentive spirometer. Wean off oxygen for SPO2 more than 94% 2. Acute COVID-19 infection, severe with hypoxia Status convalescent plasma on 01/13. On remdesivir and decadron ID and pulmo following 3. CAD/Hypertension/ANA/Morbid Obesity, all remain stable 4. DVT PPx- Lovenox SC BID Inpatient E&M: 63559 Subs Hosp L2
[2020-01-17] MEDS: Atorvastatin Calcium 40 MG Tablet PO (22:35)
[2020-01-17] MEDS: MELATONIN 3 MG TABLET PO (22:35)
[2020-01-17] MEDS: Loratadine 10 MG Tablet PO (22:35)
[2020-01-18] VITALS (21 sets, daily range): BP systolic 102–146; BP diastolic 46–100; PULSE 61–107; RESP 14–24; TEMP 36.1–36.8; O2SAT 93–96
[2020-01-18 06:46] LABS: Hematocrit 34.3 % (37-47); Hemoglobin 11.5 g/dL (12.0-15.0); Mean Corp Hgb Conc 33.5 g/dL (32-36); Mean Corpuscular Hgb 32.4 pg (27.0-32.0); Mean Corpuscular Volume 96.6 fL (81-99); Mean Platelet Vol. 8.7 fl (6.2-12.0); Platelet Count 434 K/mm3 (150-450); RBC Distribution Width CV 13.2 % (11.6-14.6); Red Blood Count 3.55 M/mm3 (4.2-5.4); White Blood Count 20.3 K/mm3 (4.4-11.0)
[2020-01-18] MEDS: Ipratropium/Albuterol Sulfate 3 ML AMPUL.NEB INHALATION ×4 (07:16→20:39)
[2020-01-18 07:18] LABS: ALB/GLOB Ratio 0.8 RATIO (0.9-2.4); AST(SGOT) 17 U/L (15-37); Alanine Aminotransfer ALT/SGPT 42 U/L (13-56); Albumin, Serum 2.8 g/dL (3.2-5.0); Alkaline Phosphatase 61 U/L (45-117); Anion Gap 5 (5-15); BUN 19 mg/dL (7-18); BUN/Creat Ratio 33.3 RATIO (10-20); Calcium,Total 8.9 mg/dL (8.5-10.1); Chloride 101 mmol/L (98-107); Creatinine, Serum 0.57 mg/dL (0.55-1.02); EST Glomerular Filtration Rate 109 mL/min (>60); Est Glom Filt Rate - Afr Amer 132 mL/min (>60); Estimated Creatinine Clearance 36.67 ml/min; Globulin 3.6 g/dL (2.2-4.2); Glucose 98 mg/dL (74-106); Potassium 3.8 mmol/L (3.5-5.1); Protein, Total 6.4 g/dL (6.4-8.2); Sodium Level 136 mmol/L (136-145)
--- NOTE | 2020-01-18 08:01 | PCM.PN.HOSP ---
Patient Problems: Active and Suspected Problems (Last Reviewed 10/04/19 @ 15:[address] Toan Vazquez MD) COVID-19 virus infection (Acute) Acute respiratory failure with hypoxia (Acute) Viral pneumonia (Acute) Morbid obesity due to excess calories (Acute) Reason for Visit: Follow-up on hypoxia/acute COVID-19 infection Subjective: Patient was seen and examined. She is currently on 11 L of oxygen at the time of being seen. She feels she does well on her CPAP. She denies any fever or chills or nausea or diarrhea. Objective: Physical exam General: Alert, Oriented x3, Cooperative, on 11 L of oxygen HEENT: Atraumatic, PERRLA, EOMI, Normocephalic Oral: No Gingival or Mucosal Lesions/ Ulcerations Neck: Supple, No JVD, Negative Carotid Bruits Lungs: Air entry diminished in bilateral lung bases Cardiovascular: Regular rate, Regular Rhythm, Normal S1, Normal S2, No murmurs Abdomen: Bowel Sounds Present, Soft, Non Tender, Non-Distended : No renal angle tenderness. No suprapubic tenderness. Extremities: No edema, Capillary Refill Less than 3 Seconds Skin: No rashes, No breakdown Musculoskeletal: No Tenderness to Palpation of Joints or Extremities Neurological: Cranial nerves II-XII grossly intact, Deep Tendon Reflexes 2+/4 and Symmetrical, Neuro grossly intact Psych/Mental Status: Normal Affect, Appropriate. Vitals/I&O's: Vital Signs Temp Pulse Resp BP Pulse Ox 98 F 63 16 146/69 H 93 01/18/20 02:24 01/18/20 02:24 01/18/20 02:24 01/18/20 02:24 01/18/20 02:24 Oxygen Flow Rate (L/min) 11 Oxygen Delivery Method CPAP Weight: 101.5 kg Body Mass Index (BMI) 40.8 Intake and Output for Last 24 Hours 01/16/20 01/17/20 01/18/20 23:59 23:59 23:59 Intake Total 1750 / 1750 1130 / 1130 Output Total 1050 / 1050 Balance 1750 / 1750 80 / 80 Microbiology Past 72 Hours 01/12/20 23:45 Sputum, Expectorated/Coughed Gram Stain - Final 01/12/20 23:45 Sputum, Expectorated/Coughed Respiratory Culture - Final Laboratory Results 01/17/20 09:00: D-Dimer Quant (PE/DVT) 0.75 H* 01/17/20 09:00: Procalcitonin < 0.04 01/18/20 05:55: WBC 20.3 H, RBC 3.55 L, Hgb 11.5 L, Hct 34.3 L, MCV 96.6, MCH 32.4 H, MCHC 33.5, RDW Std Deviation 47.0 H, RDW Coeff of Humberto 13.2, Plt Count 434, MPV 8.7 01/18/20 05:55: Sodium 136, Potassium 3.8, Chloride 101, Carbon Dioxide 30.0, Anion Gap 5, BUN 19 H, Creatinine 0.57, Estim Creat Clear Calc 36.67, Est GFR (MDRD) Af Amer 132, Est GFR (MDRD) Non-Af 109, BUN/Creatinine Ratio 33.3 H, Glucose 98, Calcium 8.9, Total Bilirubin 0.50, AST 17, ALT 42, Alkaline Phosphatase 61, Total Protein 6.4, Albumin 2.8 L, Globulin 3.6, Albumin/Globulin Ratio 0.8 L Current Medications Acetaminophen (Acetaminophen 325 Mg Tablet) 650 mg PO Q6H PRN PRN PRN Reason: Pain Score 1-10/Temp > 100.7 F Al Hydroxide/Mg Hydroxide (Mag Hydrox/Al Hydrox/Simeth 30 Ml Udc) 30 ml PO Q6H PRN PRN PRN Reason: Gastric Burning Albuterol Sulfate (Albuterol 2.5 Mg/3 Ml Vial.Neb.) 2.5 mg INHALATION Q2H PRN PRN PRN Reason: Dyspnea, wheezing Albuterol/Ipratropium (Ipratropium/Albuterol Sulfate 3 Ml Ampul.Neb) 3 ml INHALATION Q4H.RT [facility] Last Admin: 01/17/20 19:29 Dose: 3 ml Documented by: Aspirin (Aspirin E.C. 81 Mg Tablet) 81 mg PO DAILY [facility] Last Admin: 01/17/20 10:01 Dose: 81 mg Documented by: Atorvastatin Calcium (Atorvastatin Calcium 40 Mg Tablet) 40 mg PO QHS [facility] Last Admin: 01/17/20 22:35 Dose: 40 mg Documented by: Clopidogrel Bisulfate (Clopidogrel Bisulfate 75 Mg Tablet) 75 mg PO DAILY [facility] Last Admin: 01/17/20 10:00 Dose: 75 mg Documented by: Dexamethasone (Dexamethasone 4 Mg Tablet) 6 mg PO DAILY [facility] Stop: 01/21/20 10:01 Last Admin: 01/17/20 09:59 Dose: 6 mg Documented by: Enoxaparin Sodium (Enoxaparin 40 Mg/0.4 Ml Syringe) 40 mg SC BID [facility] Last Admin: 01/17/20 22:35 Dose: 40 mg Documented by: Famotidine (Famotidine 20 Mg Tablet) 20 mg PO BID [facility] Last Admin: 01/17/20 22:35 Dose: 20 mg Documented by: Guaifenesin (Guaifenesin 1,200 Mg Tablet) 1,200 mg PO BID [facility] Last Admin: 01/17/20 22:35 Dose: 1,200 mg Documented by: Isosorbide Mononitrate (Isosorbide Mononitrate 30 Mg Tablet) 30 mg PO DAILY [facility] Last Admin: 01/17/20 10:01 Dose: 30 mg Documented by: Lisinopril (Lisinopril 40 Mg Tablet) 40 mg PO DAILY [facility] Last Admin: 01/17/20 10:02 Dose: 40 mg Documented by: Loratadine (Loratadine 10 Mg Tablet) 10 mg PO QHS [facility] Last Admin: 01/17/20 22:35 Dose: 10 mg Documented by: Lorazepam (Lorazepam 0.5 Mg Tablet) 0.5 mg PO DAILY PRN PRN PRN Reason: ANXIETY Melatonin (Melatonin 3 Mg Tablet) 3 mg PO QHS PRN PRN PRN Reason: INSOMNIA Last Admin: 01/17/20 22:35 Dose: 3 mg Documented by: Nitroglycerin (Nitroglycerin (Inpatient Use) 0.4 Mg Tab.Subl) 0.4 mg SUBLINGUAL Q5M PRN PRN Reason: CARDIAC/CHEST PAIN Ondansetron HCl (Ondansetron 4 Mg/2 Ml Vial) 4 mg IV Q8H PRN PRN PRN Reason: NAUSEA/VOMITING Last Admin: 01/16/20 09:50 Dose: 4 mg Documented by: Oxycodone HCl (Oxycodone 5 Mg Tablet) 5 mg PO Q4H PRN PRN PRN Reason: Pain Score 4-5 Prochlorperazine Edisylate (Prochlorperazine 10 Mg/2 Ml Vial) 5 mg IV Q4H PRN PRN PRN Reason: Breakthrough nausea/vomiting Sodium Chloride (0.9% Saline Lock 10 Ml Syringe) 10 - 40 ml IV UD PRN PRN Reason: SALINE FLUSH Last Admin: 01/17/20 15:56 Dose: 10 ml Documented by: Throat Lozenges (Benzocaine/Menthol 1 Lozenge) 1 lozenge MUCOUS MEM Q2H PRN PRN PRN Reason: SORE THROAT Medical Necessity - Tobacco Use Smoking Status: Former smoker - Patient smoked for 8 years until she was 27-year-old old with social tobacco use, less than 1/2 pack/day. Tobacco Use: Non-smoker Assessment/Plan All Active Problems (Last Reviewed 10/04/19 @ 15:[address] Toan Vazquez MD) COVID-19 virus infection (Acute) Acute respiratory failure with hypoxia (Acute) Viral pneumonia (Acute) Morbid obesity due to excess calories (Acute) Dyspnea on exertion (Acute) History of coronary artery stent placement (Resolved 02/24/17) Complex endometrial hyperplasia with atypia (Resolved) UTI (urinary tract infection) (Resolved) 1. Acute respiratory failure secondary to severe COVID-19 infection/pneumonia, worsening Currently on 13L of oxygen. She was on 8 L of oxygen yesterday. Will continue with breathing treatments, IV steroids, encourage use of incentive spirometer. Wean off oxygen for SPO2 more than 94% Will do trial of Lasix 40mg IV BID Strict I & Os 2. Acute COVID-19 infection, severe with hypoxia Status convalescent plasma on 01/13. On remdesivir and decadron ID and pulmo following 3. CAD/Hypertension/ANA/Morbid Obesity, all remain stable Continue on aspirin, statin, Plavix, lisinopril 4. DVT PPx- Lovenox SC BID Inpatient E&M: [id number] [facility] Hosp L3
[2020-01-18] MEDS: Enoxaparin 40 MG/0.4 ML Syringe SC ×2 (10:20→21:50)
[2020-01-18] MEDS: guaiFENesin 1,200 MG Tablet 1200 MG PO ×2 (10:20→21:50)
[2020-01-18] MEDS: Lisinopril 40 MG Tablet PO (10:20)
[2020-01-18] MEDS: Famotidine 20 MG Tablet PO ×2 (10:20→21:50)
[2020-01-18] MEDS: dexAMETHasone 4 MG Tablet 6 MG PO (10:21)
[2020-01-18] MEDS: Aspirin E.C. 81 MG Tablet PO (10:21)
[2020-01-18] MEDS: Isosorbide Mononitrate 30 MG Tablet PO (10:21)
[2020-01-18] MEDS: Clopidogrel Bisulfate 75 MG Tablet PO (10:21)
--- NOTE | 2020-01-18 15:58 | PN.ID_ITS ---
Patient Problems: Active and Suspected Problems (Last Reviewed 10/04/19 @ 15:[address] Toan Vazquez MD) COVID-19 virus infection (Acute) Acute respiratory failure with hypoxia (Acute) Viral pneumonia (Acute) Morbid obesity due to excess calories (Acute) Subjective: Feeling better, less cough, no fever - Physical Exam Vitals/I&O's: Vital Signs Temp Pulse Resp BP Pulse Ox 98.3 F 90 24 H 131/62 H 93 01/18/20 10:08 01/18/20 14:05 01/18/20 14:05 01/18/20 10:08 01/18/20 14:05 Oxygen Flow Rate (L/min) 13 Oxygen Delivery Method Nasal Cannula Weight: 101.5 kg Body Mass Index (BMI) 40.8 Intake and Output for Last 24 Hours 01/16/20 01/17/20 01/18/20 23:59 23:59 23:59 Intake Total 1750 / 1750 1130 / 1130 240 / 240 Output Total 1050 / 1050 450 / 450 Balance 1750 / 1750 80 / 80 -210 / -210 General: Alert, Cooperative, No apparent distress Lungs: Diminished Cardiovascular: Regular rate, Regular Rhythm Abdomen: Soft, Non Tender, Non-Distended Skin: No rashes Laboratory Results 01/18/20 05:55: WBC 20.3 H, RBC 3.55 L, Hgb 11.5 L, Hct 34.3 L, MCV 96.6, MCH 32.4 H, MCHC 33.5, RDW Std Deviation 47.0 H, RDW Coeff of Humberto 13.2, Plt Count 434, MPV 8.7 01/18/20 05:55: Sodium 136, Potassium 3.8, Chloride 101, Carbon Dioxide 30.0, Anion Gap 5, BUN 19 H, Creatinine 0.57, Estim Creat Clear Calc 36.67, Est GFR (MDRD) Af Amer 132, Est GFR (MDRD) Non-Af 109, BUN/Creatinine Ratio 33.3 H, Glucose 98, Calcium 8.9, Total Bilirubin 0.50, AST 17, ALT 42, Alkaline Phosphatase 61, Total Protein 6.4, Albumin 2.8 L, Globulin 3.6, Albumin/Globulin Ratio 0.8 L Current Medications Acetaminophen (Acetaminophen 325 Mg Tablet) 650 mg PO Q6H PRN PRN PRN Reason: Pain Score 1-10/Temp > 100.7 F Al Hydroxide/Mg Hydroxide (Mag Hydrox/Al Hydrox/Simeth 30 Ml Udc) 30 ml PO Q6H PRN PRN PRN Reason: Gastric Burning Albuterol Sulfate (Albuterol 2.5 Mg/3 Ml Vial.Neb.) 2.5 mg INHALATION Q2H PRN PRN PRN Reason: Dyspnea, wheezing Albuterol/Ipratropium (Ipratropium/Albuterol Sulfate 3 Ml Ampul.Neb) 3 ml INHALATION Q4H.RT [facility] Last Admin: 01/18/20 11:22 Dose: 3 ml Documented by: Aspirin (Aspirin E.C. 81 Mg Tablet) 81 mg PO DAILY [facility] Last Admin: 01/18/20 10:21 Dose: 81 mg Documented by: Atorvastatin Calcium (Atorvastatin Calcium 40 Mg Tablet) 40 mg PO QHS [facility] Last Admin: 01/17/20 22:35 Dose: 40 mg Documented by: Clopidogrel Bisulfate (Clopidogrel Bisulfate 75 Mg Tablet) 75 mg PO DAILY [facility] Last Admin: 01/18/20 10:21 Dose: 75 mg Documented by: Dexamethasone (Dexamethasone 4 Mg Tablet) 6 mg PO DAILY [facility] Stop: 01/21/20 10:01 Last Admin: 01/18/20 10:21 Dose: 6 mg Documented by: Enoxaparin Sodium (Enoxaparin 40 Mg/0.4 Ml Syringe) 40 mg SC BID [facility] Last Admin: 01/18/20 10:20 Dose: 40 mg Documented by: Famotidine (Famotidine 20 Mg Tablet) 20 mg PO BID [facility] Last Admin: 01/18/20 10:20 Dose: 20 mg Documented by: Furosemide (Furosemide 40 Mg/4 Ml Vial) 40 mg IV BID@1000,1800 [facility] Guaifenesin (Guaifenesin 1,200 Mg Tablet) 1,200 mg PO BID [facility] Last Admin: 01/18/20 10:20 Dose: 1,200 mg Documented by: Isosorbide Mononitrate (Isosorbide Mononitrate 30 Mg Tablet) 30 mg PO DAILY [facility] Last Admin: 01/18/20 10:21 Dose: 30 mg Documented by: Lisinopril (Lisinopril 40 Mg Tablet) 40 mg PO DAILY [facility] Last Admin: 01/18/20 10:20 Dose: 40 mg Documented by: Loratadine (Loratadine 10 Mg Tablet) 10 mg PO QHS [facility] Last Admin: 01/17/20 22:35 Dose: 10 mg Documented by: Lorazepam (Lorazepam 0.5 Mg Tablet) 0.5 mg PO DAILY PRN PRN PRN Reason: ANXIETY Melatonin (Melatonin 3 Mg Tablet) 3 mg PO QHS PRN PRN PRN Reason: INSOMNIA Last Admin: 01/17/20 22:35 Dose: 3 mg Documented by: Nitroglycerin (Nitroglycerin (Inpatient Use) 0.4 Mg Tab.Subl) 0.4 mg SUBLINGUAL Q5M PRN PRN Reason: CARDIAC/CHEST PAIN Ondansetron HCl (Ondansetron 4 Mg/2 Ml Vial) 4 mg IV Q8H PRN PRN PRN Reason: NAUSEA/VOMITING Last Admin: 01/16/20 09:50 Dose: 4 mg Documented by: Oxycodone HCl (Oxycodone 5 Mg Tablet) 5 mg PO Q4H PRN PRN PRN Reason: Pain Score 4-5 Prochlorperazine Edisylate (Prochlorperazine 10 Mg/2 Ml Vial) 5 mg IV Q4H PRN PRN PRN Reason: Breakthrough nausea/vomiting Sodium Chloride (0.9% Saline Lock 10 Ml Syringe) 10 - 40 ml IV UD PRN PRN Reason: SALINE FLUSH Last Admin: 01/17/20 15:56 Dose: 10 ml Documented by: Throat Lozenges (Benzocaine/Menthol 1 Lozenge) 1 lozenge MUCOUS MEM Q2H PRN PRN PRN Reason: SORE THROAT Medical Necessity - Tobacco Use Smoking Status: Former smoker - Patient smoked for 8 years until she was 27-year-old old with social tobacco use, less than 1/2 pack/day. Tobacco Use: Non-smoker Route of nutrition/ use of supplements: [] Nutritional Intake: [] IV Site: [] [place]artney Catheter: [] - Assessment/Plan Antibiotics: [] Assessment/Plan: [] Active and Suspected Problems (Last Reviewed 10/04/19 @ 15:[address] Toan Vazquez MD) COVID-19 virus infection (Acute) Acute respiratory failure with hypoxia (Acute) Viral pneumonia (Acute) covid with acute hypoxic resp failure - on dex, remdesivir, got plasma 01/13. O2 improved. Feeling much better. On lovenox 40 bid. Will follow
--- NOTE | 2020-01-18 16:34 | PN_ITS ---
Patient Problems: Active and Suspected Problems (Last Reviewed 10/04/19 @ 15:[address] Toan Vazquez MD) COVID-19 virus infection (Acute) Acute respiratory failure with hypoxia (Acute) Viral pneumonia (Acute) Morbid obesity due to excess calories (Acute) Subjective: Patient did okay overnight. Patient was transitioned to BiPAP therapy with sleep and feels that this has helped her overall condition. Patient does state that her cough is improved compared to yesterday. Patient is still requiring significant FiO2 to maintain saturations. No fever has been noted overnight. - Physical Exam Vitals/I&O's: Vital Signs Temp Pulse Resp BP Pulse Ox 36.8 C 78 17 118/100 H 94 01/18/20 16:16 01/18/20 16:19 01/18/20 16:16 01/18/20 16:16 01/18/20 16:16 Oxygen Flow Rate (L/min) 13 Oxygen Delivery Method Bi-pap Weight: 101.5 kg Body Mass Index (BMI) 40.8 Intake and Output for Last 24 Hours 01/16/20 01/17/20 01/18/20 23:59 23:59 23:59 Intake Total 1750 / 1750 1130 / 1130 240 / 240 Output Total 1050 / 1050 450 / 450 Balance 1750 / 1750 80 / 80 -210 / -210 General: Alert, Oriented x3, Cooperative, No apparent distress, Well developed, Well nourished, - - Morbidly obese. HEENT: Atraumatic, PERRLA, EOMI, Normocephalic, - - No scleral icterus or injection noted Oral: Moist Mucosa, No Gingival or Mucosal Lesions/ Ulcerations Neck: Supple, No Nodes, Trachea Midline, JVD, Right Lungs: No rhonchi, No wheeze, No rales, Diminished, - - Coarse breath sounds secondary to BiPAP Cardiovascular: Regular rate, Regular Rhythm, Normal S1, Normal S2, No murmurs, No rub noted, No Gallop Abdomen: Bowel Sounds Present, Soft, Non Tender, Non-Distended, Obese Extremities: No clubbing, No cyanosis, Edema Skin: - - No change compared to previous Musculoskeletal: No Tenderness to Palpation of Joints or Extremities Lymphatic: No Cervical, Supraclavicular, or Inguinal Adenopathy Neurological: Cranial nerves II-XII grossly intact, Neuro grossly intact, Motor Exam 5/5 strength throughout Psych/Mental Status: Alert and oriented to time, place, person, mood and affect Laboratory Results 01/18/20 05:55: WBC 20.3 H, RBC 3.55 L, Hgb 11.5 L, Hct 34.3 L, MCV 96.6, MCH 32.4 H, MCHC 33.5, RDW Std Deviation 47.0 H, RDW Coeff of Humberto 13.2, Plt Count 434, MPV 8.7 01/18/20 05:55: Sodium 136, Potassium 3.8, Chloride 101, Carbon Dioxide 30.0, Anion Gap 5, BUN 19 H, Creatinine 0.57, Estim Creat Clear Calc 36.67, Est GFR (MDRD) Af Amer 132, Est GFR (MDRD) Non-Af 109, BUN/Creatinine Ratio 33.3 H, Glucose 98, Calcium 8.9, Total Bilirubin 0.50, AST 17, ALT 42, Alkaline Phosphatase 61, Total Protein 6.4, Albumin 2.8 L, Globulin 3.6, Albumin/Globulin Ratio 0.8 L Current Medications Acetaminophen (Acetaminophen 325 Mg Tablet) 650 mg PO Q6H PRN PRN PRN Reason: Pain Score 1-10/Temp > 100.7 F Al Hydroxide/Mg Hydroxide (Mag Hydrox/Al Hydrox/Simeth 30 Ml Udc) 30 ml PO Q6H PRN PRN PRN Reason: Gastric Burning Albuterol Sulfate (Albuterol 2.5 Mg/3 Ml Vial.Neb.) 2.5 mg INHALATION Q2H PRN PRN PRN Reason: Dyspnea, wheezing Albuterol/Ipratropium (Ipratropium/Albuterol Sulfate 3 Ml Ampul.Neb) 3 ml INHALATION Q4H.RT [facility] Last Admin: 01/18/20 11:22 Dose: 3 ml Documented by: Aspirin (Aspirin E.C. 81 Mg Tablet) 81 mg PO DAILY [facility] Last Admin: 01/18/20 10:21 Dose: 81 mg Documented by: Atorvastatin Calcium (Atorvastatin Calcium 40 Mg Tablet) 40 mg PO QHS [facility] Last Admin: 01/17/20 22:35 Dose: 40 mg Documented by: Clopidogrel Bisulfate (Clopidogrel Bisulfate 75 Mg Tablet) 75 mg PO DAILY [facility] Last Admin: 01/18/20 10:21 Dose: 75 mg Documented by: Dexamethasone (Dexamethasone 4 Mg Tablet) 6 mg PO DAILY [facility] Stop: 01/21/20 10:01 Last Admin: 01/18/20 10:21 Dose: 6 mg Documented by: Enoxaparin Sodium (Enoxaparin 40 Mg/0.4 Ml Syringe) 40 mg SC BID [facility] Last Admin: 01/18/20 10:20 Dose: 40 mg Documented by: Famotidine (Famotidine 20 Mg Tablet) 20 mg PO BID [facility] Last Admin: 01/18/20 10:20 Dose: 20 mg Documented by: Furosemide (Furosemide 40 Mg/4 Ml Vial) 40 mg IV BID@1000,1800 [facility] Guaifenesin (Guaifenesin 1,200 Mg Tablet) 1,200 mg PO BID [facility] Last Admin: 01/18/20 10:20 Dose: 1,200 mg Documented by: Isosorbide Mononitrate (Isosorbide Mononitrate 30 Mg Tablet) 30 mg PO DAILY [facility] Last Admin: 01/18/20 10:21 Dose: 30 mg Documented by: Lisinopril (Lisinopril 40 Mg Tablet) 40 mg PO DAILY [facility] Last Admin: 01/18/20 10:20 Dose: 40 mg Documented by: Loratadine (Loratadine 10 Mg Tablet) 10 mg PO QHS [facility] Last Admin: 01/17/20 22:35 Dose: 10 mg Documented by: Lorazepam (Lorazepam 0.5 Mg Tablet) 0.5 mg PO DAILY PRN PRN PRN Reason: ANXIETY Melatonin (Melatonin 3 Mg Tablet) 3 mg PO QHS PRN PRN PRN Reason: INSOMNIA Last Admin: 01/17/20 22:35 Dose: 3 mg Documented by: Nitroglycerin (Nitroglycerin (Inpatient Use) 0.4 Mg Tab.Subl) 0.4 mg SUBLINGUAL Q5M PRN PRN Reason: CARDIAC/CHEST PAIN Ondansetron HCl (Ondansetron 4 Mg/2 Ml Vial) 4 mg IV Q8H PRN PRN PRN Reason: NAUSEA/VOMITING Last Admin: 01/16/20 09:50 Dose: 4 mg Documented by: Oxycodone HCl (Oxycodone 5 Mg Tablet) 5 mg PO Q4H PRN PRN PRN Reason: Pain Score 4-5 Prochlorperazine Edisylate (Prochlorperazine 10 Mg/2 Ml Vial) 5 mg IV Q4H PRN PRN PRN Reason: Breakthrough nausea/vomiting Sodium Chloride (0.9% Saline Lock 10 Ml Syringe) 10 - 40 ml IV UD PRN PRN Reason: SALINE FLUSH Last Admin: 01/17/20 15:56 Dose: 10 ml Documented by: Throat Lozenges (Benzocaine/Menthol 1 Lozenge) 1 lozenge MUCOUS MEM Q2H PRN PRN PRN Reason: SORE THROAT Medical Necessity - Tobacco Use Smoking Status: Former smoker - Patient smoked for 8 years until she was 27-year-old old with social tobacco use, less than 1/2 pack/day. Tobacco Use: Non-smoker Assessment/Plan All Active Problems (Last Reviewed 10/04/19 @ 15:[address] Toan Vazquez MD) COVID-19 virus infection (Acute) Acute respiratory failure with hypoxia (Acute) Viral pneumonia (Acute) Morbid obesity due to excess calories (Acute) Dyspnea on exertion (Acute) History of coronary artery stent placement (Resolved 02/24/17) Complex endometrial hyperplasia with atypia (Resolved) UTI (urinary tract infection) (Resolved) RECOMMENDATIONS: 1. Continue steroids, remdesivir and and bronchodilators 2. Challenge with Lasix 3. Courage incentive spirometer and ambulation as tolerated 4. Continue with updated BiPAP with sleep IMPRESSIONS: 1. Acute hypoxic respiratory failure secondary to COVID-19 Patient is being seen by infectious disease. Patient is already received convalescent serum, remdesivir and is currently on Decadron therapy. Patient does have underlying asthma, which will complicate overall condition. Pulmonary function tests were not available for review. Some concern the patient may have an element of congestive heart failure leading to current situation as patient is positive over 3 L with 2 kg of weight gain. Patient does have diastolic dysfunction on recent echocardiogram. Will attempt to challenge with Lasix. Patient did not have significant wheezing on exam, but would continue with bronchodilators. Patient appears to be responding to transition to BiPAP therapy. This would help with limiting work of breathing and may augment cardiac function. 2. Chronic diastolic congestive heart failure/aortic dilation Patient with diastolic dysfunction on recent echocardiogram. Unclear significance of dilation of aortic root as echocardiogram did not note this at that time. Patient may have an element of overload leading to dilatation. Would defer to hospitalist on whether cardiology would need to perform a REID as this may be more sensitive for evaluation of aortic dissection. Patient is not reporting any significant chest pain to suggest active dissection at this time. We will give diuretics. Aggressive blood pressure control. Patient is already rate controlled. 3. Advanced age/morbid obesity/ANA/hypertension/CAD Complicates care, management, recovery and prognosis. Patient should continue CPAP overnight. Blood pressure appears to be well controlled at this time. Stressed to the patient the importance of ambulation and pulmonary recruitment measures to avoid complications. Patient voiced understanding. Inpatient E&M: 74491 [facility] Hosp L3
[2020-01-18] MEDS: Furosemide 40 MG/4 ML Vial IV (17:48)
[2020-01-18] MEDS: 0.9% Saline Lock 10 ML Syringe IV (17:48)
[2020-01-18] MEDS: MELATONIN 3 MG TABLET PO (21:50)
[2020-01-18] MEDS: Atorvastatin Calcium 40 MG Tablet PO (21:50)
[2020-01-18] MEDS: Loratadine 10 MG Tablet PO (21:50)
[2020-01-19] VITALS (21 sets, daily range): BP systolic 95–145; BP diastolic 60–73; PULSE 60–92; RESP 12–24; TEMP 35.9–37; O2SAT 92–98
[2020-01-19] MEDS: Ipratropium/Albuterol Sulfate 3 ML AMPUL.NEB INHALATION ×6 (00:33→20:45)
--- NOTE | 2020-01-19 07:30 | PCM.PN.HOSP ---
Patient Problems: Active and Suspected Problems (Last Reviewed 10/04/19 @ 15:[address] Toan Vazquez MD) COVID-19 virus infection (Acute) Acute respiratory failure with hypoxia (Acute) Viral pneumonia (Acute) Morbid obesity due to excess calories (Acute) Reason for Visit: Follow-up on hypoxia/acute COVID-19 infection Subjective: Patient was seen and examined. She had a rough night. Did not like BiPAP too much. She however feels improved. She is on 2 L of oxygen. Denies any fever. Objective: Physical exam General: Alert, Oriented x3, Cooperative, on 6 L of oxygen HEENT: Atraumatic, PERRLA, EOMI, Normocephalic Oral: No Gingival or Mucosal Lesions/ Ulcerations Neck: Supple, No JVD, Negative Carotid Bruits Lungs: Air entry diminished in bilateral lung bases Cardiovascular: Regular rate, Regular Rhythm, Normal S1, Normal S2, No murmurs Abdomen: Bowel Sounds Present, Soft, Non Tender, Non-Distended : No renal angle tenderness. No suprapubic tenderness. Extremities: No edema, Capillary Refill Less than 3 Seconds Skin: No rashes, No breakdown Musculoskeletal: No Tenderness to Palpation of Joints or Extremities Neurological: Cranial nerves II-XII grossly intact, Deep Tendon Reflexes 2+/4 and Symmetrical, Neuro grossly intact Psych/Mental Status: Normal Affect, Appropriate. Vitals/I&O's: Vital Signs Temp Pulse Resp BP Pulse Ox 96.7 F L 63 18 120/65 93 01/19/20 02:00 01/19/20 06:58 01/19/20 06:00 01/19/20 06:00 01/19/20 06:00 Oxygen Flow Rate (L/min) 13 Oxygen Delivery Method Bi-pap Weight: 101.5 kg Body Mass Index (BMI) 40.8 Intake and Output for Last 24 Hours 01/17/20 01/18/20 01/19/20 23:59 23:59 23:59 Intake Total 1130 / 1130 240 / 240 Output Total 1050 / 1050 450 / 950 500 / 500 Balance 80 / 80 -210 / -710 -500 / -500 Current Medications Acetaminophen (Acetaminophen 325 Mg Tablet) 650 mg PO Q6H PRN PRN PRN Reason: Pain Score 1-10/Temp > 100.7 F Al Hydroxide/Mg Hydroxide (Mag Hydrox/Al Hydrox/Simeth 30 Ml Udc) 30 ml PO Q6H PRN PRN PRN Reason: Gastric Burning Albuterol Sulfate (Albuterol 2.5 Mg/3 Ml Vial.Neb.) 2.5 mg INHALATION Q2H PRN PRN PRN Reason: Dyspnea, wheezing Albuterol/Ipratropium (Ipratropium/Albuterol Sulfate 3 Ml Ampul.Neb) 3 ml INHALATION Q4H.RT [facility] Last Admin: 01/19/20 03:35 Dose: 3 ml Documented by: Aspirin (Aspirin E.C. 81 Mg Tablet) 81 mg PO DAILY [facility] Last Admin: 01/18/20 10:21 Dose: 81 mg Documented by: Atorvastatin Calcium (Atorvastatin Calcium 40 Mg Tablet) 40 mg PO QHS [facility] Last Admin: 01/18/20 21:50 Dose: 40 mg Documented by: Clopidogrel Bisulfate (Clopidogrel Bisulfate 75 Mg Tablet) 75 mg PO DAILY [facility] Last Admin: 01/18/20 10:21 Dose: 75 mg Documented by: Dexamethasone (Dexamethasone 4 Mg Tablet) 6 mg PO DAILY [facility] Stop: 01/21/20 10:01 Last Admin: 01/18/20 10:21 Dose: 6 mg Documented by: Enoxaparin Sodium (Enoxaparin 40 Mg/0.4 Ml Syringe) 40 mg SC BID [facility] Last Admin: 01/18/20 21:50 Dose: 40 mg Documented by: Famotidine (Famotidine 20 Mg Tablet) 20 mg PO BID [facility] Last Admin: 01/18/20 21:50 Dose: 20 mg Documented by: Furosemide (Furosemide 40 Mg/4 Ml Vial) 40 mg IV BID@1000,1800 [facility] Last Admin: 01/18/20 17:48 Dose: 40 mg Documented by: Guaifenesin (Guaifenesin 1,200 Mg Tablet) 1,200 mg PO BID [facility] Last Admin: 01/18/20 21:50 Dose: 1,200 mg Documented by: Isosorbide Mononitrate (Isosorbide Mononitrate 30 Mg Tablet) 30 mg PO DAILY [facility] Last Admin: 01/18/20 10:21 Dose: 30 mg Documented by: Lisinopril (Lisinopril 40 Mg Tablet) 40 mg PO DAILY [facility] Last Admin: 01/18/20 10:20 Dose: 40 mg Documented by: Loratadine (Loratadine 10 Mg Tablet) 10 mg PO QHS [facility] Last Admin: 01/18/20 21:50 Dose: 10 mg Documented by: Lorazepam (Lorazepam 0.5 Mg Tablet) 0.5 mg PO DAILY PRN PRN PRN Reason: ANXIETY Melatonin (Melatonin 3 Mg Tablet) 3 mg PO QHS PRN PRN PRN Reason: INSOMNIA Last Admin: 01/18/20 21:50 Dose: 3 mg Documented by: Nitroglycerin (Nitroglycerin (Inpatient Use) 0.4 Mg Tab.Subl) 0.4 mg SUBLINGUAL Q5M PRN PRN Reason: CARDIAC/CHEST PAIN Ondansetron HCl (Ondansetron 4 Mg/2 Ml Vial) 4 mg IV Q8H PRN PRN PRN Reason: NAUSEA/VOMITING Last Admin: 01/16/20 09:50 Dose: 4 mg Documented by: Oxycodone HCl (Oxycodone 5 Mg Tablet) 5 mg PO Q4H PRN PRN PRN Reason: Pain Score 4-5 Prochlorperazine Edisylate (Prochlorperazine 10 Mg/2 Ml Vial) 5 mg IV Q4H PRN PRN PRN Reason: Breakthrough nausea/vomiting Sodium Chloride (0.9% Saline Lock 10 Ml Syringe) 10 - 40 ml IV UD PRN PRN Reason: SALINE FLUSH Last Admin: 01/18/20 17:48 Dose: 10 ml Documented by: Throat Lozenges (Benzocaine/Menthol 1 Lozenge) 1 lozenge MUCOUS MEM Q2H PRN PRN PRN Reason: SORE THROAT STROKE Vital Signs/Narrative: Vital Signs Pulse Resp BP Pulse Ox 01/19/20 06:58 63 01/19/20 06:00 60 18 120/65 93 01/19/20 04:00 66 15 122/62 H 98 01/19/20 03:59 64 01/19/20 03:35 62 20 H 94 Medical Necessity - Tobacco Use Smoking Status: Former smoker - Patient smoked for 8 years until she was 27-year-old old with social tobacco use, less than 1/2 pack/day. Tobacco Use: Non-smoker Assessment/Plan All Active Problems (Last Reviewed 10/04/19 @ 15:[address] Toan Vazquez MD) COVID-19 virus infection (Acute) Acute respiratory failure with hypoxia (Acute) Viral pneumonia (Acute) Morbid obesity due to excess calories (Acute) Dyspnea on exertion (Acute) History of coronary artery stent placement (Resolved 02/24/17) Complex endometrial hyperplasia with atypia (Resolved) UTI (urinary tract infection) (Resolved) 1. Acute respiratory failure secondary to severe COVID-19 infection/pneumonia, some improvement today Currently on 6L of oxygen. She is currently on frequent BiPAP Will continue with breathing treatments, po steroids, encourage use of incentive spirometer. Wean off oxygen for SPO2 more than 94% Strict I & Os 2. Acute COVID-19 infection, severe with hypoxia Status convalescent plasma on 01/13. On remdesivir and decadron ID and pulmo following 3. Probable acute on chronic diastolic CHF, improving Patient had worsening respiratory status, appears to improve with Lasix therapy We will switch to oral Lasix 40 mg twice daily Trend BMP in a.m. 4. CAD/Hypertension/ANA/Morbid Obesity, all remain stable Continue on aspirin, statin, Plavix, lisinopril 5. DVT PPx- Lovenox SC BID Inpatient E&M: 70664 Subs Hosp L2
[2020-01-19] MEDS: dexAMETHasone 4 MG Tablet 6 MG PO (08:39)
[2020-01-19] MEDS: Lisinopril 40 MG Tablet PO (08:39)
[2020-01-19] MEDS: Famotidine 20 MG Tablet PO ×2 (08:40→21:47)
[2020-01-19] MEDS: Isosorbide Mononitrate 30 MG Tablet PO (08:40)
[2020-01-19] MEDS: guaiFENesin 1,200 MG Tablet 1200 MG PO ×2 (08:40→21:46)
[2020-01-19] MEDS: Clopidogrel Bisulfate 75 MG Tablet PO (08:40)
[2020-01-19] MEDS: Furosemide 40 MG/4 ML Vial IV (08:40)
[2020-01-19] MEDS: 0.9% Saline Lock 10 ML Syringe IV (08:40)
[2020-01-19] MEDS: Enoxaparin 40 MG/0.4 ML Syringe SC ×2 (08:40→21:47)
[2020-01-19] MEDS: Aspirin E.C. 81 MG Tablet PO (08:40)
--- NOTE | 2020-01-19 11:34 | PN.ID_ITS ---
Patient Problems: Active and Suspected Problems (Last Reviewed 10/04/19 @ 15:[address] Toan Vazquez MD) COVID-19 virus infection (Acute) Acute respiratory failure with hypoxia (Acute) Viral pneumonia (Acute) Morbid obesity due to excess calories (Acute) Subjective: Feeling better, less SOB, no n/v/d. - Physical Exam Vitals/I&O's: Vital Signs Temp Pulse Resp BP Pulse Ox 97.4 F L 75 15 114/66 94 01/19/20 08:29 01/19/20 08:29 01/19/20 08:29 01/19/20 08:29 01/19/20 08:29 Oxygen Flow Rate (L/min) 8 Oxygen Delivery Method Nasal Cannula Weight: 101.5 kg Body Mass Index (BMI) 40.8 Intake and Output for Last 24 Hours 01/17/20 01/18/20 01/19/20 23:59 23:59 23:59 Intake Total 1130 / 1130 240 / 240 Output Total 1050 / 1050 450 / 950 500 / 500 Balance 80 / 80 -210 / -710 -500 / -500 General: Alert, Cooperative, No apparent distress Lungs: Diminished Cardiovascular: Regular rate, Regular Rhythm Abdomen: Soft, Non Tender, Non-Distended Skin: No rashes Current Medications Acetaminophen (Acetaminophen 325 Mg Tablet) 650 mg PO Q6H PRN PRN PRN Reason: Pain Score 1-10/Temp > 100.7 F Al Hydroxide/Mg Hydroxide (Mag Hydrox/Al Hydrox/Simeth 30 Ml Udc) 30 ml PO Q6H PRN PRN PRN Reason: Gastric Burning Albuterol Sulfate (Albuterol 2.5 Mg/3 Ml Vial.Neb.) 2.5 mg INHALATION Q2H PRN PRN PRN Reason: Dyspnea, wheezing Albuterol/Ipratropium (Ipratropium/Albuterol Sulfate 3 Ml Ampul.Neb) 3 ml INHALATION Q4H.RT [facility] Last Admin: 01/19/20 07:41 Dose: 3 ml Documented by: Aspirin (Aspirin E.C. 81 Mg Tablet) 81 mg PO DAILY [facility] Last Admin: 01/19/20 08:40 Dose: 81 mg Documented by: Atorvastatin Calcium (Atorvastatin Calcium 40 Mg Tablet) 40 mg PO QHS [facility] Last Admin: 01/18/20 21:50 Dose: 40 mg Documented by: Clopidogrel Bisulfate (Clopidogrel Bisulfate 75 Mg Tablet) 75 mg PO DAILY [facility] Last Admin: 01/19/20 08:40 Dose: 75 mg Documented by: Dexamethasone (Dexamethasone 4 Mg Tablet) 6 mg PO DAILY [facility] Stop: 01/21/20 10:01 Last Admin: 01/19/20 08:39 Dose: 6 mg Documented by: Enoxaparin Sodium (Enoxaparin 40 Mg/0.4 Ml Syringe) 40 mg SC BID [facility] Last Admin: 01/19/20 08:40 Dose: 40 mg Documented by: Famotidine (Famotidine 20 Mg Tablet) 20 mg PO BID [facility] Last Admin: 01/19/20 08:40 Dose: 20 mg Documented by: Furosemide (Furosemide 40 Mg/4 Ml Vial) 40 mg IV BID@1000,1800 [facility] Last Admin: 01/19/20 08:40 Dose: 40 mg Documented by: Guaifenesin (Guaifenesin 1,200 Mg Tablet) 1,200 mg PO BID [facility] Last Admin: 01/19/20 08:40 Dose: 1,200 mg Documented by: Isosorbide Mononitrate (Isosorbide Mononitrate 30 Mg Tablet) 30 mg PO DAILY [facility] Last Admin: 01/19/20 08:40 Dose: 30 mg Documented by: Lisinopril (Lisinopril 40 Mg Tablet) 40 mg PO DAILY [facility] Last Admin: 01/19/20 08:39 Dose: 40 mg Documented by: Loratadine (Loratadine 10 Mg Tablet) 10 mg PO QHS [facility] Last Admin: 01/18/20 21:50 Dose: 10 mg Documented by: Lorazepam (Lorazepam 0.5 Mg Tablet) 0.5 mg PO DAILY PRN PRN PRN Reason: ANXIETY Melatonin (Melatonin 3 Mg Tablet) 3 mg PO QHS PRN PRN PRN Reason: INSOMNIA Last Admin: 01/18/20 21:50 Dose: 3 mg Documented by: Nitroglycerin (Nitroglycerin (Inpatient Use) 0.4 Mg Tab.Subl) 0.4 mg SUBLINGUAL Q5M PRN PRN Reason: CARDIAC/CHEST PAIN Ondansetron HCl (Ondansetron 4 Mg/2 Ml Vial) 4 mg IV Q8H PRN PRN PRN Reason: NAUSEA/VOMITING Last Admin: 01/16/20 09:50 Dose: 4 mg Documented by: Oxycodone HCl (Oxycodone 5 Mg Tablet) 5 mg PO Q4H PRN PRN PRN Reason: Pain Score 4-5 Prochlorperazine Edisylate (Prochlorperazine 10 Mg/2 Ml Vial) 5 mg IV Q4H PRN PRN PRN Reason: Breakthrough nausea/vomiting Sodium Chloride (0.9% Saline Lock 10 Ml Syringe) 10 - 40 ml IV UD PRN PRN Reason: SALINE FLUSH Last Admin: 01/19/20 08:40 Dose: 10 ml Documented by: Throat Lozenges (Benzocaine/Menthol 1 Lozenge) 1 lozenge MUCOUS MEM Q2H PRN PRN PRN Reason: SORE THROAT Medical Necessity - Tobacco Use Smoking Status: Former smoker - Patient smoked for 8 years until she was 27-year-old old with social tobacco use, less than 1/2 pack/day. Tobacco Use: Non-smoker Route of nutrition/ use of supplements: [] Nutritional Intake: [] IV Site: [] Mccartney Catheter: [] - Assessment/Plan Antibiotics: [] Assessment/Plan: [] Active and Suspected Problems (Last Reviewed 10/04/19 @ 15:[address] Toan Vazquez MD) COVID-19 virus infection (Acute) Acute respiratory failure with hypoxia (Acute) Viral pneumonia (Acute) covid with acute hypoxic resp failure - on dex, remdesivir, got plasma 01/13. O2 improved, on 10L today. Feeling much better. On lovenox 40 bid. 1/2 bcx with CoNS, consistent with contamination. Will follow
--- NOTE | 2020-01-19 15:03 | PN_ITS ---
Patient Problems: Active and Suspected Problems (Last Reviewed 10/04/19 @ 15:[address] Toan Vazquez MD) COVID-19 virus infection (Acute) Acute respiratory failure with hypoxia (Acute) Viral pneumonia (Acute) Morbid obesity due to excess calories (Acute) Subjective: Patient did well overnight. Patient believes the BiPAP is helping. Patient was able to tolerate nasal cannula oxygen while eating her lunch. - Physical Exam Vitals/I&O's: Vital Signs Temp Pulse Resp BP Pulse Ox 37.0 C 85 18 95/60 96 01/19/20 14:00 01/19/20 14:00 01/19/20 14:00 01/19/20 14:00 01/19/20 14:00 Oxygen Flow Rate (L/min) 6 Oxygen Delivery Method Nasal Cannula Weight: 101.5 kg Body Mass Index (BMI) 40.8 Intake and Output for Last 24 Hours 01/17/20 01/18/20 01/19/20 23:59 23:59 23:59 Intake Total 1130 / 1130 240 / 240 240 / 240 Output Total 1050 / 1050 450 / 950 1000 / 1000 Balance 80 / 80 -210 / -710 -760 / -760 General: Alert, Oriented x3, Cooperative, No apparent distress, - - Morbidly obese. Mild conversational dyspnea HEENT: Atraumatic, PERRLA, EOMI, Normocephalic, - Oral: Moist Mucosa - No scleral icterus or injection noted, No Gingival or Mucosal Lesions/ Ulcerations Neck: Supple, No JVD, No Nodes, Trachea Midline Lungs: No rhonchi, No wheeze, Diminished, Rales - Right greater than left base, - - Symmetric expansion. Cardiovascular: Regular rate, Regular Rhythm, Normal S1, Normal S2, No murmurs, No rub noted, No Gallop Abdomen: Bowel Sounds Present, Soft, Non Tender, Non-Distended, Obese Extremities: No clubbing, No cyanosis, Edema Skin: - - No change from previous Musculoskeletal: No Tenderness to Palpation of Joints or Extremities Lymphatic: No Cervical, Supraclavicular, or Inguinal Adenopathy Neurological: Cranial nerves II-XII grossly intact, Neuro grossly intact, Motor Exam 5/5 strength throughout Psych/Mental Status: Alert and oriented to time, place, person, mood and affect Current Medications Acetaminophen (Acetaminophen 325 Mg Tablet) 650 mg PO Q6H PRN PRN PRN Reason: Pain Score 1-10/Temp > 100.7 F Al Hydroxide/Mg Hydroxide (Mag Hydrox/Al Hydrox/Simeth 30 Ml Udc) 30 ml PO Q6H PRN PRN PRN Reason: Gastric Burning Albuterol Sulfate (Albuterol 2.5 Mg/3 Ml Vial.Neb.) 2.5 mg INHALATION Q2H PRN PRN PRN Reason: Dyspnea, wheezing Albuterol/Ipratropium (Ipratropium/Albuterol Sulfate 3 Ml Ampul.Neb) 3 ml INHALATION Q4H.RT [facility] Last Admin: 01/19/20 11:20 Dose: 3 ml Documented by: Aspirin (Aspirin E.C. 81 Mg Tablet) 81 mg PO DAILY [facility] Last Admin: 01/19/20 08:40 Dose: 81 mg Documented by: Atorvastatin Calcium (Atorvastatin Calcium 40 Mg Tablet) 40 mg PO QHS [facility] Last Admin: 01/18/20 21:50 Dose: 40 mg Documented by: Clopidogrel Bisulfate (Clopidogrel Bisulfate 75 Mg Tablet) 75 mg PO DAILY [facility] Last Admin: 01/19/20 08:40 Dose: 75 mg Documented by: Dexamethasone (Dexamethasone 4 Mg Tablet) 6 mg PO DAILY [facility] Stop: 01/21/20 10:01 Last Admin: 01/19/20 08:39 Dose: 6 mg Documented by: Enoxaparin Sodium (Enoxaparin 40 Mg/0.4 Ml Syringe) 40 mg SC BID [facility] Last Admin: 01/19/20 08:40 Dose: 40 mg Documented by: Famotidine (Famotidine 20 Mg Tablet) 20 mg PO BID [facility] Last Admin: 01/19/20 08:40 Dose: 20 mg Documented by: Furosemide (Furosemide 40 Mg/4 Ml Vial) 40 mg IV BID@1000,1800 [facility] Last Admin: 01/19/20 08:40 Dose: 40 mg Documented by: Guaifenesin (Guaifenesin 1,200 Mg Tablet) 1,200 mg PO BID [facility] Last Admin: 01/19/20 08:40 Dose: 1,200 mg Documented by: Isosorbide Mononitrate (Isosorbide Mononitrate 30 Mg Tablet) 30 mg PO DAILY [facility] Last Admin: 01/19/20 08:40 Dose: 30 mg Documented by: Lisinopril (Lisinopril 40 Mg Tablet) 40 mg PO DAILY [facility] Last Admin: 01/19/20 08:39 Dose: 40 mg Documented by: Loratadine (Loratadine 10 Mg Tablet) 10 mg PO QHS [facility] Last Admin: 01/18/20 21:50 Dose: 10 mg Documented by: Lorazepam (Lorazepam 0.5 Mg Tablet) 0.5 mg PO DAILY PRN PRN PRN Reason: ANXIETY Melatonin (Melatonin 3 Mg Tablet) 3 mg PO QHS PRN PRN PRN Reason: INSOMNIA Last Admin: 01/18/20 21:50 Dose: 3 mg Documented by: Nitroglycerin (Nitroglycerin (Inpatient Use) 0.4 Mg Tab.Subl) 0.4 mg SUBLINGUAL Q5M PRN PRN Reason: CARDIAC/CHEST PAIN Ondansetron HCl (Ondansetron 4 Mg/2 Ml Vial) 4 mg IV Q8H PRN PRN PRN Reason: NAUSEA/VOMITING Last Admin: 01/16/20 09:50 Dose: 4 mg Documented by: Oxycodone HCl (Oxycodone 5 Mg Tablet) 5 mg PO Q4H PRN PRN PRN Reason: Pain Score 4-5 Prochlorperazine Edisylate (Prochlorperazine 10 Mg/2 Ml Vial) 5 mg IV Q4H PRN PRN PRN Reason: Breakthrough nausea/vomiting Sodium Chloride (0.9% Saline Lock 10 Ml Syringe) 10 - 40 ml IV UD PRN PRN Reason: SALINE FLUSH Last Admin: 01/19/20 08:40 Dose: 10 ml Documented by: Throat Lozenges (Benzocaine/Menthol 1 Lozenge) 1 lozenge MUCOUS MEM Q2H PRN PRN PRN Reason: SORE THROAT Medical Necessity - Tobacco Use Smoking Status: Former smoker - Patient smoked for 8 years until she was 27-year-old old with social tobacco use, less than 1/2 pack/day. Tobacco Use: Non-smoker Assessment/Plan All Active Problems (Last Reviewed 10/04/19 @ 15:[address] Toan Vazquez MD) COVID-19 virus infection (Acute) Acute respiratory failure with hypoxia (Acute) Viral pneumonia (Acute) Morbid obesity due to excess calories (Acute) Dyspnea on exertion (Acute) History of coronary artery stent placement (Resolved 12/05/17) Complex endometrial hyperplasia with atypia (Resolved) UTI (urinary tract infection) (Resolved) RECOMMENDATIONS: 1. Continue steroids, remdesivir and and bronchodilators 2. Continue with Lasix. Monitor electrolytes 3. Courage incentive spirometer and ambulation as tolerated 4. Continue with updated BiPAP with sleep IMPRESSIONS: 1. Acute hypoxic respiratory failure secondary to COVID-19 Patient is being seen by infectious disease. Patient is already received convalescent serum, remdesivir and is currently on Decadron therapy. Patient does have underlying asthma, which will complicate overall condition. Pulmonary function tests were not available for review. Some concern the patient may have an element of congestive heart failure leading to current situation as patient is positive over 3 L with 2 kg of weight gain. Patient does have diastolic dysfunction on recent echocardiogram. Patient appears to be responding well to diuretic therapy. Patient did not have significant wheezing on exam, but would continue with bronchodilators. Patient appears to be responding to transition to BiPAP therapy. This would help with limiting work of breathing and may augment cardiac function. 2. Chronic diastolic congestive heart failure/aortic dilation Patient with diastolic dysfunction on recent echocardiogram. Unclear significance of dilation of aortic root as echocardiogram did not note this at that time. Patient may have an element of overload leading to dilatation. Would defer to hospitalist on whether cardiology would need to perform a REID as this may be more sensitive for evaluation of aortic dissection. Patient is not reporting any significant chest pain to suggest active dissection at this time. We will give diuretics. Aggressive blood pressure control. Patient is already rate controlled. 3. Advanced age/morbid obesity/ANA/hypertension/CAD Complicates care, management, recovery and prognosis. Patient should continue CPAP overnight. Blood pressure appears to be well controlled at this time. Stressed to the patient the importance of ambulation and pulmonary recruitment measures to avoid complications. Patient voiced understanding. Patient was found sitting in the chair to eat lunch Inpatient E&M: [id number] [facility] Hosp L3
[2020-01-19] MEDS: Furosemide 40 MG Tablet PO (19:28)
[2020-01-19] MEDS: Loratadine 10 MG Tablet PO (21:46)
[2020-01-19] MEDS: MELATONIN 3 MG TABLET PO (21:46)
[2020-01-19] MEDS: Atorvastatin Calcium 40 MG Tablet PO (21:47)
[2020-01-20] VITALS (19 sets, daily range): BP systolic 117–137; BP diastolic 63–72; PULSE 65–91; RESP 18–24; TEMP 36.4–36.8; O2SAT 92–96
[2020-01-20] MEDS: LORazepam 0.5 MG Tablet PO (00:37)
[2020-01-20] MEDS: Ipratropium/Albuterol Sulfate 3 ML AMPUL.NEB INHALATION ×4 (03:39→15:17)
--- NOTE | 2020-01-20 04:14 | CPS ---
pts own cpap is ready for use at her leisure. pt is aware, o2 is bled in.
[2020-01-20 06:29] LABS: Anion Gap 9 (5-15); BUN 27 mg/dL (7-18); BUN/Creat Ratio 37.4 RATIO (10-20); Calcium,Total 9.3 mg/dL (8.5-10.1); Chloride 94 mmol/L (98-107); Creatinine, Serum 0.72 mg/dL (0.55-1.02); EST Glomerular Filtration Rate 83 mL/min (>60); Est Glom Filt Rate - Afr Amer 101 mL/min (>60); Estimated Creatinine Clearance 36.67 ml/min; Glucose 97 mg/dL (74-106); Magnesium 2.2 mg/dL (1.6-2.6); Phosphorus 3.7 mg/dL (2.5-4.9); Potassium 4.4 mmol/L (3.5-5.1); Sodium Level 135 mmol/L (136-145)
--- NOTE | 2020-01-20 07:28 | PN_ITS ---
Patient Problems: Active and Suspected Problems (Last Reviewed 10/04/19 @ 15:[address] Toan Vazquez MD) COVID-19 virus infection (Acute) Acute respiratory failure with hypoxia (Acute) Viral pneumonia (Acute) Morbid obesity due to excess calories (Acute) Reason for Visit: Follow-up on hypoxia/acute COVID-19 infection Subjective: Patient was seen and examined. She complains of facial and nasal bridge pain with facemask from BiPAP. She feels the same. She used her CPAP last night. Denies any fever or chills. She is currently on 8 L of oxygen. No other acute events overnight. Objective: Physical exam General: Alert, Oriented x3, Cooperative, on 8 L of oxygen HEENT: Atraumatic, PERRLA, EOMI, Normocephalic Oral: No Gingival or Mucosal Lesions/ Ulcerations Neck: Supple, No JVD, Negative Carotid Bruits Lungs: Air entry diminished in bilateral lung bases Cardiovascular: Regular rate, Regular Rhythm, Normal S1, Normal S2, No murmurs Abdomen: Bowel Sounds Present, Soft, Non Tender, Non-Distended : No renal angle tenderness. No suprapubic tenderness. Extremities: No edema, Capillary Refill Less than 3 Seconds Skin: No rashes, No breakdown Musculoskeletal: No Tenderness to Palpation of Joints or Extremities Neurological: Cranial nerves II-XII grossly intact, Deep Tendon Reflexes 2+/4 and Symmetrical, Neuro grossly intact Psych/Mental Status: Normal Affect, Appropriate. Vitals/I&O's: Vital Signs Temp Pulse Resp BP Pulse Ox 97.7 F L 67 20 H 136/72 H 93 01/20/20 03:40 01/20/20 03:59 01/20/20 03:40 01/20/20 03:40 01/20/20 04:13 Oxygen Flow Rate (L/min) 8 Oxygen Delivery Method Nasal Cannula Weight: 101.8 kg Body Mass Index (BMI) 40.8 Intake and Output for Last 24 Hours 01/18/20 01/19/20 01/20/20 23:59 23:59 23:59 Intake Total 240 / 240 240 / 440 200 / 200 Output Total 450 / 950 1000 / 2000 1900 / 1900 Balance -210 / -710 -760 / -1560 -1700 / -1700 Laboratory Results 01/20/20 05:38: Sodium 135 L, Potassium 4.4, Chloride 94 L, Carbon Dioxide 32.0, Anion Gap 9, BUN 27 H, Creatinine 0.72, Estim Creat Clear Calc 36.67, Est GFR (MDRD) Af Amer 101, Est GFR (MDRD) Non-Af 83, BUN/Creatinine Ratio 37.4 H, Glucose 97, Calcium 9.3, Phosphorus 3.7, Magnesium 2.2 Current Medications Acetaminophen (Acetaminophen 325 Mg Tablet) 650 mg PO Q6H PRN PRN PRN Reason: Pain Score 1-10/Temp > 100.7 F Al Hydroxide/Mg Hydroxide (Mag Hydrox/Al Hydrox/Simeth 30 Ml Udc) 30 ml PO Q6H PRN PRN PRN Reason: Gastric Burning Albuterol Sulfate (Albuterol 2.5 Mg/3 Ml Vial.Neb.) 2.5 mg INHALATION Q2H PRN PRN PRN Reason: Dyspnea, wheezing Albuterol/Ipratropium (Ipratropium/Albuterol Sulfate 3 Ml Ampul.Neb) 3 ml INHALATION Q4H.RT [facility] Last Admin: 01/20/20 06:59 Dose: 3 ml Documented by: Aspirin (Aspirin E.C. 81 Mg Tablet) 81 mg PO DAILY [facility] Last Admin: 01/19/20 08:40 Dose: 81 mg Documented by: Atorvastatin Calcium (Atorvastatin Calcium 40 Mg Tablet) 40 mg PO QHS [facility] Last Admin: 01/19/20 21:47 Dose: 40 mg Documented by: Clopidogrel Bisulfate (Clopidogrel Bisulfate 75 Mg Tablet) 75 mg PO DAILY [facility] Last Admin: 01/19/20 08:40 Dose: 75 mg Documented by: Dexamethasone (Dexamethasone 4 Mg Tablet) 6 mg PO DAILY [facility] Stop: 01/21/20 10:01 Last Admin: 01/19/20 08:39 Dose: 6 mg Documented by: Enoxaparin Sodium (Enoxaparin 40 Mg/0.4 Ml Syringe) 40 mg SC BID [facility] Last Admin: 01/19/20 21:47 Dose: 40 mg Documented by: Famotidine (Famotidine 20 Mg Tablet) 20 mg PO BID [facility] Last Admin: 01/19/20 21:47 Dose: 20 mg Documented by: Furosemide (Furosemide 40 Mg Tablet) 40 mg PO BID@1000,1800 [facility] Last Admin: 01/19/20 19:28 Dose: 40 mg Documented by: Guaifenesin (Guaifenesin 1,200 Mg Tablet) 1,200 mg PO BID [facility] Last Admin: 01/19/20 21:46 Dose: 1,200 mg Documented by: Isosorbide Mononitrate (Isosorbide Mononitrate 30 Mg Tablet) 30 mg PO DAILY [facility] Last Admin: 01/19/20 08:40 Dose: 30 mg Documented by: Lisinopril (Lisinopril 40 Mg Tablet) 40 mg PO DAILY [facility] Last Admin: 01/19/20 08:39 Dose: 40 mg Documented by: Loratadine (Loratadine 10 Mg Tablet) 10 mg PO QHS [facility] Last Admin: 01/19/20 21:46 Dose: 10 mg Documented by: Lorazepam (Lorazepam 0.5 Mg Tablet) 0.5 mg PO DAILY PRN PRN PRN Reason: ANXIETY Last Admin: 01/20/20 00:37 Dose: 0.5 mg Documented by: Melatonin (Melatonin 3 Mg Tablet) 3 mg PO QHS PRN PRN PRN Reason: INSOMNIA Last Admin: 01/19/20 21:46 Dose: 3 mg Documented by: Nitroglycerin (Nitroglycerin (Inpatient Use) 0.4 Mg Tab.Subl) 0.4 mg SUBLINGUAL Q5M PRN PRN Reason: CARDIAC/CHEST PAIN Ondansetron HCl (Ondansetron 4 Mg/2 Ml Vial) 4 mg IV Q8H PRN PRN PRN Reason: NAUSEA/VOMITING Last Admin: 01/16/20 09:50 Dose: 4 mg Documented by: Oxycodone HCl (Oxycodone 5 Mg Tablet) 5 mg PO Q4H PRN PRN PRN Reason: Pain Score 4-5 Prochlorperazine Edisylate (Prochlorperazine 10 Mg/2 Ml Vial) 5 mg IV Q4H PRN PRN PRN Reason: Breakthrough nausea/vomiting Sodium Chloride (0.9% Saline Lock 10 Ml Syringe) 10 - 40 ml IV UD PRN PRN Reason: SALINE FLUSH Last Admin: 01/19/20 08:40 Dose: 10 ml Documented by: Throat Lozenges (Benzocaine/Menthol 1 Lozenge) 1 lozenge MUCOUS MEM Q2H PRN PRN PRN Reason: SORE THROAT STROKE Vital Signs/Narrative: Vital Signs Temp Pulse Resp BP Pulse Ox 01/20/20 04:13 93 01/20/20 03:59 67 01/20/20 03:40 97.7 F L 76 20 H 136/72 H 93 Medical Necessity - Tobacco Use Smoking Status: Former smoker - Patient smoked for 8 years until she was 27-year-old old with social tobacco use, less than 1/2 pack/day. Tobacco Use: Non-smoker Assessment/Plan All Active Problems (Last Reviewed 10/04/19 @ 15:[address] Toan Vazquez MD) COVID-19 virus infection (Acute) Acute respiratory failure with hypoxia (Acute) Viral pneumonia (Acute) Morbid obesity due to excess calories (Acute) Dyspnea on exertion (Acute) History of coronary artery stent placement (Resolved 02/24/17) Complex endometrial hyperplasia with atypia (Resolved) UTI (urinary tract infection) (Resolved) 1. Acute respiratory failure secondary to severe COVID-19 infection/pneumonia, remains on 8 L of oxygen Will continue with breathing treatments, po steroids, encourage use of incentive spirometer. Wean off oxygen for SPO2 more than 94% Strict I & Os 2. Acute COVID-19 infection, severe with hypoxia Status convalescent plasma on 01/13. On decadron ID and pulmo following 3. Probable acute on chronic diastolic CHF, improving Patient had worsening respiratory status, appears to improve with Lasix therapy On oral Lasix 40 mg twice daily Trend BMP in a.m. 4. CAD/Hypertension/ANA/Morbid Obesity, all remain stable Continue on aspirin, statin, Plavix, lisinopril 5. DVT PPx- Lovenox SC BID 6. Disposition: Due to patient's continuing high oxygen requirements and almost done with oral Decadron. Completed Remdesivir. Anthony with social work, anticipated discharge to a halfway facility versus LTAC Inpatient E&M: [id number] Subs Hosp L2
[2020-01-20] MEDS: Enoxaparin 40 MG/0.4 ML Syringe SC ×2 (09:32→20:59)
[2020-01-20] MEDS: Famotidine 20 MG Tablet PO ×2 (09:32→20:59)
[2020-01-20] MEDS: Isosorbide Mononitrate 30 MG Tablet PO (09:32)
[2020-01-20] MEDS: guaiFENesin 1,200 MG Tablet 1200 MG PO ×2 (09:32→20:59)
[2020-01-20] MEDS: Clopidogrel Bisulfate 75 MG Tablet PO (09:32)
[2020-01-20] MEDS: Lisinopril 40 MG Tablet PO (09:32)
[2020-01-20] MEDS: Aspirin E.C. 81 MG Tablet PO (09:32)
[2020-01-20] MEDS: dexAMETHasone 4 MG Tablet 6 MG PO (09:33)
[2020-01-20] MEDS: Furosemide 40 MG Tablet PO ×2 (09:39→16:41)
--- NOTE | 2020-01-20 15:01 | PN_ITS ---
Patient Problems: Active and Suspected Problems (Last Reviewed 10/04/19 @ 15:[address] Toan Vazquez MD) COVID-19 virus infection (Acute) Acute respiratory failure with hypoxia (Acute) Viral pneumonia (Acute) Morbid obesity due to excess calories (Acute) Subjective: Patient did okay overnight. Patient reports that she has a very difficult time with tolerating BiPAP and would prefer to use her own CPAP. Patient has been improving on oxygenation. Patient does report polyuria, but no dysuria. Patient is reporting some sinus congestion that she associates with her supplemental oxygen requirements - Physical Exam Vitals/I&O's: Vital Signs Temp Pulse Resp BP Pulse Ox 36.8 C 81 24 H 118/63 94 01/20/20 09:45 01/20/20 11:37 01/20/20 11:37 01/20/20 09:45 01/20/20 06:59 Oxygen Flow Rate (L/min) 8 Oxygen Delivery Method Nasal Cannula Weight: 101.8 kg Body Mass Index (BMI) 40.8 Intake and Output for Last 24 Hours 01/18/20 01/19/20 01/20/20 23:59 23:59 23:59 Intake Total 240 / 240 240 / 440 200 / 200 Output Total 450 / 950 1000 / 2000 1900 / 1900 Balance -210 / -710 -760 / -1560 -1700 / -1700 General: Alert, Oriented x3, Cooperative, No apparent distress, - - Morbidly obese. Speaking in full sentences. HEENT: Atraumatic, PERRLA, EOMI, Normocephalic Oral: Moist Mucosa, No Gingival or Mucosal Lesions/ Ulcerations, - - Crowded posterior pharynx Neck: Supple, No Nodes, Trachea Midline Lungs: No rhonchi, No wheeze, No rales, Diminished, - - Symmetric expansion. No dullness to percussion. Cardiovascular: Regular rate, Regular Rhythm, Normal S1, Normal S2, No murmurs, No rub noted, No Gallop Abdomen: Bowel Sounds Present, Soft, Non Tender, Non-Distended, Obese Extremities: No clubbing, No cyanosis, Edema Skin: - - Venous stasis changes lower extremities Musculoskeletal: No Tenderness to Palpation of Joints or Extremities Lymphatic: No Cervical, Supraclavicular, or Inguinal Adenopathy Neurological: Cranial nerves II-XII grossly intact, Neuro grossly intact, Motor Exam 5/5 strength throughout Psych/Mental Status: Alert and oriented to time, place, person, mood and affect Laboratory Results 01/20/20 05:38: Sodium 135 L, Potassium 4.4, Chloride 94 L, Carbon Dioxide 32.0, Anion Gap 9, BUN 27 H, Creatinine 0.72, Estim Creat Clear Calc 36.67, Est GFR (MDRD) Af Amer 101, Est GFR (MDRD) Non-Af 83, BUN/Creatinine Ratio 37.4 H, Glucose 97, Calcium 9.3, Phosphorus 3.7, Magnesium 2.2 Current Medications Acetaminophen (Acetaminophen 325 Mg Tablet) 650 mg PO Q6H PRN PRN PRN Reason: Pain Score 1-10/Temp > 100.7 F Al Hydroxide/Mg Hydroxide (Mag Hydrox/Al Hydrox/Simeth 30 Ml Udc) 30 ml PO Q6H PRN PRN PRN Reason: Gastric Burning Albuterol Sulfate (Albuterol 2.5 Mg/3 Ml Vial.Neb.) 2.5 mg INHALATION Q2H PRN PRN PRN Reason: Dyspnea, wheezing Albuterol/Ipratropium (Ipratropium/Albuterol Sulfate 3 Ml Ampul.Neb) 3 ml INHALATION Q4H.RT [facility] Last Admin: 01/20/20 11:35 Dose: 3 ml Documented by: Aspirin (Aspirin E.C. 81 Mg Tablet) 81 mg PO DAILY [facility] Last Admin: 01/20/20 09:32 Dose: 81 mg Documented by: Atorvastatin Calcium (Atorvastatin Calcium 40 Mg Tablet) 40 mg PO QHS [facility] Last Admin: 01/19/20 21:47 Dose: 40 mg Documented by: Clopidogrel Bisulfate (Clopidogrel Bisulfate 75 Mg Tablet) 75 mg PO DAILY [facility] Last Admin: 01/20/20 09:32 Dose: 75 mg Documented by: Dexamethasone (Dexamethasone 4 Mg Tablet) 6 mg PO DAILY [facility] Stop: 01/21/20 10:01 Last Admin: 01/20/20 09:33 Dose: 6 mg Documented by: Enoxaparin Sodium (Enoxaparin 40 Mg/0.4 Ml Syringe) 40 mg SC BID [facility] Last Admin: 01/20/20 09:32 Dose: 40 mg Documented by: Famotidine (Famotidine 20 Mg Tablet) 20 mg PO BID [facility] Last Admin: 01/20/20 09:32 Dose: 20 mg Documented by: Furosemide (Furosemide 40 Mg Tablet) 40 mg PO BID@1000,1800 [facility] Last Admin: 01/20/20 09:39 Dose: 40 mg Documented by: Guaifenesin (Guaifenesin 1,200 Mg Tablet) 1,200 mg PO BID [facility] Last Admin: 01/20/20 09:32 Dose: 1,200 mg Documented by: Isosorbide Mononitrate (Isosorbide Mononitrate 30 Mg Tablet) 30 mg PO DAILY [facility] Last Admin: 01/20/20 09:32 Dose: 30 mg Documented by: Lisinopril (Lisinopril 40 Mg Tablet) 40 mg PO DAILY [facility] Last Admin: 01/20/20 09:32 Dose: 40 mg Documented by: Loratadine (Loratadine 10 Mg Tablet) 10 mg PO QHS [facility] Last Admin: 01/19/20 21:46 Dose: 10 mg Documented by: Lorazepam (Lorazepam 0.5 Mg Tablet) 0.5 mg PO DAILY PRN PRN PRN Reason: ANXIETY Last Admin: 01/20/20 00:37 Dose: 0.5 mg Documented by: Melatonin (Melatonin 3 Mg Tablet) 3 mg PO QHS PRN PRN PRN Reason: INSOMNIA Last Admin: 01/19/20 21:46 Dose: 3 mg Documented by: Nitroglycerin (Nitroglycerin (Inpatient Use) 0.4 Mg Tab.Subl) 0.4 mg SUBLINGUAL Q5M PRN PRN Reason: CARDIAC/CHEST PAIN Ondansetron HCl (Ondansetron 4 Mg/2 Ml Vial) 4 mg IV Q8H PRN PRN PRN Reason: NAUSEA/VOMITING Last Admin: 01/16/20 09:50 Dose: 4 mg Documented by: Oxycodone HCl (Oxycodone 5 Mg Tablet) 5 mg PO Q4H PRN PRN PRN Reason: Pain Score 4-5 Prochlorperazine Edisylate (Prochlorperazine 10 Mg/2 Ml Vial) 5 mg IV Q4H PRN PRN PRN Reason: Breakthrough nausea/vomiting Sodium Chloride (0.9% Saline Lock 10 Ml Syringe) 10 - 40 ml IV UD PRN PRN Reason: SALINE FLUSH Last Admin: 01/19/20 08:40 Dose: 10 ml Documented by: Throat Lozenges (Benzocaine/Menthol 1 Lozenge) 1 lozenge MUCOUS MEM Q2H PRN PRN PRN Reason: SORE THROAT Medical Necessity - Tobacco Use Smoking Status: Former smoker - Patient smoked for 8 years until she was 27-year-old old with social tobacco use, less than 1/2 pack/day. Tobacco Use: Non-smoker Assessment/Plan All Active Problems (Last Reviewed 10/04/19 @ 15:[address] Toan Vazquez MD) COVID-19 virus infection (Acute) Acute respiratory failure with hypoxia (Acute) Viral pneumonia (Acute) Morbid obesity due to excess calories (Acute) Dyspnea on exertion (Acute) History of coronary artery stent placement (Resolved 02/24/17) Complex endometrial hyperplasia with atypia (Resolved) UTI (urinary tract infection) (Resolved) RECOMMENDATIONS: 1. Continue steroids and bronchodilators. Completed remdesivir 2. Continue with Lasix. Monitor electrolytes daily 3. Courage incentive spirometer and ambulation as tolerated 4. We will pull BiPAP therapy. Patient should continue home CPAP with sleep IMPRESSIONS: 1. Acute hypoxic respiratory failure secondary to COVID-19 Patient is being seen by infectious disease. Patient is already received convalescent serum, remdesivir and is currently on Decadron therapy. Patient does have underlying asthma, which will complicate overall condition. Pulmonary function tests were not available for review. Patient does have diastolic dysfunction on recent echocardiogram. Patient appears to be responding well to diuretic therapy. Anticipate continuing diuretic therapy until patient develops renal effects. If patient is able to ambulate on 6 L or less, potential discharge with supplemental oxygen 2. Chronic diastolic congestive heart failure/aortic dilation Patient with diastolic dysfunction on recent echocardiogram. Unclear significance of dilation of aortic root as echocardiogram did not note this at that time. Patient may have an element of overload leading to dilatation. Would defer to hospitalist on whether cardiology would need to perform a REID as this may be more sensitive for evaluation of aortic dissection. Patient is not reporting any significant chest pain to suggest active dissection at this time. We will give diuretics. Aggressive blood pressure control. Patient is already rate controlled. 3. Advanced age/morbid obesity/ANA/hypertension/CAD Complicates care, management, recovery and prognosis. Patient can be transitioned to home CPAP. Blood pressure appears to be well controlled at this time. Stressed to the patient the importance of ambulation and pulmonary recruitment measures to avoid complications. Patient voiced understanding. Patient was found sitting in the chair to eat lunch Inpatient E&M: [id number] Subs Hosp L3
--- NOTE | 2020-01-20 15:23 | CASEMGMT ---
RN CM Note: Call to [facility]. Criteria for MCR to refer to LTACH is a 10 day hospital stay and fever free x 24 hours. Pt will have 10 day stay on Thursday. Can evaluate on Thursday for dc planning and if LTACH is needed. Ro VILLAN RN ACM
--- NOTE | 2020-01-20 15:58 | PN.ID_ITS ---
Patient Problems: Active and Suspected Problems (Last Reviewed 10/04/19 @ 15:[address] Toan Vazquez MD) COVID-19 virus infection (Acute) Acute respiratory failure with hypoxia (Acute) Viral pneumonia (Acute) Morbid obesity due to excess calories (Acute) Subjective: Feeling about the same, no fever - Physical Exam Vitals/I&O's: Vital Signs Temp Pulse Resp BP Pulse Ox 98.2 F 91 20 H 118/63 96 01/20/20 09:45 01/20/20 15:18 01/20/20 15:18 01/20/20 09:45 01/20/20 14:20 Oxygen Flow Rate (L/min) 8 Oxygen Delivery Method Nasal Cannula Weight: 101.8 kg Body Mass Index (BMI) 40.8 Intake and Output for Last 24 Hours 01/18/20 01/19/20 01/20/20 23:59 23:59 23:59 Intake Total 240 / 240 240 / 440 200 / 200 Output Total 450 / 950 1000 / 2000 1900 / 1900 Balance -210 / -710 -760 / -1560 -1700 / -1700 General: Alert, Cooperative, No apparent distress Lungs: Clear to auscultation, Diminished Cardiovascular: Regular rate, Regular Rhythm Abdomen: Soft, Non Tender, Non-Distended Skin: No rashes Laboratory Results 01/20/20 05:38: Sodium 135 L, Potassium 4.4, Chloride 94 L, Carbon Dioxide 32.0, Anion Gap 9, BUN 27 H, Creatinine 0.72, Estim Creat Clear Calc 36.67, Est GFR (MDRD) Af Amer 101, Est GFR (MDRD) Non-Af 83, BUN/Creatinine Ratio 37.4 H, Glucose 97, Calcium 9.3, Phosphorus 3.7, Magnesium 2.2 Current Medications Acetaminophen (Acetaminophen 325 Mg Tablet) 650 mg PO Q6H PRN PRN PRN Reason: Pain Score 1-10/Temp > 100.7 F Al Hydroxide/Mg Hydroxide (Mag Hydrox/Al Hydrox/Simeth 30 Ml Udc) 30 ml PO Q6H PRN PRN PRN Reason: Gastric Burning Albuterol Sulfate (Albuterol 2.5 Mg/3 Ml Vial.Neb.) 2.5 mg INHALATION Q2H PRN PRN PRN Reason: Dyspnea, wheezing Albuterol/Ipratropium (Ipratropium/Albuterol Sulfate 3 Ml Ampul.Neb) 3 ml INHALATION Q4H.RT [facility] Last Admin: 01/20/20 15:17 Dose: 3 ml Documented by: Aspirin (Aspirin E.C. 81 Mg Tablet) 81 mg PO DAILY [facility] Last Admin: 01/20/20 09:32 Dose: 81 mg Documented by: Atorvastatin Calcium (Atorvastatin Calcium 40 Mg Tablet) 40 mg PO QHS [facility] Last Admin: 01/19/20 21:47 Dose: 40 mg Documented by: Clopidogrel Bisulfate (Clopidogrel Bisulfate 75 Mg Tablet) 75 mg PO DAILY [facility] Last Admin: 01/20/20 09:32 Dose: 75 mg Documented by: Dexamethasone (Dexamethasone 4 Mg Tablet) 6 mg PO DAILY [facility] Stop: 01/21/20 10:01 Last Admin: 01/20/20 09:33 Dose: 6 mg Documented by: Enoxaparin Sodium (Enoxaparin 40 Mg/0.4 Ml Syringe) 40 mg SC BID [facility] Last Admin: 01/20/20 09:32 Dose: 40 mg Documented by: Famotidine (Famotidine 20 Mg Tablet) 20 mg PO BID [facility] Last Admin: 01/20/20 09:32 Dose: 20 mg Documented by: Furosemide (Furosemide 40 Mg Tablet) 40 mg PO BID@1000,1800 [facility] Last Admin: 01/20/20 09:39 Dose: 40 mg Documented by: Guaifenesin (Guaifenesin 1,200 Mg Tablet) 1,200 mg PO BID [facility] Last Admin: 01/20/20 09:32 Dose: 1,200 mg Documented by: Isosorbide Mononitrate (Isosorbide Mononitrate 30 Mg Tablet) 30 mg PO DAILY [facility] Last Admin: 01/20/20 09:32 Dose: 30 mg Documented by: Lisinopril (Lisinopril 40 Mg Tablet) 40 mg PO DAILY [facility] Last Admin: 01/20/20 09:32 Dose: 40 mg Documented by: Loratadine (Loratadine 10 Mg Tablet) 10 mg PO QHS [facility] Last Admin: 01/19/20 21:46 Dose: 10 mg Documented by: Lorazepam (Lorazepam 0.5 Mg Tablet) 0.5 mg PO DAILY PRN PRN PRN Reason: ANXIETY Last Admin: 01/20/20 00:37 Dose: 0.5 mg Documented by: Melatonin (Melatonin 3 Mg Tablet) 3 mg PO QHS PRN PRN PRN Reason: INSOMNIA Last Admin: 01/19/20 21:46 Dose: 3 mg Documented by: Nitroglycerin (Nitroglycerin (Inpatient Use) 0.4 Mg Tab.Subl) 0.4 mg SUBLINGUAL Q5M PRN PRN Reason: CARDIAC/CHEST PAIN Ondansetron HCl (Ondansetron 4 Mg/2 Ml Vial) 4 mg IV Q8H PRN PRN PRN Reason: NAUSEA/VOMITING Last Admin: 01/16/20 09:50 Dose: 4 mg Documented by: Oxycodone HCl (Oxycodone 5 Mg Tablet) 5 mg PO Q4H PRN PRN PRN Reason: Pain Score 4-5 Prochlorperazine Edisylate (Prochlorperazine 10 Mg/2 Ml Vial) 5 mg IV Q4H PRN PRN PRN Reason: Breakthrough nausea/vomiting Sodium Chloride (0.9% Saline Lock 10 Ml Syringe) 10 - 40 ml IV UD PRN PRN Reason: SALINE FLUSH Last Admin: 01/19/20 08:40 Dose: 10 ml Documented by: Throat Lozenges (Benzocaine/Menthol 1 Lozenge) 1 lozenge MUCOUS MEM Q2H PRN PRN PRN Reason: SORE THROAT Medical Necessity - Tobacco Use Smoking Status: Former smoker - Patient smoked for 8 years until she was 27-year-old old with social tobacco use, less than 1/2 pack/day. Tobacco Use: Non-smoker Route of nutrition/ use of supplements: [] Nutritional Intake: [] IV Site: [] Mccartney Catheter: [] - Assessment/Plan Antibiotics: [] Assessment/Plan: [] Active and Suspected Problems (Last Reviewed 10/04/19 @ 15:[address] Toan Vazquez MD) COVID-19 virus infection (Acute) Acute respiratory failure with hypoxia (Acute) Viral pneumonia (Acute) covid with acute hypoxic resp failure - on dex, remdesivir, got plasma 01/13. O2 improved, on 8L today. Feeling much better. On lovenox 40 bid. 1/2 bcx with CoNS, consistent with contamination. Will follow
[2020-01-20] MEDS: Atorvastatin Calcium 40 MG Tablet PO (20:59)
[2020-01-20] MEDS: Loratadine 10 MG Tablet PO (20:59)
[2020-01-21] VITALS (15 sets, daily range): BP systolic 102–127; BP diastolic 42–64; PULSE 60–78; RESP 17–24; TEMP 36.5–36.8; O2SAT 94–97
[2020-01-21] MEDS: LORazepam 0.5 MG Tablet PO (02:37)
[2020-01-21] MEDS: Ipratropium/Albuterol Sulfate 3 ML AMPUL.NEB INHALATION ×3 (03:37→19:55)
--- NOTE | 2020-01-21 07:48 | PN_ITS ---
Patient Problems: Active and Suspected Problems (Last Reviewed 10/04/19 @ 15:[address] Toan Vazquez MD) COVID-19 virus infection (Acute) Acute respiratory failure with hypoxia (Acute) Viral pneumonia (Acute) Morbid obesity due to excess calories (Acute) Reason for Visit: Follow-up on hypoxia/acute COVID-19 infection Subjective: Patient was seen and examined. No other acute events overnight. She feels worse, has severe nausea. Oxygen requirement seems to be fluctuating, currently on 10 L of oxygen. Denies any fever. Objective: Physical exam General: Alert, Oriented x3, Cooperative, on 10 L of oxygen HEENT: Atraumatic, PERRLA, EOMI, Normocephalic Oral: No Gingival or Mucosal Lesions/ Ulcerations Neck: Supple, No JVD, Negative Carotid Bruits Lungs: Air entry diminished in bilateral lung bases Cardiovascular: Regular rate, Regular Rhythm, Normal S1, Normal S2, No murmurs Abdomen: Bowel Sounds Present, Soft, Non Tender, Non-Distended : No renal angle tenderness. No suprapubic tenderness. Extremities: No edema, Capillary Refill Less than 3 Seconds Skin: No rashes, No breakdown Musculoskeletal: No Tenderness to Palpation of Joints or Extremities Neurological: Cranial nerves II-XII grossly intact, Deep Tendon Reflexes 2+/4 and Symmetrical, Neuro grossly intact Psych/Mental Status: Normal Affect, Appropriate. Vitals/I&O's: Vital Signs Temp Pulse Resp BP Pulse Ox 98.1 F 70 24 H 103/61 96 01/21/20 02:35 01/21/20 07:15 01/21/20 07:15 01/21/20 02:35 01/21/20 07:15 Oxygen Flow Rate (L/min) 10 Oxygen Delivery Method Nasal Cannula Weight: 101.8 kg Body Mass Index (BMI) 40.8 Intake and Output for Last 24 Hours 01/19/20 01/20/20 01/21/20 23:59 23:59 23:59 Intake Total 240 / 440 200 / 200 Output Total 1000 / 2000 1900 / 1900 800 / 800 Balance -760 / -1560 -1700 / -1700 -800 / -800 Current Medications Acetaminophen (Acetaminophen 325 Mg Tablet) 650 mg PO Q6H PRN PRN PRN Reason: Pain Score 1-10/Temp > 100.7 F Al Hydroxide/Mg Hydroxide (Mag Hydrox/Al Hydrox/Simeth 30 Ml Udc) 30 ml PO Q6H PRN PRN PRN Reason: Gastric Burning Albuterol Sulfate (Albuterol 2.5 Mg/3 Ml Vial.Neb.) 2.5 mg INHALATION Q2H PRN PRN PRN Reason: Dyspnea, wheezing Albuterol/Ipratropium (Ipratropium/Albuterol Sulfate 3 Ml Ampul.Neb) 3 ml INHALATION Q4H.RT [facility] Last Admin: 01/21/20 07:11 Dose: 3 ml Documented by: Aspirin (Aspirin E.C. 81 Mg Tablet) 81 mg PO DAILY [facility] Last Admin: 01/20/20 09:32 Dose: 81 mg Documented by: Atorvastatin Calcium (Atorvastatin Calcium 40 Mg Tablet) 40 mg PO QHS [facility] Last Admin: 01/20/20 20:59 Dose: 40 mg Documented by: Clopidogrel Bisulfate (Clopidogrel Bisulfate 75 Mg Tablet) 75 mg PO DAILY [facility] Last Admin: 01/20/20 09:32 Dose: 75 mg Documented by: Dexamethasone (Dexamethasone 4 Mg Tablet) 6 mg PO DAILY [facility] Stop: 01/21/20 10:01 Last Admin: 01/20/20 09:33 Dose: 6 mg Documented by: Enoxaparin Sodium (Enoxaparin 40 Mg/0.4 Ml Syringe) 40 mg SC BID [facility] Last Admin: 01/20/20 20:59 Dose: 40 mg Documented by: Famotidine (Famotidine 20 Mg Tablet) 20 mg PO BID [facility] Last Admin: 01/20/20 20:59 Dose: 20 mg Documented by: Furosemide (Furosemide 40 Mg Tablet) 40 mg PO BID@1000,1800 [facility] Last Admin: 01/20/20 16:41 Dose: 40 mg Documented by: Guaifenesin (Guaifenesin 1,200 Mg Tablet) 1,200 mg PO BID [facility] Last Admin: 01/20/20 20:59 Dose: 1,200 mg Documented by: Isosorbide Mononitrate (Isosorbide Mononitrate 30 Mg Tablet) 30 mg PO DAILY [facility] Last Admin: 01/20/20 09:32 Dose: 30 mg Documented by: Lisinopril (Lisinopril 40 Mg Tablet) 40 mg PO DAILY [facility] Last Admin: 01/20/20 09:32 Dose: 40 mg Documented by: Loratadine (Loratadine 10 Mg Tablet) 10 mg PO QHS [facility] Last Admin: 01/20/20 20:59 Dose: 10 mg Documented by: Lorazepam (Lorazepam 0.5 Mg Tablet) 0.5 mg PO DAILY PRN PRN PRN Reason: ANXIETY Last Admin: 01/21/20 02:37 Dose: 0.5 mg Documented by: Melatonin (Melatonin 3 Mg Tablet) 3 mg PO QHS PRN PRN PRN Reason: INSOMNIA Last Admin: 01/19/20 21:46 Dose: 3 mg Documented by: Nitroglycerin (Nitroglycerin (Inpatient Use) 0.4 Mg Tab.Subl) 0.4 mg SUBLINGUAL Q5M PRN PRN Reason: CARDIAC/CHEST PAIN Ondansetron HCl (Ondansetron 4 Mg/2 Ml Vial) 4 mg IV Q8H PRN PRN PRN Reason: NAUSEA/VOMITING Last Admin: 01/16/20 09:50 Dose: 4 mg Documented by: Oxycodone HCl (Oxycodone 5 Mg Tablet) 5 mg PO Q4H PRN PRN PRN Reason: Pain Score 4-5 Prochlorperazine Edisylate (Prochlorperazine 10 Mg/2 Ml Vial) 5 mg IV Q4H PRN PRN PRN Reason: Breakthrough nausea/vomiting Sodium Chloride (0.9% Saline Lock 10 Ml Syringe) 10 - 40 ml IV UD PRN PRN Reason: SALINE FLUSH Last Admin: 01/19/20 08:40 Dose: 10 ml Documented by: Throat Lozenges (Benzocaine/Menthol 1 Lozenge) 1 lozenge MUCOUS MEM Q2H PRN PRN PRN Reason: SORE THROAT STROKE Vital Signs/Narrative: Vital Signs Pulse Resp Pulse Ox 01/21/20 07:15 70 24 H 96 Medical Necessity - Tobacco Use Smoking Status: Former smoker - Patient smoked for 8 years until she was 27-year-old old with social tobacco use, less than 1/2 pack/day. Tobacco Use: Non-smoker Assessment/Plan All Active Problems (Last Reviewed 10/04/19 @ 15:[address] Toan Vazquez MD) COVID-19 virus infection (Acute) Acute respiratory failure with hypoxia (Acute) Viral pneumonia (Acute) Morbid obesity due to excess calories (Acute) Dyspnea on exertion (Acute) History of coronary artery stent placement (Resolved 12/05/17) Complex endometrial hyperplasia with atypia (Resolved) UTI (urinary tract infection) (Resolved) 1. Acute respiratory failure secondary to severe COVID-19 infection/pneumonia, remains on 10 L of oxygen Will continue with breathing treatments, CPAP Encourage use of incentive spirometer. Wean off oxygen for SPO2 more than 94% Strict I & Os 2. Acute COVID-19 infection, severe with hypoxia Status convalescent plasma on 01/13. Completed Decadron and remdesivir ID and pulmo following 3. Probable acute on chronic diastolic CHF, improving Patient had worsening respiratory status, appears to improve with Lasix therapy Patient appears to be getting contraction alkalosis On oral Lasix 40 mg twice daily; will decrease to Lasix 20 mg twice daily Trend BMP in a.m. 4. CAD/Hypertension/ANA/Morbid Obesity, all remain stable Continue on aspirin, statin, Plavix, lisinopril 5. DVT PPx- Lovenox SC BID 6. Disposition: Due to patient's continuing high oxygen requirements. Completed current treatment for COVID-19 pneumonia Discussed with social work/case management, anticipated discharge to a [facility] facility versus LTAC Inpatient E&M: 72197 Subs Hosp L3
[2020-01-21] MEDS: Furosemide 40 MG Tablet PO (08:00)
[2020-01-21] MEDS: Aspirin E.C. 81 MG Tablet PO (08:00)
[2020-01-21] MEDS: Isosorbide Mononitrate 30 MG Tablet PO (08:00)
[2020-01-21] MEDS: Famotidine 20 MG Tablet PO ×2 (08:00→23:27)
[2020-01-21] MEDS: Clopidogrel Bisulfate 75 MG Tablet PO (08:00)
[2020-01-21] MEDS: Lisinopril 40 MG Tablet PO (08:01)
[2020-01-21] MEDS: dexAMETHasone 4 MG Tablet 6 MG PO (08:01)
[2020-01-21] MEDS: Enoxaparin 40 MG/0.4 ML Syringe SC ×2 (08:01→23:27)
[2020-01-21] MEDS: guaiFENesin 1,200 MG Tablet 1200 MG PO ×2 (08:01→23:30)
[2020-01-21 08:26] LABS: Anion Gap 3 (5-15); BUN 26 mg/dL (7-18); BUN/Creat Ratio 31.1 RATIO (10-20); Calcium,Total 9.8 mg/dL (8.5-10.1); Chloride 96 mmol/L (98-107); Creatinine, Serum 0.84 mg/dL (0.55-1.02); EST Glomerular Filtration Rate 70 mL/min (>60); Est Glom Filt Rate - Afr Amer 85 mL/min (>60); Estimated Creatinine Clearance 43.66 ml/min; Glucose 86 mg/dL (74-106); Potassium 4.6 mmol/L (3.5-5.1); Sodium Level 133 mmol/L (136-145)
--- NOTE | 2020-01-21 11:40 | PN_ITS ---
Patient Problems: Active and Suspected Problems (Last Reviewed 10/04/19 @ 15:[address] Toan Vazquez MD) COVID-19 virus infection (Acute) Acute respiratory failure with hypoxia (Acute) Viral pneumonia (Acute) Morbid obesity due to excess calories (Acute) Subjective: Patient is reporting subjective worsening compared to previous. Patient has developed nausea today and feels this is affecting her breathing. Patient states she had a bowel movement yesterday that was within normal limits. Patient did wear her CPAP overnight, but has required Zofran for symptomatic control. - Physical Exam Vitals/I&O's: Vital Signs Temp Pulse Resp BP Pulse Ox 36.8 C 69 20 H 118/64 94 01/21/20 07:56 01/21/20 07:56 01/21/20 07:56 01/21/20 07:56 01/21/20 07:56 Oxygen Flow Rate (L/min) 10 Oxygen Delivery Method Nasal Cannula Weight: 99.337 kg Body Mass Index (BMI) 40.8 Intake and Output for Last 24 Hours 01/19/20 01/20/20 01/21/20 23:59 23:59 23:59 Intake Total 240 / 440 200 / 200 Output Total 1000 / 2000 1900 / 1900 800 / 800 Balance -760 / -1560 -1700 / -1700 -800 / -800 General: Alert, Oriented x3, Cooperative, - - Mild to moderate distress. Morbidly obese. HEENT: Atraumatic, PERRLA, EOMI, Normocephalic, - - No scleral icterus or injection noted Oral: Moist Mucosa, No Gingival or Mucosal Lesions/ Ulcerations Neck: Supple, No JVD, No Nodes, Trachea Midline Lungs: No rhonchi, No wheeze, Diminished, Rales - Right base, - - Symmetric expansion Cardiovascular: Regular rate, Regular Rhythm, Normal S1, Normal S2, No murmurs, No rub noted, No Gallop Abdomen: Bowel Sounds Present, Soft, Non Tender, Non-Distended, Obese Extremities: No cyanosis, Capillary Refill Less than 3 Seconds, Edema Skin: - - No change compared to previous Musculoskeletal: No Tenderness to Palpation of Joints or Extremities Lymphatic: No Cervical, Supraclavicular, or Inguinal Adenopathy Neurological: Cranial nerves II-XII grossly intact, Neuro grossly intact, Motor Exam 5/5 strength throughout Psych/Mental Status: Alert and oriented to time, place, person, mood and affect Laboratory Results 01/21/20 07:37: Sodium 133 L, Potassium 4.6, Chloride 96 L, Carbon Dioxide 34.0 H, Anion Gap 3 L, BUN 26 H, Creatinine 0.84, Estim Creat Clear Calc 43.66, Est GFR (MDRD) Af Amer 85, Est GFR (MDRD) Non-Af 70, BUN/Creatinine Ratio 31.1 H, Glucose 86, Calcium 9.8 Current Medications Acetaminophen (Acetaminophen 325 Mg Tablet) 650 mg PO Q6H PRN PRN PRN Reason: Pain Score 1-10/Temp > 100.7 F Al Hydroxide/Mg Hydroxide (Mag Hydrox/Al Hydrox/Simeth 30 Ml Udc) 30 ml PO Q6H PRN PRN PRN Reason: Gastric Burning Albuterol Sulfate (Albuterol 2.5 Mg/3 Ml Vial.Neb.) 2.5 mg INHALATION Q2H PRN PRN PRN Reason: Dyspnea, wheezing Albuterol/Ipratropium (Ipratropium/Albuterol Sulfate 3 Ml Ampul.Neb) 3 ml INHALATION Q4H.RT [facility] Last Admin: 01/21/20 07:11 Dose: 3 ml Documented by: Aspirin (Aspirin E.C. 81 Mg Tablet) 81 mg PO DAILY [facility] Last Admin: 01/21/20 08:00 Dose: 81 mg Documented by: Atorvastatin Calcium (Atorvastatin Calcium 40 Mg Tablet) 40 mg PO QHS [facility] Last Admin: 01/20/20 20:59 Dose: 40 mg Documented by: Clopidogrel Bisulfate (Clopidogrel Bisulfate 75 Mg Tablet) 75 mg PO DAILY [facility] Last Admin: 01/21/20 08:00 Dose: 75 mg Documented by: Enoxaparin Sodium (Enoxaparin 40 Mg/0.4 Ml Syringe) 40 mg SC BID [facility] Last Admin: 01/21/20 08:01 Dose: 40 mg Documented by: Famotidine (Famotidine 20 Mg Tablet) 20 mg PO BID [facility] Last Admin: 01/21/20 08:00 Dose: 20 mg Documented by: Furosemide (Furosemide 40 Mg Tablet) 40 mg PO BID@1000,1800 [facility] Last Admin: 01/21/20 08:00 Dose: 40 mg Documented by: Guaifenesin (Guaifenesin 1,200 Mg Tablet) 1,200 mg PO BID [facility] Last Admin: 01/21/20 08:01 Dose: 1,200 mg Documented by: Isosorbide Mononitrate (Isosorbide Mononitrate 30 Mg Tablet) 30 mg PO DAILY [facility] Last Admin: 01/21/20 08:00 Dose: 30 mg Documented by: Lisinopril (Lisinopril 40 Mg Tablet) 40 mg PO DAILY [facility] Last Admin: 01/21/20 08:01 Dose: 40 mg Documented by: Loratadine (Loratadine 10 Mg Tablet) 10 mg PO QHS [facility] Last Admin: 01/20/20 20:59 Dose: 10 mg Documented by: Lorazepam (Lorazepam 0.5 Mg Tablet) 0.5 mg PO DAILY PRN PRN PRN Reason: ANXIETY Last Admin: 01/21/20 02:37 Dose: 0.5 mg Documented by: Melatonin (Melatonin 3 Mg Tablet) 3 mg PO QHS PRN PRN PRN Reason: INSOMNIA Last Admin: 01/19/20 21:46 Dose: 3 mg Documented by: Nitroglycerin (Nitroglycerin (Inpatient Use) 0.4 Mg Tab.Subl) 0.4 mg SUBLINGUAL Q5M PRN PRN Reason: CARDIAC/CHEST PAIN Ondansetron HCl (Ondansetron 4 Mg/2 Ml Vial) 4 mg IV Q8H PRN PRN PRN Reason: NAUSEA/VOMITING Last Admin: 01/16/20 09:50 Dose: 4 mg Documented by: Oxycodone HCl (Oxycodone 5 Mg Tablet) 5 mg PO Q4H PRN PRN PRN Reason: Pain Score 4-5 Prochlorperazine Edisylate (Prochlorperazine 10 Mg/2 Ml Vial) 5 mg IV Q4H PRN PRN PRN Reason: Breakthrough nausea/vomiting Sodium Chloride (0.9% Saline Lock 10 Ml Syringe) 10 - 40 ml IV UD PRN PRN Reason: SALINE FLUSH Last Admin: 01/19/20 08:40 Dose: 10 ml Documented by: Throat Lozenges (Benzocaine/Menthol 1 Lozenge) 1 lozenge MUCOUS MEM Q2H PRN PRN PRN Reason: SORE THROAT Medical Necessity - Tobacco Use Smoking Status: Former smoker - Patient smoked for 8 years until she was 27-year-old old with social tobacco use, less than 1/2 pack/day. Tobacco Use: Non-smoker Assessment/Plan All Active Problems (Last Reviewed 10/04/19 @ 15:[address] Toan Vazquez MD) COVID-19 virus infection (Acute) Acute respiratory failure with hypoxia (Acute) Viral pneumonia (Acute) Morbid obesity due to excess calories (Acute) Dyspnea on exertion (Acute) History of coronary artery stent placement (Resolved 02/24/17) Complex endometrial hyperplasia with atypia (Resolved) UTI (urinary tract infection) (Resolved) RECOMMENDATIONS: 1. Continue steroids and bronchodilators. Completed remdesivir 2. Continue with Lasix. Monitor electrolytes daily 3. Courage incentive spirometer and ambulation as tolerated 4. Patient should continue home CPAP with sleep 5. Monitor for signs and symptoms of GI bleeding given steroids and acute illness IMPRESSIONS: 1. Acute hypoxic respiratory failure secondary to COVID-19 Patient is being seen by infectious disease. Patient is already received convalescent serum, remdesivir and is currently on Decadron therapy. Patient does have underlying asthma, which will complicate overall condition. Pulmonary function tests were not available for review. Patient does have diastolic dysfunction on recent echocardiogram. Patient appears to be responding well to diuretic therapy. Anticipate continuing diuretic therapy until patient develops renal effects. Patient appears to be tolerating this well. If patient is able to ambulate on 6 L or less, potential discharge with supplemental oxygen. Steroids have been discontinued. 2. Chronic diastolic congestive heart failure/aortic dilation Patient with diastolic dysfunction on recent echocardiogram. Unclear significance of dilation of aortic root as echocardiogram did not note this at that time. Patient may have an element of overload leading to dilatation. Would defer to hospitalist on whether cardiology would need to perform a REID as this may be more sensitive for evaluation of aortic dissection. Patient is not reporting any significant chest pain to suggest active dissection at this time. We will continue to give diuretics. Aggressive blood pressure control. Patient is already rate controlled. 3. Advanced age/morbid obesity/ANA/hypertension/CAD Complicates care, management, recovery and prognosis. Patient can be transitioned to home CPAP. Blood pressure appears to be well controlled at this time. Stressed to the patient the importance of ambulation and pulmonary recruitment measures to avoid complications. Patient voiced understanding. Given patient was developing nausea, would need to watch for possible GI complications associated with Decadron therapy. Check H&H tomorrow morning or sooner if patient develops new symptoms. Inpatient E&M: 21109 Subs Hosp L3
[2020-01-21] MEDS: Ondansetron 4 MG/2 ML Vial IV (12:09)
[2020-01-21] MEDS: Furosemide 20 MG Tablet PO (17:29)
[2020-01-21] MEDS: Loratadine 10 MG Tablet PO (23:27)
[2020-01-21] MEDS: Atorvastatin Calcium 40 MG Tablet PO (23:28)
[2020-01-21] MEDS: 0.9% Saline Lock 10 ML Syringe IV (23:32)
[2020-01-22] VITALS (21 sets, daily range): BP systolic 73–121; BP diastolic 33–59; PULSE 59–92; RESP 16–22; TEMP 36.3–36.8; O2SAT 86–94
[2020-01-22] MEDS: Ipratropium/Albuterol Sulfate 3 ML AMPUL.NEB INHALATION ×4 (00:43→20:22)
[2020-01-22] MEDS: LORazepam 0.5 MG Tablet PO ×2 (01:11→20:39)
--- NOTE | 2020-01-22 07:08 | PN_ITS ---
Patient Problems: Active and Suspected Problems (Last Reviewed 10/04/19 @ 15:[address] Toan Vazquez MD) COVID-19 virus infection (Acute) Acute respiratory failure with hypoxia (Acute) Viral pneumonia (Acute) Morbid obesity due to excess calories (Acute) Reason for Visit: Follow-up on hypoxia/acute COVID-19 infection Subjective: Patient was seen and examined. She was seen earlier on, feels improved, denied any complaints. She has been diuresing a lot. Later on in the early part of the afternoon, patient was said to have had 2 syncopal episodes while attempting to urinate. She stated that she has not had much urine output today. She felt lightheaded. Blood pressure check was 75/44. She was put in bed, received fluid boluses. Recheck was 104/46 Objective: Physical exam General: Alert, Oriented x3, Cooperative, on 11 L of oxygen HEENT: Atraumatic, PERRLA, EOMI, Normocephalic Oral: No Gingival or Mucosal Lesions/ Ulcerations Neck: Supple, No JVD, Negative Carotid Bruits Lungs: Air entry diminished in bilateral lung bases Cardiovascular: Regular rate, Regular Rhythm, Normal S1, Normal S2, No murmurs Abdomen: Bowel Sounds Present, Soft, Non Tender, Non-Distended : No renal angle tenderness. No suprapubic tenderness. Extremities: No edema, Capillary Refill Less than 3 Seconds Skin: No rashes, No breakdown Musculoskeletal: No Tenderness to Palpation of Joints or Extremities Neurological: Cranial nerves II-XII grossly intact, Deep Tendon Reflexes 2+/4 and Symmetrical, Neuro grossly intact Psych/Mental Status: Normal Affect, Appropriate. Vitals/I&O's: Vital Signs Temp Pulse Resp BP Pulse Ox 97.6 F L 65 20 H 119/59 L 93 01/22/20 01:16 EST 01/22/20 02:00 01/22/20 01:16 EST 01/22/20 01:16 EST 01/22/20 01:16 EST Oxygen Flow Rate (L/min) 8 Oxygen Delivery Method CPAP Weight: 99.6 kg Body Mass Index (BMI) 40.8 Intake and Output for Last 24 Hours 01/20/20 01/21/20 01/22/20 23:59 23:59 22:59 Intake Total 200 / 200 900 / 900 Output Total 1900 / 1900 2275 / 2275 Balance -1700 / -1700 -1375 / -1375 Laboratory Results 01/21/20 07:37: Sodium 133 L, Potassium 4.6, Chloride 96 L, Carbon Dioxide 34.0 H, Anion Gap 3 L, BUN 26 H, Creatinine 0.84, Estim Creat Clear Calc 43.66, Est GFR (MDRD) Af Amer 85, Est GFR (MDRD) Non-Af 70, BUN/Creatinine Ratio 31.1 H, Glucose 86, Calcium 9.8 Current Medications Acetaminophen (Acetaminophen 325 Mg Tablet) 650 mg PO Q6H PRN PRN PRN Reason: Pain Score 1-10/Temp > 100.7 F Al Hydroxide/Mg Hydroxide (Mag Hydrox/Al Hydrox/Simeth 30 Ml Udc) 30 ml PO Q6H PRN PRN PRN Reason: Gastric Burning Albuterol Sulfate (Albuterol 2.5 Mg/3 Ml Vial.Neb.) 2.5 mg INHALATION Q2H PRN PRN PRN Reason: Dyspnea, wheezing Albuterol/Ipratropium (Ipratropium/Albuterol Sulfate 3 Ml Ampul.Neb) 3 ml INHALATION Q4H.RT [facility] Last Admin: 01/22/20 00:43 Dose: 3 ml Documented by: Aspirin (Aspirin E.C. 81 Mg Tablet) 81 mg PO DAILY [facility] Last Admin: 01/21/20 08:00 Dose: 81 mg Documented by: Atorvastatin Calcium (Atorvastatin Calcium 40 Mg Tablet) 40 mg PO QHS [facility] Last Admin: 01/21/20 23:28 Dose: 40 mg Documented by: Clopidogrel Bisulfate (Clopidogrel Bisulfate 75 Mg Tablet) 75 mg PO DAILY [facility] Last Admin: 01/21/20 08:00 Dose: 75 mg Documented by: Enoxaparin Sodium (Enoxaparin 40 Mg/0.4 Ml Syringe) 40 mg SC BID [facility] Last Admin: 01/21/20 23:27 Dose: 40 mg Documented by: Famotidine (Famotidine 20 Mg Tablet) 20 mg PO BID [facility] Last Admin: 01/21/20 23:27 Dose: 20 mg Documented by: Furosemide (Furosemide 20 Mg Tablet) 20 mg PO BID@1000,1800 [facility] Last Admin: 01/21/20 17:29 Dose: 20 mg Documented by: Guaifenesin (Guaifenesin 1,200 Mg Tablet) 1,200 mg PO BID [facility] Last Admin: 01/21/20 23:30 Dose: 1,200 mg Documented by: Isosorbide Mononitrate (Isosorbide Mononitrate 30 Mg Tablet) 30 mg PO DAILY [facility] Last Admin: 01/21/20 08:00 Dose: 30 mg Documented by: Lisinopril (Lisinopril 40 Mg Tablet) 40 mg PO DAILY [facility] Last Admin: 01/21/20 08:01 Dose: 40 mg Documented by: Loratadine (Loratadine 10 Mg Tablet) 10 mg PO QHS [facility] Last Admin: 01/21/20 23:27 Dose: 10 mg Documented by: Lorazepam (Lorazepam 0.5 Mg Tablet) 0.5 mg PO DAILY PRN PRN PRN Reason: ANXIETY Last Admin: 01/22/20 01:11 EDT Dose: 0.5 mg Documented by: Melatonin (Melatonin 3 Mg Tablet) 3 mg PO QHS PRN PRN PRN Reason: INSOMNIA Last Admin: 01/19/20 21:46 Dose: 3 mg Documented by: Nitroglycerin (Nitroglycerin (Inpatient Use) 0.4 Mg Tab.Subl) 0.4 mg SUBLINGUAL Q5M PRN PRN Reason: CARDIAC/CHEST PAIN Ondansetron HCl (Ondansetron 4 Mg/2 Ml Vial) 4 mg IV Q8H PRN PRN PRN Reason: NAUSEA/VOMITING Last Admin: 01/21/20 12:09 Dose: 4 mg Documented by: Oxycodone HCl (Oxycodone 5 Mg Tablet) 5 mg PO Q4H PRN PRN PRN Reason: Pain Score 4-5 Prochlorperazine Edisylate (Prochlorperazine 10 Mg/2 Ml Vial) 5 mg IV Q4H PRN PRN PRN Reason: Breakthrough nausea/vomiting Sodium Chloride (0.9% Saline Lock 10 Ml Syringe) 10 - 40 ml IV UD PRN PRN Reason: SALINE FLUSH Last Admin: 01/21/20 23:32 Dose: 10 ml Documented by: Throat Lozenges (Benzocaine/Menthol 1 Lozenge) 1 lozenge MUCOUS MEM Q2H PRN PRN PRN Reason: SORE THROAT Medical Necessity - Tobacco Use Smoking Status: Former smoker - Patient smoked for 8 years until she was 27-year-old old with social tobacco use, less than 1/2 pack/day. Tobacco Use: Non-smoker Assessment/Plan All Active Problems (Last Reviewed 10/04/19 @ 15:[address] Toan Vazquez MD) COVID-19 virus infection (Acute) Acute respiratory failure with hypoxia (Acute) Viral pneumonia (Acute) Morbid obesity due to excess calories (Acute) Dyspnea on exertion (Acute) History of coronary artery stent placement (Resolved 02/24/17) Complex endometrial hyperplasia with atypia (Resolved) UTI (urinary tract infection) (Resolved) 79-year-old female with multiple comorbidities admitted on 01/12/20 with fever, shortness of breath. 1. Acute respiratory failure secondary to severe COVID-19 infection/pneumonia, worsening Remains on 11 L of oxygen, get an ABG, start on BiPAP with nasal cannula prongs(patient is intolerant of facemask with BiPAP) Will continue with breathing treatments, encourage use of incentive spirometer. Wean off oxygen for SPO2 more than 94% Strict I & Os 2. Syncopal episodes, x2, not witnessed, reported by patient Secondary to vasovagal/dehydration/orthostasis Blood pressure is low; giving fluid boluses Would hold IV fluids, continue gentle IV fluids Continue to monitor 3. Acute COVID-19 infection, severe with hypoxia Status convalescent plasma on 01/13. Completed Decadron and remdesivir ID and pulmo following 4. Probable acute on chronic diastolic CHF, improving Initially her respiratory status appeared to improve with improve with Lasix therapy Lasix decreased to 20 mg po twice daily; would hold now with severe hypotension Trend BMP in a.m. 5. CAD/Hypertension/ANA/Morbid Obesity, all remain stable Continue on aspirin, statin, Plavix, lisinopril 6. DVT PPx- Lovenox SC BID 7. CODE STATUS?DNR CCA, no intubation 8. Disposition: Due to patient's persistent high oxygen requirements. She has completed current treatment for COVID-19 pneumonia. Discussed with social work/case management, anticipated discharge to a long-term facility versus LTAC I clarified CODE STATUS with patient. I went on to explain in details the various types of CODE STATUS-full code, DNR CCA, DNR CC. She stated that she does not want to be intubated or kept on mechanical ventilator. She has a living will and her , Danyel Stout is her healthcare power of advertising internship. Time spent discussing CODE STATUS 16 minutes Inpatient E&M: 35486 Subs Hosp L3
[2020-01-22 07:57] LABS: Absolute Lymphocyte Count 2.84 X10^3/uL (0.83-4.51); Absolute Neutrophil Count 11.3 X10^3/uL (2.0-7.7); Basophil# 0.05 X10^3/uL; Basophil% 0.3 % (0-1); Eosinophil# 0.18 X10^3/uL; Eosinophils% 1.1 % (0-5); Hematocrit 36.7 % (37-47); Hemoglobin 11.9 g/dL (12.0-15.0); Lymphocyte # 2.84 X10^3/ul (4.0); Lymphocyte % 17.4 % (19-41); Mean Corp Hgb Conc 32.4 g/dL (32-36); Mean Corpuscular Hgb 31.3 pg (27.0-32.0); Mean Corpuscular Volume 96.6 fL (81-99); Mean Platelet Vol. 8.5 fl (6.2-12.0); Monocyte# 1.14 X10^3/uL; NRBC Flagged by Analyzer 0 % (0-5); Neutrophil # 11.26 X10^3/uL (2.7-7.7); Neutrophil % 69.2 % (47-70); Platelet Count 531 K/mm3 (150-450); RBC Distribution Width CV 13.3 % (11.6-14.6); RBC Distribution Width SD 47.2 fl (35.1-43.9); White Blood Count 16.3 K/mm3 (4.4-11.0)
[2020-01-22 08:14] LABS: Anion Gap 3 (5-15); BUN 26 mg/dL (7-18); BUN/Creat Ratio 33.7 RATIO (10-20); Calcium,Total 9.3 mg/dL (8.5-10.1); Chloride 96 mmol/L (98-107); Creatinine, Serum 0.77 mg/dL (0.55-1.02); EST Glomerular Filtration Rate 77 mL/min (>60); Est Glom Filt Rate - Afr Amer 93 mL/min (>60); Estimated Creatinine Clearance 36.67 ml/min; Glucose 107 mg/dL (74-106); Potassium 4.3 mmol/L (3.5-5.1); Sodium Level 133 mmol/L (136-145)
--- NOTE | 2020-01-22 09:26 | PN_ITS ---
Patient Problems: Active and Suspected Problems (Last Reviewed 10/04/19 @ 15:[address] Toan Vazquez MD) COVID-19 virus infection (Acute) Acute respiratory failure with hypoxia (Acute) Viral pneumonia (Acute) Morbid obesity due to excess calories (Acute) Subjective: Patient did okay overnight. Patient states her nausea has significantly improved. Patient is stating that she is able to tolerate breakfast this morning. Patient feels subjectively improved from a respiratory standpoint. - Physical Exam Vitals/I&O's: Vital Signs Temp Pulse Resp BP Pulse Ox 36.4 C L 75 16 119/59 L 91 01/22/20 01:16 EST 01/22/20 07:10 01/22/20 07:10 01/22/20 01:16 EST 01/22/20 07:10 Oxygen Flow Rate (L/min) 8 Oxygen Delivery Method Nasal Cannula Weight: 99.6 kg Body Mass Index (BMI) 40.8 Intake and Output for Last 24 Hours 01/20/20 01/21/20 01/22/20 23:59 23:59 22:59 Intake Total 200 / 200 900 / 900 Output Total 1900 / 1900 2275 / 2275 Balance -1700 / -1700 -1375 / -1375 General: Alert, Oriented x3, Cooperative, No apparent distress, - - Morbidly obese. Tolerating breakfast. Only mild conversational dyspnea. HEENT: Atraumatic, PERRLA, EOMI, Normocephalic, - - No scleral icterus or injection Oral: Moist Mucosa, No Gingival or Mucosal Lesions/ Ulcerations Neck: Supple, No JVD, No Nodes, Trachea Midline Lungs: No rhonchi, No wheeze, Diminished, Rales - Right base, - - Symmetric expansion. Cardiovascular: Regular rate, Regular Rhythm, Normal S1, Normal S2, No murmurs, No rub noted, No Gallop Abdomen: Bowel Sounds Present, Soft, Non Tender, Non-Distended, Obese Extremities: No clubbing, No cyanosis, Edema Skin: - - No change compared to previous Musculoskeletal: No Tenderness to Palpation of Joints or Extremities Lymphatic: No Cervical, Supraclavicular, or Inguinal Adenopathy Neurological: Cranial nerves II-XII grossly intact, Neuro grossly intact, Motor Exam 5/5 strength throughout Psych/Mental Status: Alert and oriented to time, place, person, mood and affect Laboratory Results 01/22/20 07:25: WBC 16.3 H, RBC 3.80 L, Hgb 11.9 L, Hct 36.7 L, MCV 96.6, MCH 31.3, MCHC 32.4, RDW Std Deviation 47.2 H, RDW Coeff of Humberto 13.3, Plt Count 531 H, MPV 8.5, Immature Gran % (Auto) 5.000 H, Neut % (Auto) 69.2, Lymph % (Auto) 17.4 L, Delta % (Auto) 7.0, Eos % (Auto) 1.1, Baso % (Auto) 0.3, Absolute Neuts (auto) 11.3 H, Absolute Lymphs (auto) 2.84, Nucleated RBC % 0 01/22/20 07:25: Sodium 133 L, Potassium 4.3, Chloride 96 L, Carbon Dioxide 34.0 H, Anion Gap 3 L, BUN 26 H, Creatinine 0.77, Estim Creat Clear Calc 36.67, Est GFR (MDRD) Af Amer 93, Est GFR (MDRD) Non-Af 77, BUN/Creatinine Ratio 33.7 H, Glucose 107 H, Calcium 9.3 Current Medications Acetaminophen (Acetaminophen 325 Mg Tablet) 650 mg PO Q6H PRN PRN PRN Reason: Pain Score 1-10/Temp > 100.7 F Al Hydroxide/Mg Hydroxide (Mag Hydrox/Al Hydrox/Simeth 30 Ml Udc) 30 ml PO Q6H PRN PRN PRN Reason: Gastric Burning Albuterol Sulfate (Albuterol 2.5 Mg/3 Ml Vial.Neb.) 2.5 mg INHALATION Q2H PRN PRN PRN Reason: Dyspnea, wheezing Albuterol/Ipratropium (Ipratropium/Albuterol Sulfate 3 Ml Ampul.Neb) 3 ml INHALATION Q4H.RT [facility] Last Admin: 01/22/20 07:10 Dose: 3 ml Documented by: Aspirin (Aspirin E.C. 81 Mg Tablet) 81 mg PO DAILY [facility] Last Admin: 01/21/20 08:00 Dose: 81 mg Documented by: Atorvastatin Calcium (Atorvastatin Calcium 40 Mg Tablet) 40 mg PO QHS [facility] Last Admin: 01/21/20 23:28 Dose: 40 mg Documented by: Clopidogrel Bisulfate (Clopidogrel Bisulfate 75 Mg Tablet) 75 mg PO DAILY [facility] Last Admin: 01/21/20 08:00 Dose: 75 mg Documented by: Enoxaparin Sodium (Enoxaparin 40 Mg/0.4 Ml Syringe) 40 mg SC BID [facility] Last Admin: 01/21/20 23:27 Dose: 40 mg Documented by: Famotidine (Famotidine 20 Mg Tablet) 20 mg PO BID [facility] Last Admin: 01/21/20 23:27 Dose: 20 mg Documented by: Furosemide (Furosemide 20 Mg Tablet) 20 mg PO BID@1000,1800 [facility] Last Admin: 01/21/20 17:29 Dose: 20 mg Documented by: Guaifenesin (Guaifenesin 1,200 Mg Tablet) 1,200 mg PO BID [facility] Last Admin: 01/21/20 23:30 Dose: 1,200 mg Documented by: Isosorbide Mononitrate (Isosorbide Mononitrate 30 Mg Tablet) 30 mg PO DAILY [facility] Last Admin: 01/21/20 08:00 Dose: 30 mg Documented by: Lisinopril (Lisinopril 40 Mg Tablet) 40 mg PO DAILY [facility] Last Admin: 01/21/20 08:01 Dose: 40 mg Documented by: Loratadine (Loratadine 10 Mg Tablet) 10 mg PO QHS [facility] Last Admin: 01/21/20 23:27 Dose: 10 mg Documented by: Lorazepam (Lorazepam 0.5 Mg Tablet) 0.5 mg PO DAILY PRN PRN PRN Reason: ANXIETY Last Admin: 01/22/20 01:11 EDT Dose: 0.5 mg Documented by: Melatonin (Melatonin 3 Mg Tablet) 3 mg PO QHS PRN PRN PRN Reason: INSOMNIA Last Admin: 01/19/20 21:46 Dose: 3 mg Documented by: Nitroglycerin (Nitroglycerin (Inpatient Use) 0.4 Mg Tab.Subl) 0.4 mg SUBLINGUAL Q5M PRN PRN Reason: CARDIAC/CHEST PAIN Ondansetron HCl (Ondansetron 4 Mg/2 Ml Vial) 4 mg IV Q8H PRN PRN PRN Reason: NAUSEA/VOMITING Last Admin: 01/21/20 12:09 Dose: 4 mg Documented by: Oxycodone HCl (Oxycodone 5 Mg Tablet) 5 mg PO Q4H PRN PRN PRN Reason: Pain Score 4-5 Prochlorperazine Edisylate (Prochlorperazine 10 Mg/2 Ml Vial) 5 mg IV Q4H PRN PRN PRN Reason: Breakthrough nausea/vomiting Sodium Chloride (0.9% Saline Lock 10 Ml Syringe) 10 - 40 ml IV UD PRN PRN Reason: SALINE FLUSH Last Admin: 01/21/20 23:32 Dose: 10 ml Documented by: Throat Lozenges (Benzocaine/Menthol 1 Lozenge) 1 lozenge MUCOUS MEM Q2H PRN PRN PRN Reason: SORE THROAT Medical Necessity - Tobacco Use Smoking Status: Former smoker - Patient smoked for 8 years until she was 27-year-old old with social tobacco use, less than 1/2 pack/day. Tobacco Use: Non-smoker Assessment/Plan All Active Problems (Last Reviewed 10/04/19 @ 15:[address] Toan Vazquez MD) COVID-19 virus infection (Acute) Acute respiratory failure with hypoxia (Acute) Viral pneumonia (Acute) Morbid obesity due to excess calories (Acute) Dyspnea on exertion (Acute) History of coronary artery stent placement (Resolved 02/24/17) Complex endometrial hyperplasia with atypia (Resolved) UTI (urinary tract infection) (Resolved) RECOMMENDATIONS: 1. Continue steroids and bronchodilators. Completed remdesivir 2. Continue with Lasix as tolerated. Monitor electrolytes daily 3. Courage incentive spirometer and ambulation as tolerated 4. Patient should continue home CPAP with sleep 5. Increase activity as tolerated IMPRESSIONS: 1. Acute hypoxic respiratory failure secondary to COVID-19 Patient is being seen by infectious disease. Patient is already received convalescent serum, remdesivir and is currently on Decadron therapy. Patient does have underlying asthma, which will complicate overall condition. Pulmonary function tests were not available for review. Patient does have diastolic dysfunction on recent echocardiogram. Patient appears to be responding well to diuretic therapy and is remaining negative despite low-dose. Anticipate continuing diuretic therapy until patient develops renal effects. Patient appears to be tolerating this well. If patient is able to ambulate on 6 L or less, potential discharge with supplemental oxygen. Patient has completed her Decadron course. Likely not necessary to initiate prednisone at this time. 2. Chronic diastolic congestive heart failure/aortic dilation Patient with diastolic dysfunction on recent echocardiogram. Unclear significance of dilation of aortic root as echocardiogram did not note this at that time. Patient may have an element of overload leading to dilatation. Would defer to hospitalist on whether cardiology would need to perform a REID as this may be more sensitive for evaluation of aortic dissection. Patient is not reporting any significant chest pain to suggest active dissection at this time. We will continue to give diuretics. Aggressive blood pressure control. Patient is already rate controlled. 3. Advanced age/morbid obesity/ANA/hypertension/CAD Complicates care, management, recovery and prognosis. Patient can be transitioned to home CPAP. Blood pressure appears to be well controlled at this time. Stressed to the patient the importance of ambulation and pulmonary recruitment measures to avoid complications. Patient voiced understanding. Given patient was developing nausea, would need to watch for possible GI complications associated with Decadron therapy. H&H has remained stable and patient is not reporting any melena. Continue to monitor. Inpatient E&M: [id number] [facility] L3
[2020-01-22] MEDS: Enoxaparin 40 MG/0.4 ML Syringe SC ×2 (09:38→20:37)
[2020-01-22] MEDS: Clopidogrel Bisulfate 75 MG Tablet PO (09:39)
[2020-01-22] MEDS: Famotidine 20 MG Tablet PO ×2 (09:39→20:38)
[2020-01-22] MEDS: guaiFENesin 1,200 MG Tablet 1200 MG PO ×2 (09:39→20:37)
[2020-01-22] MEDS: Lisinopril 40 MG Tablet PO (09:39)
[2020-01-22] MEDS: Aspirin E.C. 81 MG Tablet PO (09:39)
[2020-01-22] MEDS: Furosemide 20 MG Tablet PO (09:39)
[2020-01-22] MEDS: Isosorbide Mononitrate 30 MG Tablet PO (09:44)
--- NOTE | 2020-01-22 12:53 | NURSING ---
RN in to see patient. Patient was sitting up in her recliner chair with eyes closed. Patient states that she thinks she passed out while on the BSC. Vitals obtained. Called for assistance to get patient back into bed. Assisted x2 from chair back to bed. Tolerated well. RN Called Dr. Paiz.
[2020-01-22] MEDS: 0.9% Saline Lock 10 ML Syringe IV (13:05)
[2020-01-22] MEDS: 0.9% Normal Saline 1,000 ML 100 ML IV (15:50)
[2020-01-22 16:01] LABS: Base Excess 6 mmol/L (-2 to +2); Blood Gas Specimen Type ART; O2 Delivery Device Cannula; PO2 72 mmHG (75-100); SITE R Radial; SO2 95 % (95-99); Total Carbon Dioxide 31 mmol/L; pCO2 45.4 mmHg (35-45); pH 7.43 (7.35-7.45)
[2020-01-22] MEDS: Loratadine 10 MG Tablet PO (20:38)
[2020-01-22] MEDS: Atorvastatin Calcium 40 MG Tablet PO (20:38)
[2020-01-23] VITALS (15 sets, daily range): BP systolic 101–144; BP diastolic 58–90; PULSE 68–88; RESP 16–24; TEMP 36.6–37.1; O2SAT 89–98
[2020-01-23] MEDS: Ipratropium/Albuterol Sulfate 3 ML AMPUL.NEB INHALATION ×4 (07:37→18:57)
--- NOTE | 2020-01-23 08:13 | PCM.PN.HOSP ---
Patient Problems: Active and Suspected Problems (Last Reviewed 10/04/19 @ 15:[address] Toan Vazquez MD) COVID-19 virus infection (Acute) Acute respiratory failure with hypoxia (Acute) Viral pneumonia (Acute) Morbid obesity due to excess calories (Acute) Reason for Visit: COVID-19 pneumonia Subjective: 9-year-old patient admitted with progressive shortness of breath diagnosed with acute hypoxic respiratory failure secondary to COVID-19 pneumonia Objective: GENERAL: cooperative HEENT: Atraumatic; EYES; Anicteric, Normal Conjunctiva NECK; supple, normal thyroid, RESPIRATORY: Diminished to auscultation CARDIOVASCULAR: Regular S1 S2, GI: soft, normoactive bowel sounds, : No Renal angle tenderness; EXTREMITIES: No edema, no clubbing, MUSCULOSKELETAL: no muscle waisting NEURO: Awake; no lateralizing signs. SKIN: No Rash PSYCH; Flat affect Vitals/I&O's: Vital Signs Temp Pulse Resp BP Pulse Ox 98.0 F 75 16 144/90 H 96 01/23/20 04:09 01/23/20 07:38 01/23/20 07:38 01/23/20 04:09 01/23/20 07:38 Oxygen Flow Rate (L/min) 10 Oxygen Delivery Method Nasal Cannula Weight: 100.8 kg Body Mass Index (BMI) 40.8 Intake and Output for Last 24 Hours 01/22/20 01/22/20 01/23/20 00:59 23:59 23:59 Intake Total 251.67 / 251.67 Output Total 500 / 500 Balance -248.33 / -248.33 Laboratory Results 01/22/20 07:25: Sodium 133 L, Potassium 4.3, Chloride 96 L, Carbon Dioxide 34.0 H, Anion Gap 3 L, BUN 26 H, Creatinine 0.77, Estim Creat Clear Calc 36.67, Est GFR (MDRD) Af Amer 93, Est GFR (MDRD) Non-Af 77, BUN/Creatinine Ratio 33.7 H, Glucose 107 H, Calcium 9.3 01/22/20 15:56: Specimen Type ART, Sample Site R Radial, pH 7.43, Bicarbonate Actual 30.0 H, Total CO2 31, Base Excess 6 H, O2 Saturation 95, ABG pCO2 45.4 H, ABG pO2 72 L, O2 Delivery Device Cannula, Liter Flow 15.0 Current Medications Acetaminophen (Acetaminophen 325 Mg Tablet) 650 mg PO Q6H PRN PRN PRN Reason: Pain Score 1-10/Temp > 100.7 F Al Hydroxide/Mg Hydroxide (Mag Hydrox/Al Hydrox/Simeth 30 Ml Udc) 30 ml PO Q6H PRN PRN PRN Reason: Gastric Burning Albuterol Sulfate (Albuterol 2.5 Mg/3 Ml Vial.Neb.) 2.5 mg INHALATION Q2H PRN PRN PRN Reason: Dyspnea, wheezing Albuterol/Ipratropium (Ipratropium/Albuterol Sulfate 3 Ml Ampul.Neb) 3 ml INHALATION Q4H.RT [facility] Last Admin: 01/23/20 07:37 Dose: 3 ml Documented by: Aspirin (Aspirin E.C. 81 Mg Tablet) 81 mg PO DAILY [facility] Last Admin: 01/22/20 09:39 Dose: 81 mg Documented by: Atorvastatin Calcium (Atorvastatin Calcium 40 Mg Tablet) 40 mg PO QHS [facility] Last Admin: 01/22/20 20:38 Dose: 40 mg Documented by: Clopidogrel Bisulfate (Clopidogrel Bisulfate 75 Mg Tablet) 75 mg PO DAILY [facility] Last Admin: 01/22/20 09:39 Dose: 75 mg Documented by: Enoxaparin Sodium (Enoxaparin 40 Mg/0.4 Ml Syringe) 40 mg SC BID [facility] Last Admin: 01/22/20 20:37 Dose: 40 mg Documented by: Famotidine (Famotidine 20 Mg Tablet) 20 mg PO BID [facility] Last Admin: 01/22/20 20:38 Dose: 20 mg Documented by: Furosemide (Furosemide 20 Mg Tablet) 20 mg PO BID@1000,1800 [facility] Last Admin: 01/22/20 09:39 Dose: 20 mg Documented by: Guaifenesin (Guaifenesin 1,200 Mg Tablet) 1,200 mg PO BID [facility] Last Admin: 01/22/20 20:37 Dose: 1,200 mg Documented by: Isosorbide Mononitrate (Isosorbide Mononitrate 30 Mg Tablet) 30 mg PO DAILY [facility] Last Admin: 01/22/20 09:44 Dose: 30 mg Documented by: Lisinopril (Lisinopril 40 Mg Tablet) 40 mg PO DAILY [facility] Last Admin: 01/22/20 09:39 Dose: 40 mg Documented by: Loratadine (Loratadine 10 Mg Tablet) 10 mg PO QHS [facility] Last Admin: 01/22/20 20:38 Dose: 10 mg Documented by: Lorazepam (Lorazepam 0.5 Mg Tablet) 0.5 mg PO DAILY PRN PRN PRN Reason: ANXIETY Last Admin: 01/22/20 20:39 Dose: 0.5 mg Documented by: Melatonin (Melatonin 3 Mg Tablet) 3 mg PO QHS PRN PRN PRN Reason: INSOMNIA Last Admin: 01/19/20 21:46 Dose: 3 mg Documented by: Nitroglycerin (Nitroglycerin (Inpatient Use) 0.4 Mg Tab.Subl) 0.4 mg SUBLINGUAL Q5M PRN PRN Reason: CARDIAC/CHEST PAIN Ondansetron HCl (Ondansetron 4 Mg/2 Ml Vial) 4 mg IV Q8H PRN PRN PRN Reason: NAUSEA/VOMITING Last Admin: 01/21/20 12:09 Dose: 4 mg Documented by: Oxycodone HCl (Oxycodone 5 Mg Tablet) 5 mg PO Q4H PRN PRN PRN Reason: Pain Score 4-5 Prochlorperazine Edisylate (Prochlorperazine 10 Mg/2 Ml Vial) 5 mg IV Q4H PRN PRN PRN Reason: Breakthrough nausea/vomiting Sodium Chloride (0.9% Saline Lock 10 Ml Syringe) 10 - 40 ml IV UD PRN PRN Reason: SALINE FLUSH Last Admin: 01/22/20 13:05 Dose: 10 ml Documented by: Throat Lozenges (Benzocaine/Menthol 1 Lozenge) 1 lozenge MUCOUS MEM Q2H PRN PRN PRN Reason: SORE THROAT STROKE Vital Signs/Narrative: Vital Signs Pulse Resp Pulse Ox 01/23/20 07:38 75 16 96 Medical Necessity - Tobacco Use Smoking Status: Former smoker - Patient smoked for 8 years until she was 27-year-old old with social tobacco use, less than 1/2 pack/day. Tobacco Use: Non-smoker Assessment/Plan All Active Problems (Last Reviewed 10/04/19 @ 15:[address] Toan Vazquez MD) COVID-19 virus infection (Acute) Acute respiratory failure with hypoxia (Acute) Viral pneumonia (Acute) Morbid obesity due to excess calories (Acute) Dyspnea on exertion (Acute) History of coronary artery stent placement (Resolved 02/24/17) Complex endometrial hyperplasia with atypia (Resolved) UTI (urinary tract infection) (Resolved) 79-year-old patient admitted with progressive shortness of breath diagnosed with acute hypoxic respiratory failure secondary to COVID-19 pneumonia 1. Acute hypoxic respiratory failure secondary to COVID-19 infection ?Patient completed a course of Decadron, convalescent plasma and remdesivir. Remains on supplemental oxygen requiring 10 L of oxygen to maintain saturation greater than 94. 2. Syncopal episode ?? Orthostasis managed with IV fluid boluses 3. Acute on chronic congestive heart failure with preserved ejection fraction ?Patient did improve with Lasix held in view of hypotension 4. Hypertension - Blood pressure controlled, home medications continued with dose adjustment as needed 5. Obesity with BMI of 40.6 ?Weight loss advised 6. Obstructive sleep apnea ?On CPAP at night 7. Coronary artery disease ?With previous PCI with ROBBI to an LAD lesion in 2017. Patient currently on recommended medications 8. Mild intermittent asthma ?Aerosol treatment as needed 9. Dyslipidemia -Patient is on statin therapy, continued at home dose 10. DVT Prophylaxis ?[place] Lovenox Inpatient E&M: 25758 Subs Hosp L2
[2020-01-23] MEDS: Famotidine 20 MG Tablet PO ×2 (09:16→21:20)
[2020-01-23] MEDS: guaiFENesin 1,200 MG Tablet 1200 MG PO ×2 (09:16→21:20)
[2020-01-23] MEDS: Clopidogrel Bisulfate 75 MG Tablet PO (09:16)
[2020-01-23] MEDS: Enoxaparin 40 MG/0.4 ML Syringe SC ×2 (09:16→21:20)
[2020-01-23] MEDS: Aspirin E.C. 81 MG Tablet PO (09:21)
--- NOTE | 2020-01-23 11:10 | CASEMGMT ---
INDRA COUCH Note: spoke to via phone re: LTAC for patient. Lengthy explanation to re: purpose of LTAC, level of care on dc and medically ready for discharge from acute hospital to LTAC. Discussed his 's respiratory needs which are still requiring 10-15L NC. Discussed area LTAC's including [facility] in [place]. would like to review and call his family physician prior to decision. INDRA COUCH also spoke with patient who is agreeable and stated they have family in area of [place] so [facility] would likely be a first choice. INDRA COUCH let and know referral could be made after had time to research this am and speak with . PT/OT on hold yesterday, but further therapy was recommended. -Call to [facility]. Spoke with [facility]. They are checking on bed availability and do take COVID positive patient. [facility] [id number] Ro PAREKH RN AC
--- NOTE | 2020-01-23 14:01 | PCM.PN.PUL ---
Patient Problems: Active and Suspected Problems (Last Reviewed 10/04/19 @ 15:[address] Toan Vazquez MD) COVID-19 virus infection (Acute) Acute respiratory failure with hypoxia (Acute) Viral pneumonia (Acute) Morbid obesity due to excess calories (Acute) Subjective: The patient was seen and examined at the bedside this morning. Events from the last 24 hours have been reviewed. The patient is currently afebrile, hemodynamically stable and maintaining appropriate oxygen saturations on 10 L/min via nasal cannula. The patient does report residual dyspnea along with a cough. The patient does report that she is making attempts to utilize her incentive spirometer. Objective: The patient's most recent lab work, culture data and imaging studies have all been personally reviewed. - Physical Exam Vitals/I&O's: Vital Signs Temp Pulse Resp BP Pulse Ox 98.6 F 80 16 111/58 L 97 01/23/20 09:25 01/23/20 10:58 01/23/20 10:58 01/23/20 09:25 01/23/20 09:28 Oxygen Flow Rate (L/min) 10 Oxygen Delivery Method Nasal Cannula Weight: 222 lb 3.615 oz Body Mass Index (BMI) 40.8 Intake and Output for Last 24 Hours 01/22/20 01/22/20 01/23/20 00:59 23:59 23:59 Intake Total 251.67 / 251.67 Output Total 500 / 500 Balance -248.33 / -248.33 General: Alert, Cooperative, No apparent distress, - - Sitting upright in bed. Morbidly obese. HEENT: Atraumatic, Normocephalic Oral: Moist Mucosa, No Gingival or Mucosal Lesions/ Ulcerations Neck: Supple, No Nodes, Trachea Midline Lungs: Diminished Cardiovascular: Regular rate, Regular Rhythm Abdomen: Bowel Sounds Present, Soft, Non Tender, Obese Extremities: No clubbing, No cyanosis, Edema Skin: No breakdown Musculoskeletal: No Muscle Wasting Lymphatic: No Cervical, Supraclavicular, or Inguinal Adenopathy Neurological: Cranial nerves II-XII grossly intact, Neuro grossly intact Psych/Mental Status: Normal Affect, Appropriate Labs (Last 48 Hours) 01/22/20 01/22/20 01/22/20 07:25 07:25 15:56 WBC 16.3 H RBC 3.80 L Hgb 11.9 L Hct 36.7 L MCV 96.6 MCH 31.3 MCHC 32.4 RDW Std Deviation 47.2 H RDW Coeff of Humberto 13.3 Plt Count 531 H MPV 8.5 Immature Gran % (Auto) 5.000 H Neut % (Auto) 69.2 Lymph % (Auto) 17.4 L Oliver % (Auto) 7.0 Eos % (Auto) 1.1 Baso % (Auto) 0.3 Absolute Neuts (auto) 11.3 H Absolute Lymphs (auto) 2.84 Nucleated RBC % 0 Specimen Type ART Sample Site R Radial pH 7.43 Bicarbonate Actual 30.0 H Total CO2 31 Base Excess 6 H O2 Saturation 95 ABG pCO2 45.4 H ABG pO2 72 L O2 Delivery Device Cannula Liter Flow 15.0 Sodium 133 L Potassium 4.3 Chloride 96 L Carbon Dioxide 34.0 H Anion Gap 3 L BUN 26 H Creatinine 0.77 Estim Creat Clear Calc 36.67 Est GFR (MDRD) Af Amer 93 Est GFR (MDRD) Non-Af 77 BUN/Creatinine Ratio 33.7 H Glucose 107 H Calcium 9.3 Clinical Impression(s) from Imaging Studies Chest X-Ray 01/12/20 14:30 IMPRESSION: Progressive infiltrates more prominent in the left side preferentially in peripheral distribution. 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 No evidence for pulmonary embolus. Electronically Signed: Cristhian Castro MD at 17:17 EDT , Service support , Current Medications Acetaminophen (Acetaminophen 325 Mg Tablet) 650 mg PO Q6H PRN PRN PRN Reason: Pain Score 1-10/Temp > 100.7 F Al Hydroxide/Mg Hydroxide (Mag Hydrox/Al Hydrox/Simeth 30 Ml Udc) 30 ml PO Q6H PRN PRN PRN Reason: Gastric Burning Albuterol Sulfate (Albuterol 2.5 Mg/3 Ml Vial.Neb.) 2.5 mg INHALATION Q2H PRN PRN PRN Reason: Dyspnea, wheezing Albuterol/Ipratropium (Ipratropium/Albuterol Sulfate 3 Ml Ampul.Neb) 3 ml INHALATION Q4H.RT [facility] Last Admin: 01/23/20 10:56 Dose: 3 ml Documented by: Aspirin (Aspirin E.C. 81 Mg Tablet) 81 mg PO DAILY [facility] Last Admin: 01/23/20 09:21 Dose: 81 mg Documented by: Atorvastatin Calcium (Atorvastatin Calcium 40 Mg Tablet) 40 mg PO QHS [facility] Last Admin: 01/22/20 20:38 Dose: 40 mg Documented by: Clopidogrel Bisulfate (Clopidogrel Bisulfate 75 Mg Tablet) 75 mg PO DAILY [facility] Last Admin: 01/23/20 09:16 Dose: 75 mg Documented by: Enoxaparin Sodium (Enoxaparin 40 Mg/0.4 Ml Syringe) 40 mg SC BID [facility] Last Admin: 01/23/20 09:16 Dose: 40 mg Documented by: Famotidine (Famotidine 20 Mg Tablet) 20 mg PO BID [facility] Last Admin: 01/23/20 09:16 Dose: 20 mg Documented by: Furosemide (Furosemide 20 Mg Tablet) 20 mg PO BID@1000,1800 [facility] Last Admin: 01/22/20 09:39 Dose: 20 mg Documented by: Guaifenesin (Guaifenesin 1,200 Mg Tablet) 1,200 mg PO BID [facility] Last Admin: 01/23/20 09:16 Dose: 1,200 mg Documented by: Isosorbide Mononitrate (Isosorbide Mononitrate 30 Mg Tablet) 30 mg PO DAILY [facility] Last Admin: 01/22/20 09:44 Dose: 30 mg Documented by: Lisinopril (Lisinopril 40 Mg Tablet) 40 mg PO DAILY [facility] Last Admin: 01/22/20 09:39 Dose: 40 mg Documented by: Loratadine (Loratadine 10 Mg Tablet) 10 mg PO QHS [facility] Last Admin: 01/22/20 20:38 Dose: 10 mg Documented by: Lorazepam (Lorazepam 0.5 Mg Tablet) 0.5 mg PO DAILY PRN PRN PRN Reason: ANXIETY Last Admin: 01/22/20 20:39 Dose: 0.5 mg Documented by: Melatonin (Melatonin 3 Mg Tablet) 3 mg PO QHS PRN PRN PRN Reason: INSOMNIA Last Admin: 01/19/20 21:46 Dose: 3 mg Documented by: Nitroglycerin (Nitroglycerin (Inpatient Use) 0.4 Mg Tab.Subl) 0.4 mg SUBLINGUAL Q5M PRN PRN Reason: CARDIAC/CHEST PAIN Ondansetron HCl (Ondansetron 4 Mg/2 Ml Vial) 4 mg IV Q8H PRN PRN PRN Reason: NAUSEA/VOMITING Last Admin: 01/21/20 12:09 Dose: 4 mg Documented by: Oxycodone HCl (Oxycodone 5 Mg Tablet) 5 mg PO Q4H PRN PRN PRN Reason: Pain Score 4-5 Prochlorperazine Edisylate (Prochlorperazine 10 Mg/2 Ml Vial) 5 mg IV Q4H PRN PRN PRN Reason: Breakthrough nausea/vomiting Sodium Chloride (0.9% Saline Lock 10 Ml Syringe) 10 - 40 ml IV UD PRN PRN Reason: SALINE FLUSH Last Admin: 01/22/20 13:05 Dose: 10 ml Documented by: Throat Lozenges (Benzocaine/Menthol 1 Lozenge) 1 lozenge MUCOUS MEM Q2H PRN PRN PRN Reason: SORE THROAT Medical Necessity - Tobacco Use Smoking Status: Former smoker - Patient smoked for 8 years until she was 27-year-old old with social tobacco use, less than 1/2 pack/day. Tobacco Use: Non-smoker Assessment/Plan All Active Problems (Last Reviewed 10/04/19 @ 15:[address] Toan Vazquez MD) COVID-19 virus infection (Acute) Acute respiratory failure with hypoxia (Acute) Viral pneumonia (Acute) Morbid obesity due to excess calories (Acute) Dyspnea on exertion (Acute) History of coronary artery stent placement (Resolved 02/24/17) Complex endometrial hyperplasia with atypia (Resolved) UTI (urinary tract infection) (Resolved) RECOMMENDATIONS: 1. Continue steroids and bronchodilators. Completed remdesivir 2. Continue with Lasix as tolerated. Monitor electrolytes daily 3. Encourage incentive spirometer use and mobilize patient as tolerated. 4. Patient should continue home CPAP with sleep IMPRESSIONS: 1. Acute hypoxic respiratory failure secondary to COVID-19 pneumonia Continue current supportive measures with supplemental oxygen to maintain saturations at or above 90%. The patient is already received convalescent plasma and remdesivir. She remains on scheduled Decadron therapy. The patient does reportedly have underlying asthma, which will complicate overall condition. In addition, she does have an underlying component of heart failure with preserved ejection fraction. Continue gentle diuresis as tolerated by hemodynamics and renal function. 2. Chronic diastolic congestive heart failure/aortic dilation Patient with diastolic dysfunction on recent echocardiogram. We will continue to give diuretics. Aggressive blood pressure control. Patient is already rate controlled. 3. Advanced age/morbid obesity/ANA/hypertension/CAD Complicates care, management, recovery and prognosis. Patient can be transitioned to home CPAP. Blood pressure appears to be well controlled at this time. Stressed to the patient the importance of ambulation and pulmonary recruitment measures to avoid complications. This note was generated with [employer] dictation software. It may contain incorrect words, spelling, and punctuation that were not noted in checking the note before signing. Inpatient E&M: 92168 [facility] Hosp L3
[2020-01-23] MEDS: Loratadine 10 MG Tablet PO (21:20)
[2020-01-23] MEDS: Atorvastatin Calcium 40 MG Tablet PO (21:20)
[2020-01-24] VITALS (13 sets, daily range): BP systolic 115–128; BP diastolic 56–63; PULSE 68–96; RESP 16–24; TEMP 36.9–37.3; O2SAT 94–98
[2020-01-24] MEDS: Ipratropium/Albuterol Sulfate 3 ML AMPUL.NEB INHALATION ×3 (06:35→20:05)
--- NOTE | 2020-01-24 07:27 | PCM.PN.HOSP ---
Patient Problems: Active and Suspected Problems (Last Reviewed 10/04/19 @ 15:[address] Toan Vazquez MD) COVID-19 virus infection (Acute) Acute respiratory failure with hypoxia (Acute) Viral pneumonia (Acute) Morbid obesity due to excess calories (Acute) Reason for Visit: Acute COVID-19 pneumonia. Subjective: Patient seen no significant change in clinical condition. Plan is for patient to be transferred to LTAC pending bed availability. Still requiring high flow oxygen Objective: GENERAL: cooperative HEENT: Atraumatic; EYES; Anicteric, Normal Conjunctiva NECK; supple, normal thyroid, RESPIRATORY: Diminished to auscultation CARDIOVASCULAR: Regular S1 S2, GI: soft, normoactive bowel sounds, : No Renal angle tenderness; EXTREMITIES: No edema, no clubbing, MUSCULOSKELETAL: no muscle waisting NEURO: Awake; no lateralizing signs. SKIN: No Rash PSYCH; Flat affect Vitals/I&O's: Vital Signs Temp Pulse Resp BP Pulse Ox 98.5 F 68 18 115/63 94 01/24/20 02:41 01/24/20 03:10 01/24/20 02:41 01/24/20 02:41 01/24/20 02:41 Oxygen Flow Rate (L/min) 13 Oxygen Delivery Method CPAP Weight: 103.6 kg Body Mass Index (BMI) 40.8 Intake and Output for Last 24 Hours 01/22/20 01/23/20 01/24/20 23:59 23:59 23:59 Intake Total 326.67 / 326.67 100 / 100 Output Total 900 / 900 200 / 200 Balance -573.33 / -573.33 -100 / -100 Current Medications Acetaminophen (Acetaminophen 325 Mg Tablet) 650 mg PO Q6H PRN PRN PRN Reason: Pain Score 1-10/Temp > 100.7 F Al Hydroxide/Mg Hydroxide (Mag Hydrox/Al Hydrox/Simeth 30 Ml Udc) 30 ml PO Q6H PRN PRN PRN Reason: Gastric Burning Albuterol Sulfate (Albuterol 2.5 Mg/3 Ml Vial.Neb.) 2.5 mg INHALATION Q2H PRN PRN PRN Reason: Dyspnea, wheezing Albuterol/Ipratropium (Ipratropium/Albuterol Sulfate 3 Ml Ampul.Neb) 3 ml INHALATION Q4H.RT [facility] Last Admin: 01/23/20 18:57 Dose: 3 ml Documented by: Aspirin (Aspirin E.C. 81 Mg Tablet) 81 mg PO DAILY [facility] Last Admin: 01/23/20 09:21 Dose: 81 mg Documented by: Atorvastatin Calcium (Atorvastatin Calcium 40 Mg Tablet) 40 mg PO QHS [facility] Last Admin: 01/23/20 21:20 Dose: 40 mg Documented by: Clopidogrel Bisulfate (Clopidogrel Bisulfate 75 Mg Tablet) 75 mg PO DAILY [facility] Last Admin: 01/23/20 09:16 Dose: 75 mg Documented by: Enoxaparin Sodium (Enoxaparin 40 Mg/0.4 Ml Syringe) 40 mg SC BID [facility] Last Admin: 01/23/20 21:20 Dose: 40 mg Documented by: Famotidine (Famotidine 20 Mg Tablet) 20 mg PO BID [facility] Last Admin: 01/23/20 21:20 Dose: 20 mg Documented by: Furosemide (Furosemide 20 Mg Tablet) 20 mg PO BID@1000,1800 [facility] Last Admin: 01/22/20 09:39 Dose: 20 mg Documented by: Guaifenesin (Guaifenesin 1,200 Mg Tablet) 1,200 mg PO BID [facility] Last Admin: 01/23/20 21:20 Dose: 1,200 mg Documented by: Isosorbide Mononitrate (Isosorbide Mononitrate 30 Mg Tablet) 30 mg PO DAILY [facility] Last Admin: 01/22/20 09:44 Dose: 30 mg Documented by: Lisinopril (Lisinopril 40 Mg Tablet) 40 mg PO DAILY [facility] Last Admin: 01/22/20 09:39 Dose: 40 mg Documented by: Loratadine (Loratadine 10 Mg Tablet) 10 mg PO QHS [facility] Last Admin: 01/23/20 21:20 Dose: 10 mg Documented by: Lorazepam (Lorazepam 0.5 Mg Tablet) 0.5 mg PO DAILY PRN PRN PRN Reason: ANXIETY Last Admin: 01/22/20 20:39 Dose: 0.5 mg Documented by: Melatonin (Melatonin 3 Mg Tablet) 3 mg PO QHS PRN PRN PRN Reason: INSOMNIA Last Admin: 01/19/20 21:46 Dose: 3 mg Documented by: Nitroglycerin (Nitroglycerin (Inpatient Use) 0.4 Mg Tab.Subl) 0.4 mg SUBLINGUAL Q5M PRN PRN Reason: CARDIAC/CHEST PAIN Ondansetron HCl (Ondansetron 4 Mg/2 Ml Vial) 4 mg IV Q8H PRN PRN PRN Reason: NAUSEA/VOMITING Last Admin: 01/21/20 12:09 Dose: 4 mg Documented by: Oxycodone HCl (Oxycodone 5 Mg Tablet) 5 mg PO Q4H PRN PRN PRN Reason: Pain Score 4-5 Prochlorperazine Edisylate (Prochlorperazine 10 Mg/2 Ml Vial) 5 mg IV Q4H PRN PRN PRN Reason: Breakthrough nausea/vomiting Sodium Chloride (0.9% Saline Lock 10 Ml Syringe) 10 - 40 ml IV UD PRN PRN Reason: SALINE FLUSH Last Admin: 01/22/20 13:05 Dose: 10 ml Documented by: Throat Lozenges (Benzocaine/Menthol 1 Lozenge) 1 lozenge MUCOUS MEM Q2H PRN PRN PRN Reason: SORE THROAT Medical Necessity - Tobacco Use Smoking Status: Former smoker - Patient smoked for 8 years until she was 27-year-old old with social tobacco use, less than 1/2 pack/day. Tobacco Use: Non-smoker Assessment/Plan All Active Problems (Last Reviewed 10/04/19 @ 15:[address] Toan Vazquez MD) COVID-19 virus infection (Acute) Acute respiratory failure with hypoxia (Acute) Viral pneumonia (Acute) Morbid obesity due to excess calories (Acute) Dyspnea on exertion (Acute) History of coronary artery stent placement (Resolved 02/24/17) Complex endometrial hyperplasia with atypia (Resolved) UTI (urinary tract infection) (Resolved) 79-year-old patient admitted with progressive shortness of breath diagnosed with acute hypoxic respiratory failure secondary to COVID-19 pneumonia 1. Acute hypoxic respiratory failure secondary to COVID-19 infection ?Patient completed a course of Decadron, convalescent plasma and remdesivir. Remains on supplemental oxygen requiring 10 L of oxygen to maintain saturation greater than 94. -01/24/2020 Patient seen no significant change in clinical condition. Plan is for patient to be transferred to LTAC pending bed availability. Still requiring high flow oxygen 2. Syncopal episode ?? Orthostasis managed with IV fluid boluses 3. Acute on chronic congestive heart failure with preserved ejection fraction ?Patient did improve with Lasix held in view of hypotension 4. Hypertension - Blood pressure controlled, home medications continued with dose adjustment as needed 5. Obesity with BMI of 40.6 ?Weight loss advised 6. Obstructive sleep apnea ?On CPAP at night 7. Coronary artery disease ?With previous PCI with ROBBI to an LAD lesion in 2017. Patient currently on recommended medications 8. Mild intermittent asthma ?Aerosol treatment as needed 9. Dyslipidemia -Patient is on statin therapy, continued at home dose 10. DVT Prophylaxis ?SC Lovenox Inpatient E&M: 21964 Subs Hosp L2
[2020-01-24] MEDS: Famotidine 20 MG Tablet PO ×2 (09:06→20:23)
[2020-01-24] MEDS: guaiFENesin 1,200 MG Tablet 1200 MG PO ×2 (09:06→20:23)
[2020-01-24] MEDS: Clopidogrel Bisulfate 75 MG Tablet PO (09:06)
[2020-01-24] MEDS: Enoxaparin 40 MG/0.4 ML Syringe SC ×2 (09:06→20:23)
[2020-01-24] MEDS: Aspirin E.C. 81 MG Tablet PO (09:06)
--- NOTE | 2020-01-24 10:56 | CASEMGMT ---
INDRA COUCH Note: Spoke at length with patient's who is requesting name/numbers of LTACH's in [facility]. Review done and call back to who requested: 1. [facility] [address] [place] [phone] PH: FAX: 2. [place] [phone] PH: -Call to Aniya from [facility] who states referral would be done through her for any [facility]. Referral to [facility] faxed to her for review. Aniya Sanz PH: FX: . -Call to patient's room to update her on dc planning. No answer at this time, but the [facility] was also her first choice when INDRA COUCH spoke with her yesterday. Ro VILLAN RN ACM
--- NOTE | 2020-01-24 11:25 | PN_ITS ---
Patient Problems: Active and Suspected Problems (Last Reviewed 10/04/19 @ 15:[address] Toan Vazquez MD) COVID-19 virus infection (Acute) Acute respiratory failure with hypoxia (Acute) Viral pneumonia (Acute) Morbid obesity due to excess calories (Acute) Subjective: The patient was seen and examined at the bedside this morning. Events from the last 24 hours have been reviewed. The patient is currently afebrile, hemodynamically stable and maintaining appropriate oxygen saturations on 10 L/min via nasal cannula. Objective: The patient's most recent lab work, culture data and imaging studies have all been personally reviewed. - Physical Exam Vitals/I&O's: Vital Signs Temp Pulse Resp BP Pulse Ox 98.7 F 85 16 121/60 H 98 01/24/20 08:40 01/24/20 10:05 01/24/20 08:40 01/24/20 08:40 01/24/20 08:40 Oxygen Flow Rate (L/min) 13 Oxygen Delivery Method Nasal Cannula Weight: 228 lb 6.382 oz Body Mass Index (BMI) 40.8 Intake and Output for Last 24 Hours 01/22/20 01/23/20 01/24/20 23:59 23:59 23:59 Intake Total 326.67 / 326.67 100 / 100 Output Total 900 / 900 200 / 200 Balance -573.33 / -573.33 -100 / -100 General: Alert, No apparent distress, - - Morbidly obese. HEENT: Atraumatic, Normocephalic Oral: Moist Mucosa Neck: Supple, No Nodes, Trachea Midline Lungs: Diminished Cardiovascular: Regular rate, Regular Rhythm Abdomen: Bowel Sounds Present, Soft, Non Tender, Obese Extremities: No clubbing, No cyanosis, Edema Skin: No breakdown Musculoskeletal: No Tenderness to Palpation of Joints or Extremities Lymphatic: No Cervical, Supraclavicular, or Inguinal Adenopathy Neurological: Neuro grossly intact Psych/Mental Status: Normal Affect, Appropriate Labs (Last 48 Hours) 01/22/20 15:56 Specimen Type ART Sample Site R Radial pH 7.43 Bicarbonate Actual 30.0 H Total CO2 31 Base Excess 6 H O2 Saturation 95 ABG pCO2 45.4 H ABG pO2 72 L O2 Delivery Device Cannula Liter Flow 15.0 Clinical Impression(s) from Imaging Studies Chest X-Ray 01/12/20 14:30 IMPRESSION: Progressive infiltrates more prominent in the left side preferentially in peripheral distribution. 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 No evidence for pulmonary embolus. Electronically Signed: Cristhian Castro MD at 17:17 EDT , Service support , Current Medications Acetaminophen (Acetaminophen 325 Mg Tablet) 650 mg PO Q6H PRN PRN PRN Reason: Pain Score 1-10/Temp > 100.7 F Al Hydroxide/Mg Hydroxide (Mag Hydrox/Al Hydrox/Simeth 30 Ml Udc) 30 ml PO Q6H PRN PRN PRN Reason: Gastric Burning Albuterol Sulfate (Albuterol 2.5 Mg/3 Ml Vial.Neb.) 2.5 mg INHALATION Q2H PRN PRN PRN Reason: Dyspnea, wheezing Albuterol/Ipratropium (Ipratropium/Albuterol Sulfate 3 Ml Ampul.Neb) 3 ml INHALATION Q4H.RT REPLACED BY [facility] Last Admin: 01/24/20 06:35 Dose: 3 ml Documented by: Aspirin (Aspirin E.C. 81 Mg Tablet) 81 mg PO DAILY REPLACED BY [facility] Last Admin: 01/24/20 09:06 Dose: 81 mg Documented by: Atorvastatin Calcium (Atorvastatin Calcium 40 Mg Tablet) 40 mg PO QHS REPLACED BY [facility] Last Admin: 01/23/20 21:20 Dose: 40 mg Documented by: Clopidogrel Bisulfate (Clopidogrel Bisulfate 75 Mg Tablet) 75 mg PO DAILY REPLACED BY [facility] Last Admin: 01/24/20 09:06 Dose: 75 mg Documented by: Enoxaparin Sodium (Enoxaparin 40 Mg/0.4 Ml Syringe) 40 mg SC BID REPLACED BY [facility] Last Admin: 01/24/20 09:06 Dose: 40 mg Documented by: Famotidine (Famotidine 20 Mg Tablet) 20 mg PO BID REPLACED BY [facility] Last Admin: 01/24/20 09:06 Dose: 20 mg Documented by: Furosemide (Furosemide 20 Mg Tablet) 20 mg PO BID@1000,1800 REPLACED BY [facility] Last Admin: 01/22/20 09:39 Dose: 20 mg Documented by: Guaifenesin (Guaifenesin 1,200 Mg Tablet) 1,200 mg PO BID REPLACED BY [facility] Last Admin: 01/24/20 09:06 Dose: 1,200 mg Documented by: Isosorbide Mononitrate (Isosorbide Mononitrate 30 Mg Tablet) 30 mg PO DAILY REPLACED BY [facility] Last Admin: 01/22/20 09:44 Dose: 30 mg Documented by: Lisinopril (Lisinopril 40 Mg Tablet) 40 mg PO DAILY REPLACED BY [facility] Last Admin: 01/22/20 09:39 Dose: 40 mg Documented by: Loratadine (Loratadine 10 Mg Tablet) 10 mg PO QHS REPLACED BY [facility] Last Admin: 01/23/20 21:20 Dose: 10 mg Documented by: Lorazepam (Lorazepam 0.5 Mg Tablet) 0.5 mg PO DAILY PRN PRN PRN Reason: ANXIETY Last Admin: 01/22/20 20:39 Dose: 0.5 mg Documented by: Melatonin (Melatonin 3 Mg Tablet) 3 mg PO QHS PRN PRN PRN Reason: INSOMNIA Last Admin: 01/19/20 21:46 Dose: 3 mg Documented by: Nitroglycerin (Nitroglycerin (Inpatient Use) 0.4 Mg Tab.Subl) 0.4 mg SUBLINGUAL Q5M PRN PRN Reason: CARDIAC/CHEST PAIN Ondansetron HCl (Ondansetron 4 Mg/2 Ml Vial) 4 mg IV Q8H PRN PRN PRN Reason: NAUSEA/VOMITING Last Admin: 01/21/20 12:09 Dose: 4 mg Documented by: Oxycodone HCl (Oxycodone 5 Mg Tablet) 5 mg PO Q4H PRN PRN PRN Reason: Pain Score 4-5 Prochlorperazine Edisylate (Prochlorperazine 10 Mg/2 Ml Vial) 5 mg IV Q4H PRN PRN PRN Reason: Breakthrough nausea/vomiting Sodium Chloride (0.9% Saline Lock 10 Ml Syringe) 10 - 40 ml IV UD PRN PRN Reason: SALINE FLUSH Last Admin: 01/22/20 13:05 Dose: 10 ml Documented by: Throat Lozenges (Benzocaine/Menthol 1 Lozenge) 1 lozenge MUCOUS MEM Q2H PRN PRN PRN Reason: SORE THROAT Medical Necessity - Tobacco Use Smoking Status: Former smoker - Patient smoked for 8 years until she was 27-year-old old with social tobacco use, less than 1/2 pack/day. Tobacco Use: Non-smoker Assessment/Plan All Active Problems (Last Reviewed 10/04/19 @ 15:[address] Toan Vazquez MD) COVID-19 virus infection (Acute) Acute respiratory failure with hypoxia (Acute) Viral pneumonia (Acute) Morbid obesity due to excess calories (Acute) Dyspnea on exertion (Acute) History of coronary artery stent placement (Resolved 02/24/17) Complex endometrial hyperplasia with atypia (Resolved) UTI (urinary tract infection) (Resolved) RECOMMENDATIONS: 1. Continue steroids and bronchodilators. 2. Continue with Lasix as tolerated. Monitor electrolytes daily. 3. Encourage incentive spirometer use and mobilize patient as tolerated. 4. Start home CPAP with sleep IMPRESSIONS: 1. Acute hypoxic respiratory failure secondary to COVID-19 pneumonia Continue current supportive measures with supplemental oxygen to maintain saturations at or above 90%. The patient is already received convalescent plasma and remdesivir. She remains on scheduled Decadron therapy. The patient does reportedly have underlying asthma, which will complicate overall condition. In addition, she does have an underlying component of heart failure with preserved ejection fraction. Continue gentle diuresis as tolerated by hemodynamics and renal function. 2. Chronic diastolic congestive heart failure/aortic dilation Patient with diastolic dysfunction on recent echocardiogram. We will continue to give diuretics. Aggressive blood pressure control. Patient is already rate controlled. 3. Advanced age/morbid obesity/ANA/hypertension/CAD Complicates care, management, recovery and prognosis. Patient can be transitioned to home CPAP. Blood pressure appears to be well controlled at this time. Stressed to the patient the importance of ambulation and pulmonary recruitment measures to avoid complications. This note was generated with [employer] dictation software. It may contain incorrect words, spelling, and punctuation that were not noted in checking the note before signing. Inpatient E&M: 08018 Subs Hosp L2
--- NOTE | 2020-01-24 12:54 | CASEMGMT ---
RN CM Note: called requesting information for [facility]. Updated that this is [facility] level of care. Call to [facility] and Intake liason stated that they do have a director long term care ventilator unit, but they do not utilize high flow oxygen and do not accept covid patients. Referral will continue with [facility] in [place], [place] Ro PAREKH RN ACM
--- NOTE | 2020-01-24 15:50 | CASEMGMT ---
RN CM Note: Call received from Aniya, Savita and facility is checking patient's MCR days, then they should be able to accept for transfer tomorrow. Aniya updated with name/number for case consultant for tomorrow so plans can be finalized. Call to patient's to update that likely dc tomorrow to [facility] in [place] will take place if patient is medically ready tomorrow for transfer. -Per Aniya, she will need updated notes in am with progress notes, vital signs and labs. -attempted call to patient's room. Pt did not answer call. Ro VILLAN RN ACM
[2020-01-24] MEDS: Acetaminophen 325 MG Tablet 650 MG PO (20:22)
[2020-01-24] MEDS: Loratadine 10 MG Tablet PO (20:23)
[2020-01-24] MEDS: Atorvastatin Calcium 40 MG Tablet PO (20:23)
[2020-01-25] VITALS (12 sets, daily range): BP systolic 124–138; BP diastolic 58–66; PULSE 76–84; RESP 16–28; TEMP 36.8–37.1; O2SAT 13–97
[2020-01-25] MEDS: Ipratropium/Albuterol Sulfate 3 ML AMPUL.NEB INHALATION ×4 (00:30→15:52)
[2020-01-25] MEDS: Acetaminophen 325 MG Tablet 650 MG PO ×2 (02:50→09:53)
--- NOTE | 2020-01-25 07:24 | PCM.PN.HOSP ---
Patient Problems: Active and Suspected Problems (Last Reviewed 10/04/19 @ 15:[address] Toan Vazquez MD) COVID-19 virus infection (Acute) Acute respiratory failure with hypoxia (Acute) Viral pneumonia (Acute) Morbid obesity due to excess calories (Acute) Reason for Visit: Acute COVID-19 pneumonia. Subjective: Still requiring high flow oxygen; LTAC pending Objective: GENERAL: cooperative HEENT: Atraumatic; EYES; Anicteric, Normal Conjunctiva NECK; supple, normal thyroid, RESPIRATORY: Diminished to auscultation CARDIOVASCULAR: Regular S1 S2, GI: soft, normoactive bowel sounds, : No Renal angle tenderness; EXTREMITIES: No edema, no clubbing, MUSCULOSKELETAL: no muscle waisting NEURO: Awake; no lateralizing signs. SKIN: No Rash PSYCH; Flat affect Vitals/I&O's: Vital Signs Temp Pulse Resp BP Pulse Ox 98.4 F 80 20 H 135/66 H 96 01/25/20 03:01 01/25/20 03:01 01/25/20 03:01 01/25/20 03:01 01/25/20 03:01 Oxygen Flow Rate (L/min) 11 Oxygen Delivery Method CPAP Weight: 103.5 kg Body Mass Index (BMI) 40.8 Intake and Output for Last 24 Hours 01/23/20 01/24/20 01/25/20 23:59 23:59 23:59 Intake Total 326.67 / 326.67 100 / 100 120 / 120 Output Total 900 / 900 1500 / 1500 Balance -573.33 / -573.33 -1400 / -1400 120 / 120 Current Medications Acetaminophen (Acetaminophen 325 Mg Tablet) 650 mg PO Q6H PRN PRN PRN Reason: Pain Score 1-10/Temp > 100.7 F Last Admin: 01/25/20 02:50 Dose: 650 mg Documented by: Al Hydroxide/Mg Hydroxide (Mag Hydrox/Al Hydrox/Simeth 30 Ml Udc) 30 ml PO Q6H PRN PRN PRN Reason: Gastric Burning Albuterol Sulfate (Albuterol 2.5 Mg/3 Ml Vial.Neb.) 2.5 mg INHALATION Q2H PRN PRN PRN Reason: Dyspnea, wheezing Albuterol/Ipratropium (Ipratropium/Albuterol Sulfate 3 Ml Ampul.Neb) 3 ml INHALATION Q4H.RT [facility] Last Admin: 01/25/20 00:30 Dose: 3 ml Documented by: Aspirin (Aspirin E.C. 81 Mg Tablet) 81 mg PO DAILY [facility] Last Admin: 01/24/20 09:06 Dose: 81 mg Documented by: Atorvastatin Calcium (Atorvastatin Calcium 40 Mg Tablet) 40 mg PO QHS [facility] Last Admin: 01/24/20 20:23 Dose: 40 mg Documented by: Clopidogrel Bisulfate (Clopidogrel Bisulfate 75 Mg Tablet) 75 mg PO DAILY [facility] Last Admin: 01/24/20 09:06 Dose: 75 mg Documented by: Enoxaparin Sodium (Enoxaparin 40 Mg/0.4 Ml Syringe) 40 mg SC BID [facility] Last Admin: 01/24/20 20:23 Dose: 40 mg Documented by: Famotidine (Famotidine 20 Mg Tablet) 20 mg PO BID [facility] Last Admin: 01/24/20 20:23 Dose: 20 mg Documented by: Furosemide (Furosemide 20 Mg Tablet) 20 mg PO BID@1000,1800 [facility] Last Admin: 01/22/20 09:39 Dose: 20 mg Documented by: Guaifenesin (Guaifenesin 1,200 Mg Tablet) 1,200 mg PO BID [facility] Last Admin: 01/24/20 20:23 Dose: 1,200 mg Documented by: Isosorbide Mononitrate (Isosorbide Mononitrate 30 Mg Tablet) 30 mg PO DAILY [facility] Last Admin: 01/22/20 09:44 Dose: 30 mg Documented by: Lisinopril (Lisinopril 40 Mg Tablet) 40 mg PO DAILY [facility] Last Admin: 01/22/20 09:39 Dose: 40 mg Documented by: Loratadine (Loratadine 10 Mg Tablet) 10 mg PO QHS [facility] Last Admin: 01/24/20 20:23 Dose: 10 mg Documented by: Lorazepam (Lorazepam 0.5 Mg Tablet) 0.5 mg PO DAILY PRN PRN PRN Reason: ANXIETY Last Admin: 01/22/20 20:39 Dose: 0.5 mg Documented by: Melatonin (Melatonin 3 Mg Tablet) 3 mg PO QHS PRN PRN PRN Reason: INSOMNIA Last Admin: 01/19/20 21:46 Dose: 3 mg Documented by: Nitroglycerin (Nitroglycerin (Inpatient Use) 0.4 Mg Tab.Subl) 0.4 mg SUBLINGUAL Q5M PRN PRN Reason: CARDIAC/CHEST PAIN Ondansetron HCl (Ondansetron 4 Mg/2 Ml Vial) 4 mg IV Q8H PRN PRN PRN Reason: NAUSEA/VOMITING Last Admin: 01/21/20 12:09 Dose: 4 mg Documented by: Oxycodone HCl (Oxycodone 5 Mg Tablet) 5 mg PO Q4H PRN PRN PRN Reason: Pain Score 4-5 Prochlorperazine Edisylate (Prochlorperazine 10 Mg/2 Ml Vial) 5 mg IV Q4H PRN PRN PRN Reason: Breakthrough nausea/vomiting Sodium Chloride (0.9% Saline Lock 10 Ml Syringe) 10 - 40 ml IV UD PRN PRN Reason: SALINE FLUSH Last Admin: 01/22/20 13:05 Dose: 10 ml Documented by: Throat Lozenges (Benzocaine/Menthol 1 Lozenge) 1 lozenge MUCOUS MEM Q2H PRN PRN PRN Reason: SORE THROAT Medical Necessity - Tobacco Use Smoking Status: Former smoker - Patient smoked for 8 years until she was 27-year-old old with social tobacco use, less than 1/2 pack/day. Tobacco Use: Non-smoker Assessment/Plan All Active Problems (Last Reviewed 10/04/19 @ 15:[address] Toan Vazquez MD) COVID-19 virus infection (Acute) Acute respiratory failure with hypoxia (Acute) Viral pneumonia (Acute) Morbid obesity due to excess calories (Acute) Dyspnea on exertion (Acute) History of coronary artery stent placement (Resolved 02/24/17) Complex endometrial hyperplasia with atypia (Resolved) UTI (urinary tract infection) (Resolved) 79-year-old patient admitted with progressive shortness of breath diagnosed with acute hypoxic respiratory failure secondary to COVID-19 pneumonia 1. Acute hypoxic respiratory failure secondary to COVID-19 infection ?Patient completed a course of Decadron, convalescent plasma and remdesivir. Remains on supplemental oxygen requiring 10 L of oxygen to maintain saturation greater than 94. -01/24/2020 Patient seen no significant change in clinical condition. Plan is for patient to be transferred to LTAC pending bed availability. Still requiring high flow oxygen - 01/25/2020; Still requiring high flow oxygen; LTAC pending 2. Syncopal episode ?? Orthostasis managed with IV fluid boluses 3. Acute on chronic congestive heart failure with preserved ejection fraction ?Patient did improve with Lasix held in view of hypotension 4. Hypertension - Blood pressure controlled, home medications continued with dose adjustment as needed 5. Obesity with BMI of 40.6 ?Weight loss advised 6. Obstructive sleep apnea ?On CPAP at night 7. Coronary artery disease ?With previous PCI with ROBBI to an LAD lesion in 2017. Patient currently on recommended medications 8. Mild intermittent asthma ?Aerosol treatment as needed 9. Dyslipidemia -Patient is on statin therapy, continued at home dose 10. DVT Prophylaxis ?SC Lovenox Inpatient E&M: 42561 Subs Hosp L2
[2020-01-25 08:54] LABS: Hematocrit 32.3 % (37-47); Hemoglobin 10.4 g/dL (12.0-15.0); Mean Corp Hgb Conc 32.2 g/dL (32-36); Mean Corpuscular Hgb 31.7 pg (27.0-32.0); Mean Corpuscular Volume 98.5 fL (81-99); Mean Platelet Vol. 8.7 fl (6.2-12.0); Platelet Count 374 K/mm3 (150-450); RBC Distribution Width SD 47.1 fl (35.1-43.9); Red Blood Count 3.28 M/mm3 (4.2-5.4); White Blood Count 13.5 K/mm3 (4.4-11.0)
[2020-01-25 09:23] LABS: Anion Gap 5 (5-15); BUN 13 mg/dL (7-18); BUN/Creat Ratio 25.3 RATIO (10-20); Calcium,Total 8.6 mg/dL (8.5-10.1); Chloride 102 mmol/L (98-107); Creatinine, Serum 0.51 mg/dL (0.55-1.02); EST Glomerular Filtration Rate 123 mL/min (>60); Est Glom Filt Rate - Afr Amer 149 mL/min (>60); Estimated Creatinine Clearance 36.67 ml/min; Glucose 101 mg/dL (74-106); Magnesium 2.3 mg/dL (1.6-2.6); Potassium 3.9 mmol/L (3.5-5.1); Sodium Level 134 mmol/L (136-145)
[2020-01-25] MEDS: Aspirin E.C. 81 MG Tablet PO (09:52)
[2020-01-25] MEDS: guaiFENesin 1,200 MG Tablet 1200 MG PO (09:53)
[2020-01-25] MEDS: Enoxaparin 40 MG/0.4 ML Syringe SC (09:53)
[2020-01-25] MEDS: Clopidogrel Bisulfate 75 MG Tablet PO (09:53)
[2020-01-25] MEDS: Famotidine 20 MG Tablet PO (09:53)
--- NOTE | 2020-01-25 13:36 | NURSING ---
Addendum entered and electronically signed by Geraldine Villagran 01/25/20 15:27: DC Summary and Transfer Summary faxed to [facility]. STEPHY Flores Original Note: Addendum entered and electronically signed by Geraldine Villagran 01/25/20 14:10: Clarification: Called Aniya at [facility] and clarified the name of the facility patient is going to. Facility: [facility]. Per nAiya [facility] bought [facility] out but is known as [facility]. STEPHY Flores Original Note: Issue: Patient to DC to [facility] today 01/25/2020 1253- S/w Aniya at [facility] and confirmed received faxed updates, states accepts patient today to room 104. To fax DC orders to # . Accepting MD: Dr Tafoya #[phone]. Main # for family: [phone]. Nurse report: [phone]. Wants transport to be set up for after 1500. Facility address: [address] [place] [address] Arias updated and provided accepting physicians information for warm hand off. Charge nurse Martina updated and will provide primary nurse Ivonne with information to call report as primary nurse currently busy with another patient. Aware Transportation needs set up. This magazine writer attempted to call patient bedside to update patient, however no answer. Called patient Danyel from number on demographics, updated and provided facilities information. States would like to have someone bring patient some belongings before leaving with clean clothes and toiletries, states he is currently on quarantine and aware this magazine writer will inquire with primary nurse regarding this as there is no visitation and patient will remain in a gown while at facility. STEPHY Flores
--- NOTE | 2020-01-25 14:16 | DCINST_ITS ---
- Discharge Diagnoses Current Active Problems: Current Active and Chronic Problems (Last Reviewed 10/04/19 @ 15:[address] Toan Vazquez MD) Asthma (Chronic) COVID-19 virus infection (Acute) Acute respiratory failure with hypoxia (Acute) Viral pneumonia (Acute) Morbid obesity due to excess calories (Acute) Atherosclerotic heart disease of [place] coronary artery without angina pectoris (Chronic) Essential (primary) hypertension (Chronic) Hyperlipidemia (Chronic) You will use the following diet at home:: No restrictions Your food should be the consistency of: Regular Discharge Activity: Return to Normal Activity Allergies/Adverse Reactions: Allergies adhesive tape Allergy (Verified 01/12/20 12:32) Rash Iodinated Contrast Media [CONTRASTS] Allergy (Verified 01/12/20 12:32) Unknown NSAIDS (Non-Steroidal Anti-Inflamma Allergy (Verified 01/12/20 12:32) Unknown Penicillins Allergy (Verified 01/12/20 12:32) Unknown aspirin Adverse Reaction (Severe, Verified 01/12/20 12:32) Wheezing Medications to take at Discharge Lorazepam [Ativan] 0.5 mg PO DAILY PRN PRN 05/11/18 aspirin 81 mg tablet,delayed release 81 mg PO DAILY 06/03/18 Albuterol IH (ProAir) [Proair Hfa] 1 - 2 puff INHALATION Q6H PRN PRN 06/10/18 levocetirizine 5 mg tablet 5 mg PO QHS 10/04/19 Atorvastatin Calcium [Lipitor] 40 mg PO QHS 01/12/20 Benazepril HCl [Lotensin] 40 mg PO DAILY 01/12/20 Clopidogrel Bisulfate [Clopidogrel] 75 mg PO DAILY 01/12/20 Isosorbide Mononitrate [Isosorbide Mononitrate ER] 30 mg PO DAILY 01/12/20 Acetaminophen [Tylenol Tablet] 650 mg PO Q6H PRN PRN tablet 01/25/20 Enoxaparin [Lovenox] 40 mg SC BID syringe 01/25/20 Famotidine [Pepcid] 20 mg PO BID tablet 01/25/20 Furosemide [Lasix] 20 mg PO BID@1000,1800 tablet 01/25/20 Guaifenesin [Mucinex] 1,200 mg PO BID tablet 01/25/20 Ipratropium/Albuterol Sulfate [Duoneb] 3 ml INHALATION Q4H.RT ampul.neb 01/25/20 Mag Hydrox/Al Hydrox/Simeth [Mylanta II] 30 ml PO Q6H PRN PRN udc 01/25/20 Melatonin 3 mg PO QHS PRN PRN tablet 01/25/20 Primary Care Physician: Antonio Joya MD [Primary Care Provider] - Please follow up with your Primary Care Physician in: in 2-4 weeks after Dischar ge Test Results: Test results from this visit will be discussed in further detail at your follow- up appointment, if applicable. Proposed Discharge Date: 01/25/20
--- NOTE | 2020-01-25 14:19 | DS.PCM_ITS ---
Discharge Date and Diagnosis - Problem List Patient Problems: Active and Suspected Problems (Last Reviewed 10/04/19 @ 15:[address] Toan Vazquez MD) COVID-19 virus infection (Acute) Acute respiratory failure with hypoxia (Acute) Viral pneumonia (Acute) Morbid obesity due to excess calories (Acute) Date of Admission: 01/12/20 Date of Discharge: 01/25/20 - Primary Discharge Diagnosis Acute Problems: Active Problems (Last Reviewed 10/04/19 @ 15:[address] Toan Vazquez MD) COVID-19 virus infection (Acute) Acute respiratory failure with hypoxia (Acute) Viral pneumonia (Acute) Morbid obesity due to excess calories (Acute) - Secondary Discharge Diagnosis Chronic Problems: Chronic Problems (Last Reviewed 10/04/19 @ 15:[address] Toan Vazquez MD) Asthma (Chronic) Atherosclerotic heart disease of [place] coronary artery without angina pectoris (Chronic) Essential (primary) hypertension (Chronic) Hyperlipidemia (Chronic) Hospital Course and Treatment Imaging Results: Clinical Impression(s) from Imaging Studies Chest X-Ray 01/12/20 14:30 IMPRESSION: Progressive infiltrates more prominent in the left side preferentially in peripheral distribution. 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 No evidence for pulmonary embolus. Electronically Signed: Cristhian Castro MD at 17:17 EDT , Service support , Summary of Care Provided: T 79-year-old patient admitted with progressive shortness of breath diagnosed with acute hypoxic respiratory failure secondary to COVID-19 pneumonia 1. Acute hypoxic respiratory failure secondary to COVID-19 infection ?Patient completed a course of Decadron, convalescent plasma and remdesivir. Remains on supplemental oxygen requiring 10 L of oxygen to maintain saturation greater than 94. -01/24/2020 Patient seen no significant change in clinical condition. Plan is for patient to be transferred to LTAC pending bed availability. Still requiring high flow oxygen - 01/25/2020; Still requiring high flow oxygen; - Transferred to LTAC 2. Syncopal episode ?? Orthostasis managed with IV fluid boluses 3. Acute on chronic congestive heart failure with preserved ejection fraction ?Patient did improve with Lasix held in view of hypotension 4. Hypertension - Blood pressure controlled, home medications continued with dose adjustment as needed 5. Obesity with BMI of 40.6 ?Weight loss advised 6. Obstructive sleep apnea ?On CPAP at night 7. Coronary artery disease ?With previous PCI with ROBBI to an LAD lesion in 2017. Patient currently on recommended medications 8. Mild intermittent asthma ?Aerosol treatment as needed 9. Dyslipidemia -Patient is on statin therapy, continued at home dose 10. DVT Prophylaxis ?SC Lovenox Patient Problems: Active and Suspected Problems (Last Reviewed 10/04/19 @ 15:[address] Toan Vazquez MD) COVID-19 virus infection (Acute) Acute respiratory failure with hypoxia (Acute) Viral pneumonia (Acute) Morbid obesity due to excess calories (Acute) Objective: GENERAL: cooperative HEENT: Atraumatic; EYES; Anicteric, Normal Conjunctiva NECK; supple, normal thyroid, RESPIRATORY: Diminished to auscultation CARDIOVASCULAR: Regular S1 S2, GI: soft, normoactive bowel sounds, : No Renal angle tenderness; EXTREMITIES: No edema, no clubbing, MUSCULOSKELETAL: no muscle waisting NEURO: Awake; no lateralizing signs. SKIN: No Rash PSYCH; Flat affect - Physical Exam Vitals/I&O's: Vital Signs Temp Pulse Resp BP Pulse Ox 98.5 F 79 17 124/62 H 92 01/25/20 12:18 01/25/20 12:18 01/25/20 12:18 01/25/20 12:18 01/25/20 14:09 Oxygen Flow Rate (L/min) 11 Oxygen Delivery Method Nasal Cannula Weight: 103.5 kg Body Mass Index (BMI) 40.8 Intake and Output for Last 24 Hours 01/23/20 01/24/20 01/25/20 23:59 23:59 23:59 Intake Total 326.67 / 326.67 100 / 100 680 / 680 Output Total 900 / 900 1500 / 1500 450 / 450 Balance -573.33 / -573.33 -1400 / -1400 230 / 230 Laboratory Results 11/04/20 08:44: WBC 13.5 H, RBC 3.28 L, Hgb 10.4 L, Hct 32.3 L, MCV 98.5, MCH 31.7, MCHC 32.2, RDW Std Deviation 47.1 H, RDW Coeff of Humberto 13.0, Plt Count 374, MPV 8.7 01/25/20 08:44: Sodium 134 L, Potassium 3.9, Chloride 102, Carbon Dioxide 27.0, Anion Gap 5, BUN 13, Creatinine 0.51 L, Estim Creat Clear Calc 36.67, Est GFR (MDRD) Af Amer 149, Est GFR (MDRD) Non-Af 123, BUN/Creatinine Ratio 25.3 H, Glucose 101, Calcium 8.6, Magnesium 2.3 Current Medications Acetaminophen (Acetaminophen 325 Mg Tablet) 650 mg PO Q6H PRN PRN PRN Reason: Pain Score 1-10/Temp > 100.7 F Last Admin: 01/25/20 09:53 Dose: 650 mg Documented by: Al Hydroxide/Mg Hydroxide (Mag Hydrox/Al Hydrox/Simeth 30 Ml Udc) 30 ml PO Q6H PRN PRN PRN Reason: Gastric Burning Albuterol Sulfate (Albuterol 2.5 Mg/3 Ml Vial.Neb.) 2.5 mg INHALATION Q2H PRN PRN PRN Reason: Dyspnea, wheezing Albuterol/Ipratropium (Ipratropium/Albuterol Sulfate 3 Ml Ampul.Neb) 3 ml INHALATION Q4H.RT [facility] Last Admin: 01/25/20 10:54 Dose: 3 ml Documented by: Aspirin (Aspirin E.C. 81 Mg Tablet) 81 mg PO DAILY [facility] Last Admin: 01/25/20 09:52 Dose: 81 mg Documented by: Atorvastatin Calcium (Atorvastatin Calcium 40 Mg Tablet) 40 mg PO QHS [facility] Last Admin: 01/24/20 20:23 Dose: 40 mg Documented by: Clopidogrel Bisulfate (Clopidogrel Bisulfate 75 Mg Tablet) 75 mg PO DAILY [facility] Last Admin: 01/25/20 09:53 Dose: 75 mg Documented by: Enoxaparin Sodium (Enoxaparin 40 Mg/0.4 Ml Syringe) 40 mg SC BID [facility] Last Admin: 01/25/20 09:53 Dose: 40 mg Documented by: Famotidine (Famotidine 20 Mg Tablet) 20 mg PO BID [facility] Last Admin: 01/25/20 09:53 Dose: 20 mg Documented by: Furosemide (Furosemide 20 Mg Tablet) 20 mg PO BID@1000,1800 [facility] Last Admin: 01/22/20 09:39 Dose: 20 mg Documented by: Guaifenesin (Guaifenesin 1,200 Mg Tablet) 1,200 mg PO BID [facility] Last Admin: 01/25/20 09:53 Dose: 1,200 mg Documented by: Isosorbide Mononitrate (Isosorbide Mononitrate 30 Mg Tablet) 30 mg PO DAILY [facility] Last Admin: 01/22/20 09:44 Dose: 30 mg Documented by: Lisinopril (Lisinopril 40 Mg Tablet) 40 mg PO DAILY [facility] Last Admin: 01/22/20 09:39 Dose: 40 mg Documented by: Loratadine (Loratadine 10 Mg Tablet) 10 mg PO QHS [facility] Last Admin: 01/24/20 20:23 Dose: 10 mg Documented by: Lorazepam (Lorazepam 0.5 Mg Tablet) 0.5 mg PO DAILY PRN PRN PRN Reason: ANXIETY Last Admin: 01/22/20 20:39 Dose: 0.5 mg Documented by: Melatonin (Melatonin 3 Mg Tablet) 3 mg PO QHS PRN PRN PRN Reason: INSOMNIA Last Admin: 01/19/20 21:46 Dose: 3 mg Documented by: Nitroglycerin (Nitroglycerin (Inpatient Use) 0.4 Mg Tab.Subl) 0.4 mg SUBLINGUAL Q5M PRN PRN Reason: CARDIAC/CHEST PAIN Ondansetron HCl (Ondansetron 4 Mg/2 Ml Vial) 4 mg IV Q8H PRN PRN PRN Reason: NAUSEA/VOMITING Last Admin: 01/21/20 12:09 Dose: 4 mg Documented by: Oxycodone HCl (Oxycodone 5 Mg Tablet) 5 mg PO Q4H PRN PRN PRN Reason: Pain Score 4-5 Prochlorperazine Edisylate (Prochlorperazine 10 Mg/2 Ml Vial) 5 mg IV Q4H PRN PRN PRN Reason: Breakthrough nausea/vomiting Sodium Chloride (0.9% Saline Lock 10 Ml Syringe) 10 - 40 ml IV UD PRN PRN Reason: SALINE FLUSH Last Admin: 01/22/20 13:05 Dose: 10 ml Documented by: Throat Lozenges (Benzocaine/Menthol 1 Lozenge) 1 lozenge MUCOUS MEM Q2H PRN PRN PRN Reason: SORE THROAT Discharge Diet: No Restrictions Discharge Activity: Return to Normal Activity Home Medications: Medications to take at Discharge Lorazepam [Ativan] 0.5 mg PO DAILY PRN PRN 05/11/18 aspirin 81 mg tablet,delayed release 81 mg PO DAILY 06/03/18 Albuterol IH (ProAir) [Proair Hfa] 1 - 2 puff INHALATION Q6H PRN PRN 06/10/18 levocetirizine 5 mg tablet 5 mg PO QHS 10/04/19 Atorvastatin Calcium [Lipitor] 40 mg PO QHS 01/12/20 Benazepril HCl [Lotensin] 40 mg PO DAILY 01/12/20 Clopidogrel Bisulfate [Clopidogrel] 75 mg PO DAILY 01/12/20 Isosorbide Mononitrate [Isosorbide Mononitrate ER] 30 mg PO DAILY 01/12/20 Acetaminophen [Tylenol Tablet] 650 mg PO Q6H PRN PRN tablet 01/25/20 Enoxaparin [Lovenox] 40 mg SC BID syringe 01/25/20 Famotidine [Pepcid] 20 mg PO BID tablet 01/25/20 Furosemide [Lasix] 20 mg PO BID@1000,1800 tablet 01/25/20 Guaifenesin [Mucinex] 1,200 mg PO BID tablet 01/25/20 Ipratropium/Albuterol Sulfate [Duoneb] 3 ml INHALATION Q4H.RT ampul.neb 01/25/20 Mag Hydrox/Al Hydrox/Simeth [Mylanta II] 30 ml PO Q6H PRN PRN udc 01/25/20 Melatonin 3 mg PO QHS PRN PRN tablet 01/25/20 Primary Care Physician: Antonio Joya MD [Primary Care Provider] - Please follow up with your Primary Care Physician in: in 2-4 weeks after Discharge 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 Tobacco Use: Non-smoker Meaningful Use Info Meaningful Use Diagnoses (Choose all that apply): None applicable Inpatient E&M: 58584 Disch Hosp
--- NOTE | 2020-01-25 15:10 | PCM.TXEXTCAR ---
- Diet 01/16/20 10:50 Diet: Regular - General Food consistency:: Regular Liquid Consistency:: Regular/Thin Is pt able to select menu?: Yes - Routine Orders/Code Status [facility] - Therapies Physical Therapy: Eval and Treat Occupational Therapy: Eval and Treat - Allergies/Procedures Done in Hospital Allergies/Adverse Reactions: Allergies adhesive tape Allergy (Verified 01/12/20 12:32) Rash Iodinated Contrast Media [CONTRASTS] Allergy (Verified 01/12/20 12:32) Unknown NSAIDS (Non-Steroidal Anti-Inflamma Allergy (Verified 01/12/20 12:32) Unknown Penicillins Allergy (Verified 01/12/20 12:32) Unknown aspirin Adverse Reaction (Severe, Verified 01/12/20 12:32) Wheezing - Type of Care/Length of Stay Estimated LOS: Convalescent Care Less Than 30 days Type of Care Needed: LTAC Rehab Potential: Good Prognosis: Good - Additional Orders/Day of Discharge Day of Discharge: 01/25/20 - Dietary and Speech Recommendations Dietitian Recommendations/Changes: Will continue ONS w/ meals for increased nutrition if consumed. - Follow Up Care Primary Care Physician: Antonio Joya MD [Primary Care Provider] - Please follow up with your Primary Care Physician in: in 2-4 weeks after Discharge
--- NOTE | 2020-01-25 15:15 | PCM.TXEXTCAR ---
- Diet 01/16/20 10:50 Diet: Regular - General Food consistency:: Regular Liquid Consistency:: Regular/Thin Is pt able to select menu?: Yes - Routine Orders/Code Status O2 Frequency: Continuous Keep PO Greater than or Equal to (%): 92 Code Status: [facility]-A - Therapies Physical Therapy: Eval and Treat Occupational Therapy: Eval and Treat - Allergies/Procedures Done in Hospital Allergies/Adverse Reactions: Allergies adhesive tape Allergy (Verified 01/12/20 12:32) Rash Iodinated Contrast Media [CONTRASTS] Allergy (Verified 01/12/20 12:32) Unknown NSAIDS (Non-Steroidal Anti-Inflamma Allergy (Verified 01/12/20 12:32) Unknown Penicillins Allergy (Verified 01/12/20 12:32) Unknown aspirin Adverse Reaction (Severe, Verified 01/12/20 12:32) Wheezing - Type of Care/Length of Stay Estimated LOS: Convalescent Care Less Than 30 days Type of Care Needed: LTAC Rehab Potential: Good Prognosis: Good - Additional Orders/Day of Discharge Day of Discharge: 01/25/20 - Dietary and Speech Recommendations Dietitian Recommendations/Changes: Will continue ONS w/ meals for increased nutrition if consumed. - Follow Up Care Primary Care Physician: Antonio Joya MD [Primary Care Provider] - Please follow up with your Primary Care Physician in: in 2-4 weeks after Discharge
--- NOTE | 2020-01-25 17:09 | NURSING ---
Report called to INDRA Boogie at [facility]. Per Chuyita's request, this RN contacted our RT department for them to call and speak with the RT at the facility.
== END 2020-01-25 16:13 | DRG 177 ==
LOC: ED 16:57 → MS2 17:47
PROVIDERS: Internal Medicine; Internal Medicine Critical Care Medicine; Internal Medicine Infectious Disease; Admitting Provider Family Medicine; Emergency Provider Emergency Medicine; PCP Family Medicine; Visit Provider Internal Medicine
DX: U07.1 COVID-19 (principal); J12.89 Other viral pneumonia; J96.01 Acute respiratory failure with hypoxia; I50.33 Acute on chronic diastolic (congestive) heart failure; Z68.41 Body mass index [BMI] 40.0-44.9, adult; R04.2 Hemoptysis; E87.3 Alkalosis; I11.0 Hypertensive heart disease with heart failure; J45.20 Mild intermittent asthma, uncomplicated; E86.0 Dehydration; I95.9 Hypotension, unspecified; R55 Syncope and collapse; I77.819 Aortic ectasia, unspecified site; R19.5 Other fecal abnormalities; I25.10 Atherosclerotic heart disease of native coronary artery without angina pectoris; E78.5 Hyperlipidemia, unspecified; M79.7 Fibromyalgia; G47.33 Obstructive sleep apnea (adult) (pediatric); E66.01 Morbid (severe) obesity due to excess calories; Z23 Encounter for immunization; Z79.82 Long term (current) use of aspirin; Z79.02 Long term (current) use of antithrombotics/antiplatelets; Z79.899 Other long term (current) drug therapy; Z95.5 Presence of coronary angioplasty implant and graft; Z87.891 Personal history of nicotine dependence
CPT/HCPCS: 36415; 36600; 71045; 71275; 80048; 80053; 82274; 82728; 82803; 83605; 83615; 83735; 83880; 84100; 84145; 84484; 85025; 85027; 85379; 86140; 86900; 86901; 87070; 87205; 87449; 93005; 94002; 94003; 94640; 94660; 97110; 97116; 97162; 97166; 97530; 99251; 99285; G0008; J7030; J7040; J7050; Q9967; 90686; A4216; G0463; J1940; J2405